=== PATIENT | female | born 1940 | race Caucasian/White ===

== ENCOUNTER 2020-12-01 09:30 | Outpatient (RCR) | payer MEDICARE, SELFPAY ==
[2020-08-04 08:54] VITALS: BP 122/74; PULSE 69; RESP 16; TEMP 36.4; O2SAT 96
--- NOTE | 2020-08-15 09:51 | PCCPR ---
Absent today, not feeling well.
== END 2020-12-01 23:59 | disposition home or self-care (01) ==
LOC: ANHCPREHAB 09:30
PROVIDERS: PCP Internal Medicine
DX: J44.9 Chronic obstructive pulmonary disease, unspecified (principal)
CPT/HCPCS: 97150; G0424

== ENCOUNTER 2020-12-05 09:46 | Outpatient (RCR) | payer MEDICARE, SELFPAY ==
[2020-12-03 00:04] VITALS: BP 122/74; PULSE 69; RESP 16; TEMP 36.4; O2SAT 96
== END 2020-12-05 16:30 | disposition home or self-care (01) ==
LOC: ANHCPREHAB 09:46
PROVIDERS: PCP Internal Medicine
DX: J44.9 Chronic obstructive pulmonary disease, unspecified (principal)
CPT/HCPCS: 97150; G0424

== ENCOUNTER 2020-12-18 08:22 | Outpatient (CLI) | payer MEDICARE, SELFPAY ==
--- NOTE | 2020-12-18 15:11 | WPDSIXMINUTE ---
Six Minute Walk Procedure Procedure Performed Pulmonary Stress Test (6 min walk) Six Minute Walk This is a 6 minute walk test. The test was performed and interpreted in accordance with the 2014 ERS/ATS task force guidelines. Findings: The patient's resting room air oxygen saturation measured by pulse oximetry was 94% and her heart rate was 56 bpm. Patient ambulated for 366 meters and oxygen saturation remained 90 to 94%. Heart rate at the end of the study was 75 bpm. The patient did not qualify for supplemental oxygen at rest or with ambulation. There are no prior studies for comparison.
== END 2020-12-18 08:23 | disposition home or self-care (01) ==
PROVIDERS: PCP Internal Medicine
DX: J44.9 Chronic obstructive pulmonary disease, unspecified (principal)
CPT/HCPCS: 94375; 94618; 94726; 94729

== ENCOUNTER → 2021-03-14 13:07 | Outpatient (CLI) | payer MEDICARE, SELFPAY ==
--- NOTE | ~2021-03-14 | DEXA_ITS ---
Bone Density Report Name: JOVON MENDOZA Age: 81 Sex: Female Ethnicity: White Date of : 1940 Indication: postmenopausal; screening for osteoporosis; prior fracture; Referring Provider: Nathanael, Nicolas Romero Study: Bone densitometry was performed. Exam Date: March 14, 2021 Accession number: [id number] Bone Density: Region BMD T-score Z-score Classification AP Spine (L1-L4) 1.043 0.0 2.6 Normal Femoral Neck (Left) 0.787 -0.6 1.7 Normal Total Hip (Left) 1.001 0.5 2.5 Normal Femoral Neck (Right) 0.817 -0.3 2.0 Normal Total Hip (Right) 1.013 0.6 2.6 Normal Total Hip Mean 1.007 0.6 2.6 Normal World Health Organization criteria for BMD impression classify patients as: Normal (T-score at or above -1.0), Osteopenia (T-score between -1.0 and -2.5), or Osteoporosis (T-score at or below -2.5). 10-year Fracture Risk: FRAX not reported because: All T-scores for Spine Total, Hip Total, Femoral Neck at or above -1.0 Previous Exams: Region Exam Age BMD T-score BMD Change BMD Change Date g/cm2 vs Baseline vs Previous AP Spine(L1-L4) 03/14/2021 81 1.043 0.0 0.086 0.086 01/25/2004 63 0.957 -0.8 Total Hip(Left) 03/14/2021 81 1.001 0.5 -0.005 -0.005 01/25/2004 63 1.005 0.5 Total Hip(Right) 03/14/2021 81 1.013 0.6 -0.006 -0.006 01/25/2004 63 1.019 0.6 *Denotes significance at 95% confidence level, LSC for AP Spine = 0.022 g/cm2, LSC for Total Hip = 0.027 g/cm2 Clinical Information Provided by Patient: Has had a low trauma fracture Patient maximum height was 65.5 Menopause Age: 54 No regular weight bearing exercise Does not regularly consume dairy products Drinks caffeinated beverages Onset of menses at age 11 Number of children 0 Impression: The patient has normal bone mass. The patient has risk factors, including: previous fracture. No significant bone loss was observed. Discussion: BONE DENSITY IS ABOVE THE MINIMUM DESIRABLE LEVEL AT ALL SKELETAL SITES TESTED. This patient?s bone mineral density is above the minimum desirable level (T-score -1.0 or better) at all sites measured. The patient should follow a healthful lifestyle (good nutrition with adequate calcium and vitamin D, and appropriate weight-bearing exercise). Follow-Up: Consider repeating this study in 5 years or sooner if there is some new clinical indication. Reported by: GEOFFREY on 03/14/2021 1:26:0
== END ==
PROVIDERS: PCP Internal Medicine; Visit Provider Internal Medicine
DX: Z78.0 Asymptomatic menopausal state (principal)
CPT/HCPCS: 77080

== ENCOUNTER 2021-09-11 11:20 | Outpatient (CLI) | payer MEDICARE, SELFPAY ==
--- NOTE | ~2021-09-11 | US_ITS ---
EXAMINATION: US venous doppler LE RT DATE: 09/11/2021 12:09 INDICATION: Right lower limb pain. TECHNIQUE: Grayscale ultrasound images without and with compression and Doppler ultrasound images of the right lower extremity veins were obtained. COMPARISON: None. FINDINGS: The visualized portions of right common femoral vein, profunda (deep) femoral vein, femoral vein, pop liteal vein, peroneal veins, posterior tibial veins, and greater saphenous vein outflow are patent. T here is a 2.5 x 0.5 x 1.2 cm fluid collection lateral to the knee. IMPRESSION: 1. No deep venous thrombosis. 2. Small fluid collection lateral to the knee that may be bursitis. Reviewed, dictated and finalized at location A.
== END 2021-09-11 11:21 | disposition home or self-care (01) ==
PROVIDERS: PCP Internal Medicine; Visit Provider Nurse Practitioner
DX: M79.89 Other specified soft tissue disorders (principal); M25.561 Pain in right knee
CPT/HCPCS: 93971

== ENCOUNTER 2024-05-12 21:21 | Emergency (ER) | payer MEDICARE, SELFPAY ==
[2024-05-12 21:22] VITALS: BP 192/86; PULSE 85; RESP 20; TEMP 36.4; O2SAT 96
[2024-05-12 21:29] VITALS: BP 192/86; PULSE 84; RESP 19; TEMP 36.4; O2SAT 95
--- NOTE | 2024-05-12 21:29 | ECG_ITS ---
Test Date: 2024-05-12 21:32:36 Measurements Intervals Holman Rate: 97 P: -87 IA: 179 QRS: -39 QRSD: 86 T: 130 QT: 298 QTc: 380 Interpretive Statements ECTOPIC ATRIAL RHYTHM WITH FREQUENT VENTRICULAR PREMATURE COMPLEXES WITH OCCASIONAL SUPRAVENTRICULAR PREMATURE COMPLEXES MARKED LEFT AXIS DEVIATION [QRS AXIS < -30] LEFT VENTRICULAR HYPERTROPHY AND ST-T CHANGE [VOLTAGE CRITERIA PLUS ST/T ABNORMALITY] No previous ECG available for comparison Electronically Signed On 05-13-2024 14:05:10 CDT by Malachi Griffiths M.D.
--- OUTSIDE RECORDS SUMMARY | 2024-05-12 22:34 | XMS_ITS | CONTINUITY OF CARE DOCUMENT ---
Author Name nina, nina Address Unknown Organization [facility] Address [address] [place] [address] Phone [phone] Care Team Providers Care Glass Finisher Name Role Phone Wil Wilson MD Unavailable [phone] LAKESHIA HOGAN MD Unavailable PROBLEMS Condition Status Date Provider Notes Abnormal electrocardiogram active Ashia maravilla Paroxysmal atrial fibrillation active Idania Rios MD HTN active Farhana Rios MD back pain active Farhana Rios MD Carotid bruit active Farhana Rios MD ENCOUNTERS Date Type Provider Location Encounter Diag nosis - In-person encounter Office Visit Farhana Rios MD [facility] Paroxysmal atrial fibrillationHTNback painCarotid bruit VITAL SIGNS Date Observation Value Provider blood pressure, diastolic 79 mm[Hg] Me meg Kwong blood pressure, systolic 201 mm[Hg] Nohemi Kwong pulse rate 62 /min Janessa Kwong oxygen saturation, oximetry 98 % Janessa Kwong respiratory rate E&M 16 /min Janessa Kwong Body Mass Index (Ratio) 35.36 kg/m2 Nina Kwong weight E&M 206 [lb_av] Janessa Varghese height E&M 64 [in_i] Janessa Varghese ALLERGIES No Known Drug Allergies HISTORY OF MEDICATION USE Medication Status Instructions Dates Provider Indications Com ments ALEVE 220 MG ORAL TABLET active as directed as needed Janessa Kwong PROAIR HFA 108 (90 Base) MCG/ACT INHALATION AEROSOL SOLUTION active 2 puffs every 4-6 hours Janessa Kwong ASPIRIN 325 MG ORAL TABLET active ONE TAB. DAILY Janessa Kwong QUINAPRIL HCL 40 MG ORAL TABLET active twice daily Janessa Kwong METOPROLOL TARTRATE 50 MG ORAL TABLET active one tab. twice daily Janessa Kwong CARTIA XT 120 MG ORAL CAPSULE EXTENDED RELEASE 24 HOUR active once daily Janessa Kwong SOCIAL HISTORY Date Observation Value Provider smoking status Former smoker Farhana rai MD social history E&M S moking History: Vanda arnett is a former smoker. Farhana Rios MD social history reviewed E&M revi ewed - no changes required Farhana Rios MD smoking, year quit 2011 Janessa Levy cCann FAMILY HISTORY Family Member Condition Mother Negative FH of Coron jaswinder Artery Disease INSURANCE PROVIDERS Payer name Policy type / Coverage type [place] red libertarian ID [employer] MEDICARE ADVANTAGE [facility] ([facility]) Medicare [id number] TREATMENT PLAN Date Name Performer Cardiology:She is awaiting a car otid doppler. Farhana Rios MD Cardiology:Following surgery. Rene Rios MD Cardiology:Her BP to day was elevated, she is on mutliple medications for BP control, and her BP will be monitored and doses will be adjusted. Farhana Rios MD Cardiology:No recurr ence of symptoms or of palpitations and remains in sinus rhythm. She is on metoprolol 50 mg twice daily and cartia xl 120 mg once daily. She is not on anticoagulation. She continues on aspirin once daily. Her CHADS score is 2. If there is recurrence she will be on chcf anticoagulation. She is planned to have surgery and her recent stress test shows normal perfusion. She can undergo surgery at an acceptable risk. Farhana Rios MD HISTORY OF PROCEDURES Procedure Date Procedure Name Provider Procedure Notes S tatus EKG Farhana Rios MD complet ed SNOMED-CT: [id number] Current Medications Documented Farhana Rios MD completed Stress EKG Farhana Rios MD complet ed Regadenoson, 4 units Farhana Rios MD completed Cardiolite, 2 units Farhana Rios MD completed SPECT Images Farhana Rios MD compl eted Event Monitor Farhana Rios MD comp leted
[2024-05-12 22:36] LABS: Basophils Absolute Auto 0.1 K/mm3 (0.0-0.1); Basophils Percent Auto 0.6 % (0.2-1.2); Eosinophils Absolute Auto 0.2 K/mm3 (0-0.3); Eosinophils Percent Auto 1.6 % (0-4.4); Hematocrit 40.9 % (37.0-47.0); Hemoglobin 13.5 g/dL (12.0-15.0); Immature Granulocyte Absolute 0.06 K/mm3 (0.00-0.031); Immature Granulocyte Percent A 0.5 % (0-0.5); Lymphocytes Percent Auto 14.9 % (18.3-44.2); Mean Corpuscular Hemoglobin 29.6 pg (26-34); Mean Corpuscular Volume 89.7 fl (80-100); Mean Platelet Volume 9.4 fl (7.4-10.4); Monocytes Percent Auto 7.8 % (2.6-8.5); Neutrophils Absolute Auto 9.5 K/mm3 (1.3-6.7); Neutrophils Percent Auto 74.6 % (45.5-73.1); Platelet Count Result 306 k/mm3 (150-375); Red Blood Count 4.56 M/mm3 (4.2-5.4); Red Cell Distribution Width 13.6 % (11.5-14.5); White Blood Count 12.7 K/mm3 (4.5-10.0)
[2024-05-12 22:48] LABS: Alanine Aminotransferase 18 U/L (6-35); Alkaline Phosphatase 173 U/L (38-126); Anion Gap 11 mmol/L (4-12); Aspartate Amino Transferase 27 U/L (14-36); Bilirubin,Total 0.3 mg/dL (0.2-1.3); Blood Urea Nitrogen 25 mg/dL (7-17); Calcium 9.1 mg/dL (8.4-10.2); Carbon Dioxide 27 mmol/L (22-30); Chloride 98 mmol/L (98-107); Estimated CRCL calculation 39 ml/min; Estimated Glomerular Filt Rate 51; Glucose 118 mg/dL (65-110); Magnesium 1.6 mg/dL (1.6-2.3); Potassium 3.8 mmol/L (3.4-5.0); Sodium 136 mmol/L (137-145)
[2024-05-12] MEDS: MECLIZINE HCL 25 MG TABLET PO (23:18)
[2024-05-12] MEDS: ONDANSETRON INJ 4 MG/2 ML VIAL IV PUSH (23:18)
[2024-05-12 23:22] VITALS: BP 184/67; PULSE 104; RESP 20; O2SAT 95
--- NOTE | 2024-05-12 23:55 | ED_ITS ---
HPI - Dizziness General Chief Complaint: Dizziness Stated Complaint: DIZZINESS, WORSE WITH MOVEMENT Time Seen by Provider: 05/12/24 21:58 History of Present Illness HPI Narrative: Patient is an 84-year-old female who presents the emergency department this evening complaining of dizziness which is worse with movement. Patient states that if she does not move she does not have any dizziness but the moment she gets up, started walking or moving her head she feels the dizziness. Denies any history of vertigo as far as she is aware. Is currently denying any lightheadedness, near syncopal episodes, chest pain, shortness of breath, nausea vomiting or abdominal pain. No additional symptoms or concerns at this time. Related Data Home Medications ?Medication ?Instructions ?Recorded ?Confirmed ?Last Taken ?Type aspirin 325 mg tablet 325 mg PO DAILY 12/14/19 11/20/21 08/04/20 History 325 chlorthalidone 25 mg tablet 25 mg PO DAILY 12/14/19 11/20/21 08/04/20 History 25 diltiazem HCl 120 mg 120 mg PO DAILY 12/14/19 11/20/21 08/04/20 History capsule,extended release 24 hr 120 (Cartia XT) hydralazine 50 mg tablet 50 mg PO BID 12/14/19 11/20/21 08/04/20 History lisinopril 40 mg tablet 40 mg PO DAILY 12/14/19 11/20/21 08/04/20 History 40 metoprolol tartrate 100 mg tablet 100 mg PO Q12H 12/14/19 11/20/21 08/04/20 History 100 acetaminophen 500 mg tablet 500 mg PO Q6H PRN 10/10/21 11/20/21 Unknown History (Tylenol Extra Strength) calcium carbonate (Calcium 600) 600 mg PO DAILY 11/20/21 11/20/21 Unknown History diphenhydramine 25 1 tablet PO QHS PRN 11/20/21 11/20/21 Unknown History mg-acetaminophen 500 mg tablet (Tylenol PM Extra Strength) Allergies Allergy/AdvReac Type Severity Reaction Status Date / Time oxycodone Allergy Mild condusion, Verified 11/20/21 09:31 difficulty concentrating amoxicillin AdvReac Intermediate Diarrhea Verified 11/20/21 09:31 prednisone AdvReac Mild Confusion Verified 11/20/21 09:31 Review of Systems 2 Review of Systems: All systems are reviewed and are negative unless stated otherwise in the HPI. [facility] Past Medical History Medical History Afib IBS (irritable bowel syndrome) Hypertension COPD (chronic obstructive pulmonary disease) Family History Family History Father Stomach cancer Mother Osteoporosis Social History Social History Smoking packs per day: 0.5 Smoking cigarettes per day: 10.0 Smoking status: Former smoker Tobacco type: cigarettes Smoking end date: 03/03/11 Alcohol intake: never Substance use: never Living arrangements: alone Exam 2 Narrative: General: Alert, awake, afebrile, in no acute distress. HEENT: PERRL, no rhinorrhea, no post nasal drip, oropharynx clear, no nystagmus. Neck: Trachea midline, no JVD, no lymphadenopathy. Cardiovascular: Regular rate and rhythm, no murmurs, rubs or gallops, no peripheral edema. Respiratory: Clear to auscultation bilaterally, no tachypnea, no wheezing, no rhonchi, no rubs, no respiratory distress. Abdomen: Soft, nontender, nondistended, no rebound, no guarding, no peritoneal signs. Musculoskeletal: No joint swelling or deformity, normal muscle tone. Skin: No rashes or petechia, no signs of infection. Psychiatric: Alert and oriented, normal behavior and judgment for situation. Neurological: Alert and oriented to person, place, and time. Follows all commands. No focal deficits, speech is clear and fluent. Course Vital Signs Vital signs: Vital Signs Temperature 97.6 F 05/12/24 21:22 Pulse Rate 85 05/12/24 21:22 Respiratory Rate 20 05/12/24 21:22 Blood Pressure 192/86 H 05/12/24 21:22 Pulse Oximetry 96 05/12/24 21:22 Oxygen Delivery Room Air 05/12/24 21:22 Temperature 97.6 F 05/12/24 21:29 Pulse Rate 104 H 05/12/24 23:22 Respiratory Rate 20 05/12/24 23:22 Blood Pressure 184/67 H 05/12/24 23:22 Pulse Oximetry 95 05/12/24 23:22 Oxygen Delivery Room Air 05/12/24 21:22 MDM - Dizziness MDM Narrative Medical decision making narrative: The patient was evaluated by myself in the emergency department. History is obtained from patient who is an independent historian and physical exam was performed. External medical records were reviewed at this time. IV was established and pertinent tests were ordered. Patient was administered 4 mg IV Zofran for nausea and 25 mg of oral meclizine for vertigo. EKG was obtained which revealed ectopic atrial rhythm rate of 97 beats per minute, no evidence of acute ischemia. EKG was independently interpreted by me and is currently pending official cardiology read. Laboratory results obtained revealing no acute process. Differential diagnosis considerations include benign positional vertigo, posterior stroke, dehydration, orthostatic hypotension. Comorbidities impacting this visit include none. I have evaluated and discussed social determinants of health with the patient that could potentially impact subsequent diagnosis and treatment plans. On repeat assessment of the patient, reevaluation revealed that the patient is doing well and is in no acute distress. Patient symptoms have improved since she arrived to our emergency department. Repeat vital signs were all reviewed and noted to be stable. Differential diagnosis and treatment plan were discussed with the patient at bedside. Patient agrees with discussion and after shared medical decision making agrees with discharge. All questions were answered to the patient's satisfaction. Patient will follow up with her PCP in 3-5 days. Script for meclizine was sent to patient's pharmacy to use as needed for vertigo, script for Zofran was also sent to patient's pharmacy to use as needed for nausea. Patient was provided with an ENT physician to follow up with if her symptoms return. Patient was provided with strict return precautions and instructed to return to the emergency department if any new or worsening symptoms develop. The patient was discharged in stable condition. Lab Data 05/12/24 22:24 05/12/24 22:24 Labs: Lab Results 05/12/24 Range/Units 22:24 WBC 12.7 H (4.5-10.0) K/mm3 RBC 4.56 (4.2-5.4) M/mm3 Hgb 13.5 (12.0-15.0) g/dL Hct 40.9 (37.0-47.0) % MCV 89.7 (80-100) fl MCH 29.6 (26-34) pg MCHC 33.0 (32-36) g/dl RDW 13.6 (11.5-14.5) % Plt Count 306 (150-375) k/mm3 MPV 9.4 (7.4-10.4) fl Immature Gran % (Auto) 0.5 (0-0.5) % Neut % (Auto) 74.6 H (45.5-73.1) % Lymph % (Auto) 14.9 L (18.3-44.2) % Mckenzie % (Auto) 7.8 (2.6-8.5) % Eos % (Auto) 1.6 (0-4.4) % Baso % (Auto) 0.6 (0.2-1.2) % Lymph # (Auto) 1.90 (0.9-3.2) K/mm3 Mckenzie # (Auto) 1.0 H (0.1-0.6) K/mm3 Eos # (Auto) 0.2 (0-0.3) K/mm3 Baso # (Auto) 0.1 (0.0-0.1) K/mm3 Abs Immat Gran (auto) 0.06 H (0.00-0.031) K/mm3 Absolute Neuts (auto) 9.5 H (1.3-6.7) K/mm3 Absolute Nucleated RBC 0.000 (0.0-0.012) K/mm3 Nucleated RBC % 0.0 (0.0-0.2) % Sodium 136 L (137-145) mmol/L Potassium 3.8 (3.4-5.0) mmol/L Chloride 98 (98-107) mmol/L Carbon Dioxide 27 (22-30) mmol/L Anion Gap 11 (4-12) mmol/L BUN 25 H (7-17) mg/dL Creatinine 1.04 H (0.7-1.0) mg/dL Estim Creat Clear Calc 39 ml/min Estimated GFR 51 L (59 - ) Glucose 118 H (65-110) mg/dL Calcium 9.1 (8.4-10.2) mg/dL Magnesium 1.6 (1.6-2.3) mg/dL Total Bilirubin 0.3 (0.2-1.3) mg/dL AST 27 (14-36) U/L ALT 18 (6-35) U/L Alkaline Phosphatase 173 H (38-126) U/L Total Protein 7.0 (6.3-8.2) g/dL Albumin 4.0 (3.5-5.1) g/dL Discharge Plan Discharge Clinical Impression: Benign paroxysmal positional vertigo Patient Disposition: Home, Self-Care Condition: Improved Instructions: Antibiotic Form, Benign Paroxysmal Positional Vertigo (ED) Additional Instructions: Please follow-up with your family doctor within the next 3-5 days. Return to the emergency department if any new or worsening symptoms develop. Use the meclizine that was prescribed to you today as needed for vertigo. You also provided with an ENT physician and instructed to this set up a follow-up appointment if your symptoms returned. Patient Language: Uzbek Prescriptions: New meclizine 25 mg tablet 25 mg PO BID PRN (Reason: dizziness) Qty: 14 0RF ondansetron 4 mg tablet,disintegrating 4 mg PO Q8H PRN (Reason: nausea and vomiting) Qty: 10 0RF No Action acetaminophen [Tylenol Extra Strength] 500 mg tablet 500 mg PO Q6H PRN calcium carbonate [Calcium 600] 600 mg calcium (1,500 mg) tablet 600 mg PO DAILY diphenhydramine-acetaminophen [Tylenol PM Extra Strength] 25-500 mg tablet 1 tablet PO QHS PRN hydralazine 50 mg tablet 50 mg PO BID metoprolol tartrate 100 mg tablet 100 mg PO Q12H lisinopril 40 mg tablet 40 mg PO DAILY diltiazem HCl [Cartia XT] 120 mg capsule,extended release 24hr 120 mg PO DAILY chlorthalidone 25 mg tablet 25 mg PO DAILY aspirin 325 mg tablet 325 mg PO DAILY Follow-up/Referrals: Santhosh Linton MD [Physician] - 3 Days Nathanael,Nicolas Romero MD [Primary Care Provider] - 3 Days Time of Disposition: 00:36
== END 2024-05-13 01:15 | disposition home or self-care (01) ==
PROVIDERS: Emergency Provider Emergency Medicine; PCP Internal Medicine
DX: H81.10 Benign paroxysmal vertigo, unspecified ear (principal); I48.91 Unspecified atrial fibrillation; I10 Essential (primary) hypertension; J44.9 Chronic obstructive pulmonary disease, unspecified; K58.9 Irritable bowel syndrome, unspecified; Z87.891 Personal history of nicotine dependence; Z79.82 Long term (current) use of aspirin; Z79.899 Other long term (current) drug therapy; I49.3 Ventricular premature depolarization; I49.1 Atrial premature depolarization; I51.7 Cardiomegaly
CPT/HCPCS: 36415; 80053; 83735; 85025; 93005; 96374; 99284; A9270; J2405

== ENCOUNTER 2024-06-09 09:48 | Emergency (ER) | payer MEDICARE, SELFPAY ==
[2024-06-09] VITALS (7 sets, daily range): BP systolic 139–190; BP diastolic 62–93; PULSE 72–100; RESP 17–21; TEMP 36.4; O2SAT 96–99
--- NOTE | ~2024-06-09 | CT_ITS ---
CLINICAL INDICATION: Shortness of breath with abdominal tenderness COMPARISON: None. TECHNIQUE: An enhanced CT of the chest, abdomen and pelvis was performed utilizing multislice spiral technique reconstructed at 5 mm slice thickness. Coronal and sagittal reconstructions were performed . This CT examination was performed utilizing dose reduction techniques. DLP: 1457 mGy-cm FINDINGS/OBSERVATIONS: Lung: The lungs are clear. The heart is enlarged, without pericardial effusion. Mediastinum: Scattered nonpathologically enlarged or morphologically suspicious lymph nodes are identified within the mediastinum. Lymph nodes of indeterminate morphology (although not pathologically enlarged) are detected within th e left axilla, a nonspecific finding. Soft tissues of the chest: Unremarkable. Bones of the chest: No acute fracture. No lytic or blastic lesions are identified. Liver: The liver enhances homogeneously and is not enlarged. Gallbladder and biliary system: The gallbladder is distended, but otherwise unremarkable. Pancreas: The pancreas enhances homogeneously, without ductal dilatation. Spleen: The spleen enhances homogeneously and is not enlarged. Kidneys: Multiple rounded foci of fluid attenuation are identified within the bilateral kidneys, righ t greater than left. These likely represent cysts for which ultrasound may be performed for confirmation. Prominence of the right renal collecting system without hydroureter, likely secondary to chronic UPJ obstruction. The remainder of the bilateral kidneys otherwise enhance symmetrically without dana hydronephrosis o r renal calculi. Adrenal glands: Unremarkable. Gastrointestinal tract: Small hiatal hernia is present. Colonic diverticulosis without surrounding inflammatory change. Appendix: The air-filled appendix is of normal caliber (axial series, images 167 through 189). Vasculature: Densely calcified atherosclerotic disease is present. No significant aneurysmal dilatation. Lymph nodes: Scattered nonpathologically enlarged lymph nodes within the root of the mesentery and deep in the pel vis. Within the retroperitoneum, medial to the right common iliac artery bifurcation is a well-circumscrib ed focus of fluid attenuation measuring 25 x 23 x 31 mm. This possibly represents a mesenteric cyst v ersus a high right ovary, not likely to be clinically significant. Pelvic structures: The bladder is distended and otherwise unremarkable. The uterus is anteverted and anteflexed. Bulky calcifications are present suggesting prior fibroid disease. Body wall and musculoskeletal: Small fat-containing umbilical hernia. Age-appropriate degenerative disease within the lumbar spine. IMPRESSION: Gallbladder distention. The lungs are clear. Findings suggesting chronic right UPJ obstruction. Diverticulosis without surrounding inflammatory change. Reviewed, dictated and finalized at location A.
--- NOTE | ~2024-06-09 | XR_ITS ---
CHEST RADIOGRAPH, PA AND LATERAL CLINICAL HISTORY: shortness of breath . COMPARISON: None available TECHNIQUE: PA and lateral views of the chest. FINDINGS The left mid lung is partially obscured due to pacemaker generator. Wires project over the right atrium and right ventricle. The remainder of the cardiomediastinal silhouette is otherwise unremarkable. The lungs are otherwise clear. IMPRESSION: No focal infiltrate or effusion. Reviewed, dictated and finalized at location A.
--- NOTE | 2024-06-09 10:10 | ECG_ITS ---
Test Date: 2024-06-09 11:03:16 Measurements Intervals Superior Rate: 81 P: 0 IL: 0 QRS: -35 QRSD: 98 T: 152 QT: 362 QTc: 422 Interpretive Statements ELECTRONIC VENTRICULAR PACEMAKER WITH INHIBITION UNDERLYING ATRIAL FIBRILLATION LEFT AXIS DEVIATION LEFT VENTRICULAR HYPERTROPHY WITH ST-T CHANGE ST-T WAVE ABNORMALITY IN ANTEROLATERAL LEADS- CONSIDER ISCHEMIA BASELINE ARTIFACT- I, II, III, AVR, AVL, AVF, V1-V3 ABNORMAL ECG Compared to ECG 05/12/2024 21:32:36 ST-T WAVE ABNORMALITY NOW PRESENT POSSIBLE ISCHEMIA NOW PRESENT Electronically Signed On 06-09-2024 11:12:50 CDT by Osmar Yost D.O.
--- NOTE | 2024-06-09 10:12 | ED_ITS ---
HPI - SOB/Dyspnea General Chief Complaint: Shortness of Breath/Dyspnea Stated Complaint: sent from [facility] - SOB/UTI Time Seen by Provider: 06/09/24 10:00 History of Present Illness HPI Narrative: Patient is an 84-year-old female who presents to the ER with complaints of shortness of breath for the past week and half. She reports that she had vertigo approximately a month ago but her symptoms resolved. Patient also endorses exhaustion for the past week and a half. She endorses a history of AFib, hypertension, COPD, arthritis, pacemaker. Patient denies any CVA tenderness, recent fevers, chest pain, headache. Related Data Home Medications ?Medication ?Instructions ?Recorded ?Confirmed ?Last Taken ?Type aspirin 325 mg tablet 325 mg PO DAILY 12/14/19 11/20/21 08/04/20 History 325 chlorthalidone 25 mg tablet 25 mg PO DAILY 12/14/19 11/20/21 08/04/20 History 25 diltiazem HCl 120 mg 120 mg PO DAILY 12/14/19 11/20/21 08/04/20 History capsule,extended release 24 hr 120 (Cartia XT) hydralazine 50 mg tablet 50 mg PO BID 12/14/19 11/20/21 08/04/20 History lisinopril 40 mg tablet 40 mg PO DAILY 12/14/19 11/20/21 08/04/20 History 40 metoprolol tartrate 100 mg tablet 100 mg PO Q12H 12/14/19 11/20/21 08/04/20 History 100 acetaminophen 500 mg tablet 500 mg PO Q6H PRN 10/10/21 11/20/21 Unknown History (Tylenol Extra Strength) calcium carbonate (Calcium 600) 600 mg PO DAILY 11/20/21 11/20/21 Unknown History diphenhydramine 25 1 tablet PO QHS PRN 11/20/21 11/20/21 Unknown History mg-acetaminophen 500 mg tablet (Tylenol PM Extra Strength) Allergies Allergy/AdvReac Type Severity Reaction Status Date / Time oxycodone Allergy Mild condusion, Verified 11/20/21 09:31 difficulty concentrating amoxicillin AdvReac Intermediate Diarrhea Verified 11/20/21 09:31 prednisone AdvReac Mild Confusion Verified 11/20/21 09:31 2 Chest X-Ray 06/09/24 Review of Systems 2 Review of Systems: All systems reviewed & are unremarkable except as noted in HPI and below PMFSH Past Medical History Medical History Afib IBS (irritable bowel syndrome) Hypertension COPD (chronic obstructive pulmonary disease) Family History Family History Father Stomach cancer Mother Osteoporosis Social History Social History Smoking packs per day: 0.5 Smoking cigarettes per day: 10.0 Smoking status: Former smoker Tobacco type: cigarettes Smoking end date: 03/03/11 Alcohol intake: never Substance use: never Living arrangements: alone Exam 2 Narrative: GENERAL: Well appearing, well-nourished, non-toxic, in no acute distress. HEAD: Normocephalic, atraumatic. NECK: Supple. No adenopathy, no masses. RESPIRATORY: Airway patent, respirations nonlabored. Clear to auscultation bilaterally, no rales, rhonchi, wheezing. CARDIOVASCULAR: Regular rate and rhythm without murmurs, rubs, or gallops. Peripheral pulses 2+ and equal bilaterally.Mild bilateral edema. ABDOMINAL: Soft, RUQ tender with palpation, nondistended, no hepatosplenomegaly. Normoactive BS. MUSCULOSKELETAL: Moves all extremities. Strength/ROM intact without gross deformities. SKIN: Warm, dry, normal color. No rashes. NEURO: A&O X3. Speech clear. Cranial nerves II-XII intact. No ataxic movements. PSYCHIATRIC: Appropriate mood and affect. Normal interaction. Course Vital Signs Vital signs: Vital Signs Temperature 36.4 C 06/09/24 09:58 Pulse Rate 100 06/09/24 09:58 Respiratory Rate 18 06/09/24 09:58 Blood Pressure 171/89 H 06/09/24 09:58 Pulse Oximetry 98 06/09/24 09:58 Oxygen Delivery Room Air 06/09/24 09:58 Temperature 36.4 C 06/09/24 09:58 Pulse Rate 100 06/09/24 09:58 Respiratory Rate 18 06/09/24 09:58 Blood Pressure 171/89 H 06/09/24 09:58 Pulse Oximetry 99 06/09/24 09:58 Oxygen Delivery Room Air 06/09/24 09:58 MDM - SOB/Dyspnea MDM Narrative Medical decision making narrative: Patient is an 84-year-old female who presents to the ER with complaints of shortness of breath for the past week and half. She reports that she had vertigo approximately a month ago but her symptoms resolved. Patient also endorses exhaustion for the past week and a half. She endorses a history of AFib, hypertension, COPD, arthritis, pacemaker. Patient denies any CVA tenderness, recent fevers, chest pain, headache. Labs Ordered: CBC, CMP, proBNP, UA, INR, PTT, D-dimer, troponin Imaging Ordered: CT chest abdomen pelvis Medications Ordered: Bactrim p.o., Lasix 40 mg IV Results: Patient's CT scan indicates Gallbladder distention. The lungs are clear. Findings suggesting chronic right UPJ obstruction. Diverticulosis without surrounding inflammatory change. Diagnosis: Congestive heart failure exacerbation, urinary tract infection Patient Education/Shared MDM: Results of CT scan and lab work shared with patient. She endorses improvement following Lasix administration. Patient strongly advised to contact her PCP as soon as possible to see if he would like to make any medication changes. She will be discharged home with no new prescriptions, as her PCP already called in a prescription for Bactrim. Strict return precautions provided. Patient verbalized understanding is in agreement with plan. Vital signs stable at time of discharge. All questions answered. Differential Diagnosis Differential diagnosis: Likely acute exacerbation of chronic obstructive airways disease, congestive heart failure and community acquired pneumonia Lab Data Attestation: I reviewed the patient's lab results. 06/09/24 11:00 06/09/24 11:36 Labs: Lab Results 06/09/24 06/09/24 06/09/24 Range/Units 11:00 11:36 12:25 WBC 12.2 H (4.5-10.0) K/mm3 RBC 4.99 (4.2-5.4) M/mm3 Hgb 14.6 (12.0-15.0) g/dL Hct 44.1 (37.0-47.0) % MCV 88.4 (80-100) fl MCH 29.3 (26-34) pg MCHC 33.1 (32-36) g/dl RDW 13.6 (11.5-14.5) % Plt Count 367 (150-375) k/mm3 MPV 9.7 (7.4-10.4) fl Immature Gran % (Auto) 0.5 (0-0.5) % Neut % (Auto) 70.5 (45.5-73.1) % Lymph % (Auto) 18.6 (18.3-44.2) % [place] % (Auto) 8.2 (2.6-8.5) % Eos % (Auto) 1.5 (0-4.4) % Baso % (Auto) 0.7 (0.2-1.2) % Lymph # (Auto) 2.26 (0.9-3.2) K/mm3 [place] # (Auto) 1.0 H (0.1-0.6) K/mm3 Eos # (Auto) 0.2 (0-0.3) K/mm3 Baso # (Auto) 0.1 (0.0-0.1) K/mm3 Abs Immat Gran (auto) 0.06 H (0.00-0.031) K/mm3 Absolute Neuts (auto) 8.6 H (1.3-6.7) K/mm3 Absolute Nucleated RBC 0.000 (0.0-0.012) K/mm3 Nucleated RBC % 0.0 (0.0-0.2) % PT 18.5 H (11.1-14.7) Seconds INR 1.5 APTT 37.6 H (22.3-36.8) Seconds D-Dimer 0.41 (<0.48) ug/mL Sodium 139 (137-145) mmol/L Potassium 3.7 (3.4-5.0) mmol/L Chloride 100 (98-107) mmol/L Carbon Dioxide 28 (22-30) mmol/L Anion Gap 11 (4-12) mmol/L BUN 30 H (7-17) mg/dL Creatinine 1.05 H (0.7-1.0) mg/dL Estim Creat Clear Calc 40 ml/min Estimated GFR 50 L (59 - ) Glucose 113 H (65-110) mg/dL Calcium 9.9 (8.4-10.2) mg/dL Total Bilirubin 0.7 (0.2-1.3) mg/dL AST 34 (14-36) U/L ALT 20 (6-35) U/L Alkaline Phosphatase 124 (38-126) U/L NT-Pro-B Natriuret Pep 2000 H (19.9-100) pg/mL Total Protein 8.0 (6.3-8.2) g/dL Albumin 4.2 (3.5-5.1) g/dL Urine Color Yellow (Yellow) Urine Appearance Cloudy H (Clear) Urine pH 7.0 (5.0-9.0) Ur Specific [place] 1.011 (1.001-1.035) Urine Protein 1+ H (Negative) mg/dL Urine Glucose (UA) Negative (Negative) mg/dL Urine Ketones Negative (Negative) mg/dL Ur Blood (Man) Negative (Negative) Urine Nitrate Positive H (Negative) Urine Bilirubin Negative (Negative) Urine Urobilinogen 0.2 (<2.0) mg/dL Leukocyte Esterase Rfl Negative (Negative) ELEN/UL Urine RBC 3-5 H (0-2) /hpf Urine WBC 0-5 (0-3) /hpf Ur Squamous Epith Cells None seen (Few) /hpf Urine Bacteria 4+ /hpf Urine Casts 0-2 Imaging Data Attestation: I personally reviewed and interpreted this imaging study as follows: Radiologist's impression: Impressions Chest X-Ray 06/09/24 11:25 IMPRESSION: No focal infiltrate or effusion. Chest/Abdomen/Pelvis CT 06/09/24 12:58 IMPRESSION: Gallbladder distention. The lungs are clear. Findings suggesting chronic right UPJ obstruction. Diverticulosis without surrounding inflammatory change. Discharge Plan Discharge Clinical Impression: Urinary tract infection, Acute exacerbation of CHF (congestive heart failure), Congestive heart failure Patient Disposition: Home Condition: Stable Instructions: Antibiotic Form, Heart Failure (ED) Additional Instructions: Please return to the ER with any worsening symptoms. Follow-up with primary care provider as soon as possible regarding medication adjustments. Take all medications as prescribed, including regularly scheduled medications. Patient Language: Andorran Prescriptions: No Action acetaminophen [Tylenol Extra Strength] 500 mg tablet 500 mg PO Q6H PRN calcium carbonate [Calcium 600] 600 mg calcium (1,500 mg) tablet 600 mg PO DAILY diphenhydramine-acetaminophen [Tylenol PM Extra Strength] 25-500 mg tablet 1 tablet PO QHS PRN hydralazine 50 mg tablet 50 mg PO BID metoprolol tartrate 100 mg tablet 100 mg PO Q12H lisinopril 40 mg tablet 40 mg PO DAILY diltiazem HCl [Cartia XT] 120 mg capsule,extended release 24hr 120 mg PO DAILY chlorthalidone 25 mg tablet 25 mg PO DAILY aspirin 325 mg tablet 325 mg PO DAILY meclizine 25 mg tablet 25 mg PO BID PRN (Reason: dizziness) Qty: 14 0RF ondansetron 4 mg tablet,disintegrating 4 mg PO Q8H PRN (Reason: nausea and vomiting) Qty: 10 0RF Follow-up/Referrals: Nathanael,Nicolas Romero MD [Primary Care Provider] - Time of Disposition: 14:47
--- OUTSIDE RECORDS SUMMARY | 2024-06-09 10:58 | XMS_ITS | Clinical Summary ---
Author Organization [facility] Address [address] [place] [address] Care Team Providers Care Fill Technician Name Role Phone Nicolas Huffman MD Primary Care Provider [phone] Allergies Active Allergy Reactions Criticality Noted Date Comments Amoxicillin Diarrhea Low 06/14/2022 Oxycodone Mental status changes,Hallucinations High 11/25/2019 Prednisone Mental status changes,Hallucinations High 11/25/2019 Medications aspirin 325 mgIndications:Myoc ardial Reinfarction Prevention,prevent ion of thrombosis Take 1 tablet (325 mg total) by mouth production aide before breakfast qd Active albuterol HFA (PROVENTIL HFA,VENTOLIN HFA,PROAIR HFA) 90 mcg/actuation inhaler Inhale 1 puff every 4 (four) hours as needed for wheezing or shortness of breath Active psyllium, aspartame, SF (METAMUCIL SF) 3.4 gram packet Take 1 packet by mouth as needed Active acetaminophen (TYLENOL) 325 mg tabletIndications: Pain Take 2 tablets (650 mg total) by mouth every 4 (four) hours as needed for pain 06/13/19 24 Active Additional Information Patient not taking.Reported on 06/09/2024 hydrALAZINE (APRESOLINE) 50 mg tablet TAKE 1 TABLET BY MOUTH THREE TIMES DAILY 270 tablet 2 06/29/19 24 Active metoprolol (LOPRESSOR) 100 mg tablet TAKE 1 TABLET BY MOUTH TWICE DAILY 180 tablet 3 08/18/19 24 Active apixaban (Eliquis) 5 mg tablet TAKE 1 TABLET(5 MG) BY MOUTH TWICE DAILY 180 tablet 2 08/24/19 24 Active Tiadylt ER 180 mg 24 hr capsule Take 1 capsule (180 mg total) by mouth daily 90 capsule 3 01/15/20 24 Active potassium chloride ER 10 mEq CR capsule Take by mouth daily 02/18/20 24 Active furosemide (LASIX) 20 mg tablet Take 1 tablet (20 mg total) by mouth daily 02/18/20 24 Active ALPRAZolam (XANAX) 0.25 mg tablet TAKE 1 TABLET(0.25 MG) BY MOUTH THREE TIMES DAILY NEEDED FOR ANXIETY 30 tablet 1 03/24/19 25 Active chlorthalidone (HYGROTON) 25 mg tablet TAKE 1 TABLET(25 MG) BY MOUTH DAILY 90 tablet 2 04/21/19 25 Active diltiaZEM (CARDIZEM) 120 mg tablet Take 1 tablet (120 mg total) by mouth 4 (four) times a day Active sulfamethoxazole-t rimethoprim (BACTRIM DS) 800-160 mg per tablet Take 1 tablet by mouth 2 (two) times a day for 7 days 14 tablet 06/10/19 25 025 Active ondansetron ODT (ZOFRAN-ODT) 4 mg disintegrating tablet Take 1 tablet (4 mg total) by mouth every 8 (eight) hours as needed 05/14/19 25 025 Discontin ued(Thera py completed ) meclizine (ANTIVERT) 25 mg tablet Take 1 tablet (25 mg total) by mouth 2 (two) times a day 05/14/19 25 025 Discontin ued(Thera py completed ) Active Problems Problem Noted Date Diagnosed Date Chronic right shoulder pain 05/21/2024 Assessment & Plan (05/21/2024 11:08 AM CDT): Check x-ray. Non-ST elevation (NSTEMI) myocardial infarction 01/14/2024 Assessment & Plan (01/14/2024 11:58 AM CUTTER ALUMINUM SHEET): Long discussion today lasting more than 30 minutes concerning this. Will look for the present we will leave medication alone at this time. Will refer to cardiology here at [facility]. Will try to obtain her pacer data from Dr. Mcgee. I feel this may very well have been a type 2 myocardial infarction based on pneumonia which was diagnosed in the emergency room Cervicalgia 01/14/2024 Assessment & Plan (01/14/2024 11:57 AM CUTTER ALUMINUM SHEET): Check C-spine x-rays. A-fib 06/12/2023 Assessment & Plan (01/14/2024 11:58 AM CUTTER ALUMINUM SHEET): Per Dr. Mcgee Assessment & Plan (06/12/2023 3:24 PM CDT): Hx afib with RVR. Eliquis on hold since 06/08 for procedure. Monitors demonstrated burden of atrial arrhythmias recently. Heart rate range on last monitor 32 to 148, average of 81. 17% bradycardia. Resumed metoprolol per EP Eliquis on hold, plan to resume 72 hours post procedure per note (06/14 PM) Sinus pause 06/04/2023 S/P placement of cardiac pacemaker 06/04/2023 Assessment & Plan (06/13/2023 1:58 PM CDT): Pacemaker placement yesterday. Hx syncope, sinus arrest. Monitored overnight in 3500 OBS. CXR with no ptx, proper lead placement. Interrogation reviewed by EP. No apixaban for 72 hours. Discussed with pt. Verbalized understanding. Also discussed activity restrictions, monitoring, and reasons to call MD Follow up EP Pre-syncope 12/08/2022 Palpitations 12/08/2022 Near syncope 12/06/2022 Sinus bradycardia 12/06/2022 Near syncope 12/06/2022 Longstanding persistent atrial fibrillation 06/01 Assessment & Plan (05/21/2024 11:08 AM CDT): Followed by cardiology. Remains on atrial fibrillation. Assessment & Plan (06/10/2022 12:11 PM CDT): EKG demonstrated Afib today CHADS 2-VASC score 4, will initiate Eliquis 5mg BID (use, s/e, safety reviewed) ECHO 48 hour holter Cardiology referral Continue metoprolol Hypertensive urgency 03/09/2020 Assessment & Plan (05/21/2024 11:08 AM CDT): BP at target today. Assessment & Plan (06/13/2023 1:53 PM CDT): Blood pressure elevated to 220/86 post procedure. Missed AM meds today for procedure --Resume home hydralazine 50 TID, lisinopril 40, metoprolol 100 BID. Now BP improved Dyspnea on exertion Assessment & Plan (02/20/2024 9:35 AM CUTTER ALUMINUM SHEET): I feel this is most likely secondary to COPD. Possibly mild right heart strain. Will give furosemide and check BMP in 2 weeks. Most recent echo showed normal LV function. Moderate COPD (chronic obstr uctive pulmonary disease) ([facility]) Assessment & Plan (05/21/2024 11:08 AM CDT): Stable. Assessment & Plan (01/14/2024 11:57 AM CUTTER ALUMINUM SHEET): Stable at this time Resolved Problems Problem Noted Date Diagnosed Date Resolved Date History of surgical procedure 11/18/2016 06/10/2022 Left shoulder pain 12/04/2015 3 Encounters Date Type Department Care Team Description 06/09/2024 9:00 AM CDT Office Visit [facility] at [address] [address] Kaylen Mendoza PA Shortness of breath (Primary Dx) 06/09/2024 Orders Only [facility] [address] [place] [address] [address] [place] [address] Nicolas Huffman MD 05/25/2024 Results Follow-Up [facility] [address] [facility] [place] [address] Nicolas Huffman MD Osteoarthritis of right shoulder, unspecified osteoarthritis type (Primary Dx) 05/21/2024 11:19 AM CDT - 05/21/2024 11:59 PM CDT Hospital Encounter [facility] [address] [place] [address] Nicolas Huffman MD Chronic right shoulder pain Discharge Disposition: Discharge to home or self care 05/21/2024 10:15 AM CDT Office Visit [facility] [address] [facility] [address] [place] [address] Nicolas Huffman MD Longstanding persistent atrial fibrillation (HCC) (Primary Dx); Hypertensive urgency; Moderate COPD (chronic obstructive pulmonary disease) (CMS/HCC) (HCC); Chronic right shoulder pain 04/19/2024 Orders Only [facility] [address] [place] [address] Medical Office [address] [place] [address] Fabby Mcgee MD from Last 3 Months Immunizations Immunization Administration Dates Next Due Influenza, Quad, Adjuvantated, Intramuscular 08/2021,12/27/2020 Influenza, Quadrivalent, Hig h Dose, Preservative Free, Intrr 12/10/2022 Influenza, Trivalent, High D ose, Split, Preservative Free, Intramuscular 12/02/2023 Influenza, Unspecified 11/02/2023,12/10/2022 Moderna SARS-CoV-2 Monovalent Vaccination (12+ Y RS) 05/09/2020,04/11/2020 Pneumococcal Conjugate Pcv20 10/10/2022 RSV, Bivalent, Protein Subun it Rsvpref, Diluent (Abrysvo) 01/06/2023 ZOSTER Recombinant 12/02/2023,10/10/2022 Surgical History Surgery Date Site/Laterality Comments COLONOSCOPY 10/07/2012 TOTAL SHOULDER REPLACEMENT 11/02/2015 - 12/01/2015 DENTAL SURGERY OTHER SURGICAL HISTORY 12/01/2022 - 12/31/2022 IMPLANTABLE CARDIAC EVENT MONITOR Medical History Medical History Date Comments High blood pressure Anxiety Coronary artery disease Family History Medical History Relation Name Comments Stomach cancer Father Osteoporosis Mother Anesthesia problems Neg Hx Relation Name Status Comments Father Mother Social History Tobacco Use Types Packs/Day Years Used Date Smoking Tobacco: Former Cigarettes Q uit: 2010 Smokeless Tobacco: Never Tobacco Cessation:Counseling Given: Not Answered Alcohol Use Standard Drinks/Week Comments Not Currently 0 (1 standard drink = 0.6 oz pur e alcohol) AUDIT-C Answer Date Recorded Q1: How often do you have a drink containing alcohol? Never 06/12/2023 Q2: How many drinks containi ng alcohol do you have on a typical day when you are drinking? Patient does not drink Q3: How often do you have si x or more drinks on one occasion? Never 06/12/2023 Personal Safety Answer Date Recorded Have you ever been in or are you currently in a harmful physical or emotional relationship or is someone making you feel afraid or unsafe? Denies 06/12/2023 Comments No Sex and Gender Information Value Date Recorded Sex Assigned at Not on file Legal Sex Female 11:21 AM CUTTER ALUMINUM SHEET Gender Identity Female 11/24/2020 8:03 AM CDT Sexual Orientation Straight 11/24/2020 8: 03 AM CDT Obstetrics History Last Filed Vital Signs Vital Sign Reading Time Taken Comments Blood Pressure 122/60 06/09/2024 8:47 AM CDT Pulse 79 06/09/2024 8:47 AM CDT Temperature 36.1 C (96.9 F) 06/09/2024 8:47 AM CDT Respiratory Rate 24 06/09/2024 8:47 AM CDT Oxygen Saturation 97% 06/09/2024 8:47 AM CDT Inhaled Oxygen Concentration - - Weight 89.6 kg (197 lb 8 oz) 06/09/2024 8:47 AM CDT Height 162.6 cm (5' 4 ) 05/21/2024 10:25 AM CDT Body Mass Index 33.9 05/21/2024 10:25 AM CDT Plan of Treatment Health Maintenance Due Date Last Done Comments Depression Screening 1942 DTaP/Tdap/Td Vaccine (1 - Tdap) 1953 Hepatitis B Screening 02/05/1960 Well Visit 65+ 2007 Osteoporosis Screening-Bone Density Scan 03/15/2023 Covid-19 Vaccine (2023-2 5 season) 2024 12/02/2023, 12/10/2022, 12/06/2021, Additional history exists Fall Risk Assessment 06/12/2024 06/13/2023 Pneumococcal vaccine 65+ Completed 10/10/2022 Influenza Vaccine Completed 12/02/2023, , 12/10/2022, Additional history exists Zoster Vaccine Completed 12/02/2023, 10/10/2022 Medical Devices Implanted Type Area Telemarketer Supervisor Device Identifier Shelf Expiration Date Model / Serial / Lot [employer] Suzi Monitor Cardiac Insertable Leadless Lux Dx 4.0x7.2x44.8m m M301 - [id number] - [id number] Implanted:Qty : 1 on 12/12/2022 by Fabby Mcgee MD at [facility] Implantable Loop Recorder [employer] Suzi 10/01/2023 M301 / [id number] / [id number] [employer] Suzi Active Fixation Steroid Eluting Is 1 Connector Latex Free Sterile Right Atrial Right Atrial Ingevity Plus 59cm 7842 - [id number] - [id number] Implanted:Qty : 1 on 06/12/2023 by Fabby Mcgee MD at [facility] Lead Right: Ventricle [employer] Suzi 06/29/2024 7842 / [id number] / [employer] Su[employer] Fineline Ii Sterox Ez 1.7mm 52cm Bipolar Active Fixation Screw 4470 - [id number] - [id number] Implanted:Qty : 1 on 06/12/2023 by Fabby Mcgee MD at [facility] Lead Right: Atria [employer] Suzi 12/02/2024 4470 / [id number] / [employer] C.[employer].M. Accolade Latitude Nxt Pacesafe Easyview 4.45x5.02cm 2 Chamber Is1 L311 - [id number] - [id number] Implanted:Qty : 1 on 06/12/2023 by Fabby Mcgee MD at [facility] Pacemaker Left: Chest Wall [employer] C.R.M. 04/24/2025 L311 / [id number] / Procedures Procedure Name Priority Date/Time Associated Diagnosis Comments XR SHOULDER RIGHT 2 OR MORE VIEWS Schedule Routine, Read Routine (OP Routine) 05/21/2024 11:41 AM CDT Chronic right shoulder pain SCAN - LABS 05/13/2024 8:48 AM CDT DEVICE CHECK - REMOTE Routine 04/19/2024 3:35 AM CUTTER ALUMINUM SHEET from Last 3 Months Results * XR Shoulder Right 2 or More Views (05/21/2024 11:41 AM CDT) Anatomical Region Laterality Modality Upper Extremities, Shoulder Right Comp uted Radiography 05/21/2024 1:18 PM CDT Impressions 05/21/2024 1:18 PM CDT 1. Severe right glenohumeral osteoarthritis with vqao-tm-ueze contact and intra-articular loose bodies. 2. Moderate right acromioclavicular joint osteoarthritis. Electronically signed by: Curtis Abarca M.D. Narrative 05/21/2024 1:18 PM CDT EXAMINATION: XR SHOULDER RIGHT 2 OR MORE VIEWS HISTORY: pain, no injury, decreased ROM FINDINGS: 3 view examination of the right shoulder is read without comparison. There is severe right glenohumeral osteoarthritis with slbv-[id number] contact. There is a 1 cm ossific loose body in the axillary pouch. There is moderate acromial clavicular joint osteoarthritis. No fracture or dislocation. Alignment is normal. Partially imaged cardiac pacemaker. Procedure Note Curtis Cabral MD - 05/21/2024 EXAMINATION: XR SHOULDER RIGHT 2 OR MORE VIEWS HISTORY: pain, no injury, decreased ROM FINDINGS: 3 view examination of the right shoulder is read without comparison. There is severe right glenohumeral osteoarthritis with drkg-gl-uubk contact. There is a 1 cm ossific loose body in the axillary pouch. There is moderate acromial clavicular joint osteoarthritis. No fracture or dislocation. Alignment is normal. Partially imaged cardiac pacemaker. IMPRESSION: 1. Severe right glenohumeral osteoarthritis with cuck-ld-gpne contact and intra-articular loose bodies. 2. Moderate right acromioclavicular joint osteoarthritis. Electronically signed by: Curtis Abarca M.D. Nicolas Huffman MD IMG XR PROCEDURES Final Resul t * SCAN - LABS (05/13/2024 8:48 AM CDT) Nicolas Huffman MD Final Result * DEVICE CHECK - REMOTE (04/19/2024 3:35 AM CUTTER ALUMINUM SHEET) Anatomical Region Laterality Modality Other 04/19/2024 3:35 AM CUTTER ALUMINUM SHEET Narrative 04/22/2024 11:46 AM CUTTER ALUMINUM SHEET Interpretation Summary: Battery and Leads (BL) Normal parameters noted on battery and lead(s) --- 6 years remaining (this is an estimate based on prior usage) Presenting Rhythm (NM) Atrial Fibrillation or Flutter Ventricular Pacing (MANAGER PHOTO) --- rate 70's Arrhythmic events (AE) Paroxysmal atrial fibrillation and/or flutter Atrial fibrillation and/or flutter with controlled ventricular rate Anticoagulation (AC) Patient on anticoagulant therapy Patient prescribed Apixaban (Eliquis) Transmission Information (TI) Device Summary Report Procedure Note Fabby Mcgee MD - 04/22/2024 Interpretation Summary: Battery and Leads (BL) Normal parameters noted on battery and lead(s) --- 6 years remaining(this is an estimate based on prior usage) Presenting Rhythm (NM) Atrial Fibrillation or Flutter Ventricular Pacing (MANAGER PHOTO) --- rate 70's Arrhythmic events (AE) Paroxysmal atrial fibrillation and/or flutter Atrial fibrillation and/or flutter with controlled ventricular rate Anticoagulation (AC) Patient on anticoagulant therapy Patient prescribed Apixaban (Eliquis) Transmission Information (TI) Device Summary Report Fabby Mcgee MD [facility] PROCEDURES Final Result from Last 3 Months Insurance [facility] MEDICARE ADVANTAGE [place] [id number] [facility] [address] MEDICARE ADVANTAGE [facility] [address] MEDICARE ADVANTAGE Advance Directives For more information, please contact: [phone] Documents on File Type Date Recorded Patient Freight Conductor Expl anation Power of Application Systems Administrator 06/12/2023 5:53 AM ADVANCE DIRECTIVE 12/17/2022 2:43 AM PARVIN R OF ANALYSIS ENGINEER-MEDICAL Power of Application Systems Administrator 12/12/2022 10:10 AM * Full Code (Latest Code Status on File) Date Activated Date Inactivated Comments 06/12/2023 10:30 AM 06/13/2023 3:29 PM * Full Code Date Activated Date Inactivated Comments 12/12/2022 1:31 PM 12/12/2022 7:26 PM Care Teams Fill Technician Relationship Specialty Start Date End Date Nicolas Huffman MD [address] [address] PCP - General 05/22/16
--- OUTSIDE RECORDS SUMMARY | 2024-06-09 10:58 | XMS_ITS | Encounter Summary ---
Author Organization [facility] Healthcare Address [address] [place] [address] Care Team Providers Care Optical Mechanic Name Role Phone Nicolas Huffman MD Primary Care Provider [phone] Reason for Visit * Reason Comments Shortness of Breath SOB and fatigue 1-2 weeks. 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 JOINER Gender Identity Female 11/24/2020 8:03 AM CDT Sexual Orientation Straight 11/24/2020 8: 03 AM CDT documented as of this encounter Last Filed Vital Signs Vital Sign Reading Time Taken Comments Blood Pressure 122/60 06/09/2024 8:47 AM CDT Pulse 79 06/09/2024 8:47 AM CDT Temperature 36.1 C (96.9 F) 06/09/2024 8:47 AM CDT Respiratory Rate 24 06/09/2024 8:47 AM CDT Oxygen Saturation 97% 06/09/2024 8:47 AM CDT Inhaled Oxygen Concentration - - Weight 89.6 kg (197 lb 8 oz) 06/09/2024 8:47 AM CDT Height - - Body Mass Index 33.9 05/21/2024 10:25 AM CDT documented in this encounter Progress Notes * Kaylen Mendoza PA - 06/09/2024 9:00 AM CDT Images from the original note were not included. re Subjective/Objective Patient ID: Stephanie Brewer is a 84 y.o. female. Chief Complaint Shortness of Breath (SOB and fatigue 1-2 weeks. Reports she has on and off congestion and cough ) Pt presents w/ TARANGO x 1 week. States she is having difficulty walking short distances as it makes her out of breath. Reports fatigue, nasal congestion, ear fullness, cough, wheezing x 1.5 weeks. No fever. No chest pain. No orthopnea. Admits to chronic LE edema, no changes recently. Admits to urinary symptoms x 1 week. Urine is discolored, urgency. Took azo cranberry w/ short term relief. Messaged pcp last night who sent out Bactrim this morning, has not started it. Hx of copd but not on any medications for it. Review of Systems All systems reviewed and are negative or non contributory for this patient's presentation today other than as stated in the HPI . Physical Exam Constitutional: General: She is not in acute distress. Appearance: She is not ill-appearing or toxic-appearing. HENT: Head: Normocephalic and atraumatic. Right Ear: External ear normal. Left Ear: External ear normal. Nose: Nose normal. Mouth/Throat: Mouth: Mucous membranes are moist. Pharynx: Oropharynx is clear. Eyes: Conjunctiva/sclera: Conjunctivae normal. Pupils: Pupils are equal, round, and reactive to light. Cardiovascular: Rate and Rhythm: Normal rate. Rhythm irregular. Heart sounds: Normal heart sounds. Pulmonary: Effort: Pulmonary effort is normal. No respiratory distress. Breath sounds: Normal breath sounds. No wheezing or rhonchi. Musculoskeletal: General: Normal range of motion. Cervical back: Normal range of motion. Skin: General: Skin is warm and dry. Neurological: General: No focal deficit present. Mental Status: She is alert and oriented to person, place, and time. Psychiatric: Mood and Affect: Mood normal. Behavior: Behavior normal. Vitals: 06/09/24 0847 BP: 122/60 Pulse: 79 Resp: 24 Temp: 36.1 ??C (96.9 ??F) SpO2: 97% Weight: 89.6 kg (197 lb 8 oz) Assessment/Plan -84 yo w/ hx of pacemaker, afib, NSTEMI, COPD presents w/ worsening TARANGO x 1 week -admits to very minimal URI symptoms, no fever, no wheezing on exam, lungs cta oxygen 97% on RA, NARD, pt well appearing, non toxic, low suspicion for PNA or COPD exacerbation at this time -pt w/ hx of paroxysmal afib, admits to intermittent palpitations but this is baseline, heart irregular on auscultation today, on eliquis, diltiazem, and metoprolol, rate controlled today at 79 -discussed treatment options including capability of CC, ultimately patient and myself decided ER would be more appropriate for a more in depth workup of what we can offer here, especially given her age and cardiac risk factors so that they can rule out cardiac etiology. Pt clinically stable at this time, will transport herself to [facility] ED via private vehicle. Diagnoses and all orders for this visit: Shortness of breath (Primary) No results found for this or any previous visit (from the past 4 hours). Disposition ER - [facility] Cordero 06/09/24 9:26 AM Cosigned by Will Murrieta MD at 06/09/2024 9:40 AM CDT documented in this encounter Plan of Treatment Not on file documented as of this encounter Visit Diagnoses Diagnosis Shortness of breath- Primary documented in this encounter Care Teams Optical Mechanic Relationship Specialty Start Date End Date Nicolas Huffman MD [address] [place] [address] PCP - General 05/22/16 documented as of this encounter
--- OUTSIDE RECORDS SUMMARY | 2024-06-09 10:58 | XMS_ITS | Referral Summary ---
Author Organization [facility] Address [address] [place] [address] Care Team Providers Care Magistrate Judge Name Role Phone Nicolas Huffman MD Primary Care Provider [phone] Encounters Date Type Department Care Team Description 06/09/2024 Orders Only [facility] [address] [place] [address] [place] [address] Nicolas Huffman MD 06/09/2024 9:00 AM CDT Office Visit [facility] Care at [address] [address] Kaylen Mendoza PA Shortness of breath (Primary Dx) 05/25/2024 Results Follow-Up [facility] [address] [place] [phone] Nicolas Huffman MD Osteoarthritis of right shoulder, unspecified osteoarthritis type (Primary Dx) 05/21/2024 11:19 AM CDT - 05/21/2024 11:59 PM CDT Hospital Encounter [facility] [address] [place] [address] Nicolas Huffman MD Chronic right shoulder pain Discharge Disposition: Discharge to home or self care 05/21/2024 10:15 AM CDT Office Visit [facility] [address] [place], [place] [address] [address] Nicolas Huffman MD Longstanding persistent atrial fibrillation (HCC) (Primary Dx); Hypertensive urgency; Moderate COPD (chronic obstructive pulmonary disease) (CMS/HCC) (HCC); Chronic right shoulder pain 04/19/2024 Orders Only [facility] [address] [facility] [address] [place] [address] Fabby Mcgee MD from Last 3 Months Allergies Active Allergy Reactions Criticality Noted Date Comments Amoxicillin Diarrhea Low 06/14/2022 Oxycodone Mental status changes,Hallucinations High 11/25/2019 Prednisone Mental status changes,Hallucinations High 11/25/2019 Medications aspirin 325 mgIndications:Myoc ardial Reinfarction Prevention,prevent ion of thrombosis Take 1 tablet (325 mg total) by mouth gas worker before breakfast qd Active albuterol HFA (PROVENTIL [...] (four) hours as needed for pain 06/13/19 Active Additional Information Patient not taking.Reported on [...] 01/14/2024 Assessment & Plan (01/14/2024 11:58 AM RADIATION ONCOLOGIST): Long discussion today lasting more than 30 minutes concerning this. Will look for the present we will leave medication alone at this time. Will refer to cardiology here at [place]. Will try to obtain her pacer data from Dr. Mcgee. I feel this may very well have been a type 2 myocardial infarction based on pneumonia which was diagnosed in the emergency room Cervicalgia 01/14/2024 Assessment & Plan (01/14/2024 11:57 AM RADIATION ONCOLOGIST): Check C-spine x-rays. A-fib 06/12/2023 Assessment & Plan (01/14/2024 11:58 AM RADIATION ONCOLOGIST): Per Dr. Mcgee Assessment & Plan (06/12/2023 [...] exertion Assessment & Plan (02/20/2024 9:35 AM RADIATION ONCOLOGIST): I feel this is most likely secondary to COPD. Possibly mild right heart strain. Will give furosemide and check BMP in 2 weeks. Most recent echo showed normal LV function. Moderate COPD (chronic obstr uctive pulmonary disease) (CMS/HCC) Assessment & Plan (05/21/2024 11:08 AM CDT): Stable. Assessment & Plan (01/14/2024 11:57 AM RADIATION ONCOLOGIST): Stable at this time Resolved Problems Problem Noted Date Diagnosed Date Resolved Date History of surgical procedure 11/18/2016 06/10/2022 Left shoulder pain 12/04/2015 3 Immunizations Immunization Administration Dates Next Due Influenza, Quad, Adjuvantated, Intramuscular 08/2021,12/27/2020 Influenza, Quadrivalent, Hig h Dose, Preservative Free, Intrr 12/10/2022 Influenza, Trivalent, High D ose, Split, Preservative Free, Intramuscular 12/02/2023 Influenza, Unspecified 11/02/2023,12/10/2022 Moderna SARS-CoV-2 Monovalent Vaccination (12+ Y RS) 05/09/2020,04/11/2020 Pneumococcal Conjugate Pcv20 10/10/2022 RSV, Bivalent, Protein Subun it Rsvpref, Diluent (Abrysvo) 01/06/2023 ZOSTER Recombinant 12/02/2023,10/10/2022 Social History Tobacco Use Types Packs/Day Years [...] on file Legal Sex Female 11:21 AM RADIATION ONCOLOGIST Gender Identity Female 11/24/2020 8:03 AM CDT Sexual Orientation Straight 11/24/2020 8: 03 AM CDT Last Filed Vital Signs Vital Sign Reading [...] 05/21/2024 10:25 AM CDT Plan of Treatment Not on file Medical Devices Implanted Type Area Plug Overwrap Machine Tender Device Identifier Shelf Expiration Date Model / Serial / Lot [employer] Suzi Monitor Cardiac Insertable Leadless Lux Dx 4.0x7.2x44.8m m M301 - [id number] - [id number] Implanted:Qty : 1 on 12/12/2022 by Fabby Mcgee MD at [facility] Implantable Loop Recorder [employer] Suzi 10/01/2023 M301 / [id number] / [id number] [employer] Suzi Active Fixation Steroid Eluting Is 1 Connector Latex Free Sterile Right Atrial Right Atrial Ingevity Plus 59cm 7842 - [id number] - [id number] Implanted:Qty : 1 on 06/12/2023 by Fabby Mcgee MD at [facility] Lead Right: Ventricle [employer] Suzi 06/29/2024 [id number] / [id number] / [employer] Suzi Fineline Ii Sterox Ez 1.7mm 52cm Bipolar Active Fixation Screw 6831 - [id number] - [id number] Implanted:Qty : 1 on 06/12/2023 by Fabby Mcgee MD at [facility] Lead Right: Atria [employer] Suzi 12/02/2024 [id number] / [id number] / [employer]. Accolade Latitude Nxt Pacesafe Easyview 4.45x5.02cm 2 Chamber Is1 L311 - [id number] - [id number] Implanted:Qty : 1 on 06/12/2023 by Fabby Mcgee MD at [facility] Pacemaker Left: Chest Wall [employer] C.R.M. 04/24/2025 [id number] / [id number] / Procedures Procedure Name Priority Date/Time Associated Diagnosis Comments XR SHOULDER RIGHT 2 OR MORE VIEWS Schedule Routine, Read Routine (OP Routine) 05/21/2024 11:41 AM CDT Chronic right shoulder pain SCAN - LABS 05/13/2024 8:48 AM CDT DEVICE CHECK - REMOTE Routine 04/19/2024 3:35 AM RADIATION ONCOLOGIST from Last 3 Months Results * XR Shoulder Right 2 or More Views (05/21/2024 11:41 AM CDT) Anatomical Region Laterality Modality Upper Extremities, Shoulder Right Comp uted Radiography 05/21/2024 1:18 PM CDT Impressions 05/21/2024 1:18 PM CDT 1. Severe right glenohumeral osteoarthritis with bujt-ct-ucae contact and intra-articular loose bodies. 2. Moderate right acromioclavicular joint osteoarthritis. Electronically signed by: Curtis Abarca M.D. Narrative 05/21/2024 1:18 PM CDT EXAMINATION: XR SHOULDER RIGHT 2 OR MORE VIEWS HISTORY: pain, no injury, decreased ROM FINDINGS: 3 view examination of the right shoulder is read without comparison. There is severe right glenohumeral osteoarthritis with hmol-bm-qtdl contact. There is a 1 cm ossific [...] There is severe right glenohumeral osteoarthritis with scxy-bz-omxc contact. There is a 1 cm ossific loose body in the axillary pouch. There is moderate acromial clavicular joint osteoarthritis. No fracture or dislocation. Alignment is normal. Partially imaged cardiac pacemaker. IMPRESSION: 1. Severe right glenohumeral osteoarthritis with dgte-av-yxqm contact and intra-articular loose bodies. 2. Moderate right acromioclavicular joint osteoarthritis. Electronically signed by: Curtis Abarca M.D. us Nicolas Huffman MD IMG XR PROCEDURES Final Resul t * SCAN - LABS (05/13/2024 8:48 AM CDT) us Nicolas Huffman MD Final Result * DEVICE CHECK - REMOTE (04/19/2024 3:35 AM RADIATION ONCOLOGIST) Anatomical Region Laterality Modality Other 04/19/2024 3:35 AM RADIATION ONCOLOGIST Narrative 04/22/2024 11:46 AM RADIATION ONCOLOGIST Interpretation Summary: Battery and Leads (BL) Normal parameters noted on battery and lead(s) --- 6 years remaining (this is an estimate based on prior usage) Presenting Rhythm (ID) Atrial Fibrillation or Flutter Ventricular Pacing (CIRCULATING NURSE) --- rate 70's Arrhythmic events (AE) Paroxysmal [...] estimate based on prior usage) Presenting Rhythm (ID) Atrial Fibrillation or Flutter Ventricular Pacing (CIRCULATING NURSE) --- rate 70's Arrhythmic events (AE) Paroxysmal atrial fibrillation and/or flutter Atrial fibrillation and/or flutter with controlled ventricular rate Anticoagulation (AC) Patient on anticoagulant therapy Patient prescribed Apixaban (Eliquis) Transmission Information (TI) Device Summary Report Fabby Mcgee MD [facility] PROCEDURES Final Result from Last 3 Months Insurance UHC MEDICARE ADVANTAGE [facility] MEDICARE Address: [place] [id number] UHC MEDICARE ADVANTAGE [facility] MEDICARE Address: [facility] [address] [place] [address] [facility] MEDICARE Address: [address] [place] [phone] [address] [facility] MEDICARE Address: [place] [id number] [place] [address] Advance Directives For more information, please contact: [phone] Documents on File Type Date Recorded Patient Marketing Operations Analyst Expl anation Power of Sonography Technician 06/12/2023 5:53 AM ADVANCE DIRECTIVE 12/17/2022 2:43 AM PARVIN R OF DECK BUILDER-MEDICAL Power of Sonography Technician 12/12/2022 10:10 AM * Full Code (Latest Code Status on File) Date Activated Date Inactivated Comments 06/12/2023 10:30 AM 06/13/2023 3:29 PM * Full Code Date Activated Date Inactivated Comments 12/12/2022 1:31 PM 12/12/2022 7:26 PM Care Teams Magistrate Judge Relationship Specialty Start Date End Date Nicolas Huffman MD [address] [address] PCP - General 05/22/16
--- OUTSIDE RECORDS SUMMARY | 2024-06-09 10:58 | XMS_ITS | Encounter Summary ---
Author Organization [facility] Address [address] [place] [address] Care Team Providers Care Produce Manager Name Role Phone Nicolas Huffman MD Primary Care Provider Encounter Details Date Type Department Care Team (Late st Contact Info) Description 06/09/2024 [facility] [address] 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 Gender Identity Female 11/24/2020 8:03 AM CDT Sexual Orientation Straight 11/24/2020 8: 03 AM CDT documented as of this encounter Ordered Prescriptions Prescription Sig Dispense Quantity Refills Last Filled Start Date End Date sulfamethoxazole-t rimethoprim (BACTRIM DS) 800-160 mg per tablet Take 1 tablet by mouth 2 (two) times a day for 7 days 14 tablet 06/09/2024 06/16/2024 documented in this encounter Plan of Treatment Not on file documented as of this encounter Visit Diagnoses Not on filedocumented in this encounter Care Teams Produce Manager Relationship Specialty Start Date End Date Nicolas Huffman MD [address] [address] PCP - General 05/22/16 documented as of this encounter
--- OUTSIDE RECORDS SUMMARY | 2024-06-09 10:58 | XMS_ITS | CONTINUITY OF CARE DOCUMENT ---
Author Name nina, nina Address Unknown Organization [facility] Address [address] [place] [address] Phone [phone] Care Team Providers Care Spring Inspector Name Role Phone Wil Wilson MD Unavailable [phone] LAKESHIA HOGAN MD Unavailable PROBLEMS Condition Status Date Provider Notes Abnormal electrocardiogram active Ashia maravilla Paroxysmal atrial fibrillation active Idania Rios MD HTN active Farhana Rios MD back pain active Farhana Rios MD Carotid bruit active Farhana Rios MD ENCOUNTERS Date Type Provider Location Encounter Diag nosis - In-person encounter Office Visit Farhana Rios MD [place] [facility] Paroxysmal atrial fibrillationHTNback painCarotid bruit VITAL [...] Payer name Policy type / Coverage type [place] red democr[employer] ID AARP MEDICARE ADVANTAGE [facility] (PPO) Medicare [id number] TREATMENT PLAN Date Name Performer Cardiology:She is [...] there is recurrence she will be on vermin exterminator anticoagulation. She is planned to have surgery and her recent stress test shows normal perfusion. She can undergo surgery at an acceptable risk. Farhana Rios MD HISTORY OF PROCEDURES Procedure Date Procedure Name Provider Procedure Notes S tatus EKG Farhana Rios MD complet ed SNOMED-CT: [id number] Current Medications Documented Farhana Rios MD completed Stress EKG Farhana Rios MD complet ed Regadenoson, 4 units Farhana Rios MD completed Cardiolite, 2 units Farhana Rios MD completed SPECT Images Farhana Rios MD compl eted Event Monitor Farhana Rios MD comp leted
--- OUTSIDE RECORDS SUMMARY | 2024-06-09 10:58 | XMS_ITS | Encounter Summary ---
Author Organization [facility] Healthcare Address [address] [place] [address] Care Team Providers Care Digital Communications Manager Name Role Phone Nicolas Huffman MD Primary Care Provider [phone] Reason for Referral * (Routine) - Closed Specialty Diagnoses / Procedures Referred By Contac t Referred To Contact Diagnoses Dyspnea Procedures Pulmonary Function Test -[facility] Adult PFT Lab- [facility]-8D; Standard; Spirometry, Spirometry w/bronchodilator, DLCO and Lung Volumes Nicolas Huffman MD [address] [address] Phone: tel: fax: Referral ID Status Reason Start Date Expiration Date Visits Re quested Visits Authorized [id number] Closed 09/01/2019 03/12/2021 1 1 Encounter Details Date Type Department Care Team (Late st Contact Info) Description 09/01/2019 Orders Only Internal Medicine Nicolas Huffman MD [address] [address] Dyspnea (Primary Dx) Social History Tobacco Use Types Packs/Day Years Used Date Smoking Tobacco: Former Smokeless Tobacco: Never Alcohol Use Standard Drinks/Week Comments Not Currently 0 (1 standard drink = 0.6 oz pur e alcohol) AUDIT-C Answer Date Recorded Frequency of Alcohol Consumption Never 08/06/2018 Average Number of Drinks Not on file 019 Frequency of Binge Drinking Not on file 08/2018 Comments Unknown Sex and Gender Information Value Date Recorded Sex Assigned at Not on file Legal Sex Female 11:21 AM RIG MANAGER Gender Identity Female 11/24/2020 8:03 AM CDT Sexual Orientation Straight 11/24/2020 8: 03 AM CDT documented as of this encounter Progress Notes * Janessa Elliott - 09/01/2019 11:30 AM CDT pulmonar documented in this encounter Plan of Treatment Not on file documented as of this encounter Results * Pulmonary Function Test - (09/09/2019 10:28 AM CDT) FVC PRED 2.68 0.05 - 9.99 Liters [facility] FVC PRE 1.73 0 - 12 Liters [facility] FVC %PRE PRED 64 0 - 300 % [facility] FEV1 PRED 2.05 0.05 - 9.99 Liters [facility] FEV1 PRE 1.17 0 - 12 Liters [facility] FEV1 %PRE PRED 57 0 - 300 % [facility] FEV1/FVC PRED 77 1 - 99 % [facility] FEV1/FVC PRE 68 0 - 12 % [facility] DSP41-74% PRED 1.66 0 - 12 L/sec [facility] XGN76-82% PRE 0.54 0 - 12 L/sec [facility] SJE93-27% %PRE PRED 33 0 - 300 % [facility] FEF75% PRED 0.38 0 - 300 L/sec [facility] FEF75% PRE 0.15 0 - 12 L/sec [facility] FEF75% %PRE PRED 39 % [facility] PEF PRED 5.36 0 - 18 L/sec [facility] PEF PRE 4.17 0 - 18 L/sec [facility] PEF %PRE PRED 78 0 - 300 % [facility] PIF PRE 1.78 0 - 18 L/sec [facility] FEV6 PRE 1.66 0 - 12 Liters [facility] FEV1/FEV6 PRE 70 0 - 12 % [facility] VC PRED 2.79 0.05 - 9.99 Liters [facility] VC PRE 1.95 0.05 - 9.99 Liters [facility] VC %PRE PRED 70 0 - 300 % [facility] TLC PRED 5.14 0.05 - 11.99 Liters [facility] TLC PRE 4.63 0.05 - 11.99 Liters [facility] TLC %PRE PRED 90 0 - 300 % [facility] RV PRED 2.36 0.05 - 9.99 Liters [facility] RV PRE 2.68 0.05 - 9.99 Liters [facility] RV %PRE PRED 114 0 - 300 % [facility] RV/TLC PRED 46 0 - 300 % [facility] RV/TLC PRE 58 0 - 300 % [facility] FRC N2 PRED 2.52 0.05 - 9.99 [address] [facility] PL PRED 2.96 0.05 - 9.99 [address] [facility] PL PRE 2.78 0.05 - 9.99 Liters [facility] PL %PRE PRED 94 0 - 300 % [facility] ERV PRED 0.92 0.05 - 9.99 Liters [facility] ERV PRE 0.20 0.05 - 9.99 Liters [facility] ERV %PRE PRED 22 0 - 300 % [facility] IC PRE 1.85 0.05 - 9.99 Liters [facility] DLCO PRED 22.5 0.05 - 99.99 mL/mmHg/min [facility] DLCO PRE 12.5 mL/mmHg/min [facility] DLCO %PRE PRED 55 0 - 300 % [facility] DL ADJ PRED 22.5 1 - 2 mL/mmHg/min [facility] DL ADJ PRE 12.5 1 - 2 mL/mmHg/min [facility] DL ADJ %PRE PRED 55 0 - 300 % [facility] DLCO/VA PRED 4.66 mL/mHg/min/ L [facility] DLCO/VA PRE 3.97 mL/mHg/min/ L [facility] DLCO/VA %PRE PRED 85 % [facility] DL/VA ADJ PRED 3.49 mL/mHg/min/ L [facility] DL/VA ADJ %PRE PRED 114 % [facility] VA PRE 3.15 Liters [facility] RAW PRED 1.28 cmH2O/L/sec [facility] RAW PRE 4.65 cmH2O/L/sec [facility] RAW %PRE PRED 363 % [facility] GAW PRED 0.711 L/sec/cmH2O [facility] GAW PRE 0.215 L/sec/cmH2O [facility] GAW %PRE PRED 30 % [facility] SRAW PRED 3.80 cmH2O/L/s/L [facility] SRAW PRE 15.24 cmH2O/L/s/L [facility] SRAW %PRE PRED 401 % [facility] SGAW PRED 0.257 L/s/cmH2O/L [facility] SGAW PRE 0.066 L/s/cmH2O/L [facility] SGAW %PRE PRED 26 % [facility] Anatomical Region Laterality Modality PFT 09/09/2019 10:0 1 AM CDT Narrative 09/14/2019 7:59 AM CDT SEE PDF Nicolas Huffman MD PFT ORDERABLES Final Result documented in this encounter Visit Diagnoses Diagnosis Dyspnea- Primary Other dyspnea and respiratory abnormality Dyspnea Other dyspnea and respiratory abnormality documented in this encounter Additional Health Concerns Infection Onset Date Last Indicated Resolved Time COVID: Suspected 01/21/2020 01/21/2020 01/21/2020 6:51 PM RIG MANAGER Respiratory Infection (NOEL), contact + droplet Comment:Automatically added due to negative COVID-19 result. 01/21/2020 01/21/2020 2020 3:0 7 AM RIG MANAGER COVID: Suspected 03/06/2022 03/06/2022 03/06/2022 9:09 PM RIG MANAGER documented as of this encounter Care Teams Digital Communications Manager Relationship Specialty Start Date End Date Nicolas Huffman MD [address] [address] PCP - General 05/22/16 documented as of this encounter
[2024-06-09 11:09] LABS: Basophils Absolute Auto 0.1 K/mm3 (0.0-0.1); Basophils Percent Auto 0.7 % (0.2-1.2); Eosinophils Absolute Auto 0.2 K/mm3 (0-0.3); Eosinophils Percent Auto 1.5 % (0-4.4); Hematocrit 44.1 % (37.0-47.0); Hemoglobin 14.6 g/dL (12.0-15.0); Immature Granulocyte Absolute 0.06 K/mm3 (0.00-0.031); Immature Granulocyte Percent A 0.5 % (0-0.5); Lymphocytes Absolute Auto 2.26 K/mm3 (0.9-3.2); Lymphocytes Percent Auto 18.6 % (18.3-44.2); Mean Corpuscular HGB Conc 33.1 g/dl (32-36); Mean Corpuscular Hemoglobin 29.3 pg (26-34); Mean Corpuscular Volume 88.4 fl (80-100); Mean Platelet Volume 9.7 fl (7.4-10.4); Monocytes Percent Auto 8.2 % (2.6-8.5); Neutrophils Absolute Auto 8.6 K/mm3 (1.3-6.7); Neutrophils Percent Auto 70.5 % (45.5-73.1); Platelet Count Result 367 k/mm3 (150-375); Red Blood Count 4.99 M/mm3 (4.2-5.4); Red Cell Distribution Width 13.6 % (11.5-14.5); White Blood Count 12.2 K/mm3 (4.5-10.0)
[2024-06-09 11:32] LABS: INR 1.5; Prothrombin Time 18.5 Seconds (11.1-14.7)
[2024-06-09 11:33] LABS: Partial Thromboplastin Time 37.6 Seconds (22.3-36.8)
[2024-06-09 11:51] LABS: D Dimer 0.41 ug/mL (<0.48)
--- OUTSIDE RECORDS SUMMARY | 2024-06-09 11:57 | XMS_ITS | Encounter Summary ---
Author Organization [facility] Address [address] [place] [address] Care Team Providers Care Accounting Officer Name Role Phone Nicolas Huffman MD Primary Care Provider [phone] Encounter Details Date Type Department Care Team (Late st Contact Info) Description 06/09/2024 [facility] [address] [facility] [address] [place] [facility] [place] [address] Nicolas Huffman MD [address] [facility] [address] [place] [address] Social History Tobacco Use Types [...] on file Legal Sex Female 11:21 AM 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 COUNSELOR Gender Identity Female 11/24/2020 8:03 AM CDT [...] on file documented as of this encounter Procedures Procedure Name Priority Date/Time Associated Diagnosis Comments SCAN - RADIOLOGY/IMAGING 06/09/2024 11:39 AM CDT documented in this encounter Results * SCAN - RADIOLOGY/IMAGING (06/09/2024 11:39 AM CDT) Anatomical Region Laterality Modality Other Nicolas Huffman MD Final Result documented in this encounter Visit Diagnoses Not on filedocumented in this encounter Care Teams Accounting Officer Relationship Specialty Start Date End Date Nicolas Huffman MD [address] [facility] [address] [place] [address] PCP - General 05/22/16 documented as of this encounter
--- OUTSIDE RECORDS SUMMARY | 2024-06-09 11:57 | XMS_ITS | Encounter Summary ---
Author Organization [facility] Healthcare Address [address] [place] [address] Care Team Providers Care Home Health Specialist Name Role Phone Nicolas Huffman MD Primary Care Provider [phone] Reason for Referral * (Routine) - Closed Specialty Diagnoses / Procedures Referred By Contac t Referred To Contact Diagnoses Dyspnea Procedures Pulmonary Function Test -[facility] Adult PFT Lab- CAM-8D; Standard; Spirometry, Spirometry w/bronchodilator, DLCO and Lung Volumes Nicolas Huffman MD [address] [address] Phone: tel: fax: Referral ID Status Reason Start Date Expiration Date Visits Re quested Visits Authorized [id number] Closed 09/01/2019 03/12/2021 1 1 Encounter Details Date Type Department Care Team (Late st Contact Info) Description 09/01/2019 Orders Only Internal Medicine Nicolas Huffman MD [address] [address] Dyspnea (Primary Dx) Social History [...] on file Legal Sex Female 11:21 AM 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 Gender Identity Female 11/24/2020 8:03 AM CDT Sexual Orientation Straight 11/24/2020 8: 03 AM CDT documented as of this encounter Progress Notes * Janessa Elliott - 09/01/2019 11:30 AM CDT pulmonar documented in this encounter Plan of Treatment Not on file documented as of this encounter Results * Pulmonary Function Test - (09/09/2019 10:28 AM CDT) FVC PRED 2.68 0.05 - 9.99 Liters [facility] FVC PRE 1.73 0 - 12 Liters [facility] FVC %PRE PRED 64 0 - 300 % [facility] FEV1 PRED 2.05 0.05 - 9.99 Liters [facility] FEV1 PRE 1.17 0 - 12 Liters [facility] FEV1 %PRE PRED 57 0 - 300 % [facility] FEV1/FVC PRED 77 1 - 99 % [facility] FEV1/FVC PRE 68 0 - 12 % [facility] RLP65-31% PRED 1.66 0 - 12 L/sec [facility] VOT97-77% PRE 0.54 0 - 12 L/sec [facility] XWJ28-50% %PRE PRED 33 0 - 300 % [facility] FEF75% PRED 0.38 0 - 300 L/sec [facility] FEF75% PRE 0.15 0 - 12 L/sec [facility] FEF75% %PRE PRED 39 % [facility] PEF PRED 5.36 0 - 18 L/sec [facility] PEF PRE 4.17 0 - 18 L/sec [facility] PEF %PRE PRED 78 0 - 300 % [facility] PIF PRE 1.78 0 - 18 L/sec [facility] FEV6 PRE 1.66 0 - 12 Liters [facility] FEV1/FEV6 PRE 70 0 - 12 % [facility] VC PRED 2.79 0.05 - 9.99 Liters [facility] VC PRE 1.95 0.05 - 9.99 Liters [facility] VC %PRE PRED 70 0 - 300 % [facility] TLC PRED 5.14 0.05 - 11.99 Liters [facility] TLC PRE 4.63 0.05 - 11.99 Liters [facility] TLC %PRE PRED 90 0 - 300 % [facility] RV PRED 2.36 0.05 - 9.99 Liters [facility] RV PRE 2.68 0.05 - 9.99 Liters [facility] RV %PRE PRED 114 0 - 300 % [facility] RV/TLC PRED 46 0 - 300 % [facility] RV/TLC PRE 58 0 - 300 % [facility] FRC N2 PRED 2.52 0.05 - 9.99 Liters [facility] FRC PL PRED 2.96 0.05 - 9.99 Liters [facility] FRC PL PRE 2.78 0.05 - 9.99 Liters [facility] FRC PL %PRE PRED 94 0 - 300 % [facility] ERV PRED 0.92 0.05 - 9.99 Liters [facility] ERV PRE 0.20 0.05 - 9.99 Liters [facility] ERV %PRE PRED 22 0 - 300 % [facility] IC PRE 1.85 0.05 - 9.99 Liters [facility] DLCO PRED 22.5 0.05 - 99.99 mL/mmHg/min [facility] DLCO PRE 12.5 mL/mmHg/min [facility] DLCO %PRE PRED 55 0 - 300 % [facility] DL ADJ PRED 22.5 1 - 2 mL/mmHg/min [facility] DL ADJ PRE 12.5 1 - 2 mL/mmHg/min [facility] DL ADJ %PRE PRED 55 0 - 300 % [facility] DLCO/VA PRED 4.66 mL/mHg/min/ L [facility] DLCO/VA PRE 3.97 mL/mHg/min/ L [facility] DLCO/VA %PRE PRED 85 % [facility] DL/VA ADJ PRED 3.49 mL/mHg/min/ L [facility] DL/VA ADJ %PRE PRED 114 % [facility] VA PRE 3.15 Liters [facility] RAW PRED 1.28 cmH2O/L/sec [facility] RAW PRE 4.65 cmH2O/L/sec [facility] RAW %PRE PRED 363 % [facility] GAW PRED 0.711 L/sec/cmH2O [facility] GAW PRE 0.215 L/sec/cmH2O [facility] GAW %PRE PRED 30 % [facility] SRAW PRED 3.80 cmH2O/L/s/L [facility] SRAW PRE 15.24 cmH2O/L/s/L [facility] SRAW %PRE PRED 401 % [facility] SGAW PRED 0.257 L/s/cmH2O/L [facility] SGAW PRE 0.066 L/s/cmH2O/L [facility] SGAW %PRE PRED 26 % [facility] Anatomical Region Laterality Modality PFT 09/09/2019 10:0 [...] COVID: Suspected 01/21/2020 01/21/2020 01/21/2020 6:51 PM 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 Respiratory Infection (NOEL), contact + droplet Comment:Automatically added due to negative COVID-19 result. 01/21/2020 01/21/2020 2020 3:0 7 AM 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 COVID: Suspected 03/06/2022 03/06/2022 03/06/2022 9:09 PM 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 documented as of this encounter Care Teams Home Health Specialist Relationship Specialty Start Date End Date Nicolas Huffman MD [address] [address] PCP - General 05/22/16 documented as of this encounter
--- OUTSIDE RECORDS SUMMARY | 2024-06-09 11:57 | XMS_ITS | Encounter Summary ---
Author Organization [facility] Healthcare Address [address] [place] [address] Care Team Providers Care Project Management Consultant Name Role Phone Nicolas Huffman MD Primary Care Provider [phone] Reason for Visit * Reason Comments Shortness of Breath SOB and fatigue 1-2 weeks. 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 Diagnoses and all [...] Primary documented in this encounter Care Teams Project Management Consultant Relationship Specialty Start Date End Date Nicolas Huffman MD [address] [place] [address] PCP - General 05/22/16 documented as of this encounter
--- OUTSIDE RECORDS SUMMARY | 2024-06-09 11:57 | XMS_ITS | CONTINUITY OF CARE DOCUMENT ---
Author Name nina, nina Address Unknown Organization [facility] Address [address] [facility] [address] [place] [address] Phone [phone] Care Team Providers Care Chimney Builder Helper Name Role Phone Wil Wilson MD Unavailable [phone] LAKESHIA HOGAN MD Unavailable [phone] PROBLEMS Condition Status Date Provider Notes Abnormal electrocardiogram active Ashia maravilla Paroxysmal atrial fibrillation active Idania Rios MD Carotid bruit active Farhana Rios MD back pain active Farhana Rios MD HTN active Farhana Rios MD ENCOUNTERS Date Type Provider Location Encounter Diag nosis - In-person encounter Office Visit Farhana Rios MD [place] [facility] Paroxysmal atrial fibrillationHTNback painCarotid bruit VITAL SIGNS Date Observation Value Provider blood pressure, diastolic 79 mm[Hg] Az meg Kwong blood pressure, systolic 201 mm[Hg] Nohemi Kwong pulse rate 62 /min Janessa Kwong oxygen saturation, oximetry 98 % Janessaprasanth Kwong respiratory rate E&M 16 /min Janessa Varghese Body Mass Index (Ratio) 35.36 kg/m2 Nina [...] Payer name Policy type / Coverage type [employer] party ID AARP MEDICARE ADVANTAGE [facility] (PPO) Medicare [id number] TREATMENT PLAN Date Name Performer Cardiology:She is [...] there is recurrence she will be on termite inspector anticoagulation. She is planned to have surgery and her recent stress test shows normal perfusion. She can undergo surgery at an acceptable risk. Farhana Rios MD HISTORY OF PROCEDURES Procedure Date Procedure Name Provider Procedure Notes S tatus EKG Farhana Rios MD complet ed SNOMED-CT: [id number] Current Medications Documented Farhana Rios MD completed Stress EKG Farhana Rios MD complet ed Regadenoson, 4 units Farhana Rios MD completed Cardiolite, 2 units Farhana Rios MD completed SPECT Images Farhana Rios MD compl eted Event Monitor Farhana Rios MD comp leted
--- OUTSIDE RECORDS SUMMARY | 2024-06-09 11:57 | XMS_ITS | Clinical Summary ---
Author Organization [facility] Address [address] [place] [address] Care Team Providers Care Precision Instrument Maker And Repairer Name Role Phone Nicolas Huffman MD Primary Care Provider [phone] Allergies Active Allergy Reactions Criticality Noted Date Comments Amoxicillin Diarrhea Low 06/14/2022 Oxycodone Mental status changes,Hallucinations High 11/25/2019 Prednisone Mental status changes,Hallucinations High 11/25/2019 Medications aspirin 325 mgIndications:Myoc ardial Reinfarction Prevention,prevent ion of thrombosis Take 1 tablet (325 mg total) by mouth human resources professional before breakfast qd Active albuterol HFA (PROVENTIL [...] 01/14/2024 Assessment & Plan (01/14/2024 11:58 AM GULLET SLITTER): Long discussion today lasting more than 30 minutes concerning this. Will look for the present we will leave medication alone at this time. Will refer to cardiology here at [place]. Will try to obtain her pacer data from Dr. Mcgee. I feel this may very well have been a type 2 myocardial infarction based on pneumonia which was diagnosed in the emergency room Cervicalgia 01/14/2024 Assessment & Plan (01/14/2024 11:57 AM GULLET SLITTER): Check C-spine x-rays. A-fib 06/12/2023 Assessment & Plan (01/14/2024 11:58 AM GULLET SLITTER): Per Dr. Mcgee Assessment & Plan (06/12/2023 [...] exertion Assessment & Plan (02/20/2024 9:35 AM GULLET SLITTER): I feel this is most likely secondary to COPD. Possibly mild right heart strain. Will give furosemide and check BMP in 2 weeks. Most recent echo showed normal LV function. Moderate COPD (chronic obstr uctive pulmonary disease) ([facility] Assessment & Plan (05/21/2024 11:08 AM CDT): Stable. Assessment & Plan (01/14/2024 11:57 AM GULLET SLITTER): Stable at this time Resolved Problems Problem Noted Date Diagnosed Date Resolved Date History of surgical procedure 11/18/2016 06/10/2022 Left shoulder pain 12/04/2015 3 Encounters Date Type Department Care Team Description 06/09/2024 9:00 AM CDT Office Visit [facility] Convenient Care at [address] [address] Kaylen Mendoza PA Shortness of breath (Primary Dx) 06/09/2024 Orders Only [facility] [address] [place] [address] [address] [place] [address] Nicolas Huffman MD 05/25/2024 Results Follow-Up [facility] [address] [facility] [place] [address] Nicolas Huffman MD Osteoarthritis of right shoulder, unspecified osteoarthritis type (Primary Dx) 05/21/2024 11:19 AM CDT - 05/21/2024 11:59 PM CDT Hospital Encounter [facility] [address] [place] [address] Nicolas Huffman MD Chronic right shoulder pain Discharge Disposition: Discharge to home or self care 05/21/2024 10:15 AM CDT Office Visit [facility] [address] [facility] [address] [facility] [place] [address] Nicolas Huffman MD Longstanding persistent atrial fibrillation (HCC) (Primary Dx); Hypertensive urgency; Moderate COPD (chronic obstructive pulmonary disease) (CMS/HCC) (HCC); Chronic right shoulder pain 04/19/2024 Orders Only [facility] Cardiology [address] [place] [address] Medical Office Building [address] [place] [address] Fabby Mcgee MD from Last 3 Months [...] on file Legal Sex Female 11:21 AM GULLET SLITTER Gender Identity Female 11/24/2020 8:03 AM CDT [...] 12/02/2023, 10/10/2022 Medical Devices Implanted Type Area Planting Machine Crewman Device Identifier Shelf Expiration Date Model / Serial / Lot [employer] Suzi Monitor Cardiac Insertable Leadless Lux Dx 4.0x7.2x44.8m m M301 - [id number] - [id number] Implanted:Qty : 1 on 12/12/2022 by Fabby Mcgee MD at [facility] Implantable Loop Recorder [employer] Suzi 10/01/2023 M301 / [id number] / [id number] [employer] Suzi Active Fixation Steroid Eluting Is 1 Connector Latex Free Sterile Right Atrial Right Atrial Ingevity Plus 59cm 7842 - [id number] - [id number] Implanted:Qty : 1 on 06/12/2023 by Fabby Mcgee MD at [facility] Lead Right: Ventricle [employer] Suzi 06/29/2024 7842 / [id number] / [employer] Su[employer] Fineline Ii Sterox Ez 1.7mm 52cm Bipolar Active Fixation Screw 4470 - [id number] - [id number] Implanted:Qty : 1 on 06/12/2023 by Fabby Mcgee MD at [facility] Lead Right: Atria [employer] Suzi 12/02/2024 4470 / [id number] / [employer]M. Accolade Latitude Nxt Pacesafe Easyview 4.45x5.02cm 2 Chamber Is1 L311 - [id number] - [id number] Implanted:Qty : 1 on 06/12/2023 by Fabby Mcgee MD at [facility] Pacemaker Left: Chest Wall [employer] C.[employer].M. 04/24/2025 L311 / [id number] / Procedures Procedure Name Priority Date/Time Associated Diagnosis Comments SCAN - RADIOLOGY/IMAGING 06/09/2024 11:39 AM CDT XR SHOULDER RIGHT 2 OR MORE VIEWS Schedule Routine, Read Routine (OP Routine) 05/21/2024 11:41 AM CDT Chronic right shoulder pain SCAN - LABS 05/13/2024 8:48 AM CDT DEVICE CHECK - REMOTE Routine 04/19/2024 3:35 AM GULLET SLITTER from Last 3 Months Results * SCAN - RADIOLOGY/IMAGING (06/09/2024 11:39 AM CDT) Anatomical Region Laterality Modality Other us Nicolas Huffman MD Final Result * XR Shoulder Right 2 or More Views (05/21/2024 11:41 AM CDT) Anatomical Region Laterality Modality Upper Extremities, Shoulder Right Comp uted Radiography 05/21/2024 1:18 PM CDT Impressions 05/21/2024 1:18 PM CDT 1. Severe right glenohumeral osteoarthritis with dhxa-vd-vppt contact and intra-articular loose bodies. 2. Moderate right acromioclavicular joint osteoarthritis. Electronically signed by: Curtis Abarca M.D. Narrative 05/21/2024 1:18 PM CDT EXAMINATION: XR SHOULDER RIGHT 2 OR MORE VIEWS HISTORY: pain, no injury, decreased ROM FINDINGS: 3 view examination of the right shoulder is read without comparison. There is severe right glenohumeral osteoarthritis with nsso-bi-mcdj contact. There is a 1 cm ossific loose body in the axillary pouch. There is moderate acromial clavicular joint osteoarthritis. No fracture or dislocation. Alignment is normal. Partially imaged cardiac pacemaker. Procedure Note Tony Abarca, Curtis Xiao MD - 05/21/2024 EXAMINATION: XR SHOULDER RIGHT 2 OR MORE VIEWS HISTORY: pain, no injury, decreased ROM FINDINGS: 3 view examination of the right shoulder is read without comparison. There is severe right glenohumeral osteoarthritis with xpls-lj-sjrx contact. There is a 1 cm ossific loose body in the axillary pouch. There is moderate acromial clavicular joint osteoarthritis. No fracture or dislocation. Alignment is normal. Partially imaged cardiac pacemaker. IMPRESSION: 1. Severe right glenohumeral osteoarthritis with zvbk-ns-xocw contact and intra-articular loose bodies. 2. Moderate right acromioclavicular joint osteoarthritis. Electronically signed by: Curtis Abarca M.D. Result [facility] Nicolas Huffman MD IMG XR PROCEDURES Final Resul t * SCAN - LABS (05/13/2024 8:48 AM CDT) Result [facility] Nicolas Huffman MD Final Result * DEVICE CHECK - REMOTE (04/19/2024 3:35 AM GULLET SLITTER) Anatomical Region Laterality Modality Other 04/19/2024 3:35 AM GULLET SLITTER Narrative 04/22/2024 11:46 AM GULLET SLITTER Interpretation Summary: Battery and Leads (BL) Normal parameters noted on battery and lead(s) --- 6 years remaining (this is an estimate based on prior usage) Presenting Rhythm (TX) Atrial Fibrillation or Flutter Ventricular Pacing (QUAIL FARMER) --- rate 70's Arrhythmic events (AE) Paroxysmal [...] estimate based on prior usage) Presenting Rhythm (TX) Atrial Fibrillation or Flutter Ventricular Pacing (QUAIL FARMER) --- rate 70's Arrhythmic events (AE) Paroxysmal atrial fibrillation and/or flutter Atrial fibrillation and/or flutter with controlled ventricular rate Anticoagulation (AC) Patient on anticoagulant therapy Patient prescribed Apixaban (Eliquis) Transmission Information (TI) Device Summary Report Result [facility] Fabby Mcgee MD CV CARDIAC SERVICES PROCEDURES Final Result from Last 3 Months Insurance [facility] Address: [address] [place], [place] [id number] MEDICARE ADVANTAGE [facility] Address: [address] [place] [address] MEDICARE ADVANTAGE [facility] Address: [address] [place], [place] [id number] [facility] ADVANTAGE [facility] Address: [facility] [address] [place] [address] Advance Directives For more information, please contact: [phone] Documents on File Type Date Recorded Patient Per Assessment Nurse Expl anation Power of Air Compressor Operator 06/12/2023 5:53 AM ADVANCE DIRECTIVE 12/17/2022 2:43 AM PARVIN R OF INVENTORY TECHNICIAN-MEDICAL Power of Air Compressor Operator 12/12/2022 10:10 AM * Full Code (Latest Code Status on File) Date Activated Date Inactivated Comments 06/12/2023 10:30 AM 06/13/2023 3:29 PM * Full Code Date Activated Date Inactivated Comments 12/12/2022 1:31 PM 12/12/2022 7:26 PM Care Teams Precision Instrument Maker And Repairer Relationship Specialty Start Date End Date Nicolas Huffman MD [address] [facility] [address] [place] [address] PCP - General 05/22/16
--- OUTSIDE RECORDS SUMMARY | 2024-06-09 11:57 | XMS_ITS | Referral Summary ---
Author Organization [facility] Address [address] [place] [address] Care Team Providers Care Special Education Para Professional Name Role Phone Nicolas Huffman MD Primary Care Provider [phone] Encounters Date Type Department Care Team Description 06/09/2024 Orders Only [facility] [address] [place] [address] [place] [address] Nicolas Huffman MD 06/09/2024 9:00 AM CDT Office Visit [facility] Care at [address] [address] Kaylen Mendoza PA Shortness of breath (Primary Dx) 05/25/2024 Results Follow-Up [facility] [address] [place] [id number] Nicolas Huffman MD Osteoarthritis of right shoulder, unspecified osteoarthritis type (Primary Dx) 05/21/2024 11:19 AM CDT - 05/21/2024 11:59 PM CDT Hospital Encounter [facility] [address] [place] [id number] Nicolas Huffman MD Chronic right shoulder pain Discharge Disposition: Discharge to home or self care 05/21/2024 10:15 AM CDT Office Visit [facility] [address] [place], [place] [address] [address] Nicolas Huffman MD Longstanding persistent atrial fibrillation (HCC) (Primary Dx); Hypertensive urgency; Moderate COPD (chronic obstructive pulmonary disease) (CMS/HCC) (HCC); Chronic right shoulder pain 04/19/2024 Orders Only [facility] [address] [facility] [address] [place] [address] Fabby Mcgee MD from Last 3 Months Allergies Active Allergy Reactions Criticality Noted Date Comments Amoxicillin Diarrhea Low 06/14/2022 Oxycodone Mental status changes,Hallucinations High 11/25/2019 Prednisone Mental status changes,Hallucinations High 11/25/2019 Medications aspirin 325 mgIndications:Myoc ardial Reinfarction Prevention,prevent ion of thrombosis Take 1 tablet (325 mg total) by mouth hadoop admin before breakfast qd Active albuterol HFA (PROVENTIL [...] 01/14/2024 Assessment & Plan (01/14/2024 11:58 AM INJECTION MOLD TECHNICIAN): Long discussion today lasting more than 30 minutes concerning this. Will look for the present we will leave medication alone at this time. Will refer to cardiology here at [facility]. Will try to obtain her pacer data from Dr. Mcgee. I feel this may very well have been a type 2 myocardial infarction based on pneumonia which was diagnosed in the emergency room Cervicalgia 01/14/2024 Assessment & Plan (01/14/2024 11:57 AM INJECTION MOLD TECHNICIAN): Check C-spine x-rays. A-fib 06/12/2023 Assessment & Plan (01/14/2024 11:58 AM INJECTION MOLD TECHNICIAN): Per Dr. Mcgee Assessment & Plan (06/12/2023 [...] exertion Assessment & Plan (02/20/2024 9:35 AM INJECTION MOLD TECHNICIAN): I feel this is most likely secondary to COPD. Possibly mild right heart strain. Will give furosemide and check BMP in 2 weeks. Most recent echo showed normal LV function. Moderate COPD (chronic obstr uctive pulmonary disease) (CMS/HCC) Assessment & Plan (05/21/2024 11:08 AM CDT): Stable. Assessment & Plan (01/14/2024 11:57 AM INJECTION MOLD TECHNICIAN): Stable at this time Resolved Problems Problem [...] on file Legal Sex Female 11:21 AM INJECTION MOLD TECHNICIAN Gender Identity Female 11/24/2020 8:03 AM [...] on file Medical Devices Implanted Type Area Final Inspector Motorcyles Device Identifier Shelf Expiration Date Model / Serial / Lot [employer] Suzi Monitor Cardiac Insertable Leadless Lux Dx 4.0x7.2x44.8m m M301 - [id number] - [id number] Implanted:Qty : 1 on 12/12/2022 by Fabby Mcgee MD at [facility] Implantable Loop Recorder [employer] Suzi 10/01/2023 M301 / [id number] / [id number] [employer] Suzi Active Fixation Steroid Eluting Is 1 Connector Latex Free Sterile Right Atrial Right Atrial Ingevity Plus 59cm 7842 - [id number] - [id number] Implanted:Qty : 1 on 06/12/2023 by Fabby Mcgee MD at [facility] Lead Right: Ventricle [employer] Suzi 06/29/2024 7842 / [id number] / [employer] Suzi Fineline Ii Sterox Ez 1.7mm 52cm Bipolar Active Fixation Screw 4508 - [id number] - [id number] Implanted:Qty : 1 on 06/12/2023 by Fabby Mcgee MD at [facility] Lead Right: Atria [employer] Suzi 12/02/2024 4470 / [id number] / [employer]M. Accolade Latitude Nxt Pacesafe Easyview 4.45x5.02cm 2 Chamber Is1 L311 - [id number] - [id number] Implanted:Qty : 1 on 06/12/2023 by Fabby Mcgee MD at [facility] Pacemaker Left: Chest Wall [employer] C.R.M. 04/24/2025 L311 / [id number] / Procedures Procedure Name Priority Date/Time Associated Diagnosis Comments SCAN - RADIOLOGY/IMAGING 06/09/2024 11:39 AM CDT XR SHOULDER RIGHT 2 OR MORE VIEWS Schedule Routine, Read Routine (OP Routine) 05/21/2024 11:41 AM CDT Chronic right shoulder pain SCAN - LABS 05/13/2024 8:48 AM CDT DEVICE CHECK - REMOTE Routine 04/19/2024 3:35 AM INJECTION MOLD TECHNICIAN from Last 3 Months Results * SCAN - RADIOLOGY/IMAGING (06/09/2024 11:39 AM CDT) Anatomical Region Laterality Modality Other us Nicolas Huffman MD Final Result * XR Shoulder Right 2 or More Views (05/21/2024 11:41 AM CDT) Anatomical Region Laterality Modality Upper Extremities, Shoulder Right Comp uted Radiography 05/21/2024 1:18 PM CDT Impressions 05/21/2024 1:18 PM CDT 1. Severe right glenohumeral osteoarthritis with dphu-cg-cogx contact and intra-articular loose bodies. 2. Moderate right acromioclavicular joint osteoarthritis. Electronically signed by: Curtis Abarca M.D. Narrative 05/21/2024 1:18 PM CDT EXAMINATION: XR SHOULDER RIGHT 2 OR MORE VIEWS HISTORY: pain, no injury, decreased ROM FINDINGS: 3 view examination of the right shoulder is read without comparison. There is severe right glenohumeral osteoarthritis with dxna-fw-mhou contact. There is a 1 cm ossific [...] There is severe right glenohumeral osteoarthritis with ruys-ev-bdwd contact. There is a 1 cm ossific loose body in the axillary pouch. There is moderate acromial clavicular joint osteoarthritis. No fracture or dislocation. Alignment is normal. Partially imaged cardiac pacemaker. IMPRESSION: 1. Severe right glenohumeral osteoarthritis with ywpb-tu-quza contact and intra-articular loose bodies. 2. Moderate right acromioclavicular joint osteoarthritis. Electronically signed by: Curtis Abarca M.D. Nicolas Huffman MD IMG XR PROCEDURES Final Resul t * SCAN - LABS (05/13/2024 8:48 AM CDT) us Nicolas Huffman MD Final Result * DEVICE CHECK - REMOTE (04/19/2024 3:35 AM INJECTION MOLD TECHNICIAN) Anatomical Region Laterality Modality Other 04/19/2024 3:35 AM INJECTION MOLD TECHNICIAN Narrative 04/22/2024 11:46 AM INJECTION MOLD TECHNICIAN Interpretation Summary: Battery and Leads (BL) Normal parameters noted on battery and lead(s) --- 6 years remaining (this is an estimate based on prior usage) Presenting Rhythm (IN) Atrial Fibrillation or Flutter Ventricular Pacing (MAILHOUSE OPERATOR) --- rate 70's Arrhythmic events (AE) Paroxysmal [...] estimate based on prior usage) Presenting Rhythm (IN) Atrial Fibrillation or Flutter Ventricular Pacing (MAILHOUSE OPERATOR) --- rate 70's Arrhythmic events (AE) Paroxysmal atrial fibrillation and/or flutter Atrial fibrillation and/or flutter with controlled ventricular rate Anticoagulation (AC) Patient on anticoagulant therapy Patient prescribed Apixaban (Eliquis) Transmission Information (TI) Device Summary Report us Fabby Mcgee MD [facility] PROCEDURES Final Result from Last 3 Months Insurance UHC MEDICARE ADVANTAGE MEDICARE ADVANTAGE MEDICARE ADVANTAGE MEDICARE ADVANTAGE Advance Directives For more information, please contact: [phone] Documents on File Type Date Recorded Patient Expanded Duty Dental Assistant Expl anation Power of Video Production Intern 06/12/2023 5:53 AM ADVANCE DIRECTIVE 12/17/2022 2:43 AM PARVIN R OF REPRODUCTION SPECIALIST-MEDICAL Power of Video Production Intern 12/12/2022 10:10 AM * Full Code (Latest Code Status on File) Date Activated Date Inactivated Comments 06/12/2023 10:30 AM 06/13/2023 3:29 PM * Full Code Date Activated Date Inactivated Comments 12/12/2022 1:31 PM 12/12/2022 7:26 PM Care Teams Special Education Para Professional Relationship Specialty Start Date End Date Nicolas Huffman MD [address] [address] PCP - General 05/22/16
[2024-06-09 12:07] LABS: Alanine Aminotransferase 20 U/L (6-35); Albumin Level 4.2 g/dL (3.5-5.1); Alkaline Phosphatase 124 U/L (38-126); Anion Gap 11 mmol/L (4-12); Aspartate Amino Transferase 34 U/L (14-36); Bilirubin,Total 0.7 mg/dL (0.2-1.3); Blood Urea Nitrogen 30 mg/dL (7-17); Calcium 9.9 mg/dL (8.4-10.2); Carbon Dioxide 28 mmol/L (22-30); Chloride 100 mmol/L (98-107); Estimated CRCL calculation 40 ml/min; Estimated Glomerular Filt Rate 50; Glucose 113 mg/dL (65-110); Potassium 3.7 mmol/L (3.4-5.0); Sodium 139 mmol/L (137-145)
[2024-06-09 12:19] LABS: NT Pro B Type Natriuretic Pept 2000 pg/mL (19.9-100)
[2024-06-09 12:45] LABS: Add Urine Microscopic? YES; Appearance Urine Cloudy (Clear); Bacteria Urine 4+ /hpf; Bilirubin Urine Negative (Negative); Blood Urine Negative (Negative); Color Urine Yellow (Yellow); Glucose Urine UA Negative (Negative); Ketones Urine Negative (Negative); Leukocyte Esterase Ur Negative LEU/UL (Negative); Nitrate Urine Positive (Negative); Non Pathogenic Casts 0-2; Protein Urine 1+ mg/dL (Negative); Specific Grav Ur 1.011 (1.001-1.035); Squamous Epithelial Cell Urine None Seen /hpf (Few); Urobilinogen Urine 0.2 mg/dL (<2.0); WBC Urine 0-5 /hpf (0-3)
[2024-06-09] MEDS: SULFAMETHOXAZOLE/TRIMETHOPRIM 800/160 MG DS TABLET 1 TAB PO (14:20)
[2024-06-09] MEDS: FUROSEMIDE INJ 40 MG/4 ML VIAL IV PUSH (14:20)
[2024-06-09 15:32] LABS: Troponin I < 0.012 ng/mL (0.000-0.034)
== END 2024-06-09 15:21 | disposition home or self-care (01) ==
PROVIDERS: Emergency Provider Registered Nurse; PCP Internal Medicine
DX: I50.9 Heart failure, unspecified (principal); N39.0 Urinary tract infection, site not specified; I11.0 Hypertensive heart disease with heart failure; I48.91 Unspecified atrial fibrillation; J44.9 Chronic obstructive pulmonary disease, unspecified; M19.90 Unspecified osteoarthritis, unspecified site; K58.9 Irritable bowel syndrome, unspecified; Z95.0 Presence of cardiac pacemaker; Z87.891 Personal history of nicotine dependence; Z79.82 Long term (current) use of aspirin; Z79.899 Other long term (current) drug therapy; K57.90 Diverticulosis of intestine, part unspecified, without perforation or abscess without bleeding
CPT/HCPCS: 36415; 71046; 71260; 74177; 80053; 81001; 83880; 84484; 85025; 85380; 85610; 85730; 87077; 87086; 87186; 93005; 96374; 99284; A9270; J1938; Q9967

== ENCOUNTER 2024-06-29 14:35 | Outpatient (CLI) | payer MEDICARE, SELFPAY ==
--- NOTE | ~2024-06-29 | US_ITS ---
EXAMINATION: US renal BI DATE: 06/29/2024 15:21 INDICATION: Bilateral renal cysts TECHNIQUE: Multiple ultrasound grayscale images of the kidneys were obtained. COMPARISON: CT dated 06/19/2024 FINDINGS: The right kidney measures 11.8 x 4.0 x 6.1 cm. The left kidney measures 11.4 x 4.7 x 5.2 cm. The kidn eys demonstrate normal echogenicity. There are couple anechoic cysts in the right kidney measuring 5. 1 cm at the interpolar region and 2.8 cm at the lower pole. A couple smaller right renal cysts and a couple tiny cysts at the left kidney seen on prior CT are not visualized on the provided imaging like ly due to their small size. There is no hydronephrosis in either kidney. No stones identified. The b ladder is normal with bilateral ureteral jets visualized on color Doppler. IMPRESSION: 1. Right renal cysts measuring up to 5.1 cm. Otherwise normal kidneys without hydronephrosis Reviewed, dictated and finalized at location B.
--- OUTSIDE RECORDS SUMMARY | 2024-06-29 16:36 | XMS_ITS | CONTINUITY OF CARE DOCUMENT ---
Author Name nina, bhavaniser Address Unknown Organization [facility] Address [address] [facility] [address] [place] [address] Phone [phone] Care Team Providers Care Geothermal Installer Name Role Phone Wil Wilson MD Unavailable [phone] LAKESHIA HOGAN MD Unavailable PROBLEMS Condition Status Date Provider Notes Abnormal electrocardiogram active Ashia maravilla Carotid bruit active Farhana Rios MD back pain active Farhana Rios MD HTN active Farhana Rios MD Paroxysmal atrial fibrillation active Idania Rios MD ENCOUNTERS Date Type Provider Location Encounter Diag nosis - In-person encounter Office Visit Farhana Rios MD [facility] Paroxysmal atrial fibrillationHTNback painCarotid bruit VITAL [...] Payer name Policy type / Coverage type [place] red green party ID AARP MEDICARE ADVANTAGE [facility] ([facility]) Medicare [id number] TREATMENT PLAN Date Name Performer Cardiology:She is [...] there is recurrence she will be on jail anticoagulation. She is planned to have surgery and her recent stress test shows normal perfusion. She can undergo surgery at an acceptable risk. Farhana Rios MD HISTORY OF PROCEDURES Procedure Date Procedure Name Provider Procedure Notes S tatus EKG Farhana Rios MD complet ed SNOMED-CT: [id number] Current Medications Documented Farhana Rios MD completed Stress EKG Farhana Rios MD complet ed Regadenoson, 4 units Farhana Rios MD completed Cardiolite, 2 units Farhana Rios MD completed SPECT Images Farhana Rios MD compl eted Event Monitor Farhana Rios MD comp leted
--- OUTSIDE RECORDS SUMMARY | 2024-06-29 16:36 | XMS_ITS | Encounter Summary ---
Author Organization [facility] Address [address] [place] [address] Care Team Providers Care Director Of Hemophilia Name Role Phone Nicolas Huffman MD Primary Care Provider [phone] Reason for Referral * (Routine) - Closed Specialty Diagnoses / Procedures Referred By Contac t Referred To Contact Diagnoses Dyspnea Procedures Pulmonary Function Test -[facility] PFT Lab- [facility]-8D; Standard; Spirometry, Spirometry w/bronchodilator, DLCO and Lung Volumes Nicolas Huffman MD [address] [address] Phone: tel: fax: Referral ID Status Reason Start Date Expiration Date Visits Re quested Visits Authorized [id number] Closed 09/01/2019 03/12/2021 1 1 Encounter Details Date Type Department Care Team (Late st Contact Info) Description 09/01/2019 Orders Only Internal Medicine Nicolas Huffman MD [address] [address] Dyspnea (Primary Dx) Social History [...] on file Legal Sex Female 11:21 AM DUST CONTROL ENGINEER Gender Identity Female 11/24/2020 8:03 AM CDT Sexual Orientation Straight 11/24/2020 8: 03 AM CDT documented as of this encounter Progress Notes * Janessa Elliott - 09/01/2019 11:30 AM CDT pulmonar documented in this encounter Plan of Treatment Not on file documented as of this encounter Results * Pulmonary Function Test - (09/09/2019 10:28 AM CDT) FVC PRED 2.68 0.05 - 9.99 Liters [facility] FVC PRE 1.73 0 - 12 Liters [facility] FVC %PRE PRED 64 0 - 300 % [facility] FEV1 PRED 2.05 0.05 - 9.99 Liters [facility] FEV1 PRE 1.17 0 - 12 Liters [facility] FEV1 %PRE PRED 57 0 - 300 % [facility] FEV1/FVC PRED 77 1 - 99 % [facility] FEV1/FVC PRE 68 0 - 12 % [facility] AGS28-28% PRED 1.66 0 - 12 L/sec [facility] NVP37-18% PRE 0.54 0 - 12 L/sec [facility] YLI11-58% %PRE PRED 33 0 - 300 % [facility] FEF75% PRED 0.38 0 - 300 L/sec [facility] FEF75% PRE 0.15 0 - 12 L/sec [facility] FEF75% %PRE PRED 39 % [facility] PEF PRED 5.36 0 - 18 L/sec [facility] PEF PRE 4.17 0 - 18 L/sec [facility] PEF %PRE PRED 78 0 - 300 % [facility] PIF PRE 1.78 0 - 18 L/sec [facility] FEV6 PRE 1.66 0 - 12 Liters [facility] FEV1/FEV6 PRE 70 0 - 12 % [facility] VC PRED 2.79 0.05 - 9.99 Liters [facility] VC PRE 1.95 0.05 - 9.99 Liters [facility] VC %PRE PRED 70 0 - 300 % [facility] TLC PRED 5.14 0.05 - 11.99 Liters [facility] TLC PRE 4.63 0.05 - 11.99 Liters [facility] TLC %PRE PRED 90 0 - 300 % [facility] RV PRED 2.36 0.05 - 9.99 Liters [facility] RV PRE 2.68 0.05 - 9.99 Liters [facility] RV %PRE PRED 114 0 - 300 % [facility] RV/TLC PRED 46 0 - 300 % [facility] RV/TLC PRE 58 0 - 300 % [facility] FRC N2 PRED 2.52 0.05 - 9.99 Liters [facility] FRC PL PRED 2.96 0.05 - 9.99 Liters [facility] FRC PL PRE 2.78 0.05 - 9.99 Liters [facility] FRC PL %PRE PRED 94 0 - 300 % [facility] ERV PRED 0.92 0.05 - 9.99 Liters [facility] ERV PRE 0.20 0.05 - 9.99 Liters [facility] ERV %PRE PRED 22 0 - 300 % [facility] IC PRE 1.85 0.05 - 9.99 Liters [facility] DLCO PRED 22.5 0.05 - 99.99 mL/mmHg/min [facility] DLCO PRE 12.5 mL/mmHg/min [facility] DLCO %PRE PRED 55 0 - 300 % [facility] DL ADJ PRED 22.5 1 - 2 mL/mmHg/min [facility] DL ADJ PRE 12.5 1 - 2 mL/mmHg/min [facility] DL ADJ %PRE PRED 55 0 - 300 % [facility] DLCO/VA PRED 4.66 mL/mHg/min/ L [facility] DLCO/VA PRE 3.97 mL/mHg/min/ L [facility] DLCO/VA %PRE PRED 85 % [facility] DL/VA ADJ PRED 3.49 mL/mHg/min/ L [facility] DL/VA ADJ %PRE PRED 114 % [facility] VA PRE 3.15 Liters [facility] RAW PRED 1.28 cmH2O/L/sec [facility] RAW PRE 4.65 cmH2O/L/sec [facility] RAW %PRE PRED 363 % [facility] GAW PRED 0.711 L/sec/cmH2O [facility] GAW PRE 0.215 L/sec/cmH2O [facility] GAW %PRE PRED 30 % [facility] SRAW PRED 3.80 cmH2O/L/s/L [facility] SRAW PRE 15.24 cmH2O/L/s/L [facility] SRAW %PRE PRED 401 % [facility] SGAW PRED 0.257 L/s/cmH2O/L [facility] SGAW PRE 0.066 L/s/cmH2O/L [facility] SGAW %PRE PRED 26 % [facility] Anatomical Region Laterality Modality PFT 09/09/2019 [...] COVID: Suspected 01/21/2020 01/21/2020 01/21/2020 6:51 PM DUST CONTROL ENGINEER Respiratory Infection (NOEL), contact + droplet Comment:Automatically added due to negative COVID-19 result. 01/21/2020 01/21/2020 2020 3:0 7 AM DUST CONTROL ENGINEER COVID: Suspected 03/06/2022 03/06/2022 03/06/2022 9:09 PM DUST CONTROL ENGINEER documented as of this encounter Care Teams Director Of Hemophilia Relationship Specialty Start Date End Date Nicolas Huffman MD [address] [address] PCP - General 05/22/16 documented as of this encounter
--- OUTSIDE RECORDS SUMMARY | 2024-06-29 16:37 | XMS_ITS | Referral Summary ---
Author Organization [facility] Address [address] [place] [address] Care Team Providers Care Manufacturing Maintenance Technician Name Role Phone Nicolas Huffman MD Primary Care Provider [phone] Encounters Date Type Department Care Team Description 06/15/2024 Telephone [facility] [address] [place] [phone] Ramonita Burgos NP US Kidney COMPLETE 06/15/2024 Orders Only [facility] [address] [phone] Ramonita Burgos NP Bilateral renal cysts (Primary Dx) 06/15/2024 10:00 AM CDT Office Visit [facility] [address] [phone] Ramonita Burgos NP Bilateral renal cysts (Primary Dx); Chronic congestive heart failure, unspecified heart failure type (HCC); Dyspnea on exertion; Paroxysmal atrial fibrillation (HCC); Hypertension, essential; Osteoarthritis of right shoulder, unspecified osteoarthritis type 06/11/2024 Orders Only [facility] [address] [place] [phone] Nicolas Huffman MD 06/10/2024 Orders Only [facility] [address] [phone] Nicolas Huffman MD 06/09/2024 Orders Only [facility] [address] [place] [phone] Nicolas Huffman MD 06/09/2024 9:00 AM CDT Office Visit [facility] Counts Include 234 Beds At [facility] Care at [address] [phone] Kaylen Mendoza PA Shortness of breath (Primary Dx) 05/25/2024 Results Follow-Up [facility] [address] [place] [phone] Nicolas Huffman MD Osteoarthritis of right shoulder, unspecified osteoarthritis type (Primary Dx) 05/21/2024 11:19 AM CDT - 05/21/2024 11:59 PM CDT Hospital Encounter [facility] [address] [place] [phone] Nicolas Huffman MD Chronic right shoulder pain Discharge Disposition: Discharge to home or self care 05/21/2024 10:15 AM CDT Office Visit [facility] [address] [place] [phone] Nicolas Huffman MD Longstanding persistent atrial fibrillation (HCC) (Primary Dx); Hypertensive urgency; Moderate COPD (chronic obstructive pulmonary disease) (CMS/HCC) (HCC); Chronic right shoulder pain 04/19/2024 Orders Only [facility] [address] [facility] Office Building [address] [place] [address] Fabby Mcgee MD from Last 3 Months Allergies Active Allergy Reactions Criticality Noted Date Comments Amoxicillin Diarrhea Low 06/14/2022 Oxycodone Mental status changes,Hallucinations High 11/25/2019 Prednisone Mental status changes,Hallucinations High 11/25/2019 Medications aspirin 325 mgIndications:M yocardial Reinfarction Prevention,prev ention of thrombosis Take 1 tablet (325 mg total) by mouth riverboat master before breakfast qd Active albuterol HFA (PROVENTIL HFA,VENTOLIN HFA,PROAIR HFA) 90 mcg/actuation inhaler Inhale 1 puff every 4 (four) hours as needed for wheezing or shortness of breath Active psyllium, aspartame, SF (METAMUCIL SF) 3.4 gram packet Take 1 packet by mouth as needed Active acetaminophen (TYLENOL) 325 mg tabletIndicatio ns:Pain Take 2 tablets (650 mg total) by mouth every 4 (four) hours as needed for pain 06/13/19 24 Active Additional Information Patient not taking.Reported on 06/15/2024 hydrALAZINE (APRESOLINE) 50 mg tablet TAKE 1 TABLET BY MOUTH THREE TIMES DAILY 270 tablet 2 06/29/19 24 Active metoprolol (LOPRESSOR) 100 mg tablet TAKE 1 TABLET BY MOUTH TWICE DAILY 180 tablet 3 08/18/19 24 Active Tiadylt ER 180 mg 24 [...] mouth 4 (four) times a day Active Eliquis 5 mg tablet TAKE 1 TABLET(5 MG) BY MOUTH TWICE DAILY 180 tablet 2 06/19/19 25 Active apixaban (Eliquis) 5 mg tablet TAKE 1 TABLET(5 MG) BY MOUTH TWICE DAILY 180 tablet 2 08/24/19 24 025 Discontinued sulfamethoxazol e-trimethoprim (BACTRIM DS) 800-160 mg per tablet Take 1 tablet by mouth 2 (two) times a day for 7 days 14 tablet 06/10/19 25 025 Active Problems Problem Noted Date Diagnosed Date Chronic right shoulder pain 05/21/2024 Assessment & Plan (05/21/2024 11:08 AM CDT): Check x-ray. Non-ST elevation (NSTEMI) myocardial infarction 01/14/2024 Assessment & Plan (01/14/2024 11:58 AM ENGINEERING SECRETARY): Long discussion today lasting more than 30 minutes concerning this. Will look for the present we will leave medication alone at this time. Will refer to cardiology here at [place]. Will try to obtain her pacer data from Dr. Mcgee. I feel this may very well have been a type 2 myocardial infarction based on pneumonia which was diagnosed in the emergency room Cervicalgia 01/14/2024 Assessment & Plan (01/14/2024 11:57 AM ENGINEERING SECRETARY): Check C-spine x-rays. A-fib 06/12/2023 Assessment & Plan (01/14/2024 11:58 AM ENGINEERING SECRETARY): Per Dr. Mcgee Assessment & Plan (06/12/2023 [...] exertion Assessment & Plan (02/20/2024 9:35 AM ENGINEERING SECRETARY): I feel this is most likely secondary to COPD. Possibly mild right heart strain. Will give furosemide and check BMP in 2 weeks. Most recent echo showed normal LV function. Moderate COPD (chronic obstr uctive pulmonary disease) ([facility]) Assessment & Plan (05/21/2024 11:08 AM CDT): Stable. Assessment & Plan (01/14/2024 11:57 AM ENGINEERING SECRETARY): Stable at this time Resolved Problems Problem [...] Date Smoking Tobacco: Former Cigarettes Q uit: 2009 Smokeless Tobacco: Never Tobacco Cessation:Counseling Given: Not [...] on file Legal Sex Female 11:21 AM ENGINEERING SECRETARY Gender Identity Female 11/24/2020 8:03 AM CDT Sexual Orientation Straight 11/24/2020 8: 03 AM CDT Last Filed Vital Signs Vital Sign Reading Time Taken Comments Blood Pressure 129/80 06/15/2024 9:44 AM CDT Pulse 76 06/15/2024 9:44 AM CDT Temperature 36.1 C (96.9 F) 06/09/2024 8:47 AM CDT Respiratory Rate 24 06/09/2024 8:47 AM CDT Oxygen Saturation 96% 06/15/2024 9:44 AM CDT Inhaled Oxygen Concentration - - Weight 88.5 kg (195 lb) 06/15/2024 9:44 AM CDT Height 162.6 cm (5' 4 ) 06/15/2024 9:44 AM CDT Body Mass Index 33.47 06/15/2024 9:44 AM CDT Plan of Treatment Not on file Medical Devices Implanted Type Area Medical Education Coordinator Device Identifier Shelf Expiration Date Model / Serial / Lot [employer] Suzi Monitor Cardiac Insertable Leadless Lux Dx 4.0x7.2x44.8m m M301 - [id number] - [id number] Implanted:Qty : 1 on 12/12/2022 by Fabby Mcgee MD at [facility] Implantable Loop Recorder [employer] Suzi 10/01/2023 M301 / [id number] / [id number] [employer] Suzi Active Fixation Steroid Eluting Is 1 Connector Latex Free Sterile Right Atrial Right Atrial Ingevity Plus 59cm 7842 - [id number] - [id number] Implanted:Qty : 1 on 06/12/2023 by Fabby Mcgee MD at [facility] Lead Right: Ventricle [employer] Suzi 06/29/2024 7842 / [id number] / [employer] Su[employer] Fineline Ii Sterox Ez 1.7mm 52cm Bipolar Active Fixation Screw 4470 - [id number] - [id number] Implanted:Qty : 1 on 06/12/2023 by Fabby Mcgee MD at [facility] Lead Right: Atria [employer] Suzi 12/02/2024 4470 / [id number] / [employer]. Accolade Latitude Nxt Pacesafe Easyview 4.45x5.02cm 2 Chamber Is1 L311 - [id number] - [id number] Implanted:Qty : 1 on 06/12/2023 by Fabby Mcgee MD at [facility] Pacemaker Left: Chest Wall [employer] C.[employer]M. 04/24/2025 L311 / [id number] / Procedures Procedure Name Priority Date/Time Associated Diagnosis Comments SCAN - LABS 06/11/2024 11:12 AM CDT SCAN - LABS 06/10/2024 6:01 PM CDT SCAN - LABS 06/09/2024 4:54 PM CDT SCAN - LABS 06/09/2024 2:48 PM CDT SCAN - RADIOLOGY/IMAGING 06/09/2024 1:25 PM CDT SCAN - RADIOLOGY/IMAGING 06/09/2024 11:39 AM CDT XR SHOULDER RIGHT 2 OR MORE VIEWS Schedule Routine, Read Routine (OP Routine) 05/21/2024 11:41 AM CDT Chronic right shoulder pain SCAN - LABS 05/13/2024 8:48 AM CDT DEVICE CHECK - REMOTE Routine 04/19/2024 3:35 AM ENGINEERING SECRETARY from Last 3 Months Results * SCAN - LABS (06/11/2024 11:12 AM CDT) us Nicolas Huffman MD Final Result * SCAN - LABS (06/10/2024 6:01 PM CDT) us Nicolas Huffman MD Final Result * SCAN - LABS (06/09/2024 4:54 PM CDT) us Nicolas Huffman MD Final Result * SCAN - LABS (06/09/2024 2:48 PM CDT) us Nicolas Huffman MD Final Result * SCAN - RADIOLOGY/IMAGING (06/09/2024 1:25 PM CDT) Anatomical Region Laterality Modality Other us Nicolas Huffman MD Final Result * SCAN - RADIOLOGY/IMAGING (06/09/2024 11:39 AM CDT) Anatomical Region Laterality Modality Other us Nicolas Huffman MD Final Result * XR Shoulder Right 2 or More Views (05/21/2024 11:41 AM CDT) Anatomical Region Laterality Modality Upper Extremities, Shoulder Right Comp uted Radiography 05/21/2024 1:18 PM CDT Impressions 05/21/2024 1:18 PM CDT 1. Severe right glenohumeral osteoarthritis with ucvl-zm-idic contact and intra-articular loose bodies. 2. Moderate right acromioclavicular joint osteoarthritis. Electronically signed by: Curtis Abarca M.D. Narrative 05/21/2024 1:18 PM CDT EXAMINATION: XR SHOULDER RIGHT 2 OR MORE VIEWS HISTORY: pain, no injury, decreased ROM FINDINGS: 3 view examination of the right shoulder is read without comparison. There is severe right glenohumeral osteoarthritis with sxsw-iz-oxsd contact. There is a 1 cm ossific [...] There is severe right glenohumeral osteoarthritis with toan-my-jbsy contact. There is a 1 cm ossific loose body in the axillary pouch. There is moderate acromial clavicular joint osteoarthritis. No fracture or dislocation. Alignment is normal. Partially imaged cardiac pacemaker. IMPRESSION: 1. Severe right glenohumeral osteoarthritis with iuwm-ea-luee contact and intra-articular loose bodies. 2. Moderate right acromioclavicular joint osteoarthritis. Electronically signed by: Curtis Abarca M.D. us Nicolas Huffman MD IMG XR PROCEDURES Final Resul t * SCAN - LABS (05/13/2024 8:48 AM CDT) us Nicolas Huffman MD Final Result * DEVICE CHECK - REMOTE (04/19/2024 3:35 AM ENGINEERING SECRETARY) Anatomical Region Laterality Modality Other 04/19/2024 3:35 AM ENGINEERING SECRETARY Narrative 04/22/2024 11:46 AM ENGINEERING SECRETARY Interpretation Summary: Battery and Leads (BL) Normal parameters noted on battery and lead(s) --- 6 years remaining (this is an estimate based on prior usage) Presenting Rhythm (CT) Atrial Fibrillation or Flutter Ventricular Pacing (CLASSIFICATION INSPECTOR) --- rate 70's Arrhythmic events (AE) Paroxysmal [...] estimate based on prior usage) Presenting Rhythm (CT) Atrial Fibrillation or Flutter Ventricular Pacing (CLASSIFICATION INSPECTOR) --- rate 70's Arrhythmic events (AE) Paroxysmal atrial fibrillation and/or flutter Atrial fibrillation and/or flutter with controlled ventricular rate Anticoagulation (AC) Patient on anticoagulant therapy Patient prescribed Apixaban (Eliquis) Transmission Information (TI) Device Summary Report Fabby Mcgee MD [facility] CARDIAC SERVICES PROCEDURES Final Result from Last 3 Months Insurance [employer]HC [facility]IC[facility] Address: [facility] [address] [place] [address] [employer] [facility] Address: [address] [address] [place] [id number] [facility] Address: [address] [place], [place] [id number] [facility] Address: [address] [place], [place] [id number] Advance Directives For more information, please contact: [phone] Documents on File Type Date Recorded Patient Heat Set Operator Expl anation Power of Back Tender 06/12/2023 5:53 AM ADVANCE DIRECTIVE 12/17/2022 2:43 AM PARVIN R OF MATERIALS INTERN-MEDICAL Power of Back Tender 12/12/2022 10:10 AM * Full Code (Latest Code Status on File) Date Activated Date Inactivated Comments 06/12/2023 10:30 AM 06/13/2023 3:29 PM * Full Code Date Activated Date Inactivated Comments 12/12/2022 1:31 PM 12/12/2022 7:26 PM Care Teams Manufacturing Maintenance Technician Relationship Specialty Start Date End Date Nicolas Huffman MD [address] [address] PCP - General 05/22/16
== END 2024-06-29 14:36 | disposition home or self-care (01) ==
PROVIDERS: PCP Internal Medicine; Visit Provider Nurse Practitioner Primary Care
DX: N28.1 Cyst of kidney, acquired (principal)
CPT/HCPCS: 76775

== ENCOUNTER 2024-07-28 09:18 | Emergency (ER) | payer MEDICARE, SELFPAY ==
--- NOTE | ~2024-07-28 | CT_ITS ---
EXAMINATION: CT abdomen pelvis w con DATE: 07/28/2024 14:29 INDICATION: Leukocytosis. Urinary tract infection. TECHNIQUE: Computed tomography (CT) of the abdomen and pelvis was performed with 100 mL Omnipaque-350 intravenous contrast. Automated exposure control and iterative reconstruction technique were employe d. The dose-length product was 497.38 mGy-cm. COMPARISON: None FINDINGS: Mild discoid atelectasis in the left lower lobe and lingula. Heart size is normal. Atherosclerotic co ronary artery calcific lesion. Cardiac pacemaker leads terminating at the right atrium and near the a pex of the right ventricle. No pericardial or pleural effusion. Liver, gallbladder and spleen, pancre as and bilateral adrenal glands are normal. There is scattered cortical scarring at the left kidney l ikely sequela prior infection or infarction. There are bilateral renal cysts the largest on the right measuring 3.9 cm. Prominent diverticulosis along the descending and sigmoid colon without adjacent f rom trace stranding to suggest diverticulitis. Small bowel and appendix are normal. Tiny fat-containi ng umbilical hernia. Bladder, uterus and left adnexa are unremarkable. 3 cm right adnexal cysts. No f ree intraperitoneal gas or fluid. No pathologically enlarged abdominal or pelvic lymphadenopathy. Mil d thoracic and lumbar spondylosis. IMPRESSION: 1. No acute intra-abdominal/pelvic process. 2. Diverticulosis. Reviewed, dictated and finalized at location A.
--- NOTE | ~2024-07-28 | XR_ITS ---
CHEST RADIOGRAPH, PA AND LATERAL CLINICAL HISTORY: SOB, AFIB . COMPARISON: 06/09/2024 TECHNIQUE: PA and lateral views of the chest. FINDINGS The left mid lung is partially obscured due to pacemaker generator. Wires project over the right atrium and right ventricle. Calcification of the mitral annulus, more prominent on today's study. The remainder of the cardiomediastinal silhouette is enlarged, an interval change likely related to p ositioning. Increased interstitial markings are identified bilaterally, findings suggesting mild pulmonary vascul ar congestion. The remainder of the lungs are otherwise clear. IMPRESSION: Mild pulmonary vascular congestion, without focal infiltrate or effusion. Reviewed, dictated and finalized at location A.
[2024-07-28 09:16] VITALS: BP 148/74; PULSE 84; RESP 19; TEMP 36.4; O2SAT 100
--- NOTE | 2024-07-28 09:24 | ECG_ITS ---
Test Date: 2024-07-28 09:27:28 Measurements Intervals [place] Rate: 92 P: 0 MI: 0 QRS: -36 QRSD: 87 T: 140 QT: 320 QTc: 396 Interpretive Statements ATRIAL FIBRILLATION ELECTRONIC VENTRICULAR PACEMAKER -- CONTOUR ANALYSIS BASED ON INTRINSIC RHYTHM LEFT AXIS DEVIATION [QRS AXIS < -30] PATTERN CONSISTENT WITH PULMONARY DISEASE LEFT VENTRICULAR HYPERTROPHY AND ST-T CHANGE [VOLTAGE CRITERIA PLUS ST/T ABNORMALITY] Compared to ECG 06/09/2024 11:03:16 NO SIGNIFICANT CHANGES Electronically Signed On 07-29-2024 14:59:27 CDT by Malachi Griffiths M.D.
[2024-07-28 09:25] VITALS: O2SAT 100
[2024-07-28 09:27] VITALS: O2SAT 100
--- NOTE | 2024-07-28 10:33 | ED_ITS ---
HPI - SOB/Dyspnea General Chief Complaint: Shortness of Breath/Dyspnea Stated Complaint: SOB Time Seen by Provider: 07/28/24 10:01 Source: patient Mode of arrival: EMS Limitations: no limitations History of Present Illness HPI Narrative: This is an 84-year-old female that presents to the emergency department for shortness of breath, generalized weakness. Worsening over the last couple of days. Reports exertional dyspnea. 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 Denies chest pain, lower extremity edema. Related Data Home Medications ?Medication ?Instructions ?Recorded ?Confirmed ?Last Taken ?Type aspirin 325 mg tablet 325 mg PO DAILY 12/14/19 11/20/21 08/04/20 History 325 chlorthalidone 25 mg tablet 25 mg PO DAILY 12/14/19 11/20/21 08/04/20 History 25 diltiazem HCl 120 mg 120 mg PO DAILY 12/14/19 11/20/21 08/04/20 History capsule,extended release 24 hr 120 (Cartia XT) hydralazine 50 mg tablet 50 mg PO BID 12/14/19 11/20/21 08/04/20 History lisinopril 40 mg tablet 40 mg PO DAILY 12/14/19 11/20/21 08/04/20 History 40 metoprolol tartrate 100 mg tablet 100 mg PO Q12H 12/14/19 11/20/21 08/04/20 History 100 acetaminophen 500 mg tablet 500 mg PO Q6H PRN 10/10/21 11/20/21 Unknown History (Tylenol Extra Strength) calcium carbonate (Calcium 600) 600 mg PO DAILY 11/20/21 11/20/21 Unknown History diphenhydramine 25 1 tablet PO QHS PRN 11/20/21 11/20/21 Unknown History mg-acetaminophen 500 mg tablet (Tylenol PM Extra Strength) Allergies Allergy/AdvReac Type Severity Reaction Status Date / Time oxycodone Allergy Mild condusion, Verified 07/28/24 09:27 difficulty concentrating amoxicillin AdvReac Intermediate Diarrhea Verified 07/28/24 09:27 prednisone AdvReac Mild Confusion Verified 07/28/24 09:27 Review of Systems 2 Review of Systems: CONSTITUTIONAL: Denies fever CARDIOVASCULAR: Denies chest pain, or edema. RESPIRATORY: Reports dyspnea. All systems reviewed & are unremarkable except as noted in HPI and below PMFSH Past Medical History Medical History Afib IBS (irritable bowel syndrome) Hypertension COPD (chronic obstructive pulmonary disease) Family History Family History Father Stomach cancer Mother Osteoporosis Social History Social History Smoking packs per day: 0.5 Smoking cigarettes per day: 10.0 Smoking status: Former smoker Tobacco type: cigarettes Smoking end date: 03/03/11 Alcohol intake: never Substance use: never Living arrangements: alone Exam 2 Narrative: GENERAL: Well-appearing, well-nourished, and in no acute distress. HEAD: Normocephalic, atraumatic. EYES: EOMI. ENT: Nares clear, no rhinorrhea or epistaxis. Mucous membranes moist. Oropharynx without tonsillar hypertrophy exudate or other lesions. NECK: Supple. No adenopathy or masses. CHEST: Clear to auscultation. No respiratory distress. No wheezes rales or rhonchi HEART: Regular rate and rhythm. No murmur heard. Normal peripheral pulses. ABDOMEN: Soft, nontender, nondistended, normal active bowel sounds. EXTREMITIES: Normal range of motion. No edema. SKIN: Warm, dry, no rash. NEURO: No focal deficits. Alert and oriented x3. PSYCH: Normal mood and affect Course Course Emergency Course: Patient updated on her workup and agrees with plan of care Vital Signs Vital signs: Vital Signs Temperature 97.6 F 07/28/24 09:16 Pulse Rate 84 07/28/24 09:16 Respiratory Rate 19 07/28/24 09:16 Blood Pressure 148/74 H 07/28/24 09:16 Pulse Oximetry 100 07/28/24 09:16 Oxygen Delivery Room Air 07/28/24 09:16 Temperature 97.6 F 07/28/24 09:16 Pulse Rate 73 07/28/24 13:09 Respiratory Rate 16 07/28/24 13:08 Blood Pressure 158/65 H 07/28/24 13:08 Pulse Oximetry 99 07/28/24 13:08 Oxygen Delivery Room Air 07/28/24 09:27 MDM - SOB/Dyspnea MDM Narrative Medical decision making narrative: Patient presents to the emergency department for shortness of breath ongoing over the last couple of days. She is afebrile and nontoxic appearing. Oxygen saturations 100% on room air. Lungs are clear on exam. Patient noted to be in atrial fibrillation, which is chronic for her. Rate has been controlled throughout her stay in the ER. CBC shows leukocytosis to 19.5. Also mild hemoconcentration. Metabolic panel with kidney function that is around her baseline. Urine with possible evidence of infection. This was sent for culture. COVID, influenza and RSV screens are negative. Chest x-ray shows mild vascular congestion, no focal infiltrate or effusion. CT abdomen pelvis without acute findings. Patient will be started on antibiotics for UTI, given 1st dose IV in the ER. She is to follow up with her primary provider. She was given warnings to return to the ER Differential Diagnosis Differential diagnosis: Likely congestive heart failure, community acquired pneumonia, pulmonary embolism and other (UTI) Lab Data Attestation: I reviewed the patient's lab results. 07/28/24 11:31 07/28/24 11:31 Labs: Lab Results 07/28/24 07/28/24 07/28/24 Range/Units 11:29 11:31 13:02 WBC 19.5 H (4.5-10.0) K/mm3 RBC 5.51 H (4.2-5.4) M/mm3 Hgb 16.6 H (12.0-15.0) g/dL Hct 48.8 H (37.0-47.0) % MCV 88.6 (80-100) fl MCH 30.1 (26-34) pg MCHC 34.0 (32-36) g/dl RDW 13.6 (11.5-14.5) % Plt Count 396 H (150-375) k/mm3 MPV 9.5 (7.4-10.4) fl Immature Gran % (Auto) 0.8 H (0-0.5) % Neut % (Auto) 74.9 H (45.5-73.1) % Lymph % (Auto) 16.0 L (18.3-44.2) % [place] % (Auto) 7.4 (2.6-8.5) % Eos % (Auto) 0.6 (0-4.4) % Baso % (Auto) 0.3 (0.2-1.2) % Lymph # (Auto) 3.12 (0.9-3.2) K/mm3 [place] # (Auto) 1.5 H (0.1-0.6) K/mm3 Eos # (Auto) 0.1 (0-0.3) K/mm3 Baso # (Auto) 0.1 (0.0-0.1) K/mm3 Abs Immat Gran (auto) 0.16 H (0.00-0.031) K/mm3 Absolute Neuts (auto) 14.6 H (1.3-6.7) K/mm3 Absolute Nucleated RBC 0.000 (0.0-0.012) K/mm3 Nucleated RBC % 0.0 (0.0-0.2) % PT 18.0 H (11.1-14.7) Seconds INR 1.5 APTT 31.0 (22.3-36.8) Seconds D-Dimer 0.31 (<0.48) ug/mL Sodium 136 L (137-145) mmol/L Potassium 3.5 (3.4-5.0) mmol/L Chloride 99 (98-107) mmol/L Carbon Dioxide 26 (22-30) mmol/L Anion Gap 11 (4-12) mmol/L BUN 40 H D (7-17) mg/dL Creatinine 1.23 H (0.7-1.0) mg/dL Estim Creat Clear Calc 35 ml/min Estimated GFR 42 L (59 - ) Glucose 109 (65-110) mg/dL Calcium 9.5 (8.4-10.2) mg/dL Total Bilirubin 1.0 (0.2-1.3) mg/dL AST 31 (14-36) U/L ALT 28 (6-35) U/L Alkaline Phosphatase 115 (38-126) U/L Troponin I < 0.012 (0.000-0.034) ng/mL NT-Pro-B Natriuret Pep 1210 H (19.9-100) pg/mL Total Protein 8.0 (6.3-8.2) g/dL Albumin 4.0 (3.5-5.1) g/dL Lipase 142 (23-300) U/L Urine Color Yellow (Yellow) Urine Appearance Cloudy H (Clear) Urine pH 6.0 (5.0-9.0) Ur Specific [place] 1.022 (1.001-1.035) Urine Protein 2+ H (Negative) mg/dL Urine Glucose (UA) 2+ H (Negative) mg/dL Urine Ketones Trace H (Negative) mg/dL Ur Blood (Man) Negative (Negative) Urine Nitrate Negative (Negative) Urine Bilirubin Negative (Negative) Urine Urobilinogen 1.0 (<2.0) mg/dL Add Ur Microanalysis Reviewed Leukocyte Esterase Rfl Trace H (Negative) ELNE/UL Urine RBC 0-2 (0-2) /hpf Urine WBC 6-10 H (0-3) /hpf Ur Squamous Epith Cells Moderate (Few) /hpf Urine Bacteria 4+ H /hpf Urine Casts 6-10 Influenza A (RT-PCR) Negative (Negative) Influenza B (RT-PCR) Negative (Negative) RSV (RT-PCR) Negative (Negative) SARS-CoV-2 RNA (RT-PCR) Negative (Negative) Imaging Data Radiologist's impression: ITS Impressions Chest X-Ray 07/28/24 10:14 IMPRESSION: Mild pulmonary vascular congestion, without focal infiltrate or effusion. Abdomen/Pelvis CT 07/28/24 14:53 IMPRESSION: 1. No acute intra-abdominal/pelvic process. 2. Diverticulosis. ECG Data EKG #1: ECG completion date: 07/28/24 EKG Interpretation: normal rate, atrial flutter and normal QT Critical Care Time Critical Care Time Critical Care Time: No Discharge Plan Discharge Clinical Impression: Acute UTI, Shortness of breath Atrial fibrillation Qualifiers: Atrial fibrillation type: unspecified Qualified Code(s): I48.91 - Unspecified atrial fibrillation Patient Disposition: Home Condition: Stable Instructions: Antibiotic Form, Urinary Tract Infection in Older Adults (ED) Additional Instructions: Return to the ER if you experience fever, chest pain, worsening shortness of breath, abdominal pain with nausea and vomiting, you are unable to keep down liquids or solids, or any other symptoms that are concerning to you Your work-up today is re-assuring Take oral antibiotic as prescribed for UTI Follow up with your primary care doctor Patient Language: German Prescriptions: New cephalexin 500 mg capsule 500 mg PO Q12H 5 Days Qty: 10 0RF No Action acetaminophen [Tylenol Extra Strength] 500 mg tablet 500 mg PO Q6H PRN calcium carbonate [Calcium 600] 600 mg calcium (1,500 mg) tablet 600 mg PO DAILY diphenhydramine-acetaminophen [Tylenol PM Extra Strength] 25-500 mg tablet 1 tablet PO QHS PRN hydralazine 50 mg tablet 50 mg PO BID metoprolol tartrate 100 mg tablet 100 mg PO Q12H lisinopril 40 mg tablet 40 mg PO DAILY diltiazem HCl [Cartia XT] 120 mg capsule,extended release 24hr 120 mg PO DAILY chlorthalidone 25 mg tablet 25 mg PO DAILY aspirin 325 mg tablet 325 mg PO DAILY meclizine 25 mg tablet 25 mg PO BID PRN (Reason: dizziness) Qty: 14 0RF ondansetron 4 mg tablet,disintegrating 4 mg PO Q8H PRN (Reason: nausea and vomiting) Qty: 10 0RF Follow-up/Referrals: Nathanael,Nicolas Romero MD [Primary Care Provider] -
--- OUTSIDE RECORDS SUMMARY | 2024-07-28 10:42 | XMS_ITS | Encounter Summary ---
Author Organization [facility] Address [address] [place] [address] Phone Care Team Providers Care Blast Furnace Supervisor Name Role Phone Nicolas Huffman MD Primary Care Provider [phone] Encounter Details Date Type Department Care Team (Late st Contact Info) Description 07/01/2024 Results Follow-Up [facility] Cardiology [address] [facility] Advanced Medicine [address]th [place] [address] [place] [address] Donald Angelo MD [address] [facility] [address] [place], [place] [id number] ECG 12 lead Social History Tobacco Use Types Packs/Day Years [...] on file 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
--- OUTSIDE RECORDS SUMMARY | 2024-07-28 10:42 | XMS_ITS | Encounter Summary ---
Author Organization [facility] Address [address] [place] [address] Care Team Providers Care Casting Cleaner Name Role Phone Nicolas Huffman MD Primary Care Provider [phone] Reason for Visit * Reason Comments Shortness of Breath Started Friday with SOB. Concern for pneumonia. 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 Gender Identity Female 11/24/2020 8:03 AM CDT Sexual Orientation Straight 11/24/2020 8: 03 AM CDT documented as of this encounter Last Filed Vital Signs Vital Sign Reading Time Taken Comments Blood Pressure 122/60 07/28/2024 8:14 AM CDT Pulse 50 07/28/2024 8:14 AM CDT Temperature 36.5 C (97.7 F) 07/28/2024 8:14 AM CDT Respiratory Rate 24 07/28/2024 8:14 AM CDT Oxygen Saturation 98% 07/28/2024 8:14 AM CDT Inhaled Oxygen Concentration - - Weight 85.6 kg (188 lb 12.8 oz) 07/28/2024 8:14 AM CDT Height 162.6 cm (5' 4) 07/28/2024 8:14 AM CDT Body Mass Index 32.41 07/28/2024 8:14 AM CDT documented in this encounter Progress Notes * Kaylen Mendoza PA - 07/28/2024 8:45 AM CDT Images from the original note were not included. Subjective/Objective Patient ID: Stephanie Brewer is a 84 y.o. female. Chief Complaint Shortness of Breath (Started Friday with SOB. Concern for pneumonia. ) Pt presents w/ worsening sob x 3-4 days. Worse this morning. Reports chest tightness. Denies LE edema. Feels like she feels like she is going to pass out and needs oxygen. No URI symptoms. No fever. 84 yo w/ hx of pacemaker, afib, NSTEMI, COPD, and recent dx of CHF. Recently started lasix 20 mg daily. Review of Systems All systems reviewed and are negative or non contributory for this patient's presentation today other than as stated in the HPI . Physical Exam Constitutional: Appearance: She is not ill-appearing or toxic-appearing. HENT: Head: Normocephalic and atraumatic. Mouth/Throat: Pharynx: Oropharynx is clear. Eyes: Pupils: Pupils are equal, round, and reactive to light. Cardiovascular: Rate and Rhythm: Normal rate. Rhythm irregular. Pulmonary: Effort: Pulmonary effort is normal. No respiratory distress. Breath sounds: Normal breath sounds. No wheezing, rhonchi or rales. Musculoskeletal: General: Normal range of motion. Cervical back: Normal range of motion. Skin: General: Skin is warm and dry. Neurological: General: No focal deficit present. Mental Status: She is alert and oriented to person, place, and time. Psychiatric: Mood and Affect: Mood normal. Behavior: Behavior normal. Vitals: 07/28/24 0814 BP: 122/60 Pulse: 50 Resp: 24 Temp: 36.5 ??C (97.7 ??F) TempSrc: Oral SpO2: 98% Weight: 85.6 kg (188 lb 12.8 oz) Height: 162.6 cm (5' 4) Assessment/Plan -pt presents w/ progressively worsening sob x 4 days, worse this morning -pt presents stating she feels like she needs oxygen, feels like she is going to pass out, states she can't breathe and her chest feels tight -extensive cardiac history including pacemaker, afib, NSTEMI, COPD, CHF -denies URI symptoms -lungs cta -heart rhythm irregular but patient states she is always in a fib, on arrival rate is in the 50s but during the visit rate jumped up into the 80s -EMS called and patient transported to ED to r/o ACS vs CHF exacerbation vs other Diagnoses and all orders for this visit: Shortness of breath (Primary) No results found for this or any previous visit (from the past 4 hours). Disposition ER via EMS ALMA Ansari 07/28/24 8:59 AM Cosigned by Will Murrieta MD at 07/28/2024 9:10 AM CDT documented in this encounter Plan of Treatment Not on file documented as of this encounter Visit Diagnoses Diagnosis Shortness of breath- Primary documented in this encounter Care Teams Casting Cleaner Relationship Specialty Start Date End Date Nicolas Huffman MD PCP - General 05/22/16 documented as of this encounter
--- OUTSIDE RECORDS SUMMARY | 2024-07-28 10:42 | XMS_ITS | Encounter Summary ---
Author Organization [facility] Healthcare Address [address] [place] [address] Care Team Providers Care Cloth Cutter Name Role Phone Nicolas Huffman MD Primary Care Provider [phone] Reason for Referral * (Routine) - Closed Specialty Diagnoses / Procedures Referred By Contac t Referred To Contact Diagnoses Dyspnea Procedures Pulmonary Function Test -[facility] PFT [facility]- CAM-8D; Standard; Spirometry, Spirometry w/bronchodilator, DLCO and Lung Volumes Nicolas Huffman MD Phone: tel: fax: Referral ID Status Reason Start Date Expiration Date Visits Re quested Visits Authorized [id number] Closed 09/01/2019 03/12/2021 1 1 Encounter Details Date Type Department Care Team (Late st Contact Info) Description 09/01/2019 Orders Only Internal Medicine Nicolas Huffman MD [address] [facility] [address] [place] [phone] Dyspnea (Primary Dx) Social History Tobacco Use [...] on file 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 Gender Identity Female 11/24/2020 8:03 AM CDT Sexual Orientation Straight 11/24/2020 8: 03 AM CDT documented as of this encounter Progress Notes * Janessa Elliott - 09/01/2019 11:30 AM CDT pulmonar documented in this encounter Plan of Treatment Not on file documented as of this encounter Results * Pulmonary Function Test - (09/09/2019 10:28 AM CDT) FVC PRED 2.68 0.05 - 9.99 Liters [facility] FVC PRE 1.73 0 - 12 Liters [facility] FVC %PRE PRED 64 0 - 300 % [facility] FEV1 PRED 2.05 0.05 - 9.99 Liters [facility] FEV1 PRE 1.17 0 - 12 Liters [facility] FEV1 %PRE PRED 57 0 - 300 % [facility] FEV1/FVC PRED 77 1 - 99 % [facility] FEV1/FVC PRE 68 0 - 12 % [facility] [id number]% PRED 1.66 0 - 12 L/sec [facility] [id number]% PRE 0.54 0 - 12 L/sec [facility] [id number]% %PRE PRED 33 0 - 300 % [facility] FEF75% PRED 0.38 0 - 300 L/sec [facility] FEF75% PRE 0.15 0 - 12 L/sec [facility] FEF75% %PRE PRED 39 % [facility] PEF PRED 5.36 0 - 18 L/sec [facility] PEF PRE 4.17 0 - 18 L/sec [facility] PEF %PRE PRED 78 0 - 300 % [facility] PIF PRE 1.78 0 - 18 L/sec [facility] FEV6 PRE 1.66 0 - 12 Liters [facility] FEV1/FEV6 PRE 70 0 - 12 % [facility] VC PRED 2.79 0.05 - 9.99 Liters [facility] VC PRE 1.95 0.05 - 9.99 Liters [facility] VC %PRE PRED 70 0 - 300 % [facility] TLC PRED 5.14 0.05 - 11.99 Liters [facility] TLC PRE 4.63 0.05 - 11.99 Liters [facility] TLC %PRE PRED 90 0 - 300 % [facility] RV PRED 2.36 0.05 - 9.99 Liters [facility] RV PRE 2.68 0.05 - 9.99 Liters [facility] RV %PRE PRED 114 0 - 300 % [facility] RV/TLC PRED 46 0 - 300 % [facility] RV/TLC PRE 58 0 - 300 % [facility] FRC N2 PRED 2.52 0.05 - 9.99 Liters [facility] FRC PL PRED 2.96 0.05 - 9.99 Liters [facility] FRC PL PRE 2.78 0.05 - 9.99 Liters [facility] FRC PL %PRE PRED 94 0 - 300 % [facility] ERV PRED 0.92 0.05 - 9.99 Liters [facility] ERV PRE 0.20 0.05 - 9.99 Liters [facility] ERV %PRE PRED 22 0 - 300 % [facility] IC PRE 1.85 0.05 - 9.99 Liters [facility] DLCO PRED 22.5 0.05 - 99.99 mL/mmHg/min [facility] DLCO PRE 12.5 mL/mmHg/min [facility] DLCO %PRE PRED 55 0 - 300 % [facility] DL ADJ PRED 22.5 1 - 2 mL/mmHg/min [facility] DL ADJ PRE 12.5 1 - 2 mL/mmHg/min [facility] DL ADJ %PRE PRED 55 0 - 300 % [facility] DLCO/VA PRED 4.66 mL/mHg/min/ L [facility] DLCO/VA PRE 3.97 mL/mHg/min/ L [facility] DLCO/VA %PRE PRED 85 % [facility] DL/VA ADJ PRED 3.49 mL/mHg/min/ L [facility] DL/VA ADJ %PRE PRED 114 % [facility] VA PRE 3.15 Liters [facility] RAW PRED 1.28 cmH2O/L/sec [facility] RAW PRE 4.65 cmH2O/L/sec [facility] RAW %PRE PRED 363 % [facility] GAW PRED 0.711 L/sec/cmH2O [facility] GAW PRE 0.215 L/sec/cmH2O [facility] GAW %PRE PRED 30 % [facility] SRAW PRED 3.80 cmH2O/L/s/L [facility] SRAW PRE 15.24 cmH2O/L/s/L [facility] SRAW %PRE PRED 401 % [facility] SGAW PRED 0.257 L/s/cmH2O/L [facility] SGAW PRE 0.066 L/s/cmH2O/L [facility] SGAW %PRE PRED 26 % [facility] Anatomical Region Laterality Modality PFT 09/09/2019 10:0 1 AM CDT Narrative 09/14/2019 7:59 AM CDT SEE PDF us Nicolas Huffman MD PFT ORDERABLES Final Result documented in this encounter Visit Diagnoses Diagnosis Dyspnea- Primary Other dyspnea and respiratory abnormality Dyspnea Other dyspnea and respiratory abnormality documented in this encounter Additional Health Concerns Infection Onset Date Last Indicated Resolved Time COVID: Suspected 01/21/2020 01/21/2020 01/21/2020 6:51 PM ADMINISTRATOR Respiratory Infection (NOEL), contact + droplet Comment:Automatically added due to negative COVID-19 result. 01/21/2020 01/21/2020 2020 3:0 7 AM ADMINISTRATOR COVID: Suspected 03/06/2022 03/06/2022 03/06/2022 9:09 PM ADMINISTRATOR documented as of this encounter Care Teams Cloth Cutter Relationship Specialty Start Date End Date Nicolas Huffman MD PCP - General 05/22/16 documented as of this encounter
--- OUTSIDE RECORDS SUMMARY | 2024-07-28 10:42 | XMS_ITS | Referral Summary ---
Author Organization [facility] al Address [address] [place] [address] Care Team Providers Care Motorized Squad Commanding Officer Name Role Phone Nicolas Huffman MD Primary Care Provider [phone] Encounters Date Type Department Care Team Description 07/28/2024 8:45 AM CDT Office Visit [facility] Care at [address] [address] Kaylen Mendoza PA Shortness of breath (Primary Dx) 07/20/2024 1:04 PM CDT - 07/20/2024 11:59 PM CDT Hospital Encounter [facility] [address] [place] [phone] Zhang De Leon MD Primary osteoarthritis of right shoulder (Primary Dx); Osteoarthritis of right shoulder, unspecified osteoarthritis type Discharge Disposition: Discharge to home or self care 07/16/2024 Telephone [facility] Cardiology [address] [place] [address] Advanced Medicine 8th [place] [address] [place] [address] Arcelia Denise MD Test Results 07/13/2024 Results Follow-Up [facility] Cardiology [address] [place] [address] Advanced Medicine 8th [place] [address] [place] [phone] Arcelia Denise MD Basic metabolic panel, Pro B-type natriuretic peptide, eGFR 07/13/2024 11:30 AM CDT Lab [facility] [address] [place] [address] Shortness of breath; Paroxysmal atrial fibrillation (HCC) 07/13/2024 11:00 AM CDT Office Visit [facility] Orthopaedic Surgery [address] [facility] 1st Floor [address] [place] [address] Guido Robles MD Osteoarthritis of right shoulder, unspecified osteoarthritis type 07/07/2024 Results Follow-Up Cardiology Arcelia Denise MD Transthoracic Echo (TTE) Complete W Doppler/CF 07/06/2024 4:03 PM CDT - 07/06/2024 11:59 PM CDT Hospital Encounter [facility] Cardiac Diagnostic Lab [facility] 8th [place] [address] Longstanding persistent atrial fibrillation (HCC); Shortness of breath Discharge Disposition: Discharge to home or self care 07/01/2024 Results Follow-Up [facility] Cardiology [address] [place] [address] 8th [place] [address] [place] [address] Arcelia Denise MD ECG 12 lead 07/01/2024 2:30 PM CDT Office Visit [facility] Cardiology [address] [place] [address] 8th [place] [address] [place] [address] Arcelia Denise MD Longstanding persistent atrial fibrillation (HCC) (Primary Dx); Shortness of breath; Sleep apnea-like behavior 06/30/2024 Results Follow-Up [facility] [address] [facility] [address] [place] [address] Ramonita Burgos NP SCAN - RADIOLOGY/IMAGING 06/30/2024 Orders Only [facility] [address] [place] [address] [address] [place] [address] Ramonita Burgos NP 06/29/2024 Orders Only [facility] [address] [place] [address] [address] [place] [address] Ramonita Burgos NP 06/15/2024 Telephone [facility] [address] [place] [phone] Ramonita Burgos NP US Kidney COMPLETE 06/15/2024 Orders Only [facility] [address] [address] Ramonita Burgos NP Bilateral renal cysts (Primary Dx) 06/15/2024 10:00 AM CDT Office Visit [facility] [address] [address] Ramonita Burgos NP Bilateral renal cysts (Primary Dx); Chronic congestive heart failure, unspecified heart failure type (HCC); Dyspnea on exertion; Paroxysmal atrial fibrillation (HCC); Hypertension, essential; Osteoarthritis of right shoulder, unspecified osteoarthritis type 06/11/2024 Orders Only [facility] [address] [address] Nicolas Huffman MD 06/10/2024 Orders Only [facility] [address] [address] Nicolas Huffman MD 06/09/2024 Orders Only [facility] [address] [address] Nicolas Huffman MD 06/09/2024 9:00 AM CDT Office Visit [facility] Care at [address] [address] Kaylen Mendoza PA Shortness of breath (Primary Dx) 05/25/2024 Results Follow-Up [facility] [address] [place] [phone] Nicolas Huffman MD XR Shoulder Right 2 or More Views 05/21/2024 11:19 AM CDT - 05/21/2024 11:59 PM CDT Hospital Encounter [facility] [address] [place] [address] Nicolas Huffman MD Chronic right shoulder pain Discharge Disposition: Discharge to home or self care 05/21/2024 10:15 AM CDT Office Visit [facility] [address] [facility] [address] [place] [address] Nicolas Huffman MD Longstanding persistent atrial fibrillation (HCC) (Primary Dx); Hypertensive urgency; Moderate COPD (chronic obstructive pulmonary disease) (CMS/HCC) (HCC); Chronic right shoulder pain from Last 3 Months Allergies Active Allergy Reactions Criticality Noted Date Comments Amoxicillin Diarrhea Low 06/14/2022 Oxycodone Mental status changes,Hallucinations High 11/25/2019 Prednisone Mental status changes,Hallucinations High 11/25/2019 Medications aspirin 325 mgIndications:M yocardial Reinfarction Prevention,prev ention of thrombosis Take 1 tablet (325 mg total) by mouth 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 machine 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 before breakfast qd Active albuterol HFA (PROVENTIL [...] Active Additional Information Patient not taking.Reported on 07/01/2024 hydrALAZINE (APRESOLINE) 50 mg tablet TAKE 1 TABLET BY MOUTH THREE TIMES DAILY 270 tablet 2 06/29/19 24 Active Tiadylt ER 180 mg 24 hr capsule Take 1 capsule (180 mg total) by mouth daily 90 capsule 3 01/15/20 24 Active potassium chloride ER 10 mEq CR capsule Take by mouth daily 02/18/20 24 Active ALPRAZolam (XANAX) 0.25 mg tablet TAKE 1 TABLET(0.25 MG) BY MOUTH THREE TIMES DAILY NEEDED FOR ANXIETY 30 tablet 1 03/24/19 25 Active chlorthalidone (HYGROTON) 25 mg tablet TAKE 1 TABLET(25 MG) BY MOUTH DAILY 90 tablet 2 04/21/19 25 Active Eliquis 5 mg tablet TAKE 1 TABLET(5 MG) BY MOUTH TWICE DAILY 180 tablet 2 06/19/19 25 Active metoprolol (LOPRESSOR) 50 mg immediate release tablet Take 1 tablet (50 mg total) by mouth 2 (two) times a day 07/02/19 25 Active dapagliflozin propanediol (FARXIGA) 10 mg tablet Take 1 tablet (10 mg total) by mouth daily 30 tablet 11 07/17/19 25 Active furosemide (LASIX) 20 mg tablet Take 1 tablet (20 mg total) by mouth daily 30 tablet 11 07/17/19 25 Active metoprolol (LOPRESSOR) 100 mg tablet TAKE 1 TABLET BY MOUTH TWICE DAILY 180 tablet 3 08/18/19 24 2024 Discontinued(R eorder) furosemide (LASIX) 20 mg tablet Take 1 tablet (20 mg total) by mouth daily 02/18/20 24 2024 Discontinued(R eorder) diltiaZEM (CARDIZEM) 120 mg tablet Take 1 tablet (120 mg total) by mouth 4 (four) times a day 2024 Discontinued Active Problems Problem Noted Date Diagnosed Date Chronic right shoulder pain 05/21/2024 Assessment & Plan (05/21/2024 11:08 AM CDT): Check x-ray. Non-ST elevation (NSTEMI) myocardial infarction 01/14/2024 Assessment & Plan (01/14/2024 11:58 AM ELECTRONIC EQUIPMENT REPAIRMEN): Long discussion today lasting more than 30 minutes concerning this. Will look for the present we will leave medication alone at this time. Will refer to cardiology here at [place]. Will try to obtain her pacer data from Dr. Mcgee. I feel this may very well have been a type 2 myocardial infarction based on pneumonia which was diagnosed in the emergency room Cervicalgia 01/14/2024 Assessment & Plan (01/14/2024 11:57 AM ELECTRONIC EQUIPMENT REPAIRMEN): Check C-spine x-rays. A-fib 06/12/2023 Assessment & Plan (01/14/2024 11:58 AM ELECTRONIC EQUIPMENT REPAIRMEN): Per Dr. Mcgee Assessment & Plan (06/12/2023 [...] exertion Assessment & Plan (02/20/2024 9:35 AM ELECTRONIC EQUIPMENT REPAIRMEN): I feel this is most likely secondary to COPD. Possibly mild right heart strain. Will give furosemide and check BMP in 2 weeks. Most recent echo showed normal LV function. Moderate COPD (chronic obstr uctive pulmonary disease) (CMS/HCC) Assessment & Plan (05/21/2024 11:08 AM CDT): Stable. Assessment & Plan (01/14/2024 11:57 AM ELECTRONIC EQUIPMENT REPAIRMEN): Stable at this time Resolved Problems Problem [...] on file Legal Sex Female 11:21 AM ELECTRONIC EQUIPMENT REPAIRMEN Gender Identity Female 11/24/2020 8:03 AM CDT [...] Mass Index 32.41 07/28/2024 8:14 AM CDT Plan of Treatment Not on file Medical Devices Implanted Type Area Employee Relations Representative Device Identifier Shelf Expiration Date Model / Serial / Lot [employer] Suzi Monitor Cardiac Insertable Leadless Lux Dx 4.0x7.2x44.8m m M301 - [id number] - [id number] Implanted:Qty : 1 on 12/12/2022 by Fabby Mcgee MD at [facility] Implantable Loop Recorder [employer] Suzi 10/01/2023 M301 / [id number] / [id number] [employer] Suzi Active Fixation Steroid Eluting Is 1 Connector Latex Free Sterile Right Atrial Right Atrial Ingevity Plus 59cm 7842 - [id number] - [id number] Implanted:Qty : 1 on 06/12/2023 by Fabby Mcgee MD at [facility] Lead Right: Ventricle [employer] Suzi 06/29/2024 [id number] / [id number] / [employer] Suzi Fineline Ii Sterox Ez 1.7mm 52cm Bipolar Active Fixation Screw 4470 - [id number] - [id number] Implanted:Qty : 1 on 06/12/2023 by Fabby Mcgee MD at [facility] Lead Right: Atria [employer] Suzi 12/02/2024 [id number] / [id number] / [employer]M. Accolade Latitude Nxt Pacesafe Easyview 4.45x5.02cm 2 Chamber Is1 L311 - [id number] - [id number] Implanted:Qty : 1 on 06/12/2023 by Fabby Mcgee MD at [facility] Pacemaker Left: Chest Wall [employer] C.R.M. 04/24/2025 L311 / [id number] / Procedures Procedure Name Priority Date/Time Associated Diagnosis Comments FLUORO GUIDED INJECTION SHOULDER RIGHT Schedule Routine, Read Routine (OP Routine) 07/20/2024 2:08 PM CDT Osteoarthritis of right shoulder, unspecified osteoarthritis type EGFR Routine 07/13/2024 11:32 AM CDT Shortness of breath Paroxysmal atrial fibrillation (HCC) PRO B-TYPE NATRIURETIC PEPTIDE Routine 07/13/2024 11:32 AM CDT Shortness of breath Paroxysmal atrial fibrillation (HCC) BASIC METABOLIC PANEL Routine 07/13/2024 11:32 AM CDT Shortness of breath Paroxysmal atrial fibrillation (HCC) TRANSTHORACIC ECHO (TTE) COMPLETE W DOPPLER/CF W CONTRAST Routine 07/06/2024 5:24 PM CDT Longstanding persistent atrial fibrillation (HCC) Shortness of breath ECG 12-LEAD Routine 07/01/2024 2:39 PM CDT Longstanding persistent atrial fibrillation (HCC) SCAN - RADIOLOGY/IMAGING 06/30/2024 8:53 AM CDT SCAN - RADIOLOGY/IMAGING 06/29/2024 6:18 PM CDT SCAN - LABS 06/11/2024 11:12 AM CDT [...] SCAN - LABS 05/13/2024 8:48 AM CDT from Last 3 Months Results * FL Fluoro Guided Injection Shoulder Right (GLENOHUMERAL JOINT) (07/20/2024 2:08 PM CDT) Narrative [facility] - 07/20/2024 2:08 PM CDT The images from this study are not interpreted by Radiology. Please refer to the physician's procedure / OR operative note. Guido Robles MD IMG FLUOROSCOPY IRVING GUTIERRES Final Result [facility] * (ABNORMAL) eGFR (07/13/2024 11:32 AM CDT) eGFR 56(L) >=60 mL/min/1. 73 m2 Comment: Interpretive Data Reference Interval Normal >/= 90 mL/min/1.73m2 Mildly decreased* 60 - 89 mL/min/1.73m2 Mildly to moderately decreased 45 - 59 mL/min/1.73m2 Moderately to severely decreased 30 - 44 mL/min/1.73m2 Severely decreased 15 - 29 mL/min/1.73m2 Kidney Failure < 15 mL/min/1.73m2 *Relative to young adult level Estimated glomerular filtration rate is determined by the 2020 CKD-EPI equation recommended by the National Kidney Foundation (A Unifying Approach to GFR Estimation: Recommendations of the NKF-ASK Task Force on Reassessing the Inclusion of Race in Diagnosing Kidney Disease, JASN 202). The CKD-EPI equation should not be used for patients with unstable renal function and has not been validated in children and those over 70. Current interpretive data was last reviewed 2021. Blood 07/13/2024 11:3 2 AM CDT 07/13/2024 1:58 PM CDT us Arcelia Denise MD LAB BLOOD ORDERABLES Final Re sult [facility] Department [place] [address] * (ABNORMAL) Pro B-type natriuretic peptide (07/13/2024 11:32 AM CDT) NT-proBNP 1,682(H) <=450 pg/mL Comment: Interpretive Comments: A. Dyspnea in Acute Care Setting All Ages: < 300 pg/ml, acute heart failure unlikely. < 50 yrs: 300 - 450 pg/ml, further investigation warranted. > 450 pg/ml, acute heart failure likely. 50 - 74 yrs: 300 - 900 pg/ml, further investigation warranted. > 900 pg/ml, acute heart failure likely . > or = 75 yrs: 450 - 1800 pg/ml, further investigation warranted. > 1800 pg/ml, acute heart failure likely. B. Non-acute Setting < 75 yrs < 125 pg/ml, rules out heart failure. > or = 125 pg/ml, further investigation warranted. > or = 75 yrs < 450 pg/ml, rules out heart failure. > or = 450 pg/ml, further investigation warranted. - Knowledge of each individual patient's NT-proBNP range may be more useful than using similar cut-points for every patient. Please note that marked elevations in NT-proBNP levels may be observed in state other than Left Ventricular Congestive Failure, including: acute coronary syndromes, right heart strain/failure (including pulmonary embolism and cor pulmonale), critical illness, renal failure, as well as advanced age. - References: 1. Angie MEADE et.al. Eur Heart J. 2006:27:330-337. 2. Dmitriy VIEIRA, Zulma NOLAND. J. AM Willian Cardiol: Cardiovasc Imag. 2009;2: 216- 225. Interpretive Data Last Revised Date: 2017. Blood 07/13/2024 11:3 2 AM CDT 07/13/2024 1:52 PM CDT Arcelia Denise MD LAB BLOOD ORDERABLES Final Re sult Performing Organization Address [facility] Co de Phone Number [facility] Department [place] [address] * Basic metabolic panel (07/13/2024 11:32 AM CDT) [facility] Sodium 141 135 - 145 mmol/L Potassium, pl 3.8 3.3 - 4.9 mmol/L [facility] Chloride 102 97 - 110 mmol/L [facility] CO2 26 22 - 32 mmol/L [facility] Anion gap 13 2 - 15 mmol/L [facility] BUN 24 6 - 25 mg/dL [facility] Creatinine 1.01 0.60 - 1.10 mg/dL [facility] Glucose 101 70 - 199 mg/dL [facility] Comment: Interpretive Data Fasting glucose >/= 126 mg/dl is diagnostic for diabetes. Fasting is defined as no caloric intake for at least 8 hours. Fasting glucose between 100 mg/dl to 125 mg/dl is diagnostic of prediabetes. In a patient with classic symptoms of hyperglycemia or hyperglycemic crisis, a random glucose >/= 200 mg/dl is diagnostic for diabetes. In the absence of unequivocal hyperglycemia, results should be confirmed by repeat testing. The classification and Diagnosis of Diabetes Diabetes Care 2021; 46: S19-S40. Current interpretive data was last revised 2022. Calcium 9.9 8.5 - 10.3 mg/dL [facility] Blood 07/13/2024 11:3 2 AM CDT 07/13/2024 1:52 PM CDT Arcelia Denise MD LAB BLOOD ORDERABLES Final Re sult Performing Organization Address [facility] Co de Phone Number [facility] Department [place] [address] * TRANSTHORACIC ECHO (TTE) COMPLETE W DOPPLER/CF W CONTRAST (07/06/2024 5:24 PM CDT) EF Mod BP 50 % CONS SCIMAGE Anatomical Region Laterality Modality Ultrasound 07/06/2024 4:40 PM CDT Narrative 07/07/2024 10:[address] [facility] [place] [address] Transthoracic Echocardiographic Report Patient Name: STEPHANIE MENDOZA A : 1940 (84y 5m) Gender: F Study Date: 07/06/2024 04:40:28 PM Ht(Inch): 64 Wt(Lb): 197.09 BSA: 2.01 Hiv Counselor: Rajinder Carrasco RDCS Location: [facility] Order Provider: ARCELIA DENISE Heart Rate: 79 BMI: 33.83 BP: 143 / 46 Ref Provider: ARCELIA DENISE PROCEDURES: Echocardiographic Report: Transthoracic complete echo with strain imaging and contrast, 2D, spectral and tissue Doppler, color flow Doppler, M-mode. Contrast: Contrast Enhancement was Employed: After initial imaging due to sub- optimal quality related to co-morbidity defined by patient's body habitus and due to suboptimal image quality with inadequate visualization of at least 2 of 16 LV wall segments in any view after initial imaging. Perflutren contrast was administered using the volume necessary to obtain adequate images. 0.4 ml Optison Administered, (2.6 ml wasted). INDICATIONS: I48.11 Longstanding persistent atrial fibrillation and R06.02 Shortness of breath. CONCLUSIONS: 1. Normal left ventricular size based on volume index. Normal LV wall thickness. Mildly depressed left ventricular systolic function. The Ejection Fraction (Ledesma's) is measured at 50 %. Left ventricular diastolic function is indeterminate due to the presence of atrial fibrillation during the study. The average global longitudinal strain is abnormal. 2. Normal right ventricular size. Normal right ventricular systolic function. Wire noted in the right heart. 3. Moderate mitral annular calcification (mostly posterior). Ytld-tw-Rihtjxqi mitral valve regurgitation (ERO 1.0). The mitral regurgitation jet is eccentric and directed posteriorly. No stenosis present. 4. Moderate tricuspid regurgitation. 5. The estimated pulmonary artery systolic pressure is 36.6 mmHg. ATTESTATION: I have personally reviewed and interpreted this study without fellow or resident. - DISCLAIMER: The study images and the final report will be retained in the patient chart by the Echo Laboratory for the legally required time period. This chart constitutes the legal record of any testing performed. FINDINGS: Left Ventricle: Normal left ventricular size based on volume index. Normal LV wall thickness. Mildly depressed left ventricular systolic function. The Ejection Fraction (Ledesma's) is measured at 50 %. Left ventricular diastolic function is indeterminate due to the presence of atrial fibrillation during the study. The average global longitudinal strain is abnormal. The LV global strain is: -12.5 %. Abnormal Septal motion consistent with pericardial disease. Right Ventricle: Normal right ventricular size. Normal right ventricular systolic function. Wire noted in the right heart. Left Atrium: Mildly dilated left atrium. Right Atrium: Right atrial dilatation. Mitral Valve: Moderate mitral annular calcification (mostly posterior). Xznq-ur-Axtnlofx mitral valve regurgitation (ERO 1.0). The mitral regurgitation jet is eccentric and directed posteriorly. No stenosis present. Aortic Valve: Normal trileaflet aortic valve. Mild aortic valve regurgitation. The aortic regurgitation jet is central. No aortic valve stenosis. Tricuspid Valve: Normal tricuspid valve structure. Moderate tricuspid regurgitation. Pulmonic Valve: Normal pulmonic valve structure. No pulmonic regurgitation. Pericardium: Normal pericardium without pericardial effusion. Aorta: Normal aortic root size at sinuses of Valsalva. Normal aortic root size when indexed. The ascending aorta is normal in size when indexed. IVC: IVC is normal in size. The estimated RA pressure is 3 mmHg. PASP: The estimated pulmonary artery systolic pressure is 36.6 mmHg. Rhythm: The rhythm during the study was atrial fibrillation. MEASUREMENTS: 2D/MM Value Range Doppler Value Range LVIDd 2D 5.13 cm [ 3.80 - 5.20 ] AV Peak Dave 1.4 m/s [ 1.0 - 1.7 ] LVIDs 2D 3.71 cm [ 2.20 - 3.50 ] AV Peak PG 7.84 mmHg IVSd 2D 0.70 cm [ 0.60 - 0.90 ] AV Mean PG 4 mmHg LVPWd 2D 0.59 cm [ 0.60 - 0.90 ] AV VTI 28.2 cm LV Thickness Ratio 1.2 LVOT Peak Dave 0.9 m/s [ 0.7 - 1.1 ] LV FS 2D 27.68 % [ 27.00 - 45.00 ] LVOT Peak PG 3.24 mmHg LV Mass 2D 112.75 g LVOT Mean PG 2 mmHg LV Mass Index 2D 56.09 g/m2 LVOT VTI 18.1 cm RWT 0.23 LVOT Diam 1.76 cm EDV Mod BP 104.60 ml [ 46.00 - 106.00 ] LENA VTI 1.56 cm2 LV EDV Index 52.04 ml/m2 LVOT/AV VTI 0.64 - Dimensionless index (DVI) ESV Mod BP 56.42 ml [ 14.00 - 42.00 ] AI Peak Dave 4.1 m/s EF Mod BP 50 % [ 54 - 74 ] AI Peak PG 68 mmHg LV GLS -12.5 % [ -25.0 - -18.0 ] AI Decel Time 1538.97 sec LA Length 4C 6.43 cm AI Decel [place] 2.68 m/s2 LA Length 2C 6.43 cm AI PHT 446.30 msec LA Volume BP 62.55 ml MV E Peak Dave 1.5 m/s [ 0.6 - 1.3 ] LA Volume Index 31.12 ml/m2 [ 16.00 - 34.00 ] MV A Peak Dave 0.6 m/s [ 1.0 - 1.2 ] MV Annulus 2D 1.77 cm MV E/A 2.3 ratio [ 0.8 - 1.5 ] TAPSE 2.07 cm [ 1.71 - 5.00 ] MV Peak Dave 1.2 m/s RA Volume 68.06 ml MV Peak PG 5.76 mmHg RA Volume Index 33.86 ml/m2 MV Mean PG 2 mmHg RVOT Diam 2.75 cm MV VTI 16.4 cm AoR Diam 2D 2.81 cm [ 2.70 - 3.70 ] MV PHT 68.14 msec [ 20.00 - 100.00 ] Ao Root Index 1.40 cm/m2 [ 1.00 - 2.00 ] MVA PHT 3.23 cm2 Asc Ao Diam 2D 3.62 cm MV Decel Time 139.93 msec [ 104.00 - 258.00 ] Asc Ao Index 1.80 cm/m2 Med E` Dave 3.5 cm/sec [ 8.0 - 25.0 ] TV Annulus 2D 4.00 cm Lat E` Dave 7.7 cm/sec [ 10.0 - 25.0 ] Average E/E` 26.79 MR Peak Dave 5.6 m/s MR Peak PG 125.44 mmHg MV Alias Dave 0 m/s MR VTI 179.6 cm MR Flow 0.00 ml/sec MR PISA 0.5 MR EROA 0.1 cm2 PISA Regurgitant Volume 18.0 ml TR Peak Dave 2.9 m/s [ 1.0 - 2.8 ] TR Peak PG 33.6 mmHg TR Mean PG 21 mmHg TR VTI 85.6 cm RA Pressure 3 mmHg RVSP 36.60 mmHg PV Peak Dave 0.9 m/s [ 0.4 - 0.8 ] PV Peak PG 3.24 mmHg Electronically Signed By: Flavia Orellana MD 07/07/2024 10:57:17 AM CDT CC: Arcelia Denise MD Procedure Note Flavia Orellana MD - 07/07/2024 [facility] [place] [address] Transthoracic Echocardiographic Report Patient Name: STEPHANIE MENDOZA A : 1940 (84y 5m) Gender: F Study Date: 07/06/2024 04:40:28 PM Ht(Inch): 64 Wt(Lb): 197.09 BSA: 2.01 Hiv Counselor: Rajinder Carrasco [facility] Location: [facility] Order Provider:ARCELIA DENISE Heart Rate: 79 BMI: 33.83 BP: 143 / 46 Ref Provider: HOWIEARCELIA ANGEL PROCEDURES: Echocardiographic Report: Transthoracic complete echo with strain imagingand contrast, 2D, spectral and tissue Doppler, color flow Doppler, M-mode. Contrast: Contrast Enhancement was Employed: After initial imaging due tosub- optimal quality related to co-morbidity defined by patient's body habitus and dueto suboptimal image quality with inadequate visualization of at least 2 of 16 LV wallsegments in any view after initial imaging. Perflutren contrast was administered using thevolume necessary to obtain adequate images. 0.4 ml Optison Administered, (2.6 mlwasted). INDICATIONS: I48.11 Longstanding persistent atrial fibrillation and R06.02 Shortness ofbreath. CONCLUSIONS: 1. Normal left ventricular size based on volume index. Normal LV wallthickness. Mildly depressed left ventricular systolic function. The Ejection Fraction(Ledesma's) is measured at 50 %. Left ventricular diastolic function is indeterminate dueto the presence of atrial fibrillation during the study. The average globallongitudinal strain is abnormal. 2. Normal right ventricular size. Normal right ventricular systolicfunction. Wire noted in the right heart. 3. Moderate mitral annular calcification (mostly posterior).Kggi-ev-Lxinqqyi mitral valve regurgitation (ERO 1.0). The mitral regurgitation jet is eccentricand directed posteriorly. No stenosis present. 4. Moderate tricuspid regurgitation. 5. The estimated pulmonary artery systolic pressure is 36.6 mmHg. ATTESTATION: I have personally reviewed and interpreted this study without fellow orresident. - DISCLAIMER: The study images and the final report will be retained in the patientchart by the Echo Laboratory for the legally required time period. This chart constitutesthe legal record of any testing performed. FINDINGS: Left Ventricle: Normal left ventricular size based on volume index. NormalLV wall thickness. Mildly depressed left ventricular systolic function. TheEjection Fraction (Ledesma's) is measured at 50 %. Left ventricular diastolic function isindeterminate due to the presence of atrial fibrillation during the study. The averageglobal longitudinal strain is abnormal. The LV global strain is: -12.5 %. Abnormal Septalmotion consistent with pericardial disease. Right Ventricle: Normal right ventricular size. Normal right ventricularsystolic function. Wire noted in the right heart. Left Atrium: Mildly dilated left atrium. Right Atrium: Right atrial dilatation. Mitral Valve: Moderate mitral annular calcification (mostly posterior).Ehht-zz-Zefbctse mitral valve regurgitation (ERO 1.0). The mitral regurgitation jet iseccentric and directed posteriorly. No stenosis present. Aortic Valve: Normal trileaflet aortic valve. Mild aortic valveregurgitation. The aortic regurgitation jet is central. No aortic valve stenosis. Tricuspid Valve: Normal tricuspid valve structure. Moderate tricuspidregurgitation. Pulmonic Valve: Normal pulmonic valve structure. No pulmonicregurgitation. Pericardium: Normal pericardium without pericardial effusion. Aorta: Normal aortic root size at sinuses of Valsalva. Normal aortic rootsize when indexed. The ascending aorta is normal in size when indexed. IVC: IVC is normal in size. The estimated RA pressure is 3 mmHg. PASP: The estimated pulmonary artery systolic pressure is 36.6 mmHg. Rhythm: The rhythm during the study was atrial fibrillation. MEASUREMENTS: 2D/MM Value Range DopplerValue Range LVIDd 2D 5.13 cm [ 3.80 - 5.20 ] AV Peak Vel1.4 m/s [ 1.0 - 1.7 ] LVIDs 2D 3.71 cm [ 2.20 - 3.50 ] AV Peak PG7.84 mmHg IVSd 2D 0.70 cm [ 0.60 - 0.90 ] AV Mean PG4 mmHg LVPWd 2D 0.59 cm [ 0.60 - 0.90 ] AV VTI28.2 cm LV Thickness Ratio 1.2 LVOT Peak Vel0.9 m/s [ 0.7 - 1.1 ] LV FS 2D 27.68 % [ 27.00 - 45.00 ] LVOT Peak PG3.24 mmHg LV Mass 2D 112.75 g LVOT Mean PG2 mmHg LV Mass Index 2D 56.09 g/m2 LVOT VTI18.1 cm RWT 0.23 LVOT Diam1.76 cm EDV Mod BP 104.60 ml [ 46.00 - 106.00 ] LENA VTI1.56 cm2 LV EDV Index 52.04 ml/m2 LVOT/AV VTI0.64 - Dimensionless index (DVI) ESV Mod BP 56.42 ml [ 14.00 - 42.00 ] AI Peak Vel4.1 m/s EF Mod BP 50 % [ 54 - 74 ] AI Peak PG68 mmHg LV GLS -12.5 % [ -25.0 - -18.0 ] AI Decel Ecdv9433.97 sec LA Length 4C 6.43 cm AI Decel Slope2.68 m/s2 LA Length 2C 6.43 cm AI LVR943.30 msec LA Volume BP 62.55 ml MV E Peak Vel1.5 m/s [ 0.6 - 1.3 ] LA Volume Index 31.12 ml/m2 [ 16.00 - 34.00 ] MV A Peak Vel0.6 m/s [ 1.0 - 1.2 ] MV Annulus 2D 1.77 cm MV E/A2.3 ratio [ 0.8 - 1.5 ] TAPSE 2.07 cm [ 1.71 - 5.00 ] MV Peak Vel1.2 m/s RA Volume 68.06 ml MV Peak PG5.76 mmHg RA Volume Index 33.86 ml/m2 MV Mean PG2 mmHg RVOT Diam 2.75 cm MV VTI16.4 cm AoR Diam 2D 2.81 cm [ 2.70 - 3.70 ] MV PHT68.14 msec [ 20.00 - 100.00 ] Ao Root Index 1.40 cm/m2 [ 1.00 - 2.00 ] MVA PHT3.23 cm2 Asc Ao Diam 2D 3.62 cm MV Decel Blln885.93 msec [ 104.00 - 258.00 ] Asc Ao Index 1.80 cm/m2 Med E` Vel3.5 cm/sec [ 8.0 - 25.0 ] TV Annulus 2D 4.00 cm Lat E` Vel7.7 cm/sec [ 10.0 - 25.0 ] Average E/E` 26.79 MR Peak Dave 5.6 m/s MR Peak PG 125.44 mmHg MV Alias Dave 0 m/s MR VTI 179.6 cm MR Flow 0.00 ml/sec MR PISA 0.5 MR EROA 0.1 cm2 PISA Regurgitant Volume 18.0 ml TR Peak Dave 2.9 m/s [ 1.0 - 2.8] TR Peak PG 33.6 mmHg TR Mean PG 21 mmHg TR VTI 85.6 cm RA Pressure 3 mmHg RVSP 36.60 mmHg PV Peak Dave 0.9 m/s [ 0.4 - 0.8] PV Peak PG 3.24 mmHg Electronically Signed By: Flavia Orellana MD 07/07/2024 10:57:17 AM CDT CC: Arcelia Denise MD Arcelia Denise MD CV ECHO PROCEDURES Final Resu lt * ECG 12 lead (07/01/2024 2:39 PM CDT) Arcelia Denise MD ECG ORDERABLES Final Result * SCAN - RADIOLOGY/IMAGING (06/30/2024 8:53 AM CDT) Anatomical Region Laterality Modality Other Ramonita Burgos NP Final Result * SCAN - RADIOLOGY/IMAGING (06/29/2024 6:18 PM CDT) Anatomical Region Laterality Modality Other Ramonita Burgos NP Final Result * SCAN - LABS (06/11/2024 11:12 AM CDT) Nicolas Huffman MD Final Result * SCAN - LABS (06/10/2024 6:01 PM CDT) Nicolas Huffman MD Final Result * SCAN - LABS (06/09/2024 4:54 PM CDT) us Nicolas L. Konzen MD Final Result * SCAN - LABS [...] CDT 1. Severe right glenohumeral osteoarthritis with edxt-nu-fwka contact and intra-articular loose bodies. 2. Moderate right acromioclavicular joint osteoarthritis. Electronically signed by: Curtis Abarca M.D. Narrative 05/21/2024 1:18 PM CDT EXAMINATION: XR SHOULDER RIGHT 2 OR MORE VIEWS HISTORY: pain, no injury, decreased ROM FINDINGS: 3 view examination of the right shoulder is read without comparison. There is severe right glenohumeral osteoarthritis with rqrj-go-dekx contact. There is a 1 cm ossific [...] There is severe right glenohumeral osteoarthritis with iknp-zz-wwxa contact. There is a 1 cm ossific loose body in the axillary pouch. There is moderate acromial clavicular joint osteoarthritis. No fracture or dislocation. Alignment is normal. Partially imaged cardiac pacemaker. IMPRESSION: 1. Severe right glenohumeral osteoarthritis with upzx-eg-hiad contact and intra-articular loose bodies. 2. Moderate right acromioclavicular joint osteoarthritis. Electronically signed by: Curtis Abarca M.D. Nicolas Huffman MD IMG XR PROCEDURES Final Resul t * SCAN - LABS (05/13/2024 8:48 AM CDT) Nicolas Huffman MD Final Result from Last 3 Months Insurance [id number] [facility] Address: [address] [address] [facility]IC[facility] Address: [address] [address] [place] [address] MEDICARE ADVANTAGE [employer] MEDICARE ADVANTAGE Advance Directives For more information, please contact: [phone] Documents on File Type Date Recorded Patient Machine Quilt Stuffer Expl anation Power of [place] Hand 06/12/2023 5:53 AM ADVANCE DIRECTIVE 12/17/2022 2:43 AM PAVRIN R OF RN BUILDING-MEDICAL Power of [place] Hand 12/12/2022 10:10 AM * Full Code (Latest Code Status on File) Date Activated Date Inactivated Comments 06/12/2023 10:30 AM 06/13/2023 3:29 PM * Full Code Date Activated Date Inactivated Comments 12/12/2022 1:31 PM 12/12/2022 7:26 PM Care Teams Motorized Squad Commanding Officer Relationship Specialty Start Date End Date Nicolas Huffman MD PCP - General 05/22/16
--- OUTSIDE RECORDS SUMMARY | 2024-07-28 10:42 | XMS_ITS | CONTINUITY OF CARE DOCUMENT ---
Author Name nina, nina Address Unknown Organization [facility] Address [address] [place] [address] Phone [phone] Care Team Providers Care Rehabilitation Nurse Name Role Phone Wil Wilson MD Unavailable [phone] LAKESHIA HOGAN MD Unavailable PROBLEMS Condition Status Date Provider Notes Abnormal electrocardiogram active Ashia maravilla Paroxysmal atrial fibrillation active Idania Rios MD Carotid bruit active Farhana Rios MD back pain active Farhana Rios MD HTN active Farhana Rios MD ENCOUNTERS Date Type Provider Location Encounter Diag nosis - In-person encounter Office Visit Farhana Rios MD [facility] Paroxysmal atrial fibrillationHTNback painCarotid bruit VITAL SIGNS Date Observation Value Provider blood pressure, diastolic 79 mm[Hg] Oh meg Kwong blood pressure, systolic 201 mm[Hg] [...] Payer name Policy type / Coverage type [place] red libertarian ID [employer] MEDICARE ADVANTAGE [facility] (PPO) Medicare [id number] TREATMENT PLAN Date Name Performer Cardiology:She is [...] there is recurrence she will be on halfway anticoagulation. She is planned to have surgery and her recent stress test shows normal perfusion. She can undergo surgery at an acceptable risk. Farhana Rios MD HISTORY OF PROCEDURES Procedure Date Procedure Name Provider Procedure Notes S tatus EKG Farhana Rios MD complet ed SNOMED-CT: [id number] Current Medications Documented Farhana Rios MD completed Stress EKG Farhana Rios MD complet ed Regadenoson, 4 units Farhana Rios MD completed Cardiolite, 2 units Farhana Rios MD completed SPECT Images Farhana Rios MD compl eted Event Monitor Farhana Rios MD comp leted
--- OUTSIDE RECORDS SUMMARY | 2024-07-28 10:43 | XMS_ITS | Clinical Summary ---
Author Organization [facility] Address [address] [place] [address] Care Team Providers Care Lan/Wan Engineer Name Role Phone Nicolas Huffman MD Primary Care Provider [phone] Allergies Active Allergy Reactions Criticality Noted Date Comments Amoxicillin Diarrhea Low 06/14/2022 Oxycodone Mental status changes,Hallucinations High 11/25/2019 Prednisone Mental status changes,Hallucinations High 11/25/2019 Medications aspirin 325 mgIndications:M yocardial Reinfarction Prevention,prev ention of thrombosis Take 1 tablet (325 mg total) by mouth crystallizer operator before breakfast qd Active albuterol HFA (PROVENTIL [...] 01/14/2024 Assessment & Plan (01/14/2024 11:58 AM VP TALENT MANAGEMENT): Long discussion today lasting more than 30 minutes concerning this. Will look for the present we will leave medication alone at this time. Will refer to cardiology here at [facility]. Will try to obtain her pacer data from Dr. Mcgee. I feel this may very well have been a type 2 myocardial infarction based on pneumonia which was diagnosed in the emergency room Cervicalgia 01/14/2024 Assessment & Plan (01/14/2024 11:57 AM VP TALENT MANAGEMENT): Check C-spine x-rays. A-fib 06/12/2023 Assessment & Plan (01/14/2024 11:58 AM VP TALENT MANAGEMENT): Per Dr. Mcgee Assessment & Plan (06/12/2023 [...] exertion Assessment & Plan (02/20/2024 9:35 AM VP TALENT MANAGEMENT): I feel this is most likely secondary to COPD. Possibly mild right heart strain. Will give furosemide and check BMP in 2 weeks. Most recent echo showed normal LV function. Moderate COPD (chronic obstr uctive pulmonary disease) (CMS/HCC) Assessment & Plan (05/21/2024 11:08 AM CDT): Stable. Assessment & Plan (01/14/2024 11:57 AM VP TALENT MANAGEMENT): Stable at this time Resolved Problems Problem Noted Date Diagnosed Date Resolved Date History of surgical procedure 11/18/2016 06/10/2022 Left shoulder pain 12/04/2015 3 Encounters Date Type Department Care Team Description 07/28/2024 8:45 AM CDT Office Visit [facility] at [address] [address] Kaylen Mendoza PA Shortness of breath (Primary Dx) 07/20/2024 1:04 PM CDT - 07/20/2024 11:59 PM CDT Hospital Encounter [facility] [address] [place] [address] Zhang De Leon MD Primary osteoarthritis of right shoulder (Primary Dx); Osteoarthritis of right shoulder, unspecified osteoarthritis type Discharge Disposition: Discharge to home or self care 07/16/2024 Telephone [facility] Cardiology [address] [facility] 8th [place] [address] [place] [address] Arcelia Denise MD Test Results 07/13/2024 11:30 AM CDT Lab [facility] [address] [facility] [address] [place] [address] Shortness of breath; Paroxysmal atrial fibrillation (HCC) 07/13/2024 11:00 AM CDT Office Visit [facility] Orthopaedic Surgery [address] [facility] 1st Floor [address] [place] [address] Guido Robles MD Osteoarthritis of right shoulder, unspecified osteoarthritis type 07/13/2024 Results Follow-Up [facility] Cardiology [facility] 8th [place] [address] [place] [address] Arcelia Denise MD Basic metabolic panel, Pro B-type natriuretic peptide, eGFR 07/07/2024 Results Follow-Up Cardiology Arcelia Denise MD Transthoracic Echo (TTE) Complete W Doppler/CF 07/06/2024 4:03 PM CDT - 07/06/2024 11:59 PM CDT Hospital Encounter [facility] Cardiac Diagnostic Lab [address] [facility] [address] [place] [address] Longstanding persistent atrial fibrillation (HCC); Shortness of breath Discharge Disposition: Discharge to home or self care 07/01/2024 2:30 PM CDT Office Visit [facility] Cardiology [address] [place] [address] 8th [place] [address] [place] [address] Arcelia Denise MD Longstanding persistent atrial fibrillation (HCC) (Primary Dx); Shortness of breath; Sleep apnea-like behavior 07/01/2024 Results Follow-Up [facility] Cardiology [address] [place] [address] 8th [place] [address] [place] [address] Arcelia Denise MD ECG 12 lead 06/30/2024 Results Follow-Up [facility] [address] [place] [address] [address] [place] [id number] Ramonita Burgos NP SCAN - RADIOLOGY/IMAGING 06/30/2024 Orders [facility] [address] [place] [address] [address] [place] [phone] Ramonita Burgos NP 06/29/2024 Orders Only [facility] [address] [place] [address] Ramonita Burgos NP 06/15/2024 10:00 AM CDT Office Visit [facility] [address] [place] [address] Ramonita Burgos NP Bilateral renal cysts (Primary Dx); Chronic congestive heart failure, unspecified heart failure type (HCC); Dyspnea on exertion; Paroxysmal atrial fibrillation (HCC); Hypertension, essential; Osteoarthritis of right shoulder, unspecified osteoarthritis type 06/15/2024 Telephone [facility] [address] [place] [address] Ramonita Burgos NP US Kidney COMPLETE 06/15/2024 Orders Only [facility] [address] [address] Ramonita Burgos NP Bilateral renal cysts (Primary Dx) 06/11/2024 Orders Only [facility] [address] [address] Nicolas Huffman MD 06/10/2024 Orders Only [facility] [address] [place] [phone] Nicolas Huffman MD 06/09/2024 9:00 AM CDT Office Visit [facility] Care at [address] [address] Kaylen Mendoza PA Shortness of breath (Primary Dx) 06/09/2024 Orders Only [facility] [address] [place] [phone] Nicolas Huffman MD 05/25/2024 Results Follow-Up [facility] [address] [facility] [address] [facility] [place] [address] Nicolas Huffman MD XR Shoulder Right 2 or More Views 05/21/2024 11:19 AM CDT - 05/21/2024 11:59 PM CDT Hospital Encounter [facility] [address] [place] [address] Nicolas Huffman MD Chronic right shoulder pain Discharge Disposition: Discharge to home or self care 05/21/2024 10:15 AM CDT Office Visit [facility] [address] [place] [address] [address] [facility] [place] [address] Nicolas Huffman MD Longstanding persistent atrial fibrillation (HCC) (Primary Dx); Hypertensive urgency; Moderate COPD (chronic obstructive pulmonary disease) (CMS/HCC) (HCC); Chronic right shoulder pain from Last 3 Months Immunizations Immunization Administration [...] 12/01/2022 - 12/31/2022 IMPLANTABLE CARDIAC EVENT MONITOR FLUORO GUIDED INJECTION SHOULDER RIGHT 07/20/2024 Right Medical History Medical History Date Comments High [...] on file Legal Sex Female 11:21 AM VP TALENT MANAGEMENT Gender Identity Female 11/24/2020 8:03 AM CDT [...] 07/28/2024 8:14 AM CDT Plan of Treatment Health Maintenance [...] 12/02/2023, 10/10/2022 Medical Devices Implanted Type Area Culture Manager Device Identifier Shelf Expiration Date Model / Serial / Lot [employer] Suzi Monitor Cardiac Insertable Leadless Lux Dx 4.0x7.2x44.8m m M301 - [id number] - [id number] Implanted:Qty : 1 on 12/12/2022 by Fabby Mcgee MD at [facility] Implantable Loop Recorder [employer] Suzi 10/01/2023 01 / [id number] / [id number] [employer] Suzi Active Fixation Steroid Eluting Is 1 Connector Latex Free Sterile Right Atrial Right Atrial Ingevity Plus 59cm 7842 - [id number] - [id number] Implanted:Qty : 1 on 06/12/2023 by Fabby Mcgee MD at [facility] Lead Right: Ventricle [employer] Suzi 06/29/2024 7842 / [id number] / [employer] Suzi Fineline Ii Sterox Ez 1.7mm 52cm Bipolar Active Fixation Screw 4470 - [id number] - [id number] Implanted:Qty : 1 on 06/12/2023 by Fabby Mcgee MD at [facility] Lead Right: Atria [employer] Suzi 12/02/2024 4470 / [id number] / [employer] C.R.M. Accolade Latitude Nxt Pacesafe Easyview 4.45x5.02cm 2 Chamber Is1 L311 - [id number] - [id number] Implanted:Qty : 1 on 06/12/2023 by Fabby Mcgee MD at [facility] Pacemaker Left: Chest Wall [employer] C.R.M. 04/24/2025 L311 / [id number] / Procedures Procedure Name Priority Date/Time Associated [...] the physician's procedure / OR operative note. us Guido Robles MD IMG BENJI GUTIERRES Final Result RAD_PACS_[facility] * (ABNORMAL) eGFR [...] of Race in Diagnosing Kidney Disease, JASN 2020). The CKD-EPI equation should not be used for patients with unstable renal function and has not been validated in children and those over 70. Current interpretive data was last reviewed 2021. Blood 07/13/2024 11:3 2 AM CDT 07/13/2024 1:58 PM CDT us Arcelia Denise MD LAB BLOOD ORDERABLES Final Re sult [facility] Department [place] [address] * (ABNORMAL) Pro B-type natriuretic peptide (07/13/2024 [...] et.al. Eur Heart J. 2006:27:330-337. 2. Dmitriy RW, Zulma NOLAND. J. AM Willian Cardiol: Cardiovasc Imag. 2009;2: 216- 225. Interpretive Data Last Revised Date: 2017. Blood 07/13/2024 11:3 2 AM CDT 07/13/2024 1:52 PM CDT us Arcelia Denise MD LAB BLOOD ORDERABLES Final Re sult [facility] Department [place] [address] * Basic metabolic panel (07/13/2024 11:32 AM CDT) Sodium 141 135 - 145 mmol/L Potassium, pl 3.8 3.3 - 4.9 mmol/L [facility] Chloride 102 97 - 110 mmol/L [facility] CO2 26 22 - 32 mmol/L [facility] Anion gap 13 2 - 15 mmol/L [facility] BUN 24 6 - 25 mg/dL [facility] Creatinine 1.01 0.60 - 1.10 mg/dL [facility] Glucose 101 70 - 199 mg/dL [facility] Comment: Interpretive Data Fasting glucose >/= [...] 2022. Calcium 9.9 8.5 - 10.3 mg/dL [facility] Blood 07/13/2024 11:3 2 AM CDT 07/13/2024 1:52 PM CDT us Arcelia Denise MD LAB BLOOD ORDERABLES Final Re sult [facility] [place] [address] * TRANSTHORACIC ECHO (TTE) COMPLETE W DOPPLER/CF W CONTRAST (07/06/2024 5:24 PM CDT) EF Mod BP 50 % CONS SCIMAGE Anatomical Region Laterality Modality Ultrasound 07/06/2024 4:40 PM CDT Narrative 07/07/2024 10:58 AM CDT [facility] [place] [address] Transthoracic Echocardiographic Report Patient Name: STEPHANIE MENDOZA A : 1940 (84y 5m) Gender: F Study Date: 07/06/2024 04:40:28 PM Ht(Inch): 64 Wt(Lb): 197.09 BSA: 2.01 Billet Straightener: Rajinder Carrasco RDCS Location: [facility] Order Provider: HOWIE,ARCELIA Heart Rate: 79 BMI: 33.83 BP: 143 [...] 3. Moderate mitral annular calcification (mostly posterior). Hesj-xy-Ufxkrzho mitral valve regurgitation (ERO 1.0). The mitral [...] Valve: Moderate mitral annular calcification (mostly posterior). Bvmx-ka-Nsdysbra mitral valve regurgitation (ERO 1.0). The mitral [...] LA Length 4C 6.43 cm AI Decel [place] 2.68 m/s2 LA Length 2C 6.43 cm [...] Procedure Note Flavia Orellana MD - 07/07/2024 [facility] Cardiac [place] [address] Transthoracic Echocardiographic Report Patient Name: STEPHANIE MENDOZA A : 1940 (84y 5m) Gender: F Study Date: 07/06/2024 04:40:28 PM Ht(Inch): 64 Wt(Lb): 197.09 BSA: 2.01 Billet Straightener: Rajinder Carrasco RDCS Location: [facility] Order Provider:ARCELIA DENISE Heart Rate: 79 BMI: [...] heart. 3. Moderate mitral annular calcification (mostly posterior).Dcbq-jf-Vimhekyp mitral valve regurgitation (ERO 1.0). The mitral [...] Mitral Valve: Moderate mitral annular calcification (mostly posterior).Shws-vw-Vpwlixay mitral valve regurgitation (ERO 1.0). The mitral [...] [ -25.0 - -18.0 ] AI Decel [id number] sec LA Length 4C 6.43 cm AI Decel Sl[place]2.68 m/s2 LA Length 2C 6.43 cm AI OMJ414.30 msec LA Volume BP 62.55 ml MV [...] Ao Diam 2D 3.62 cm MV Decel Payj638.93 msec [ 104.00 - 258.00 ] Asc [...] 10:57:17 AM CDT CC: Arcelia Denise MD us Arcelia Densie MD CV ECHO PROCEDURES Final Resu lt * ECG 12 lead (07/01/2024 2:39 PM CDT) us Arcelia Denise MD ECG ORDERABLES Final Result * SCAN - RADIOLOGY/IMAGING (06/30/2024 8:53 AM CDT) Anatomical Region Laterality Modality Other us Ramonita Burgos ASSOCIATE PRODUCT MANAGER Final Result * SCAN - RADIOLOGY/IMAGING (06/29/2024 6:18 PM CDT) Anatomical Region Laterality Modality Other us Ramonita Burgos ASSOCIATE PRODUCT MANAGER Final Result * SCAN - LABS (06/11/2024 11:12 AM CDT) Result Lala Huffman MD Final Result * SCAN - LABS (06/10/2024 6:01 PM CDT) Result Lala Huffman MD Final Result * SCAN - LABS (06/09/2024 4:54 PM CDT) Result Lala Huffman MD Final Result * SCAN - LABS (06/09/2024 2:48 PM CDT) Result Lala Huffman MD Final Result * SCAN - RADIOLOGY/IMAGING (06/09/2024 1:25 PM CDT) Anatomical Region Laterality Modality Other Result Lala Huffman MD Final Result * SCAN - RADIOLOGY/IMAGING (06/09/2024 11:39 AM CDT) Anatomical Region Laterality Modality Other Result Lala Huffman MD Final Result * XR Shoulder Right 2 or More Views (05/21/2024 11:41 AM CDT) Anatomical Region Laterality Modality Upper Extremities, Shoulder Right Comp uted Radiography 05/21/2024 1:18 PM CDT Impressions 05/21/2024 1:18 PM CDT 1. Severe right glenohumeral osteoarthritis with liir-zv-wkfq contact and intra-articular loose bodies. 2. Moderate right acromioclavicular joint osteoarthritis. Electronically signed by: Curtis Abarca M.D. Narrative 05/21/2024 1:18 PM CDT EXAMINATION: XR SHOULDER RIGHT 2 OR MORE VIEWS HISTORY: pain, no injury, decreased ROM FINDINGS: 3 view examination of the right shoulder is read without comparison. There is severe right glenohumeral osteoarthritis with hxfv-cb-flhe contact. There is a 1 cm ossific [...] There is severe right glenohumeral osteoarthritis with tttn-op-zlsj contact. There is a 1 cm ossific loose body in the axillary pouch. There is moderate acromial clavicular joint osteoarthritis. No fracture or dislocation. Alignment is normal. Partially imaged cardiac pacemaker. IMPRESSION: 1. Severe right glenohumeral osteoarthritis with xnkz-ro-vhrd contact and intra-articular loose bodies. 2. Moderate right acromioclavicular joint osteoarthritis. Electronically signed by: Curtis Abarca M.D. us Nicolas Huffman MD IMG XR PROCEDURES Final Resul t * SCAN - LABS (05/13/2024 8:48 AM CDT) us Nicolas Huffman MD Final Result from Last 3 Months Insurance MEDICARE ADVANTAGE MEDICARE ADVANTAGE [facility] [place] [address] Advance Directives For more information, please contact: [phone] Documents on File Type Date Recorded Patient Commanding Officer Homicide Squad Expl anation Power of Retail Merchandising Manager 06/12/2023 5:53 AM ADVANCE DIRECTIVE 12/17/2022 2:43 AM PARVIN R OF OLIVE GR[employer]ER-MEDICAL Power of Retail Merchandising Manager 12/12/2022 10:10 AM * Full Code (Latest Code Status on File) Date Activated Date Inactivated Comments 06/12/2023 10:30 AM 06/13/2023 3:29 PM * Full Code Date Activated Date Inactivated Comments 12/12/2022 1:31 PM 12/12/2022 7:26 PM Care Teams Lan/Wan Engineer Relationship Specialty Start Date End Date Nicolas Huffman MD PCP - General 05/22/16
[2024-07-28 11:45] LABS: Basophils Absolute Auto 0.1 K/mm3 (0.0-0.1); Basophils Percent Auto 0.3 % (0.2-1.2); Eosinophils Absolute Auto 0.1 K/mm3 (0-0.3); Eosinophils Percent Auto 0.6 % (0-4.4); Hematocrit 48.8 % (37.0-47.0); Hemoglobin 16.6 g/dL (12.0-15.0); Immature Granulocyte Absolute 0.16 K/mm3 (0.00-0.031); Immature Granulocyte Percent A 0.8 % (0-0.5); Lymphocytes Absolute Auto 3.12 K/mm3 (0.9-3.2); Mean Corpuscular Hemoglobin 30.1 pg (26-34); Mean Corpuscular Volume 88.6 fl (80-100); Mean Platelet Volume 9.5 fl (7.4-10.4); Monocytes Absolute Auto 1.5 K/mm3 (0.1-0.6); Monocytes Percent Auto 7.4 % (2.6-8.5); Neutrophils Absolute Auto 14.6 K/mm3 (1.3-6.7); Neutrophils Percent Auto 74.9 % (45.5-73.1); Platelet Count Result 396 k/mm3 (150-375); Red Blood Count 5.51 M/mm3 (4.2-5.4); Red Cell Distribution Width 13.6 % (11.5-14.5); White Blood Count 19.5 K/mm3 (4.5-10.0)
[2024-07-28 11:56] LABS: Alanine Aminotransferase 28 U/L (6-35); Alkaline Phosphatase 115 U/L (38-126); Anion Gap 11 mmol/L (4-12); Aspartate Amino Transferase 31 U/L (14-36); Blood Urea Nitrogen 40 mg/dL (7-17); Calcium 9.5 mg/dL (8.4-10.2); Carbon Dioxide 26 mmol/L (22-30); Chloride 99 mmol/L (98-107); Estimated CRCL calculation 35 ml/min; Estimated Glomerular Filt Rate 42; Glucose 109 mg/dL (65-110); Potassium 3.5 mmol/L (3.4-5.0); Sodium 136 mmol/L (137-145)
[2024-07-28 12:00] LABS: INR 1.5
[2024-07-28 12:12] LABS: NT Pro B Type Natriuretic Pept 1210 pg/mL (19.9-100); Troponin I < 0.012 ng/mL (0.000-0.034)
[2024-07-28 13:08] VITALS: BP 158/65; PULSE 73; RESP 16; O2SAT 99
[2024-07-28 13:08] LABS: D Dimer 0.31 ug/mL (<0.48)
[2024-07-28 13:09] VITALS: PULSE 73
[2024-07-28 13:39] LABS: Add Urine Microscopic? YES; Appearance Urine Cloudy (Clear); Bacteria Urine 4+ /hpf; Bilirubin Urine Negative (Negative); Blood Urine Negative (Negative); Color Urine Yellow (Yellow); Glucose Urine UA 2+ mg/dL (Negative); Ketones Urine Trace mg/dL (Negative); Leukocyte Esterase Ur Trace LEU/UL (Negative); Need Manual Microscopic Reviewed; Nitrate Urine Negative (Negative); Protein Urine 2+ mg/dL (Negative); RBC Urine 0-2 /hpf (0-2); Specific Grav Ur 1.022 (1.001-1.035); Squamous Epithelial Cell Urine Moderate /hpf (Few)
[2024-07-28 13:51] LABS: Influenza A QL RT-PCR Negative (Negative); Influenza B QL RT-PCR Negative (Negative); RSV RNA, RT-PCR Negative (Negative); SARS-CoV-2 RNA PCR Negative (Negative)
[2024-07-28 15:15] LABS: Lipase 142 U/L (23-300)
[2024-07-28 17:03] VITALS: BP 139/74; PULSE 92; RESP 15; O2SAT 98
== END 2024-07-28 17:05 | disposition home or self-care (01) ==
PROVIDERS: Emergency Medicine; Emergency Provider Physician Assistant; PCP Internal Medicine
DX: I48.91 Unspecified atrial fibrillation (principal); N39.0 Urinary tract infection, site not specified; R06.02 Shortness of breath; Z20.822 Contact with and (suspected) exposure to COVID-19; I10 Essential (primary) hypertension; J44.9 Chronic obstructive pulmonary disease, unspecified; K58.9 Irritable bowel syndrome, unspecified; Z95.0 Presence of cardiac pacemaker; Z87.891 Personal history of nicotine dependence; K57.90 Diverticulosis of intestine, part unspecified, without perforation or abscess without bleeding; R09.89 Other specified symptoms and signs involving the circulatory and respiratory systems; Z79.82 Long term (current) use of aspirin; Z79.899 Other long term (current) drug therapy
CPT/HCPCS: 36415; 71046; 74177; 80053; 81001; 83690; 83880; 84484; 85025; 85380; 85610; 85730; 87086; 87637; 93005; 96365; 99284; J0696; Q9967

== ENCOUNTER 2024-09-19 17:09 | Observation (INO) | payer MEDICARE, SELFPAY ==
[2024-09-19] VITALS (13 sets, daily range): BP systolic 117–142; BP diastolic 41–82; PULSE 86–148; RESP 18–23; TEMP 36.4–37.1; O2SAT 93–98; BMI 33.2
--- NOTE | ~2024-09-19 | XR_ITS ---
EXAMINATION: XR chest 1V portable Exam Date/Time: 09/19/2024 18:22 CDT HISTORY: SOB Comparison: 07/28/2024. RESULT: Lines, tubes, and devices: Partially visualized left shoulder arthroplasty hardware. Left chest pace r with intact leads. Lungs and pleura: Subsegmental left basilar opacities. Mild left costophrenic angle blunting. Cardiomediastinal silhouette: Stable. Mitral annulus calcification. Other: No acute osseous or upper abdominal finding. IMPRESSION: Subsegmental left basilar atelectasis/consolidation. Small left pleural effusion. Reviewed, dictated and finalized at location K. IMPRESSION: Subsegmental left basilar atelectasis/consolidation. Small left pleural effusio n.
--- NOTE | 2024-09-19 17:19 | ECG_ITS ---
Test Date: 2024-09-19 17:19:04 Measurements Intervals [place] Rate: 122 P: 0 OR: 0 QRS: -34 QRSD: 88 T: 154 QT: 278 QTc: 397 Interpretive Statements ATRIAL FIBRILLATION WITH CONTROLLED VENTRICULAR RESPONSE ELECTRONIC VENTRICULAR PACEMAKER -- CONTOUR ANALYSIS BASED ON INTRINSIC RHYTHM LEFT VENTRICULAR HYPERTROPHY AND ST-T CHANGE [VOLTAGE CRITERIA PLUS ST/T ABNORMALITY] Compared to ECG 07/28/2024 09:27:28 significant changes Electronically Signed On 09-20-2024 10:49:19 CDT by Malachi Griffiths M.D.
--- OUTSIDE RECORDS SUMMARY | 2024-09-19 17:37 | XMS_ITS | Encounter Summary ---
Author Organization [facility] Address [address] [place] [address] Phone Care Team Providers Care Options Trader Name Role Phone Nicolas Huffman MD Primary Care Provider [phone] Encounter Details Date Type Department Care Team (Late st Contact Info) Description 09/08/2024 Telephone [facility] Cardiology [address] [facility] 8th [place] [address] [place] [phone] Fabby Mcgee MD [address] [facility] [address] [place], [place] [id number] Social History Tobacco Use Types Packs/Day Years Used Date Smoking Tobacco: Former Cigarettes Q uit: 2009 Smokeless Tobacco: Never Alcohol Use Standard Drinks/Week Comments Not Currently 0 (1 standard drink = 0.6 oz pur e alcohol) AUDIT-C Answer Date Recorded Q1: How often do you have a drink containing alcohol? Never 09/07/2024 Q2: How many drinks containi ng alcohol do you have on a typical day when you are drinking? Patient does not drink Q3: How often do you have si x or more drinks on one occasion? Never 09/07/2024 Personal Safety Answer Date Recorded Have you ever been in or are you currently in a harmful physical or emotional relationship or is someone making you feel afraid or unsafe? 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 Krysten - Thank you so much for fixing that. Bruno * Telephone Encounter - Krysten Meade - 09/08/2024 11:13 AM CDT This has been completed. * Telephone Encounter - Elham Edward - 09/08/2024 8:56 AM CDT Arely Pt calling stating she was marked for No Show on her 09/02/24 appointment due to not logging into video system, but she was seen by Arely via phone and this is incorrectly been marked as a no show. Please correct. documented in this encounter Plan of Treatment Not on file documented as of this encounter Goals Goal Patient Goal Type Associated Problems Recent Progress Patient-Stated? Author Autogenerat ed Goal Care Plan Autogenerated Problem No Leida Ornelas documented as of this encounter Visit Diagnoses Not on filedocumented in this encounter Additional Health Concerns Active Problems Noted Date Diagnosed Date Autogenerated Problem 09/02/2024 documented as of this encounter Care Teams Options Trader Relationship Specialty Start Date End Date Nicolas Huffman MD PCP - General 05/22/16 documented as of this encounter
--- OUTSIDE RECORDS SUMMARY | 2024-09-19 17:37 | XMS_ITS | Encounter Summary ---
Author Organization [facility] Address [address] [place] [address] Phone Care Team Providers Care Magnetic Grinder Operator Name Role Phone Nicolas Huffman MD Primary Care Provider [phone] Reason for Visit * Reason Onset Date Comments Reschedule 08/26/2024 Encounter Details Date Type Department Care Team (Late st Contact Info) Description 08/26/2024 Telephone [facility] Cardiology [address] [facility] 8th [place] [address] [place] [phone] Fabby Mcgee MD [address] [facility] [address] [place], [place] [id number] Reschedule Social History Tobacco Use Types Packs/Day Years [...] on file 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 * Telephone Encounter - Krysten Meade - 08/27/2024 1:11 PM CDT Yes, sorry that was a previous task. She has been scheduled for September 02 televisit. * Telephone Encounter - Krysten Meade - 08/27/2024 11:16 AM CDT I do not have anything available other than a video visit. Please advise. * Telephone Encounter - Cristin Phoenix - 08/26/2024 2:58 PM CDT Arely Please call pt to discuss symptoms pt is currently having. * Telephone Encounter - Shadi Perea - 08/26/2024 2:36 PM CDT PT PCP WANT HER TO BE SEEN SOONER THAN 11/2024 BECAUSE IS IN AFIB, PLS CALL documented in this encounter Plan of Treatment Not on file documented as of this encounter Visit Diagnoses Not on filedocumented in this encounter Care Teams Magnetic Grinder Operator Relationship Specialty Start Date End Date Nicolas Huffman MD PCP - General 05/22/16 documented as of this encounter
--- OUTSIDE RECORDS SUMMARY | 2024-09-19 17:38 | XMS_ITS | Referral Summary ---
Author Organization [facility] Address [address] [place] [address] Care Team Providers Care Product Steward Name Role Phone Nicolas Huffman MD Primary Care Provider [phone] Encounters Date Type Department Care Team Description 09/17/2024 10:15 AM CDT Office Visit [facility] [address] [facility] [address] [place] [address] Nicolas Huffman MD Moderate COPD (chronic obstructive pulmonary disease) (CMS/HCC) (HCC) (Primary Dx); Longstanding persistent atrial fibrillation (HCC); S/P placement of cardiac pacemaker; Essential hypertension 09/08/2024 Telephone [facility] Cardiology [address] [place] [address] Advanced Medicine 8th [place] [address] [place] [phone] Fabby Mcgee MD 09/07/2024 7:29 AM CDT Anesthesia Event [facility] [address] [phone] William Thurman MD PhD 09/07/2024 8:10 AM CDT - 09/07/2024 8:50 AM CDT Surgery [facility] [address] [phone] Will Walters MD PhD CARDIOVERSION 09/07/2024 6:21 AM CDT - 09/07/2024 9:14 AM CDT Hospital Encounter [facility] [address] [facility] [place] [address] Khris, Fruit Harvester, Will Aden MD PhD Longstanding persistent atrial fibrillation (HCC) Discharge Disposition: Discharge to home or self care 09/02/2024 Telephone [facility] [address] [place] [address] Advanced Medicine 8th [place] [address] [place] [phone] Fabby Mcgee MD 09/02/2024 9:00 AM CDT Telemedicine [facility] Cardiology [address] [place] [address] 8th [place] [address] [place] [phone] Fabby Mcgee MD Persistent atrial fibrillation (HCC) (Primary Dx) 08/26/2024 Telephone [facility] [address] [place] [address] Advanced [facility] 8th [place] [address] [place] [phone] Fabby Mcgee MD Reschedule 07/29/2024 Orders Only [facility] [facility] [address] [place] [phone] Nicolas Huffman MD 07/29/[address] [facility] 8th [place] [address] [place] [phone] CastellanoRosalina melendrez Follow-up 07/28/2024 Orders Only [facility] [address] [place] [address] [address] [place] [address] Nicolas Huffman MD 07/28/2024 8:45 AM CDT Office Visit [facility] at [address] [phone] Kaylen Mendoza PA Shortness of breath (Primary Dx) 07/20/2024 1:04 PM CDT - 07/20/2024 11:59 PM CDT Hospital Encounter [facility] [address] [place] [address] Zhang De Leon MD Primary osteoarthritis of right shoulder (Primary Dx); Osteoarthritis of right shoulder, unspecified osteoarthritis type Discharge Disposition: Discharge to home or self care 07/19/2024 Orders Only [facility] [address] [facility] Medical Office Building [address] [place] [address] Fabby Mcgee MD 07/16/2024 Telephone [facility] [address] [place] [address] 8th [place] [address] [place] [address] Arcelia Denise MD Test Results 07/13/2024 Results Follow-Up [facility] [address] [place] [address] [place] [address] [place] [address] Arcelia Denise MD Basic metabolic panel, Pro B-type natriuretic peptide, eGFR 07/13/2024 11:30 AM CDT Lab [facility] [address] [place] [address] [address] [place] [address] Shortness of breath; Paroxysmal atrial fibrillation (HCC) 07/13/2024 11:00 AM CDT Office Visit [facility] Orthopaedic Surgery [address] [place] [address] 1st Floor [address] [place] [address] Guido Robles MD Osteoarthritis of right shoulder, unspecified osteoarthritis type 07/07/2024 Results Follow-Up Cardiology Arcelia Denise MD Transthoracic Echo (TTE) Complete W Doppler/CF 07/06/2024 4:03 PM CDT - 07/06/2024 11:59 PM CDT Hospital Encounter [facility] Card[facility] Diagnostic Lab [address] [place] [phone] Longstanding persistent atrial fibrillation (HCC); Shortness of breath Discharge Disposition: Discharge to home or self care 07/01/2024 Results Follow-Up [facility] [address] [place] [address] [place] [address] [place] [address] Arcelia Denise MD ECG 12 lead 07/01/2024 2:30 PM CDT Office Visit [facility] [address] [place] [address] 8th [place] [address] [place] [address] Arcelia Denise MD Longstanding persistent atrial fibrillation (HCC) (Primary Dx); Shortness of breath; Sleep apnea-like behavior 06/30/2024 Results Follow-Up [facility] [address] [facility] [address] [place] [phone] Ramonita Burgos NP SCAN - RADIOLOGY/IMAGING 06/30/2024 Orders Only [facility] [address] [facility] [address] [place] [phone] Ramonita Burgos NP 06/29/2024 Orders Only [facility] [address] [facility] [address] [place] [address] Ramonita Burgos NP from Last 3 Months Allergies Active Allergy Reactions Criticality Noted Date Comments Amoxicillin Diarrhea Low 06/14/2022 Oxycodone Mental status changes,Hallucinations High 11/25/2019 Prednisone Mental status changes,Hallucinations High 11/25/2019 Medications aspirin 325 mgIndications:M yocardial Reinfarction Prevention,prev ention of thrombosis Take 1 tablet (325 mg total) by mouth 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 before breakfast qd Active psyllium, aspartame, SF (METAMUCIL SF) 3.4 gram packet Take 1 packet by mouth as needed Active acetaminophen (TYLENOL) 325 mg tabletIndicatio ns:Pain Take 2 tablets (650 mg total) by mouth every 4 (four) hours as needed for pain 06/13/19 24 Active Tiadylt ER 180 mg 24 hr capsule Take 1 capsule (180 mg total) by mouth daily 90 capsule 3 01/15/20 24 Active ALPRAZolam (XANAX) 0.25 mg tablet [...] (two) times a day 07/02/19 25 Active furosemide (LASIX) 20 mg tablet Take 1 tablet (20 mg total) by mouth daily 30 tablet 11 07/17/19 25 Active hydrALAZINE (APRESOLINE) 50 mg tablet TAKE 1 TABLET BY MOUTH THREE TIMES DAILY 270 tablet 2 08/10/19 25 Active amLODIPine (NORVASC) 5 mg tablet Take 1 tablet (5 mg total) by mouth daily 30 tablet 11 08/27/19 25 026 Active albuterol HFA (PROVENTIL HFA,VENTOLIN HFA,PROAIR HFA) 90 mcg/actuation inhaler Inhale 1 puff every 4 (four) hours as needed for wheezing or shortness of breath 025 Discontinued(Th erapy completed) potassium chloride ER 10 mEq CR capsule Take by mouth daily 02/18/20 24 025 Discontinued( erapy completed) dapagliflozin propanediol (FARXIGA) 10 mg tablet Take 1 tablet (10 mg total) by mouth daily 30 tablet 07/17/19 25 025 Discontinued( erapy completed) nitrofurantoin monohydrate (MACROBID) 100 mg capsule Take 1 capsule (100 mg total) by mouth 2 (two) times a day for 5 days 14 capsule 08/20/19 25 025 Discontinued nitrofurantoin monohydrate (MACROBID) 100 mg capsule TAKE 1 CAPSULE(100 MG) BY MOUTH TWICE DAILY FOR 5 DAYS 14 capsule 09/11/19 25 025 Discontinued( erapy completed) Active Problems Problem Noted Date Diagnosed Date Essential hypertension 09/17/2024 Assessment & Plan (09/17/2024 10:26 AM CDT): BP at target. Pacemaker 09/02/2024 Chronic right shoulder pain 05/21/2024 Assessment & Plan (05/21/2024 11:08 AM CDT): Check x-ray. Non-ST elevation (NSTEMI) myocardial infarction 01/14/2024 Assessment & Plan (01/14/2024 11:58 AM SPAGHETTI PRESS HELPER): Long discussion today lasting more than 30 minutes concerning this. Will look for the present we will leave medication alone at this time. Will refer to cardiology here at [place]. Will try to obtain her pacer data from Dr. Mcgee. I feel this may very well have been a type 2 myocardial infarction based on pneumonia which was diagnosed in the emergency room Cervicalgia 01/14/2024 Assessment & Plan (01/14/2024 11:57 AM SPAGHETTI PRESS HELPER): Check C-spine x-rays. Sinus pause 06/04/2023 S/P placement of cardiac [...] persistent atrial fibrillation 06/01 Assessment & Plan (09/17/2024 10:25 AM CDT): Status post cardioversion. Assessment & Plan (05/21/2024 11:08 AM CDT): [...] exertion Assessment & Plan (02/20/2024 9:35 AM SPAGHETTI PRESS HELPER): I feel this is most likely secondary to COPD. Possibly mild right heart strain. Will give furosemide and check BMP in 2 weeks. Most recent echo showed normal LV function. Moderate COPD (chronic obstr uctive pulmonary disease) ([facility]) Assessment & Plan (09/17/2024 10:25 AM CDT): Tushar. Encouraged her to continue to do exercise. Assessment & Plan (05/21/2024 11:08 AM CDT): Tushar. Assessment & Plan (01/14/2024 11:57 AM SPAGHETTI PRESS HELPER): Stable at this time Resolved Problems Problem Noted Date Diagnosed Date Resolved Date A-fib 06/12/2023 09/17/2024 Assessment & Plan (01/14/2024 11:58 AM SPAGHETTI PRESS HELPER): Per Dr. Mcgee Assessment & Plan (06/12/2023 3:24 PM CDT): Hx afib with RVR. Eliquis on hold since 06/08 for procedure. Monitors demonstrated burden of atrial arrhythmias recently. Heart rate range on last monitor 32 to 148, average of 81. 17% bradycardia. Resumed metoprolol per EP Eliquis on hold, plan to resume 72 hours post procedure per note (06/14 PM) History of surgical procedure 11/18/2016 06/10/2022 Left [...] on file Legal Sex Female 11:21 AM SPAGHETTI PRESS HELPER Gender Identity Female 11/24/2020 8:03 AM CDT Sexual Orientation Straight 11/24/2020 8: 03 AM CDT Last Filed Vital Signs Vital Sign Reading Time Taken Comments Blood Pressure 139/65 09/17/2024 9:42 AM CDT Pulse 101 09/17/2024 9:42 AM CDT Temperature 36.4 C (97.5 F) 09/07/2024 7:42 AM CDT Respiratory Rate 16 09/07/2024 8:35 AM CDT Oxygen Saturation 96% 09/07/2024 8:35 AM CDT Inhaled Oxygen Concentration - - Weight 89.8 kg (198 lb) 09/17/2024 9:42 AM CDT Height 162.6 cm (5' 4) 09/17/2024 9:42 AM CDT Body Mass Index 33.99 09/17/2024 9:42 AM CDT Plan of Treatment Not on file Goals Goal Patient Goal Type Associated Problems Recent Progress Patient-Stated? Author Autogenerat ed Goal Care Plan Autogenerated Problem No Leida Ornelas [employer] Implanted Type Area Mud Boss Device Identifier Shelf Expiration Date Model / Serial / Lot [employer] Suzi Monitor Cardiac Insertable Leadless Lux Dx 4.0x7.2x44.8m m M301 - [id number] - [id number] Implanted:Qty : 1 on 12/12/2022 by Fabby Mcgee MD at [facility] Implantable Loop Recorder [employer] Suzi 10/01/2023 M301 / [id number] / [id number] [employer] Suzi Active Fixation Steroid Eluting Is 1 Connector Latex Free Sterile Right Atrial Right Atrial Ingevity Plus 59cm 7842 - [id number] - [id number] Implanted:Qty : 1 on 06/12/2023 by Fabby Mcgee MD at [facility] Lead Right: Ventricle [employer] Suzi 06/29/2024 7842 / [id number] / [employer] Suzi Fineline Ii Sterox Ez 1.7mm 52cm Bipolar Active Fixation Screw 4470 - [id number] - [id number] Implanted:Qty : 1 on 06/12/2023 by Fabby Mcgee MD at [facility] Lead Right: Atria [employer] Suzi 12/02/2024 4470 / [id number] / [employer] C.[employer].M. Accolade Latitude Nxt Pacesafe Easyview 4.45x5.02cm 2 Chamber Is1 L311 - [id number] - [id number] Implanted:Qty : 1 on 06/12/2023 by Fabby Mcgee MD at [facility] Pacemaker Left: Chest Wall [employer] C.R.M. 04/24/2025 L311 / [id number] / Procedures Procedure Name Priority Date/Time Associated Diagnosis Comments CARDIOVERSION Routine 09/07/2024 7:39 AM CDT Longstanding persistent atrial fibrillation (HCC) POC BLOOD GAS AND CHEMISTRIES, ARTERIAL Routine 09/07/2024 7:09 AM CDT ECG 12-LEAD Routine 09/07/2024 6:22 AM CDT SCAN - LABS 07/29/2024 10:12 PM CDT SCAN - LABS 07/28/2024 3:45 PM CDT SCAN - RADIOLOGY/IMAGING 07/28/2024 3:27 PM CDT SCAN - LABS 07/28/2024 2:57 PM CDT SCAN - LABS 07/28/2024 2:50 PM CDT SCAN - LABS 07/28/2024 2:43 PM CDT SCAN - LABS 07/28/2024 2:43 PM CDT SCAN - RADIOLOGY/IMAGING 07/28/2024 10:32 AM CDT FLUORO GUIDED INJECTION SHOULDER RIGHT Schedule Routine, Read Routine (OP Routine) 07/20/2024 2:08 PM CDT Osteoarthritis of right shoulder, unspecified osteoarthritis type DEVICE CHECK - REMOTE Routine 07/19/2024 3:22 AM CDT EGFR Routine 07/13/2024 11:32 AM CDT Shortness [...] SCAN - RADIOLOGY/IMAGING 06/29/2024 6:18 PM CDT from Last 3 Months Results * CARDIOVERSION (09/07/2024 7:39 AM CDT) Anatomical Region Laterality Modality X-Ray Angiograph y Impressions 09/07/2024 7:42 AM CDT Successful DC cardioversion to atrial paced rhythm. The referring physician (Dr. Mcgee) was notified. Will Walters MD PhD was present to personally supervise or perform the entire procedure. Narrative 09/07/2024 7:42 AM CDT CARDIOVERSION [id number] PRE-OP DIAGNOSIS: Atrial fibrillation INTERACTIVE ART DIRECTOR: Will Walters MD PhD. REFERRING MD: Wesley Mcgee MD; Nicolas Huffman MD HISTORY: 84 yo WF with atrial fibrillation. Anticoagulation with apixaban. PROCEDURE: Biphasic, synchronized DC cardioversion. The nature of the procedure, risks and alternatives were discussed with the patient who gave informed consent. The patient was sedated with propofol per the anesthesia team. 200J DC-CV using R2 Pads placed AP position. Resulting rhythm was atrial paced rhythm. The patient was then monitored until fully alert. COMPLICATIONS: None. Fabby Mcgee MD CV ELECTROPHYSIOLOGY PROCS Fin al Result * POC Blood Gas and Chemistries, Arterial - (09/07/2024 7:09 AM CDT) [facility] K POC 3.3 3.3 - 4.9 mmol/L Comment: Interpretive Data Not all point of care methods assess for hemolysis. Confirm with instrument and retest K+ if not consistent with clinical signs and symptoms. Current Interpretive Data was last revised on 2023. Blood 09/07/2024 7:09 AM CDT 09/07/2024 7:09 AM CDT us Notinfile Unknown LAB POCT ORDERABLES - DEVICE F inal Result [facility] [address] [facility] [place] [address] * ECG 12 lead (09/07/2024 6:22 AM CDT) [facility] Ventricular Rate EKG/Min 87 BPM [facility] QRS-Interval (MSEC) 72 ms [facility] QT-Interval (MSEC) 332 ms [facility] QTc 399 ms [facility] R [place] -46 degrees [facility] T [place] 144 degrees [facility] Diagnosis Atrial fibrillation with frequent ventricular-pac ed complexes Left axis deviation ST & T wave abnormality, consider lateral ischemia Abnormal ECG When compared with ECG of 21-JAN-2020 12:04, voltage criteria for LVH are not met Confirmed by MARIN DOS SANTOS M.D ([id number]) on 09/07/2024 10:13:28 AM [facility] 09/07/2024 6:22 AM CDT 09/07/2024 10:13 AM CDT us Will Walters MD PhD ECG ORDERABLES Final R esult [facility] * SCAN - LABS (07/29/2024 10:12 PM CDT) us Nicolas Huffman MD Final Result * SCAN - LABS (07/28/2024 3:45 PM CDT) Result Lala Huffman MD Final Result * SCAN - RADIOLOGY/IMAGING (07/28/2024 3:27 PM CDT) Anatomical Region Laterality Modality Other Result Lala Huffman MD Final Result * SCAN - LABS (07/28/2024 2:57 PM CDT) us Nicolas Huffman MD Final Result * SCAN - LABS (07/28/2024 2:50 PM CDT) Result Lala Huffman MD Final Result * SCAN - LABS (07/28/2024 2:43 PM CDT) Result Lala Huffman MD Final Result * SCAN - LABS (07/28/2024 2:43 PM CDT) Nicolas Huffman MD Final Result * SCAN - RADIOLOGY/IMAGING (07/28/2024 10:32 AM CDT) Anatomical Region Laterality Modality Other Nicolas Huffman MD Final Result * FL Fluoro Guided Injection Shoulder Right (GLENOHUMERAL JOINT) (07/20/2024 2:08 PM CDT) Narrative [facility] - 07/20/2024 2:08 PM CDT The images from this study are not interpreted by Radiology. Please refer to the physician's procedure / OR operative note. Guido Robles MD IMG FLUOROSCOPY PROCE BHAVIK Final Result [facility] * DEVICE CHECK - REMOTE (07/19/2024 3:22 AM CDT) Anatomical Region Laterality Modality Other 07/19/2024 3:22 AM CDT Narrative 07/30/2024 8:44 AM CDT Interpretation Summary: Battery and Leads (BL) Normal parameters noted on battery and lead(s) --- 5.5 years remaining (this is an estimate based on prior usage) Presenting Rhythm (PA) Atrial Fibrillation or Flutter Ventricular Pacing (DRY KILN BURNER) --- rate 70 Arrhythmic events (AE) Persistent atrial fibrillation and/or flutter --- AT/AF burden: 100%. V rates 70-150 Atrial fibrillation and/or flutter with rapid ventricular rate --- 10 V high rate episodes due to AF with RVR. Longest: 15 seconds. Fastest: 164 Anticoagulation (AC) Patient on anticoagulant therapy Patient prescribed Apixaban (Eliquis) Transmission Information (TI) Device Summary Report Procedure Note Fabby Mcgee MD - 07/30/2024 Interpretation Summary: Battery and Leads (BL) Normal parameters noted on battery and lead(s) --- 5.5 years remaining(this is an estimate based on prior usage) Presenting Rhythm (PA) Atrial Fibrillation or Flutter Ventricular Pacing (DRY KILN BURNER) --- rate 70 Arrhythmic events (AE) Persistent atrial fibrillation and/or flutter --- AT/AF burden: 100%. Vrates 70- 150 Atrial fibrillation and/or flutter with rapid ventricular rate --- 10 Vhigh rate episodes due to AF with RVR. Longest: 15 seconds. Fastest: 164 Anticoagulation (AC) Patient on anticoagulant therapy Patient prescribed Apixaban (Eliquis) Transmission Information (TI) Device Summary Report Fabby Mcgee MD CV CARDIAC SERVICES PROCEDURES Final Result * (ABNORMAL) eGFR (07/13/2024 11:32 AM CDT) [...] 2 AM CDT 07/13/2024 1:58 PM CDT Arcelia Denise MD LAB BLOOD ORDERABLES Final Re sult [facility] [place] [address] * (ABNORMAL) Pro B-type natriuretic peptide (07/13/2024 [...] CDT 07/13/2024 1:52 PM CDT us Arcelia Deinse MD LAB BLOOD ORDERABLES Final Re sult [facility] Department [place] [address] * Basic metabolic panel (07/13/2024 11:32 AM CDT) Sodium 141 135 - 145 mmol/L Potassium, pl 3.8 3.3 - 4.9 mmol/L [facility] Chloride 102 97 - 110 mmol/L [facility] CO2 26 22 - 32 mmol/L [facility] Anion gap 13 2 - 15 mmol/L [facility] BUN 24 6 - 25 mg/dL [facility] Creatinine 1.01 0.60 - 1.10 mg/dL [facility] Glucose 101 70 - 199 mg/dL [facility] Comment: Interpretive Data Fasting glucose >/= [...] 2022. Calcium 9.9 8.5 - 10.3 mg/dL [facility] Blood 07/13/2024 11:3 2 AM CDT 07/13/2024 1:52 PM CDT us Arcelia Denise MD LAB BLOOD ORDERABLES Final [facility] Department [place] [address] * TRANSTHORACIC ECHO (TTE) COMPLETE W DOPPLER/CF W CONTRAST (07/06/2024 5:24 PM CDT) EF Mod BP 50 % CONS SCIMAGE Anatomical Region Laterality Modality Ultrasound 07/06/2024 4:40 PM CDT Narrative 07/07/2024 10:58 AM CDT [facility] [place] [address] Transthoracic Echocardiographic Report Patient Name: STEPHANIE BREWERBlaire : 1940 (84y 5m) Gender: F Study Date: 07/06/2024 04:40:28 PM Ht(Inch): 64 Wt(Lb): 197.09 BSA: 2.01 Head Transfer Clerk: Rajinder Carrasco [facility] Location: [facility] Order Provider: ARCELIA DENISE Heart [...] 3. Moderate mitral annular calcification (mostly posterior). Eart-ve-Enrzhujw mitral valve regurgitation (ERO 1.0). The mitral [...] Valve: Moderate mitral annular calcification (mostly posterior). Hhzx-np-Rtnuqsjg mitral valve regurgitation (ERO 1.0). The mitral [...] LA Length 4C 6.43 cm AI Decel Grady 2.68 m/s2 LA Length 2C 6.43 cm [...] Procedure Note Flavia Orellana MD - 07/07/2024 [facility] Cardiac [place] [address] Transthoracic Echocardiographic Report Patient Name: STEPHANIE BREWER A : 1940 (84y 5m) Gender: F Study Date: 07/06/2024 04:40:28 PM Ht(Inch): 64 Wt(Lb): 197.09 BSA: 2.01 Head Transfer Clerk: Rajinder Carrasco [facility] Location: [facility] Order Provider:ARCELIA DENISE Heart Rate: [...] heart. 3. Moderate mitral annular calcification (mostly posterior).Pkrb-yh-Sioencge mitral valve regurgitation (ERO 1.0). The mitral [...] Mitral Valve: Moderate mitral annular calcification (mostly posterior).Sidc-vu-Nnsqtcgz mitral valve regurgitation (ERO 1.0). The mitral [...] [ -25.0 - -18.0 ] AI Decel Umfz0390.97 sec LA Length 4C 6.43 cm AI Decel Slope2.68 m/s2 LA Length 2C 6.43 cm AI MUR860.30 msec LA Volume BP 62.55 ml MV [...] Ao Diam 2D 3.62 cm MV Decel Xrvx649.93 msec [ 104.00 - 258.00 ] Asc Ao Index 1.80 cm/m2 Med E` Vel3.5 cm/sec [ 8.0 - 25.0 ] TV Annulus 2D 4.00 cm Lat E` Vel7.7 cm/sec [ 10.0 - 25.0 ] Average E/E` 26.79 MR Peak Daev 5.6 m/s MR Peak PG 125.44 mmHg [...] Modality Other Ramonita Burgos NP Final Result from Last 3 Months Additional Health Concerns Active Problems Noted Date Diagnosed Date Autogenerated Problem 09/02/2024 Insurance MEDICARE ADVANTAGE UHC MEDICARE ADVANTAGE MEDICARE ADVANTAGE MEDICARE ADVANTAGE [place] [id number] Advance Directives For more information, please contact: [phone] Documents on File Type Date Recorded Patient Engineer System Administrator Expl anation Power of Manager Intensive Care Unit 06/12/2023 5:53 AM ADVANCE DIRECTIVE 12/17/2022 2:43 AM PARVIN R OF RAPID OUTSOLE STITCHER-MEDICAL Power of Manager Intensive Care Unit 12/12/2022 10:10 AM * Full Code (Latest Code Status on File) Date Activated Date Inactivated Comments 06/12/2023 10:30 AM 06/13/2023 3:29 PM * Full Code Date Activated Date Inactivated Comments 12/12/2022 1:31 PM 12/12/2022 7:26 PM Care Teams Product Steward Relationship Specialty Start Date End Date Nicolas Huffman MD PCP - General 05/22/16
--- OUTSIDE RECORDS SUMMARY | 2024-09-19 17:38 | XMS_ITS | Clinical Summary ---
Author Organization [facility] Address [address] [place] [address] Care Team Providers Care Barrel Assembler Name Role Phone Nicolas Huffman MD Primary Care Provider [phone] Allergies Active Allergy Reactions Criticality Noted Date Comments Amoxicillin Diarrhea Low 06/14/2022 Oxycodone Mental status changes,Hallucinations High 11/25/2019 Prednisone Mental status changes,Hallucinations High 11/25/2019 Medications aspirin 325 mgIndications:M yocardial Reinfarction Prevention,prev ention of thrombosis Take 1 tablet (325 mg total) by mouth early childhood educator aide before breakfast qd Active psyllium, aspartame, SF [...] 01/14/2024 Assessment & Plan (01/14/2024 11:58 AM MEDICAL PATHOLOGIST): Long discussion today lasting more than 30 minutes concerning this. Will look for the present we will leave medication alone at this time. Will refer to cardiology here at [place]. Will try to obtain her pacer data from Dr. Mcgee. I feel this may very well have been a type 2 myocardial infarction based on pneumonia which was diagnosed in the emergency room Cervicalgia 01/14/2024 Assessment & Plan (01/14/2024 11:57 AM MEDICAL PATHOLOGIST): Check C-spine x-rays. Sinus pause 06/04/2023 S/P [...] exertion Assessment & Plan (02/20/2024 9:35 AM MEDICAL PATHOLOGIST): I feel this is most likely secondary to COPD. Possibly mild right heart strain. Will give furosemide and check BMP in 2 weeks. Most recent echo showed normal LV function. Moderate COPD (chronic obstr uctive pulmonary disease) ([facility]/HCC) Assessment & Plan (09/17/2024 10:25 AM CDT): Tushar. Encouraged her to continue to do exercise. Assessment & Plan (05/21/2024 11:08 AM CDT): Stable. Assessment & Plan (01/14/2024 11:57 AM MEDICAL PATHOLOGIST): Stable at this time Resolved Problems Problem Noted Date Diagnosed Date Resolved Date A-fib 06/12/2023 09/17/2024 Assessment & Plan (01/14/2024 11:58 AM MEDICAL PATHOLOGIST): Per Dr. Mcgee Assessment & Plan (06/12/2023 [...] Description 09/17/2024 10:15 AM CDT Office Visit [facility] [address] [facility] [address] [phone] Nicolas Huffman MD Moderate COPD (chronic obstructive pulmonary disease) (CMS/HCC) (HCC) (Primary Dx); Longstanding persistent atrial fibrillation (HCC); S/P placement of cardiac pacemaker; Essential hypertension 09/08/2024 Telephone [facility] Cardiology [address] [place] [address] 8th [place] [address] [place] [address] Fabby Mcgee MD 09/07/2024 8:10 AM CDT - 09/07/2024 8:50 AM CDT Surgery [facility] [address] [address] Will Walters MD PhD CARDIOVERSION 09/07/2024 7:29 AM CDT Anesthesia Event [address] [phone] William Thurman MD PhD 09/07/2024 6:21 AM CDT - 09/07/2024 9:14 AM CDT Hospital Encounter [address] [phone] Khris, Disability Aide, Will Aden MD PhD Longstanding persistent atrial fibrillation (HCC) Discharge Disposition: Discharge to home or self care 09/02/2024 9:00 AM CDT Telemedicine [address] [place] [address] [place] [address] Fabby Mcgee MD Persistent atrial fibrillation (HCC) (Primary Dx) 09/02/[address] 8th [place] [address] [place] [address] Fabby Mcgee MD 08/26/[address] 8th [place] [address] [place] [address] Fabby Mcgee MD Reschedule 07/29/2024 Orders Only [facility] [address] [facility] [address] [facility] [address] [place] [phone] Nicolas Huffman MD 07/29/2024 Telephone [facility] Cardiology [facility] Advanced Medicine 8th [place] [address] [place] [phone] NonaRosalina Follow-up 07/28/2024 8:45 AM CDT Office Visit [facility] Care at [address] [phone] Kaylen Mendoza PA Shortness of breath (Primary Dx) 07/28/2024 Orders Only [facility] [address] [facility] [address] [facility] [address] [place] [address] Nicolas Huffman MD 07/20/2024 1:04 PM CDT - 07/20/2024 11:59 PM CDT Hospital Encounter [facility] Rad[facility] [address] [place] [address] Zhang De Leon MD Primary osteoarthritis of right shoulder (Primary Dx); Osteoarthritis of right shoulder, unspecified osteoarthritis type Discharge Disposition: Discharge to home or self care 07/19/2024 Orders Only [facility] Cardiology [address] [facility] Medical Office Building 3 [address] [place] [phone] Fabby Mcgee MD 07/16/2024 Telephone [facility] Cardiology [address] [place] [address] Advanced [facility] 8th [place] [address] [place] [phone] Arcelia Denise MD Test Results 07/13/2024 11:30 AM CDT Lab [facility] - [address] [place] [address] Shortness of breath; Paroxysmal atrial fibrillation (HCC) 07/13/2024 11:00 AM CDT Office Visit [facility] Orthopaedic Surgery [address] [place] [address] 1st Floor [address] [place] [address] Guido Robles MD Osteoarthritis of right shoulder, unspecified osteoarthritis type 07/13/2024 Results Follow-Up [facility] Cardiology [address] [place] [address] Advanced Medicine 8th [place] [address] [place] [address] Arcelia Denise MD Basic metabolic panel, Pro B-type natriuretic peptide, eGFR 07/07/2024 Results Follow-Up Cardiology Arcelia Denise MD Transthoracic Echo (TTE) Complete W Doppler/CF 07/06/2024 4:03 PM CDT - 07/06/2024 11:59 PM CDT Hospital Encounter [facility] Cardiac Diagnostic Lab [address] [place] [address] 8th [place] [phone] Longstanding persistent atrial fibrillation (HCC); Shortness of breath Discharge Disposition: Discharge to home or self care 07/01/2024 2:30 PM CDT Office Visit [facility] Cardiology [address] [place] [address] [address] [place] [phone] Arcelia Denise MD Longstanding persistent atrial fibrillation (HCC) (Primary Dx); Shortness of breath; Sleep apnea-like behavior 07/01/2024 Results Follow-Up [facility] Cardiology [address] [place] [address] [address] [place] [address] Arcelia Denise MD ECG 12 lead 06/30/2024 Results Follow-Up [facility] [address] [place] [phone] Ramonita Burgos NP SCAN - RADIOLOGY/IMAGING 06/30/2024 Orders Only [facility] [address] [place], [place] [address]A [place] [address] Ramonita Burgos NP 06/29/2024 Orders Only [facility] [address] [place] [address] [place] [phone] Ramonita Burgos NP from Last 3 Months Immunizations Immunization Administration [...] FLUORO GUIDED INJECTION SHOULDER RIGHT 07/20/2024 Right CARDIAC ELECTROPHYSIOLOGY PROCEDURE 09/07/2024 N/A Procedure: CARDIOVERSION; Surgeon: Will Walters MD PhD; Location: [facility] CARDIAC MANAGER CONCRETE; Service: Cardiovascular; Laterality: N/A; CARDIOVERSION Medical History Medical History Date Comments High blood pressure Anxiety Coronary artery disease Atrial fibrillation (HCC) Family History Medical History Relation Name Comments [...] on file Legal Sex Female 11:21 AM MEDICAL PATHOLOGIST Gender Identity Female 11/24/2020 8:03 AM CDT [...] 09/17/2024 9:42 AM CDT Plan of Treatment Health Maintenance Due Date Last Done Comments Depression Screening 1940 DTaP/Tdap/Td Vaccine (1 - Tdap) 1953 Hepatitis B Screening 02/05/1960 Well Visit 65+ 2007 Osteoporosis Screening-Bone Density Scan 03/15/2023 Covid-19 Vaccine (2023-2 5 season) 2024 12/02/2023, 12/10/2022, 12/06/2021, Additional history exists Influenza Vaccine (#1) 2024 , 11/02/2023, 12/10/2022, Additional history exists Fall Risk Assessment 09/07/2025 09/07/2024 Pneumococcal vaccine 65+ Completed 10/10/2022 Zoster Vaccine Completed 12/02/2023, 10/10/2022 Goals Goal Patient Goal Type Associated Problems Recent Progress Patient-Stated? Author Autogenerat ed Goal Care Plan Autogenerated Problem No Ornelas, [place] Medical Devices Implanted Type Area Deputy Commonwealth'S Attorney Device Identifier Shelf Expiration Date Model / Serial / Lot [employer] Suzi Monitor Cardiac Insertable Leadless Lux Dx 4.0x7.2x44.8m m M301 - [id number] - [id number] Implanted:Qty : 1 on 12/12/2022 by Fabby Mcgee MD at [facility] Implantable Loop Recorder [employer] Su[employer] 10/01/2023 M301 / [id number] / [id number] [employer] Su[employer] Active Fixation Steroid Eluting Is 1 Connector Latex Free Sterile Right Atrial Right Atrial Ingevity Plus 59cm 7842 - [id number] - [id number] Implanted:Qty : 1 on 06/12/2023 by Fabby Mcgee MD at [facility] Lead Right: Ventricle [employer] Su[employer] 06/29/2024 7842 / [id number] / [employer] Fineline Ii Sterox Ez 1.7mm 52cm Bipolar Active Fixation Screw 4470 - [id number] - [id number] Implanted:Qty : 1 on 06/12/2023 by Fabby Mcgee MD at [facility] Lead Right: Atria [employer] Su[employer] 12/02/2024 4470 / [id number] / [employer]. Accolade Latitude Nxt Pacesafe Easyview 4.45x5.02cm 2 Chamber Is1 L311 - [id number] - [id number] Implanted:Qty : 1 on 06/12/2023 by Fabby Mcgee MD at [facility] Pacemaker Left: Chest Wall [employer] C.[employer].M. 04/24/2025 L311 / [id number] / Procedures Procedure Name Priority Date/Time Associated [...] procedure. Narrative 09/07/2024 7:42 AM CDT CARDIOVERSION [address] PRE-OP DIAGNOSIS: Atrial fibrillation MUD CLEANER OPERATOR: Will Walters MD PhD. REFERRING MD: Wesley [...] Chemistries, Arterial - (09/07/2024 7:09 AM CDT) Pathologist [facility] K POC 3.3 3.3 - 4.9 mmol/L Comment: Interpretive Data Not all point of care methods assess for hemolysis. Confirm with instrument and retest K+ if not consistent with clinical signs and symptoms. Current Interpretive Data was last revised on 2023. Blood 09/07/2024 7:09 AM CDT 09/07/2024 7:09 AM CDT Notinfile Unknown LAB POCT ORDERABLES - DEVICE F inal Result [facility]ARG[facility]ET [facility] [place] [address] * ECG 12 lead (09/07/2024 6:22 AM CDT) [facility] Ventricular Rate EKG/Min 87 BPM [facility] QRS-Interval (MSEC) 72 ms [facility] QT-Interval (MSEC) 332 ms [facility] QTc 399 ms [facility] R [place] -46 degrees [facility] T [place] 144 degrees [facility] Diagnosis Atrial fibrillation with frequent ventricular-pac ed complexes Left axis deviation ST & T wave abnormality, consider lateral ischemia Abnormal ECG When compared with ECG of 21-JAN-2020 12:04, voltage criteria for LVH are not met Confirmed by MARIN DOS SANTOS M.D ([id number]) on 09/07/2024 10:13:28 AM [facility] 09/07/2024 6:22 AM CDT 09/07/2024 10:13 AM CDT us Will Walters MD PhD ECG ORDERABLES Final R esult [facility] * SCAN - LABS (07/29/2024 10:12 PM CDT) us Nicolas Huffman MD Final Result * SCAN - LABS (07/28/2024 3:45 PM CDT) us Nicolas Huffman MD Final Result * SCAN - RADIOLOGY/IMAGING (07/28/2024 3:27 PM CDT) Anatomical Region Laterality Modality Other Result Lala Huffman MD Final Result * SCAN - LABS (07/28/2024 2:57 PM CDT) Result Lala Huffman MD Final [...] us Nicolas Huffman MD Final Result * FL Fluoro Guided Injection Shoulder Right (GLENOHUMERAL JOINT) (07/20/2024 2:08 PM CDT) Narrative RAD_PACS_[facility] - 07/20/2024 2:08 PM CDT The images from this study are not interpreted by Radiology. Please refer to the physician's procedure / OR operative note. us Guido Robles MD IMG FLUOROSCOPY IRVING GUTIERRES Final Result [facility] * DEVICE CHECK - REMOTE (07/19/2024 3:22 AM CDT) Anatomical Region Laterality Modality Other 07/19/2024 3:22 AM CDT Narrative 07/30/2024 8:44 AM CDT Interpretation Summary: Battery and Leads (BL) Normal parameters noted on battery and lead(s) --- 5.5 years remaining (this is an estimate based on prior usage) Presenting Rhythm (IN) Atrial Fibrillation or Flutter Ventricular Pacing (CORPORATE TRAVEL MANAGER) --- rate 70 Arrhythmic events (AE) Persistent [...] (IN) Atrial Fibrillation or Flutter Ventricular Pacing (CORPORATE TRAVEL MANAGER) --- rate 70 Arrhythmic events (AE) Persistent [...] LAB BLOOD ORDERABLES Final Re sult [facility] [place] [address] * (ABNORMAL) Pro B-type natriuretic peptide (07/13/2024 [...] MD LAB BLOOD ORDERABLES Final Re sult [facility] [place] [address] * Basic metabolic panel (07/13/2024 11:32 AM CDT) Sodium 141 135 - 145 mmol/L Potassium, pl 3.8 3.3 - 4.9 mmol/L [facility] Chloride 102 97 - 110 mmol/L [facility] CO2 26 22 - 32 mmol/L [facility] Anion gap 13 2 - 15 mmol/L [facility] BUN 24 6 - 25 mg/dL [facility] Creatinine 1.01 0.60 - 1.10 mg/dL [facility] Glucose 101 70 - 199 mg/dL [facility] Comment: Interpretive Data Fasting glucose >/= [...] 2022. Calcium 9.9 8.5 - 10.3 mg/dL [facility] Blood 07/13/2024 11:3 2 AM CDT 07/13/2024 1:52 PM CDT us Arcelia Denise MD LAB BLOOD ORDERABLES Final Re sult [facility] [place] [address] * TRANSTHORACIC ECHO (TTE) COMPLETE W DOPPLER/CF W CONTRAST (07/06/2024 5:24 PM CDT) EF Mod BP 50 % CONS SCIMAGE Anatomical Region Laterality Modality Ultrasound 07/06/2024 4:40 PM CDT Narrative 07/07/2024 10:58 AM CDT [facility] Cardiac [place] [address] Transthoracic Echocardiographic Report Patient Name: STEPHANIE BREWER A : 1940 (84y 5m) Gender: F Study Date: 07/06/2024 04:40:28 PM Ht(Inch): 64 Wt(Lb): 197.09 BSA: 2.01 Sugar Refinery Supervisor: Rajinder Carrasco RDCS Location: [facility] Order Provider: ARCELIA DENISE Heart Rate: 79 [...] 3. Moderate mitral annular calcification (mostly posterior). Wjtr-rq-Msepnuch mitral valve regurgitation (ERO 1.0). The mitral [...] Valve: Moderate mitral annular calcification (mostly posterior). Hzov-xz-Fqxxqjrg mitral valve regurgitation (ERO 1.0). The mitral [...] LA Length 4C 6.43 cm AI Decel Maury 2.68 m/s2 LA Length 2C 6.43 cm [...] Procedure Note Flavia Orellana MD - 07/07/2024 [facility] [place] [address] Transthoracic Echocardiographic Report Patient Name: STEPHANIE BREWER A : 1940 (84y 5m) Gender: F Study Date: 07/06/2024 04:40:28 PM Ht(Inch): 64 Wt(Lb): 197.09 BSA: 2.01 Sugar Refinery Supervisor: Rajinder Carrasco [facility] Location: [facility] Order Provider:ARCELIA DENISE Heart Rate: 79 BMI: [...] heart. 3. Moderate mitral annular calcification (mostly posterior).Vkit-qb-Udefusmt mitral valve regurgitation (ERO 1.0). The mitral [...] Mitral Valve: Moderate mitral annular calcification (mostly posterior).Jdia-om-Rnmumsov mitral valve regurgitation (ERO 1.0). The mitral [...] [ -25.0 - -18.0 ] AI Decel Etsi2608.97 sec LA Length 4C 6.43 cm AI Decel Slope2.68 m/s2 LA Length 2C 6.43 cm AI WNM035.30 msec LA Volume BP 62.55 ml MV [...] Ao Diam 2D 3.62 cm MV Decel Wkgg123.93 msec [ 104.00 - 258.00 ] Asc [...] Region Laterality Modality Other us Ramonita Burgos RIPSAWYER Final Result * SCAN - RADIOLOGY/IMAGING (06/29/2024 6:18 PM CDT) Anatomical Region Laterality Modality Other us Ramonita Burgos RIPSAWYER Final Result from Last 3 Months Additional Health Concerns Active Problems Noted Date Diagnosed Date Autogenerated Problem 09/02/2024 Insurance [facility] [address] MEDICARE ADVANTAGE MEDICARE ADVANTAGE Member Subscriber Plan / Payer (Ef fective 2022-Present) Name:Stephanie Brewer Blaire Relation to Subscriber:Self Name:Stephanie Brewer Payer ID:[id number] (NAIC) Type:[facility] Address: [place] [phone] MEDICARE ADVANTAGE Member Subscriber Plan / Payer (Ef fective 2022-Present) Name:Osman Stephanie A Relation to Subscriber:Self Name:Stephanie Brewer Payer ID:[id number] (NAIC) Type:[facility] MEDICARE Address: [place] [phone] Advance Directives For more information, please contact: [phone] Documents on File Type Date Recorded Patient Airport Ramp Supervisor Expl anation Power of Urology Teacher 06/12/2023 5:53 AM ADVANCE DIRECTIVE 12/17/2022 2:43 AM PARVIN R OF ASSISTANT ASSOCIATE FULL PROFESSOR-MEDICAL Power of Urology Teacher 12/12/2022 10:10 AM * Full Code (Latest Code Status on File) Date Activated Date Inactivated Comments 06/12/2023 10:30 AM 06/13/2023 3:29 PM * Full Code Date Activated Date Inactivated Comments 12/12/2022 1:31 PM 12/12/2022 7:26 PM Care Teams Barrel Assembler Relationship Specialty Start Date End Date Nicolas Huffman MD PCP - General 05/22/16
--- OUTSIDE RECORDS SUMMARY | 2024-09-19 17:38 | XMS_ITS | Encounter Summary ---
Author Organization [facility] Address [address] [place] [address] Care Team Providers Care Major Case Detective Name Role Phone Nicolas Huffman MD Primary Care Provider [phone] Reason for Referral * (Routine) - Closed Specialty Diagnoses / Procedures Referred By Contac t Referred To Contact Diagnoses Dyspnea Procedures Pulmonary Function Test -[facility] Adult PFT Lab- CAM-8D; Standard; Spirometry, Spirometry w/bronchodilator, DLCO and Lung Volumes Nicolas Huffman MD Phone: tel: fax: Referral ID Status Reason Start Date Expiration Date Visits Re quested Visits Authorized [id number] Closed 09/01/2019 03/12/2021 1 1 Encounter Details Date Type Department Care Team (Late st Contact Info) Description 09/01/2019 Orders Only Internal Medicine Nicolas Huffman MD [address] [address] Dyspnea (Primary Dx) Social History Tobacco Use [...] on file Legal Sex Female 11:21 AM GAS PIPE LAYER Gender Identity Female 11/24/2020 8:03 AM CDT Sexual Orientation Straight 11/24/2020 8: 03 AM CDT documented as of this encounter Progress Notes * Janessa Elliott - 09/01/2019 11:30 AM CDT pulmonar documented in this encounter Plan of Treatment Not on file documented as of this encounter Results * Pulmonary Function Test - (09/09/2019 10:28 AM CDT) FVC PRED 2.68 0.05 - 9.99 Liters [facility] FVC PRE 1.73 0 - 12 Liters [facility] FVC %PRE PRED 64 0 - 300 % [facility] FEV1 PRED 2.05 0.05 - 9.99 Liters [facility] FEV1 PRE 1.17 0 - 12 Liters [facility] FEV1 %PRE PRED 57 0 - 300 % [facility] FEV1/FVC PRED 77 1 - 99 % [facility] FEV1/FVC PRE 68 0 - 12 % [facility] DLC77-14% PRED 1.66 0 - 12 L/sec [facility] NZW14-33% PRE 0.54 0 - 12 L/sec [facility] NFD57-44% %PRE PRED 33 0 - 300 % [facility] FEF75% PRED 0.38 0 - 300 L/sec [facility] FEF75% PRE 0.15 0 - 12 L/sec [facility] FEF75% %PRE PRED 39 % [facility] PEF PRED 5.36 0 - 18 L/sec [facility] PEF PRE 4.17 0 - 18 L/sec [facility] PEF %PRE PRED 78 0 - 300 % [facility] PIF PRE 1.78 0 - 18 L/sec [facility] FEV6 PRE 1.66 0 - 12 Liters [facility] FEV1/FEV6 PRE 70 0 - 12 % [facility] VC PRED 2.79 0.05 - 9.99 Liters [facility] VC PRE 1.95 0.05 - 9.99 Liters [facility] VC %PRE PRED 70 0 - 300 % [facility] TLC PRED 5.14 0.05 - 11.99 Liters [facility] TLC PRE 4.63 0.05 - 11.99 Liters [facility] TLC %PRE PRED 90 0 - 300 % [facility] RV PRED 2.36 0.05 - 9.99 Liters [facility] RV PRE 2.68 0.05 - 9.99 Liters [facility] RV %PRE PRED 114 0 - 300 % [facility] RV/TLC PRED 46 0 - 300 % [facility] RV/TLC PRE 58 0 - 300 % [facility] FRC N2 PRED 2.52 0.05 - 9.99 Liters [facility] FRC PL PRED 2.96 0.05 - 9.99 Liters [facility] FRC PL PRE 2.78 0.05 - 9.99 Liters [facility] FRC PL %PRE PRED 94 0 - 300 % [facility] ERV PRED 0.92 0.05 - 9.99 Liters [facility] ERV PRE 0.20 0.05 - 9.99 Liters [facility] ERV %PRE PRED 22 0 - 300 % [facility] IC PRE 1.85 0.05 - 9.99 Liters [facility] DLCO PRED 22.5 0.05 - 99.99 mL/mmHg/min [facility] DLCO PRE 12.5 mL/mmHg/min [facility] DLCO %PRE PRED 55 0 - 300 % [facility] DL ADJ PRED 22.5 1 - 2 mL/mmHg/min [facility] DL ADJ PRE 12.5 1 - 2 mL/mmHg/min [facility] DL ADJ %PRE PRED 55 0 - 300 % [facility] DLCO/VA PRED 4.66 mL/mHg/min/ L [facility] DLCO/VA PRE 3.97 mL/mHg/min/ L [facility] DLCO/VA %PRE PRED 85 % [facility] DL/VA ADJ PRED 3.49 mL/mHg/min/ L [facility] DL/VA ADJ %PRE PRED 114 % [facility] VA PRE 3.15 Liters [facility] RAW PRED 1.28 cmH2O/L/sec [facility] RAW PRE 4.65 cmH2O/L/sec [facility] RAW %PRE PRED 363 % [facility] GAW PRED 0.711 L/sec/cmH2O [facility] GAW PRE 0.215 L/sec/cmH2O [facility] GAW %PRE PRED 30 % [facility] SRAW PRED 3.80 cmH2O/L/s/L [facility] SRAW PRE 15.24 cmH2O/L/s/L [facility] SRAW %PRE PRED 401 % [facility] SGAW PRED 0.257 L/s/cmH2O/L [facility] SGAW PRE 0.066 L/s/cmH2O/L [facility] SGAW %PRE PRED 26 % [facility] Anatomical Region Laterality Modality PFT 09/09/2019 10:0 [...] COVID: Suspected 01/21/2020 01/21/2020 01/21/2020 6:51 PM GAS PIPE LAYER Respiratory Infection (NOEL), contact + droplet Comment:Automatically added due to negative COVID-19 result. 01/21/2020 01/21/2020 2020 3:0 7 AM GAS PIPE LAYER COVID: Suspected 03/06/2022 03/06/2022 03/06/2022 9:09 PM GAS PIPE LAYER documented as of this encounter Care Teams Major Case Detective Relationship Specialty Start Date End Date Nicolas Huffman MD PCP - General 05/22/16 documented as of this encounter
--- NOTE | 2024-09-19 17:48 | ED.GENADULT ---
HPI - General Adult General Chief complaint: Shortness of Breath/Dyspnea Stated complaint: sob Time Seen by Provider: 09/19/24 17:20 History of Present Illness HPI narrative: 84-year-old female presented to the emergency department for evaluation for acute onset of shortness of breath. Patient does have history of AFib with RVR and had a recent cardioversion on September 07 at [place]. Patient did have subsequent follow-up with her primary care physician and was confirmed to be in normal sinus rhythm. Patient states this morning she woke up and she was having some increased shortness of breath suspected she was back and AFib. Upon arrival to the emergency department patient's EKG does show intermittent AFib with heart rate in the 130s. Patient denies any associated chest pain. Patient does report increased shortness of breath. Patient was saturating at 92% on room air but does feel improved on 2 L of oxygen by nasal cannula. Related Data Home Medications ?Medication ?Instructions ?Recorded ?Confirmed ?Last Taken ?Type aspirin 325 mg tablet 325 mg PO DAILY 12/14/19 09/19/24 08/04/20 History 325 chlorthalidone 25 mg tablet 25 mg PO DAILY 12/14/19 09/19/24 08/04/20 History 25 diltiazem HCl 120 mg 120 mg PO DAILY 12/14/19 09/19/24 08/04/20 History capsule,extended release 24 hr 120 (Cartia XT) hydralazine 50 mg tablet 50 mg PO BID 12/14/19 09/19/24 08/04/20 History metoprolol tartrate 100 mg tablet 50 mg PO Q12H 12/14/19 09/19/24 08/04/20 History 100 acetaminophen 500 mg tablet 500 mg PO Q6H PRN pain 10/10/21 09/19/24 Unknown History (Tylenol Extra Strength) diphenhydramine 25 1 tablet PO QID PRN sedation 11/20/21 09/19/24 Unknown History mg-acetaminophen 500 mg tablet (Tylenol PM Extra Strength) alprazolam 0.25 mg tablet mg PO QID PRN anxiety 09/19/24 Unknown History apixaban 5 mg tablet (Eliquis) mg 09/19/24 Unknown History Allergies Allergy/AdvReac Type Severity Reaction Status Date / Time oxycodone Allergy Mild condusion, Verified 07/28/24 09:27 difficulty concentrating amoxicillin AdvReac Intermediate Diarrhea Verified 07/28/24 09:27 prednisone AdvReac Mild Confusion Verified 07/28/24 09:27 Review of Systems Review of Systems: All systems reviewed & are unremarkable except as noted in HPI and below PMFSH Past Medical History Medical History (Updated 09/19/24 @ 19:26 by Karyna Crum APRN) Afib IBS (irritable bowel syndrome) Hypertension COPD (chronic obstructive pulmonary disease) Family History Family History Father Stomach cancer Mother Osteoporosis Social History Social History Smoking packs per day: 0.5 Smoking cigarettes per day: 10.0 Smoking status: Former smoker Tobacco type: cigarettes Smoking end date: 03/03/11 Alcohol intake: never Substance use: never Living arrangements: alone Exam Narrative: APPEARANCE: Well appearing, no pain, no distress, well-nourished. HEAD: normocephalic, atraumatic. EYES: PERRLA/EOMI, conjunctivae clear. NOSE: Normal no drainage EARS:TMS clear with good light reflex. THROAT: Pharynx clear, no exudate. NECK: Supple. No adenopathy, no masses. RESPIRATORY: Airway patent, respirations nonlabored. Clear to auscultation bilaterally, no rales, rhonchi, wheezing. CARDIOVASCULAR: Irregular rhythm, intermittent AFib ABDOMINAL: Soft, nontender, nondistended, normal bowel sounds MUSCULOSKELETAL: Moves all extremities. Strength/ROM intact, No edema, No calf tenderness. NEURO: Alert. Cranial nerves II through XII intact. Good gait. Good coordination SKIN: Warm, dry. Normal Color Course Vital Signs Vital signs: Vital Signs Temperature 98.8 F 09/19/24 17:11 Pulse Rate 148 H 09/19/24 17:11 Respiratory Rate 22 H 09/19/24 17:11 Blood Pressure 142/70 H 09/19/24 17:11 Pulse Oximetry 94 09/19/24 17:11 Oxygen Delivery Room Air 09/19/24 17:11 Temperature 98.8 F 09/19/24 17:11 Pulse Rate 130 H 09/19/24 19:31 Respiratory Rate 23 H 09/19/24 18:31 Blood Pressure 134/74 09/19/24 19:31 Pulse Oximetry 98 09/19/24 18:31 Oxygen Delivery Nasal Cannula 09/19/24 17:42 Oxygen Flow Rate 2 09/19/24 17:42 Medical Decision Making MDM Narrative Medical decision making narrative: 84-year-old female history of AFib with RVR presents emergency department for evaluation for AFib. Patient is having intermittent AFib that is alternating with a paced rhythm. Patient did just recently have cardioversion. Patient does see cardiology at [place]. Patient does take Cardizem and metoprolol. Patient reports she has been taking her medications as directed. Patient was treated with a dose IV Lopressor and this did have a mild effect on her heart rate but patient is still in AFib with RVR. Patient will be started on Cardizem. Patient's magnesium was 1.4 and this was repleted with IV magnesium. Patient potassium is not elevated. Case was discussed with hospitalist patient was accepted for admission to the IMU. Differential Diagnosis Differential Diagnosis: Proximal AFib, sinus tachycardia, frequent PVCs, paced rhythm, hypomagnesemia Vital Signs Vital Signs: Vital Signs Temperature 98.8 F 09/19/24 17:11 Pulse Rate 148 H 09/19/24 17:11 Respiratory Rate 22 H 09/19/24 17:11 Blood Pressure 142/70 H 09/19/24 17:11 Pulse Oximetry 94 09/19/24 17:11 Oxygen Delivery Room Air 09/19/24 17:11 Temperature 98.8 F 09/19/24 17:11 Pulse Rate 130 H 09/19/24 19:31 Respiratory Rate 23 H 09/19/24 18:31 Blood Pressure 134/74 09/19/24 19:31 Pulse Oximetry 98 09/19/24 18:31 Oxygen Delivery Nasal Cannula 09/19/24 17:42 Oxygen Flow Rate 2 09/19/24 17:42 Lab Data Lab results reviewed: Yes I reviewed the patient's lab results. 09/19/24 17:48 09/19/24 17:49 Labs: Lab Results 09/19/24 09/19/24 09/19/24 Range/Units 17:48 17:49 17:52 WBC 21.3 H (4.5-10.0) K/mm3 RBC 4.73 (4.2-5.4) M/mm3 Hgb 14.2 (12.0-15.0) g/dL Hct 42.9 (37.0-47.0) % MCV 90.7 (80-100) fl MCH 30.0 (26-34) pg MCHC 33.1 (32-36) g/dl RDW 13.3 (11.5-14.5) % Plt Count 425 H (150-375) k/mm3 MPV 10.0 (7.4-10.4) fl Immature Gran % (Auto) 0.8 H (0-0.5) % Neut % (Auto) 86.8 H (45.5-73.1) % Lymph % (Auto) 4.6 L (18.3-44.2) % Snyder % (Auto) 6.4 (2.6-8.5) % Eos % (Auto) 0.8 (0-4.4) % Baso % (Auto) 0.6 (0.2-1.2) % Lymph # (Auto) 0.98 (0.9-3.2) K/mm3 Snyder # (Auto) 1.4 H (0.1-0.6) K/mm3 Eos # (Auto) 0.2 (0-0.3) K/mm3 Baso # (Auto) 0.1 (0.0-0.1) K/mm3 Abs Immat Gran (auto) 0.17 H (0.00-0.031) K/mm3 Absolute Neuts (auto) 18.5 H (1.3-6.7) K/mm3 Absolute Nucleated RBC 0.000 (0.0-0.012) K/mm3 Nucleated RBC % 0.0 (0.0-0.2) % PT 16.3 H (11.1-14.7) Seconds INR 1.3 APTT 34.9 (22.3-36.8) Seconds Sodium 133 L (137-145) mmol/L Potassium 3.4 (3.4-5.0) mmol/L Chloride 96 L (98-107) mmol/L Carbon Dioxide 27 (22-30) mmol/L Anion Gap 10 (4-12) mmol/L BUN 20 H D (7-17) mg/dL Creatinine 0.90 (0.7-1.0) mg/dL Estim Creat Clear Calc 46 ml/min Estimated GFR 60 (59 - ) Glucose 139 H (65-110) mg/dL Calcium 9.7 (8.4-10.2) mg/dL Magnesium 1.4 L (1.6-2.3) mg/dL Total Bilirubin 0.9 (0.2-1.3) mg/dL AST 32 (14-36) U/L ALT 21 (6-35) U/L Alkaline Phosphatase 117 (38-126) U/L NT-Pro-B Natriuret Pep 2980 H (19.9-100) pg/mL Total Protein 7.7 (6.3-8.2) g/dL Albumin 4.1 (3.5-5.1) g/dL TSH (Reflex) 0.404 L (0.465-4.68) uIU/mL Free T4 Pending Discharge Plan Discharge Clinical Impression: Atrial fibrillation with rapid ventricular response, Acute dyspnea Patient Disposition: Still a Patient Condition: Serious
[2024-09-19] MEDS: METOPROLOL TARTRATE INJ 5 MG/5 ML VIAL IV PUSH (17:53)
[2024-09-19 18:19] LABS: INR 1.3; Partial Thromboplastin Time 34.9 Seconds (22.3-36.8); Prothrombin Time 16.3 Seconds (11.1-14.7)
[2024-09-19 18:25] LABS: Hematocrit 42.9 % (37.0-47.0); Hemoglobin 14.2 g/dL (12.0-15.0); Immature Granulocyte Percent A 0.8 % (0-0.5); Lymphocytes Absolute Auto 0.98 K/mm3 (0.9-3.2); Mean Corpuscular HGB Conc 33.1 g/dl (32-36); Mean Corpuscular Hemoglobin 30.0 pg (26-34); Mean Corpuscular Volume 90.7 fl (80-100); Nucleated Red Blood Cells Absolute Auto 0.000 K/mm3 (0.0-0.012); Nucleated Red Blood Cells Perc 0.0 % (0.0-0.2); Platelet Count Result 425 k/mm3 (150-375); Red Blood Count 4.73 M/mm3 (4.2-5.4); White Blood Count 21.3 K/mm3 (4.5-10.0)
[2024-09-19 18:31] LABS: Alanine Aminotransferase 21 U/L (6-35); Albumin Level 4.1 g/dL (3.5-5.1); Alkaline Phosphatase 117 U/L (38-126); Anion Gap 10 mmol/L (4-12); Aspartate Amino Transferase 32 U/L (14-36); Bilirubin,Total 0.9 mg/dL (0.2-1.3); Blood Urea Nitrogen 20 mg/dL (7-17); Calcium 9.7 mg/dL (8.4-10.2); Carbon Dioxide 27 mmol/L (22-30); Chloride 96 mmol/L (98-107); Estimated CRCL calculation 46 ml/min; Estimated Glomerular Filt Rate 60; Glucose 139 mg/dL (65-110); Magnesium 1.4 mg/dL (1.6-2.3); Potassium 3.4 mmol/L (3.4-5.0); Sodium 133 mmol/L (137-145); Total Protein 7.7 g/dL (6.3-8.2)
[2024-09-19 18:40] LABS: NT Pro B Type Natriuretic Pept 2980 pg/mL (19.9-100)
[2024-09-19] MEDS: MAGNESIUM SULF 2 GM/WATER 50ML 2 GM/50 ML BAG IVPB (18:43)
[2024-09-19 19:13] LABS: Thyroid Stimulating Hormone Reflex 0.404 uIU/mL (0.465-4.68)
--- NOTE | 2024-09-19 19:22 | P.HP_ITS ---
H&P: HPI History of Present Illness Date/Time: 09/19/24 19:22 Chief Complaint: Shortness of Breath, Dizziness Narrative: 84 y/o F with PMH of pAfib, CHF, IBS, COPD, pacemaker, and HTN presents here with shortness of breath and dizziness. The patient presents here from home via EMS for further evaluation of shortness of breath and dizziness. She reports acute onset around 7:00 a.m. this morning when she went to stand up. She has a history of paroxysmal AFib. She reports she recently had an episode of atrial fibrillation requiring cardioversion at [facility] on 09/07/2024. After she was cardioverted, she reported no issues. Shortness of breath and dizziness are currently accompanied by intermittent chills. She denies chest pain, syncope, nausea, vomiting, diarrhea, or abdominal pain. She reports compliance with her diltiazem and metoprolol. She follows with Cardiology at [facility]. Believes she has had a recent echo when she was cardioverted. She reports improvement in her shortness of breath and dizziness since her HR has improved. Initial VS at presentation: 98.8? F, HR 148, RR 22, 142/70, and 94% on RA. ED workup showed: WBC 21.3, no anemia, INR 1.3, sodium 133, renal function within normal limits, glucose 139, magnesium 1.4, BNP elevated, TSH 0.404. CXR showed subsegmental left basilar atelectasis/consolidation and a small left pleural effusion. Review of Systems Review of Systems: All systems reviewed & are unremarkable except as noted in HPI and below [facility] Past Medical History Medical History (Updated 09/19/24 @ 22:18 by Karyna Crum APRN) Depression Anxiety Osteoporosis Heart murmur Pacemaker Congestive heart failure Afib IBS (irritable bowel syndrome) Hypertension COPD (chronic obstructive pulmonary disease) Surgical History Surgical History (Updated 09/19/24 @ 22:17 by Karyna Crum APRN) History of left shoulder replacement Family History Family History Father Stomach cancer Mother Osteoporosis Social History Social History Smoking packs per day: 0.5 Smoking cigarettes per day: 10.0 Years smoked: 50 Smoking pack-years: 25.00 Smoking status: Former smoker Tobacco type: cigarettes Second hand tobacco smoke exposure: Yes Smoking end date: 03/03/11 Additional smoking assessment comments: quit in 2011 Alcohol intake: never Substance use: current Substance use type: does not use Do You Feel Safe in your Home?: Yes Lack of Transportation: No Lack of Food: Never True Current Housing: I Have Housing Concerned About Future Housing: No Difficulty Paying Gas/Electric Bills: No Difficulty Paying for Meds: No Currently Unemployed: No Education: High School Diploma/GED Difficulty w/ Childcare or Family Care: No Living arrangements: alone Spiritual care concerns: Yes (latter day) Meds Home Medications and Allergies Home Medications ?Medication ?Instructions ?Recorded ?Confirmed ?Type aspirin 325 mg tablet 325 mg PO DAILY 12/14/19 09/19/24 History chlorthalidone 25 mg tablet 25 mg PO DAILY 12/14/19 09/19/24 History diltiazem HCl 120 mg 120 mg PO DAILY 12/14/19 09/19/24 History capsule,extended release 24 hr (Cartia XT) hydralazine 50 mg tablet 50 mg PO BID 12/14/19 09/19/24 History metoprolol tartrate 100 mg tablet 50 mg PO Q12H 12/14/19 09/19/24 History alprazolam 0.25 mg tablet 0.25 mg PO QID PRN anxiety 09/19/24 09/19/24 History apixaban 5 mg tablet (Eliquis) 5 mg PO Q12H 09/19/24 09/19/24 History diphenhydramine 25 1 tablet PO HS sleep 09/19/24 09/19/24 History mg-acetaminophen 500 mg tablet (Acetaminophen PM) furosemide 20 mg tablet 20 mg PO DAILY PRN edema 09/19/24 09/19/24 History psyllium husk 3.4 gram/5.4 gram 1 tbsp PO DAILY 09/19/24 09/19/24 History oral powder (Metamucil) Allergies Allergy/AdvReac Type Severity Reaction Status Date / Time oxycodone Allergy Mild condusion, Verified 07/28/24 09:27 difficulty concentrating amoxicillin AdvReac Intermediate Diarrhea Verified 07/28/24 09:27 prednisone AdvReac Mild Confusion Verified 07/28/24 09:27 Vital Signs Vital Signs - 24 hr 09/19/24 17:11 09/19/24 17:11 09/19/24 17:42 Temperature 98.8 F Pulse Rate 148 H Respiratory Rate 22 H Blood Pressure 142/70 H Pulse Oximetry 94 93 97 Oxygen Delivery Room Air Room Air Nasal Cannula Oxygen Flow Rate 2 09/19/24 17:53 09/19/24 17:57 09/19/24 17:57 Temperature Pulse Rate 131 H 102 H 102 H Respiratory Rate 22 H Blood Pressure 134/57 L Pulse Oximetry 97 Oxygen Delivery Oxygen Flow Rate 09/19/24 18:31 Temperature Pulse Rate 108 H Respiratory Rate 23 H Blood Pressure 124/82 Pulse Oximetry 98 Oxygen Delivery Oxygen Flow Rate Exam Const: General: comfortable and no acute distress Other: , female, elderly, nontoxic appearance HENMT: Face/Nose/Sinus: Normal nares present Mouth: Yes moist mucous membranes Eyes: General: appearance normal, both eyes and all related structures Sclera: sclerae normal Pupils: Equal, round and reactive pupils present EOM: EOMs intact bilaterally Resp: Effort & Inspection: normal respiratory effort Auscultation: clear to auscultation bilaterally Cardio: Other: Faint murmur, irregular rhythm, mildly tachycardic in the low 100s. GI: Other: Abdomen soft, nondistended, nontender. Normoactive bowel sounds in all quadrants. Skin: General skin exam: normal color and no rashes or lesions noted Wounds: no wounds Neuro: Speech: normal speech Motor exam (neuro): 5/5 motor strength present throughout Sensory Exam: normal sensation Other: A&O x4 Extrem: General: normal to inspection Psych: Mental Status: mental status grossly normal Affect: normal affect Other: Good insight judgment, very pleasant H&P: Results Labs Labs: Short CBC 09/19/24 Range/Units 17:48 WBC 21.3 H (4.5-10.0) K/mm3 Hgb 14.2 (12.0-15.0) g/dL Hct 42.9 (37.0-47.0) % Plt Count 425 H (150-375) k/mm3 BMP 09/19/24 17:49 Sodium 133 L Potassium 3.4 Chloride 96 L Carbon Dioxide 27 BUN 20 H D Creatinine 0.90 Glucose 139 H Calcium 9.7 Liver Function 09/19/24 Range/Units 17:49 Total Bilirubin 0.9 (0.2-1.3) mg/dL AST 32 (14-36) U/L ALT 21 (6-35) U/L Alkaline Phosphatase 117 (38-126) U/L Albumin 4.1 (3.5-5.1) g/dL Assessment and Plan Assessment and plan (1) Atrial fibrillation with rapid ventricular response: Code(s): I48.91 - Unspecified atrial fibrillation Status: Acute Assessment and Plan: - history of paroxysmal AFib, follows with Cardiology [facility] - initial EKG showed intermittent AFib, HR 130s - given metoprolol 5 mg IV with minimal effect on heart rate, then started on diltiazem. Given initially 10 mg IV, now on diltiazem gtt at 5 milligrams/hour - cardiology consulted - hold home p.o. metoprolol and diltiazem - TSH mildly low at 0.404, T4 pending. - Mag 1.4, given 2G IVPB, recheck in AM. - continue Eliquis - admit to IMU for close telemetry monitoring Shortness of breath and dizziness now improved with improvement an HR. Low suspicion for CHF exacerbation as the patient does not appear volume overloaded on exam. (2) Hypertension: Qualifiers: Hypertension type: primary hypertension Qualified Code(s): I10 - Essential (primary) hypertension Code(s): I10 - Essential (primary) hypertension Status: Acute Assessment and Plan: - chronic, currently 124/82 - continue home medications: Chlorthalidone, Lasix, hydralazine. Holding metoprolol and diltiazem. - monitor Plan Diet: heart healthy GI Prophylaxis: n/a DVT Prophylaxis: Eliquis IV fluids: none Lines/Tubes: peripheral IV Code Status: full code Quality VTE Prophylaxis VTE prophylaxis: pharmacologic ordered Hospitalist MIPS Advance Care Plan I have confirmed that the patient's Advanced Care Plan is present, code status is documented, or surrogate decision maker is listed in patient medical record.: Yes Medication Reconciliation I have utilized all available resources to obtain, update and review the patients current medications (includes all prescriptions, OTC, herbals, cannabis, and nutritional supplements).: Yes
[2024-09-19] MEDS: dilTIAZem 100 MG/100 ML 100 MG/100 ML BAG IV CONT (19:31)
--- NOTE | 2024-09-19 19:41 | PC.NURSE ---
This RN attempted to have pt provide a urine sample. Pt unable to provide one at this time. This RN explained to pt a straight cath will be needed. Pt refused.
[2024-09-19 19:45] LABS: Free T4 Free Thyroxine Reflex 1.13 ng/dL (0.78-2.19)
--- NOTE | 2024-09-19 20:13 | ADMGEN ---
This patient, Stephanie Brewer, was admitted to IMU Room 200-01 at 2005. Patient/family oriented to hospital policies and general routines including ID bracelet, bed and alarms, visiting hours, pain management, procedures, bathroom and other care routines, personal items, smoking policy, room service/diet, and visiting hours. Information on how to activate the Rapid Response Team has been discussed. Patient/Family are encouraged to report perceived risks to care and to ask questions if they do not understand what they are told or what they should do.
[2024-09-19 20:54] LABS: Total Triiodothyronine (T3) 1.00 NG/ML (0.82-1.58)
[2024-09-19] MEDS: APIXABAN 5 MG TABLET PO (22:15)
[2024-09-19] MEDS: diphenhydrAMINE HCl CAP 25 MG CAPSULE PO (22:15)
[2024-09-20] VITALS (18 sets, daily range): BP systolic 126–159; BP diastolic 41–79; PULSE 80–105; RESP 14–22; TEMP 36.6–36.7; O2SAT 95–99
[2024-09-20 04:04] LABS: Hematocrit 37.6 % (37.0-47.0); Hemoglobin 12.6 g/dL (12.0-15.0); Immature Granulocyte Percent A 0.6 % (0-0.5); Lymphocytes Absolute Auto 1.52 K/mm3 (0.9-3.2); Mean Corpuscular HGB Conc 33.5 g/dl (32-36); Mean Corpuscular Hemoglobin 30.8 pg (26-34); Mean Corpuscular Volume 91.9 fl (80-100); Nucleated Red Blood Cells Absolute Auto 0.000 K/mm3 (0.0-0.012); Nucleated Red Blood Cells Perc 0.0 % (0.0-0.2); Platelet Count Result 340 k/mm3 (150-375); Red Blood Count 4.09 M/mm3 (4.2-5.4); White Blood Count 14.3 K/mm3 (4.5-10.0)
[2024-09-20 04:37] LABS: Anion Gap 7 mmol/L (4-12); Blood Urea Nitrogen 23 mg/dL (7-17); Calcium 9.2 mg/dL (8.4-10.2); Carbon Dioxide 28 mmol/L (22-30); Chloride 97 mmol/L (98-107); Estimated CRCL calculation 40 ml/min; Estimated Glomerular Filt Rate 52; Glucose 112 mg/dL (65-110); Magnesium 2.0 mg/dL (1.6-2.3); Potassium 3.1 mmol/L (3.4-5.0); Sodium 132 mmol/L (137-145)
[2024-09-20] MEDS: APIXABAN 5 MG TABLET PO (08:52)
[2024-09-20] MEDS: ASPIRIN 325 MG TABLET PO (08:52)
[2024-09-20] MEDS: FUROSEMIDE 20 MG TABLET PO (08:53)
[2024-09-20] MEDS: dilTIAZem 100 MG/100 ML 100 MG/100 ML BAG IV CONT (08:53)
[2024-09-20] MEDS: PSYLLIUM POWDER PACKET 1 PACKET PO (08:53)
[2024-09-20] MEDS: CHLORTHALIDONE 25 MG TABLET PO (08:53)
--- NOTE | 2024-09-20 10:11 | P.CONCA_ITS ---
Assessment and Plan Assessment and plan (1) Atrial fibrillation with rapid ventricular response: Code(s): I48.91 - Unspecified atrial fibrillation Status: Acute Plan 84-year-old woman with persistent atrial fibrillation, near syncope status post permanent pacemaker, and hypertension presented with shortness of breath and dizziness Persistent atrial fibrillation now with rapid ventricular rates -can discontinue diltiazem drip and transition to oral diltiazem 240 mg p.o. daily -resume metoprolol 50 mg p.o. b.i.d. and continue Eliquis 5 mg p.o. b.i.d. -outpatient sleep study Moderate mitral regurgitation -outpatient surveillance echocardiogram Hypertension -on chlorthalidone She can follow up with Dr. Angelo and Dr. Mcgee (EP) from [facility]. Should she have further readmissions for atrial fibrillation prior to seeing her outpatient cardiologists and EP, we will attempt cardioversion as well as transition or chlorthalidone to Lasix and possibly transition her metoprolol to carvedilol. History of Present Illness History of Present Illness Consult date/time: 09/20/24 10:11 Requesting physician: Karyna Crum APRN Consult reason: atrial fibrillation Reason For Visit: AFib with RVR Narrative: 84-year-old woman with persistent atrial fibrillation, near syncope status post permanent pacemaker, and hypertension presented with shortness of breath and dizziness. Yesterday morning when she was trying to get up from supine position, she started to feel dizzy along with shortness of breath. Prior to this she is able to carry out activities of daily living as well as ambulating within her the confines of her home without any significant shortness of breath or dizziness. Whenever she would have the symptoms and would typically be secondary to her atrial fibrillation with rapid ventricular rates. Denies any chest discomfort or syncopal events. Has been compliant with her Eliquis. [facility] Past Medical History Medical History (Updated 09/19/24 @ 22:18 by Karyna Crum APRN) Depression Anxiety Osteoporosis Heart murmur Pacemaker Congestive heart failure Afib IBS (irritable bowel syndrome) Hypertension COPD (chronic obstructive pulmonary disease) Surgical History Surgical History (Updated 09/19/24 @ 22:17 by Karyna Crum APRN) History of left shoulder replacement Family History Family History Father Stomach cancer Mother Osteoporosis Social History Social History Smoking packs per day: 0.5 Smoking cigarettes per day: 10.0 Years smoked: 50 Smoking pack-years: 25.00 Smoking status: Former smoker Tobacco type: cigarettes Second hand tobacco smoke exposure: Yes Smoking end date: 03/03/11 Additional smoking assessment comments: quit in 2011 Alcohol intake: never Substance use: current Substance use type: does not use Do You Feel Safe in your Home?: Yes Lack of Transportation: No Lack of Food: Never True Current Housing: I Have Housing Concerned About Future Housing: No Difficulty Paying Gas/Electric Bills: No Difficulty Paying for Meds: No Currently Unemployed: No Education: High School Diploma/GED Difficulty w/ Childcare or Family Care: No Living arrangements: alone Spiritual care concerns: Yes (roman catholic) Meds Home Medications and Allergies Home Medications ?Medication ?Instructions ?Recorded ?Confirmed ?Type aspirin 325 mg tablet 325 mg PO DAILY 12/14/19 09/19/24 History chlorthalidone 25 mg tablet 25 mg PO DAILY 12/14/19 09/19/24 History diltiazem HCl 120 mg 120 mg PO DAILY 12/14/19 09/19/24 History capsule,extended release 24 hr (Cartia XT) hydralazine 50 mg tablet 50 mg PO BID 12/14/19 09/19/24 History metoprolol tartrate 100 mg tablet 50 mg PO Q12H 12/14/19 09/19/24 History alprazolam 0.25 mg tablet 0.25 mg PO QID PRN anxiety 09/19/24 09/19/24 History apixaban 5 mg tablet (Eliquis) 5 mg PO Q12H 09/19/24 09/19/24 History diphenhydramine 25 1 tablet PO HS sleep 09/19/24 09/19/24 History mg-acetaminophen 500 mg tablet (Acetaminophen PM) furosemide 20 mg tablet 20 mg PO DAILY PRN edema 09/19/24 09/19/24 History psyllium husk 3.4 gram/5.4 gram 1 tbsp PO DAILY 09/19/24 09/19/24 History oral powder (Metamucil) Allergies Allergy/AdvReac Type Severity Reaction Status Date / Time oxycodone Allergy Mild condusion, Verified 07/28/24 09:27 difficulty concentrating amoxicillin AdvReac Intermediate Diarrhea Verified 07/28/24 09:27 prednisone AdvReac Mild Confusion Verified 07/28/24 09:27 Vital Signs Vital Signs - 24 hr 09/19/24 17:11 09/19/24 17:11 09/19/24 17:42 Temperature 37.1 C Pulse Rate 148 H Respiratory Rate 22 H Blood Pressure 142/70 H Pulse Oximetry 94 93 97 Oxygen Delivery Room Air Room Air Nasal Cannula Oxygen Flow Rate 2 09/19/24 17:53 09/19/24 17:57 09/19/24 17:57 Temperature Pulse Rate 131 H 102 H 102 H Respiratory Rate 22 H Blood Pressure 134/57 L Pulse Oximetry 97 Oxygen Delivery Oxygen Flow Rate 09/19/24 18:31 09/19/24 19:31 09/19/24 20:02 Temperature Pulse Rate 108 H 130 H 117 H Respiratory Rate 23 H Blood Pressure 124/82 134/74 Pulse Oximetry 98 Oxygen Delivery Oxygen Flow Rate 09/19/24 20:17 09/19/24 20:17 09/19/24 21:00 Temperature 36.9 C Pulse Rate 100 100 Respiratory Rate 20 Blood Pressure 117/57 L 117/57 L Pulse Oximetry 97 97 Oxygen Delivery Nasal Cannula Oxygen Flow Rate 2 09/19/24 21:10 09/19/24 22:00 09/19/24 22:00 Temperature Pulse Rate 100 102 H Respiratory Rate Blood Pressure 139/78 Pulse Oximetry 97 Oxygen Delivery Nasal Cannula Oxygen Flow Rate 2 09/19/24 22:09 09/19/24 23:20 09/20/24 00:00 Temperature 36.4 C L 36.7 C Pulse Rate 100 86 Respiratory Rate 18 18 Blood Pressure 139/78 126/41 L Pulse Oximetry 97 97 97 Oxygen Delivery Nasal Cannula Oxygen Flow Rate 2 09/20/24 00:00 09/20/24 00:00 09/20/24 01:36 Temperature 36.7 C Pulse Rate 86 93 82 Respiratory Rate 18 Blood Pressure 126/41 L 153/54 H Pulse Oximetry 96 Oxygen Delivery Oxygen Flow Rate 09/20/24 02:00 09/20/24 02:00 09/20/24 03:36 Temperature 36.6 C Pulse Rate 82 95 101 H Respiratory Rate 22 H Blood Pressure 153/54 H 131/50 L Pulse Oximetry 96 Oxygen Delivery Oxygen Flow Rate 09/20/24 04:00 09/20/24 04:00 09/20/24 04:00 Temperature Pulse Rate 93 101 H Respiratory Rate Blood Pressure 131/50 L Pulse Oximetry 96 Oxygen Delivery Nasal Cannula Oxygen Flow Rate 2 09/20/24 05:52 09/20/24 06:00 09/20/24 06:00 Temperature 36.7 C Pulse Rate 82 89 82 Respiratory Rate 20 Blood Pressure 140/52 L 140/52 L Pulse Oximetry 98 Oxygen Delivery Oxygen Flow Rate 09/20/24 07:53 09/20/24 08:53 09/20/24 10:00 Temperature 36.6 C 36.7 C Pulse Rate 90 90 96 Respiratory Rate 18 16 Blood Pressure 148/65 H 148/65 H 152/79 H Pulse Oximetry 99 95 Oxygen Delivery Oxygen Flow Rate Exam 2 Const: General: comfortable HENMT: Mouth: Yes moist mucous membranes Eyes: EOM: EOMs intact bilaterally Neck: Neck: no JVD Resp: Effort & Inspection: normal respiratory effort Auscultation: clear to auscultation bilaterally Cardio: Rate: regular rate Rhythm: abnormal rhythm Neuro: Speech: normal speech Extrem: General: no pedal edema Results Labs and Meds 09/20/24 03:34 09/20/24 03:34 Lab results: Cardiac Enzymes 09/19/24 Range/Units 17:49 AST 32 (14-36) U/L Coagulation 09/19/24 Range/Units 17:49 PT 16.3 H (11.1-14.7) Seconds APTT 34.9 (22.3-36.8) Seconds CBC 09/19/24 09/20/24 Range/Units 17:48 03:34 WBC 21.3 H 14.3 H (4.5-10.0) K/mm3 RBC 4.73 4.09 L (4.2-5.4) M/mm3 Hgb 14.2 12.6 (12.0-15.0) g/dL Hct 42.9 37.6 (37.0-47.0) % Plt Count 425 H 340 (150-375) k/mm3 Lymph # (Auto) 0.98 1.52 (0.9-3.2) K/mm3 [place] # (Auto) 1.4 H 1.3 H (0.1-0.6) K/mm3 Eos # (Auto) 0.2 0.9 H (0-0.3) K/mm3 Baso # (Auto) 0.1 0.1 (0.0-0.1) K/mm3 Comprehensive Metabolic Panel 09/19/24 09/20/24 Range/Units 17:49 03:34 Sodium 133 L 132 L (137-145) mmol/L Potassium 3.4 3.1 L (3.4-5.0) mmol/L Chloride 96 L 97 L (98-107) mmol/L Carbon Dioxide 27 28 (22-30) mmol/L BUN 20 H D 23 H (7-17) mg/dL Creatinine 0.90 1.02 H (0.7-1.0) mg/dL Glucose 139 H 112 H (65-110) mg/dL Calcium 9.7 9.2 (8.4-10.2) mg/dL AST 32 (14-36) U/L ALT 21 (6-35) U/L Alkaline Phosphatase 117 (38-126) U/L Total Protein 7.7 (6.3-8.2) g/dL Albumin 4.1 (3.5-5.1) g/dL Intake and Output 09/19/24 09/20/24 09/20/24 23:59 07:59 15:59 Intake Total 12.4 540 904 Output Total 820 400 Balance 12.4 -280 504 Intake: IV 12.4 40 dilTIAZem 100 MG/100 ML 100 mg 12.4 40 In 100 ml @ 5 MG/HR 5 mls/hr IV CONT .Q20H STA Rx#:[id number] Oral 500 904 Output: Urine 820 400 Patient Weight 09/20/24 23:59 Weight 88.4 kg
--- NOTE | 2024-09-20 10:40 | P.DS_ITS ---
DS: Admitting Diagnosis Discharge Date 09/20/2024 Admitting Diagnosis Afib with RVR DS: Discharge Diagnosis Discharge Diagnosis (1) Atrial fibrillation with rapid ventricular response: Code(s): I48.91 - Unspecified atrial fibrillation Status: Acute (2) Low TSH level: Code(s): R79.89 - Other specified abnormal findings of blood chemistry Status: Acute (3) Hypokalemia: Code(s): E87.6 - Hypokalemia Status: Acute (4) Elevated white blood cell count: Code(s): D72.829 - Elevated white blood cell count, unspecified Status: Acute DS: Summary Hospital Course Reason for hospitalization: Copied from [facility] 09/19: 84 y/o F with PMH of pAfib, CHF, IBS, COPD, pacemaker, and HTN presents here with shortness of breath and dizziness. The patient presents here from home via EMS for further evaluation of shortness of breath and dizziness. She reports acute onset around 7:00 a.m. this morning when she went to stand up. She has a history of paroxysmal AFib. She reports she recently had an episode of atrial fibrillation requiring cardioversion at [facility] on 09/07/2024. After she was cardioverted, she reported no issues. Shortness of breath and dizziness are currently accompanied by in termittent chills. She denies chest pain, syncope, nausea, vomiting, diarrhea, or abdominal pain. She reports compliance with her diltiazem and metoprolol. She follows with Cardiology at [facility]. Believes she has had a recent echo when she was cardioverted. She reports improvement in her shortness of breath and dizziness since her HR has improved. Initial VS at presentation: 98.8? F, HR 148, RR 22, 142/70, and 94% on RA. ED workup showed: WBC 21.3, no anemia, INR 1.3, sodium 133, renal function within normal limits, glucose 139, magnesium 1.4, BNP elevated, TSH 0.404. CXR showed subsegmental left basilar atelectasis/consolidation and a small left pleural effusion. Hospital Course: Atrial fibrillation with rapid ventricular response: History of paroxysmal AFib, follows with Cardiology [facility] with a recent cardioversion. admit to IMU for close telemetry monitoring Initial EKG showed intermittent AFib, HR 130s. Given metoprolol 5 mg IV with minimal effect on heart rate, then started on diltiazem. Diltiazem initially 10 mg IV, then diltiazem gtt at 5 milligrams/hour. Cardiology consulted and restarted home metoprolol, increased diltiazem from 120 to 240 daily. TSH mildly low at 0.404, T4 normal. Shortness of breath and dizziness now improved with improvement an HR. Low suspicion for CHF exacerbation as the patient does not appear volume overloaded on exam. - continued Eliquis -Agree with outpatient sleep study. --Rechecking labs on friday Elevated white count Chest x-ray showed Subsegmental left basilar atelectasis/consolidation. Small left pleural effusion. No fevers and shortness of breath improving with treatment of afib so monitored off antibiotics. Lungs clear on exam WBC 21.3, improved to 14.3 on repeat off antibiotics --Repeat CBC this Friday, monitor for new fevers Low TSH TSH 0.404, slightly low but free T4 and Total T3 normal. Can recheck after acute illness Hypokalemia Hypomagnesemia Mag 1.4, given 2G IVPB, recheck normal Potassium 3.1, given 80meq, recheck 4.4 - continued home medications: Chlorthalidone, Lasix, hydralazine. --Added potassium prn with lasix. --BMP, Mag this Friday. May need to take potassium daily with chlorthalidone if low on recheck Hypertension: - chronic, currently 124/82 - continued home medications: Chlorthalidone, Lasix prn, hydralazine. Holding metoprolol and diltiazem. Status at Discharge Cognitive/behavioral status at discharge: A&OX4 Time Spent with Patient Time attestation: Total time spent providing and/or coordinating discharge services: 57 minutes Exam Narrative: General - Awake and alert. No acute distress Eyes - PERRLA, EOM intact ENT - No thrush, No erythema Neck - No noticeable or palpable swelling Lymph Nodes - No lymphadenopathy Cardiovascular - Rate irregular, no m/r/g, no JVD Lungs: Clear to auscultation, No wheezing, use of accessory muscles, no crackles Skin - Skin warm and dry, no wounds or rashes Abdomen - Normal bowel sounds, abdomen soft and nontender Extremities - No edema, cyanosis or clubbing Musculoskeletal - 5/5 strength, normal range of motion, no swollen or erythematous joints. Neurological ? Alert and oriented x 3, CN 2-12 grossly intact. Psych: Normal mood and affect DS: Data Data Completed and Pending Labs on day of discharge: Labs from last 24 hours 09/20/24 09/19/24 09/19/24 03:34 17:52 17:49 WBC 14.3 H RBC 4.09 L Hgb 12.6 Hct 37.6 MCV 91.9 MCH 30.8 MCHC 33.5 RDW 13.5 Plt Count 340 MPV 9.7 Immature Gran % (Auto) 0.6 H Neut % (Auto) 72.3 Lymph % (Auto) 10.6 L [place] % (Auto) 9.2 H Eos % (Auto) 6.6 H Baso % (Auto) 0.7 Lymph # (Auto) 1.52 [place] # (Auto) 1.3 H Eos # (Auto) 0.9 H Baso # (Auto) 0.1 Abs Immat Gran (auto) 0.09 H Absolute Neuts (auto) 10.3 H Absolute Nucleated RBC 0.000 Nucleated RBC % 0.0 PT 16.3 H INR 1.3 APTT 34.9 Sodium 132 L 133 L Potassium 3.1 L 3.4 Chloride 97 L 96 L Carbon Dioxide 28 27 Anion Gap 7 10 BUN 23 H 20 H D Creatinine 1.02 H 0.90 Estim Creat Clear Calc 40 46 Estimated GFR 52 L 60 Glucose 112 H 139 H Calcium 9.2 9.7 Magnesium 2.0 1.4 L Total Bilirubin 0.9 AST 32 ALT 21 Alkaline Phosphatase 117 NT-Pro-B Natriuret Pep Total Protein 7.7 Albumin 4.1 TSH (Reflex) 0.404 L Free T4 1.13 Total T3 1.00 09/19/24 17:48 WBC 21.3 H RBC 4.73 Hgb 14.2 Hct 42.9 MCV 90.7 MCH 30.0 MCHC 33.1 RDW 13.3 Plt Count 425 H MPV 10.0 Immature Gran % (Auto) 0.8 H Neut % (Auto) 86.8 H Lymph % (Auto) 4.6 L [place] % (Auto) 6.4 Eos % (Auto) 0.8 Baso % (Auto) 0.6 Lymph # (Auto) 0.98 [place] # (Auto) 1.4 H Eos # (Auto) 0.2 Baso # (Auto) 0.1 Abs Immat Gran (auto) 0.17 H Absolute Neuts (auto) 18.5 H Absolute Nucleated RBC 0.000 Nucleated RBC % 0.0 PT INR APTT Sodium Potassium Chloride Carbon Dioxide Anion Gap BUN Creatinine Estim Creat Clear Calc Estimated GFR Glucose Calcium Magnesium Total Bilirubin AST ALT Alkaline Phosphatase NT-Pro-B Natriuret Pep 2980 H Total Protein Albumin TSH (Reflex) Free T4 Total T3 Discharge Plan Discharge Attending physician on discharge: Maureen Todd Consulting providers: Maureen Todd; Malachi Griffiths Discharging Clinician: Maureen Todd Anticipated Discharge Date/Time: 09/20/24 17:21 Patient Disposition: Home Activity: may shower Diet: regular Discharge Instructions: Follow up for labs this Friday to check a BMP & magnesium. Also checking thyroid and blood count Come back to the hospital for worsening shortness of breath or new chest pain Discuss hospitalization with your cardiologists, Dr. Mcgee and Dr. Angelo. You can let them know your diltiazem was increased. Also added potassium with lasix (furosemide) Agree with the plan for an outpatient sleep study Patient Instructions: Antibiotic Form, Apixaban (By mouth), Heart Failure (DC), Safe Use of Anticoagulants (DC) Patient Language: [place] Stand Alone Forms: General Discharge Information Follow-up/Referrals: Dr. Fabby Mcgee [Other] - 1 Week Konzen,Nicolas Romero MD [Primary Care Provider] - 2 Weeks Discharge Medications: New diltiazem HCl 240 mg Capsule,Ext.Rel 24h Degradable 240 mg PO QAM Qty: 30 3RF potassium chloride [Klor-Con 10] 10 mEq tablet extended release 10 meq PO DAILY PRN (Reason: Take only when you take furosemide ) Qty: 30 0RF Continued hydralazine 50 mg tablet 50 mg PO BID metoprolol tartrate 100 mg tablet 50 mg PO Q12H chlorthalidone 25 mg tablet 25 mg PO DAILY aspirin 325 mg tablet 325 mg PO DAILY Eliquis 5 mg tablet 5 mg PO Q12H alprazolam 0.25 mg tablet 0.25 mg PO QID PRN (Reason: anxiety) furosemide 20 mg tablet 20 mg PO DAILY PRN (Reason: edema) Patient Comments: to take if gains more than 2 pounds in one day diphenhydramine-acetaminophen [Acetaminophen PM] 25-500 mg tablet 1 tablet PO HS Metamucil 3.4 gram/5.4 gram powder 1 tbsp PO DAILY Rx Instructions: mix into at least 8 oz of water or juice before administering Discontinued diltiazem HCl [Cartia XT] 120 mg capsule,extended release 24hr 120 mg PO DAILY Other Ambulatory Orders: Basic Metabolic Panel (Routine) Timeframe: 20240924 Location: Determined by Patient Ordered By: Maureen Todd Complete Blood Count no Diff (Routine) Timeframe: 20240924 Location: Determined by Patient Ordered By: Maureen Todd Magnesium (Routine) Timeframe: 20240924 Location: Determined by Patient Ordered By: Maureen Todd Thyroid Stimulating Hormone Reflex (Routine) Timeframe: 20240924 Location: Determined by Patient Ordered By: Maureen Todd Date of admission: 09/19/24 19:02 Primary Care Provider: NathanaelNicolas Admitting Provider: Fredo Benítez Attending physician on admission: Fredo Benítez Condition: Serious Quality VTE Prophylaxis VTE prophylaxis: pharmacologic ordered Hospitalist MIPS Heart Failure (Exclusion) Patient has history of Heart Transplant or Left Ventricular Assistive Device?: No IF YES, STOP HERE Heart Failure (Qualifier) Patient has current or prior documentation of LVEF less than or equal to 40%, or mod/servere depressed LVSF?: No IF NO, STOP HERE
[2024-09-20] MEDS: METOPROLOL TARTRATE 50 MG TAB PO (10:50)
[2024-09-20] MEDS: POTASSIUM CHLORIDE 20 MEQ ER TABLET 40 MEQ PO (11:49)
[2024-09-20] MEDS: dilTIAZem HCL CD 240 MG CAP.24HR PO (11:49)
[2024-09-20] MEDS: POTASSIUM CHLORIDE INJ 40 MEQ in SODIUM CHLORIDE 0.9% IV 500 ML 130 MEQ IVPB (11:49)
[2024-09-20 12:21] LABS: Magnesium 1.9 mg/dL (1.6-2.3)
[2024-09-20 16:51] LABS: Anion Gap 8 mmol/L (4-12); Blood Urea Nitrogen 22 mg/dL (7-17); Calcium 9.1 mg/dL (8.4-10.2); Carbon Dioxide 26 mmol/L (22-30); Chloride 99 mmol/L (98-107); Estimated CRCL calculation 46 ml/min; Estimated Glomerular Filt Rate 60; Glucose 113 mg/dL (65-110); Potassium 4.4 mmol/L (3.4-5.0); Sodium 133 mmol/L (137-145)
== END 2024-09-20 17:49 | disposition home or self-care (01) ==
LOC: ANHED 18:36 → ANHIMU 19:37
PROVIDERS: Nurse Practitioner Acute Care; Student in an Organized Health Care Education/Training Program; Admitting Provider Internal Medicine; Emergency Provider Emergency Medicine; PCP Internal Medicine; Visit Provider Internal Medicine
DX: I48.19 Other persistent atrial fibrillation (principal); I34.0 Nonrheumatic mitral (valve) insufficiency; I11.0 Hypertensive heart disease with heart failure; I50.9 Heart failure, unspecified; R79.89 Other specified abnormal findings of blood chemistry; D72.829 Elevated white blood cell count, unspecified; E87.6 Hypokalemia; E83.42 Hypomagnesemia; J44.9 Chronic obstructive pulmonary disease, unspecified; F32.A Depression, unspecified; F41.9 Anxiety disorder, unspecified; K58.9 Irritable bowel syndrome, unspecified; M81.0 Age-related osteoporosis without current pathological fracture; Z79.01 Long term (current) use of anticoagulants; Z79.82 Long term (current) use of aspirin; Z79.899 Other long term (current) drug therapy; Z87.891 Personal history of nicotine dependence; Z95.0 Presence of cardiac pacemaker
CPT/HCPCS: 36415; 71045; 80048; 80053; 83735; 83880; 84439; 84443; 84480; 85025; 85610; 85730; 93005; 96365; 96366; 96374; 96375; 99285; A9270; G0378; J0616; J1163; J3475; J3480; J7040

== ENCOUNTER 2024-10-11 11:02 | Outpatient (CLI) | payer MEDICARE, SELFPAY ==
--- OUTSIDE RECORDS SUMMARY | 2024-10-11 11:09 | XMS_ITS | Encounter Summary ---
Author Organization [facility] Address [address] [place] [address] Phone Care Team Providers Care Inspector Floor Name Role Phone Nicolas Huffman MD Primary Care Provider [phone] Encounter Details Date Type Department Care Team (Late st Contact Info) Description 10/06/2024 Results Follow-Up 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 Please fax to [phone] [facility]. documented in this encounter Plan of Treatment Scheduled Orders Name Type Priority Associated Diagnoses Orde r Schedule Basic metabolic panel Lab Routine Abnormal kidney function Expected: 10/11/2024, Expires: 10/06/2025 documented as of this encounter Visit Diagnoses Diagnosis Abnormal kidney function- Primary Nonspecific abnormal results of kidney function study documented in this encounter Care Teams Inspector Floor Relationship Specialty Start Date End Date Nicolas Huffman MD PCP - General 05/22/16 documented as of this encounter
--- OUTSIDE RECORDS SUMMARY | 2024-10-11 11:09 | XMS_ITS | Clinical Summary ---
Author Organization [facility] Address [address] [place] [address] Care Team Providers Care Radiographer Name Role Phone Nicolas Huffman MD Primary Care Provider [phone] Allergies Active Allergy Reactions Criticality Noted Date Comments Amoxicillin Diarrhea Low 06/14/2022 Oxycodone Mental status changes,Hallucinations High 11/25/2019 Prednisone Mental status changes,Hallucinations High 11/25/2019 Medications aspirin 325 mgIndications:M yocardial Reinfarction Prevention,prev ention of thrombosis Take 1 tablet (325 mg total) by mouth marketing manager before breakfast qd Active psyllium, aspartame, SF [...] ANXIETY 30 tablet 1 03/24/19 25 Active Additional Information Patient taking differently: 0.25 mg oral 4 times daily PRN, anxiety, Reported on 10/06/2024 chlorthalidone (HYGROTON) 25 mg tablet TAKE 1 TABLET(25 MG) BY MOUTH DAILY 90 tablet 2 04/21/19 25 Active Eliquis 5 mg tablet TAKE 1 TABLET(5 MG) BY MOUTH TWICE DAILY 180 tablet 2 06/19/19 25 Active metoprolol (LOPRESSOR) 50 mg immediate release tablet Take 1 tablet (50 mg total) by mouth 2 (two) times a day 07/02/19 25 Active hydrALAZINE (APRESOLINE) 50 mg tablet TAKE 1 TABLET BY MOUTH THREE TIMES DAILY 270 tablet 2 08/10/19 25 Active metoprolol (LOPRESSOR) 100 mg tablet TAKE 1 TABLET BY MOUTH TWICE DAILY 180 tablet 3 09/21/19 25 Active Additional Information Patient not taking.Reported on 10/06/2024 dilTIAZem XR (dilTIAZem CD) 240 mg 24 hr capsuleIndicati ons:Longstandin g persistent atrial fibrillation (HCC) Take 1 capsule (240 mg total) by mouth daily Active potassium chloride ER 10 mEq CR tabletIndicatio ns:Chronic diastolic heart failure (HCC) Take 1 tablet/capsule (10 mEq total) by mouth as needed (When taking Lasix) Active furosemide (LASIX) 20 mg tablet Take 1 tablet (20 mg total) by mouth daily 10/07/19 25 Active albuterol HFA (PROVENTIL HFA,VENTOLIN HFA,PROAIR HFA) 90 mcg/actuation inhaler Inhale 1 puff every 4 (four) hours as needed for wheezing or shortness of breath 2024 Discontinued(T herapy completed) potassium chloride ER 10 mEq CR capsule Take by mouth daily 02/18/20 24 2024 Discontinued(T herapy completed) dapagliflozin propanediol (FARXIGA) 10 mg tablet Take 1 tablet (10 mg total) by mouth daily 30 tablet 07/17/19 25 2024 Discontinued(T herapy completed) furosemide (LASIX) 20 mg tablet Take 1 tablet (20 mg total) by mouth daily 30 tablet 07/17/19 25 2024 Discontinued(R eorder) amLODIPine (NORVASC) 5 mg tablet Take 1 tablet (5 mg total) by mouth daily 30 tablet 08/27/19 25 2024 Discontinued nitrofurantoin monohydrate (MACROBID) 100 mg capsule TAKE 1 CAPSULE(100 MG) BY MOUTH TWICE DAILY FOR 5 DAYS 14 capsule 09/11/19 25 07/18/ 2025 Discontinued(T herapy completed) Active Problems Problem Noted Date Diagnosed Date Coronary artery arteriosclerosis 10/06/2024 Assessment & Plan (10/06/2024 2:57 PM CDT): Left heart catheterization in December 2023 with mild epicardial coronary artery with 40% distal left main. Continue secondary prevention. Diastolic heart failure 10/06/2024 Assessment & Plan (10/06/2024 3:11 PM CDT): NT proBNP in July of 2024 was 1,682 and LVEF of 50% on TTE. She was started on Lasix and SGLT2i. SGLT2i was later stopped due to fatigue and UTI's. Has chronic lower extremity edema that is not new. Improves with elevation. Appears volume up on examination today. Will have her go back to Lasix 20 mg daily with potassium supplementation. Will repeat NT proBNP and BMP today. Compression stockings, elevation and low sodium diet. Abnormal laboratory test 10/06/2024 Assessment & Plan (10/06/2024 3:08 PM CDT): Noted to have an elevated WBC and low TSH during recent hospitalization. It was therefore recommended that she had these repeated. Patient has yet to do so and would like to have them done today. Will obtain a CBC, BNP, NT proBNP and TSH. Essential hypertension 09/17/2024 Assessment & Plan (10/06/2024 2:53 PM CDT): Blood pressure stable. Continue regimen with chlorthalidone 25 mg daily, hydralazine 50 mg t.i.d., metoprolol tartrate 50 mg b.i.d. , and diltiazem 240 mg daily Assessment & Plan (09/17/2024 10:26 AM CDT): BP at target. Pacemaker 09/02/2024 Chronic right shoulder pain 05/21/2024 Assessment & Plan (05/21/2024 11:08 AM CDT): Check x-ray. Non-ST elevation (NSTEMI) myocardial infarction 01/14/2024 Assessment & Plan (01/14/2024 11:58 AM SOIL ANALYST): Long discussion today lasting more than 30 minutes concerning this. Will look for the present we will leave medication alone at this time. Will refer to cardiology here at [place]. Will try to obtain her pacer data from Dr. Mcgee. I feel this may very well have been a type 2 myocardial infarction based on pneumonia which was diagnosed in the emergency room Cervicalgia 01/14/2024 Assessment & Plan (01/14/2024 11:57 AM SOIL ANALYST): Check C-spine x-rays. Sinus pause 06/04/2023 S/P placement of cardiac pacemaker 06/04/2023 Assessment & Plan (10/06/2024 2:45 PM CDT): Had recurrent syncope. Placed in 2023. Managed by EP. Assessment & Plan (06/13/2023 1:58 PM CDT): [...] persistent atrial fibrillation 06/01 Assessment & Plan (10/06/2024 3:08 PM CDT): Persistent atrial fibrillation status post successful cardioversion in 09/07/2024. She was then hospitalized in August with atrial fibrillation with RVR. Noted to be in rate controlled atrial fibrillation today. Does still admit to shortness of breath with exertion while being in atrial fibrillation. However, does report significant improvement in symptoms since hospitalization. Continue metoprolol tartrate 50 mg BD and diltiazem 240 mg daily. Continue Eliquis 5 mg b.i.d.. Denies any bleeding issues. She is scheduled to see EP again in early November. I will update EP team regarding recurrence of atrial fibrillation. Scheduled to see Sleep Medicine later this month. Assessment & Plan (09/17/2024 10:25 AM CDT): [...] exertion Assessment & Plan (02/20/2024 9:35 AM SOIL ANALYST): I feel this is most likely secondary to COPD. Possibly mild right heart strain. Will give furosemide and check BMP in 2 weeks. Most recent echo showed normal LV function. Moderate COPD (chronic obstr uctive pulmonary disease) ([facility]) Assessment & Plan (09/17/2024 10:25 AM CDT): Stable. Encouraged her to continue to do exercise. Assessment & Plan (05/21/2024 11:08 AM CDT): Stable. Assessment & Plan (01/14/2024 11:57 AM SOIL ANALYST): Stable at this time Resolved Problems Problem Noted Date Diagnosed Date Resolved Date A-fib 06/12/2023 09/17/2024 Assessment & Plan (01/14/2024 11:58 AM SOIL ANALYST): Per Dr. Mcgee Assessment & Plan (06/12/2023 [...] Encounters Date Type Department Care Team Description 10/06/2024 Results Follow-Up [facility] Cardiology [address] [place] [address] Advanced [facility] 8th [place] [address] [place] [address] Brian Sumner NP Thyroid Function [place], Magnesium, CBC with auto differential, Additional followed-up results: 5 10/04/2024 1:55 PM CDT Lab [facility] Advanced [facility] [address] [place] [phone] Paroxysmal atrial fibrillation (HCC) 10/04/2024 12:30 PM CDT Office Visit [facility] Cardiology [address] [place] [address] 8th [place] [address] [place] [address] Brian Sumner, CHARMAINE Paroxysmal atrial fibrillation (HCC) (Primary Dx); S/P placement of cardiac pacemaker; Essential hypertension; Longstanding persistent atrial fibrillation (HCC); Coronary artery arteriosclerosis; Chronic diastolic heart failure (HCC) 09/21/2024 Orders Only [facility] Cardiology [address] [facility] [address] [place] [address] Malachi Griffiths MD 09/19/2024 Orders Only [facility] [address] [place] [address] [address] [place] [address] Nicolas Huffman MD 09/17/2024 10:15 AM CDT Office Visit [facility] [address] [place] [address] [address] [place] [address] Nicolas Huffman MD Moderate COPD (chronic obstructive pulmonary disease) (CMS/HCC) (HCC) (Primary Dx); Longstanding persistent atrial fibrillation (HCC); S/P placement of cardiac pacemaker; Essential hypertension 09/08/2024 Telephone [facility] Cardiology [facility] 8th [place] [address] [place] [address] Fabby Mcgee MD 09/07/2024 8:10 AM CDT - 09/07/2024 8:50 AM CDT Surgery [facility] Heart [facility] Vascular [address] [address] Will Walters MD PhD CARDIOVERSION 09/07/2024 7:29 AM CDT Anesthesia Event [address] [address] William Thurman MD PhD 09/07/2024 6:21 AM CDT - 09/07/2024 9:14 AM CDT Hospital Encounter [address] [address] [employer], Will Aden MD PhD Longstanding persistent atrial fibrillation (HCC) Discharge Disposition: Discharge to home or self care 09/02/2024 9:00 AM CDT Telemedicine [facility] Cardiology [address] [place] [address] 8th [place] [address] [place] [address] Fabby Mcgee MD Persistent atrial fibrillation (HCC) (Primary Dx) 09/02/2024 Telephone [facility] Cardiology [address] [place] [address] 8th [place] [address] [place] [address] Fabby Mcgee MD 08/26/2024 Telephone [facility] Cardiology [address] [place] [address] 8th [place] [address] [place] [address] Fabby Mcgee MD Reschedule 07/29/2024 Orders Only [facility] [address] [facility] [address] [place] [address] Nicolas Huffman MD 07/29/2024 Telephone [facility] Cardiology [address] [place] [address] Advanced [facility] 8th [place] [address] [place] [phone] Rosalina Castellano Follow-up 07/28/2024 8:45 AM CDT Office Visit [facility] Care at [address] [address] Kaylen Mendoza PA Shortness of breath (Primary Dx) 07/28/2024 Orders Only [facility] [address] [place] [id number] Nicolas Huffman MD 07/20/2024 1:04 PM CDT - 07/20/2024 11:59 PM CDT Hospital Encounter [facility] [address] [place] [address] Zhang De Leon MD Primary osteoarthritis of right shoulder (Primary Dx); Osteoarthritis of right shoulder, unspecified osteoarthritis type Discharge Disposition: Discharge to home or self care 07/19/2024 Orders Only [facility] Cardiology [address] [facility] [address] [place] [phone] Fabby Mcgee MD 07/16/2024 Telephone [facility] Cardiology [address] [place] [address] [facility] 8th [place] [address] [place] [address] Donald Angelo MD Test Results 07/13/2024 11:30 AM CDT Lab [facility] - [address] [place] [address] Shortness of breath; Paroxysmal atrial fibrillation (HCC) 07/13/2024 11:00 AM CDT Office Visit [facility] Orthopaedic Surgery [address] [place] [address] 1st Floor [address] [place] [address] Guido Robles MD Osteoarthritis of right shoulder, unspecified osteoarthritis type 07/13/2024 Results Follow-Up [facility] Cardiology [address] 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; Service: Cardiovascular; Laterality: N/A; CARDIOVERSION Medical History [...] on file Legal Sex Female 11:21 AM SOIL ANALYST Gender Identity Female 11/24/2020 8:03 AM CDT Sexual Orientation Straight 11/24/2020 8: 03 AM CDT Obstetrics History Last Filed Vital Signs Vital Sign Reading Time Taken Comments Blood Pressure 128/69 10/04/2024 12:18 PM CDT Pulse 67 10/04/2024 12:18 PM CDT Temperature 36.4 C (97.5 F) 09/07/2024 7:42 AM CDT Respiratory Rate 16 09/07/2024 8:35 AM CDT Oxygen Saturation 94% 10/04/2024 12:18 PM CDT Inhaled Oxygen Concentration - - Weight 89.4 kg (197 lb) 10/04/2024 12:18 PM CDT Height 162.6 cm (5' 4) 10/04/2024 12:18 PM CDT Body Mass Index 33.81 10/04/2024 12:18 PM CDT Plan of Treatment Health Maintenance Due [...] Completed 10/10/2022 Zoster Vaccine Completed 12/02/2023, 10/10/2022 Medical Devices Implanted Type Area Seismology Teacher Device Identifier Shelf Expiration Date Model / Serial / Lot [employer] Suzi Monitor Cardiac Insertable Leadless Lux Dx 4.0x7.2x44.8m m M301 - [id number] - [id number] Implanted:Qty : 1 on 12/12/2022 by Fabby Mcgee MD at [facility] Implantable Loop Recorder [employer] Suzi 10/01/2023 M301 / [id number] / [id number] [employer] Suzi Active Fixation Steroid Eluting Is 1 Connector Latex Free Sterile Right Atrial Right Atrial Ingevity Plus 59cm 7842 - [id number] - [id number] Implanted:Qty : 1 on 06/12/2023 by Fabby Mcgee MD at [facility] Lead Right: Ventricle [employer] Suzi 06/29/2024 [id number] / [id number] / [employer] Suzi Fineline Ii Sterox Ez 1.7mm 52cm Bipolar Active Fixation Screw 4470 - [id number] - [id number] Implanted:Qty : 1 on 06/12/2023 by Fabby Mcgee MD at [facility] Lead Right: Atria [employer] Suzi 12/02/2024 4470 / [id number] / [employer] C.[employer].M. Accolade Latitude Nxt Pacesafe Easyview 4.45x5.02cm 2 Chamber Is1 L311 - [id number] - [id number] Implanted:Qty : 1 on 06/12/2023 by Fabby Mcgee MD at [facility] Pacemaker Left: Chest Wall [employer] C.R.M. 04/24/2025 L311 / [id number] / Procedures Procedure Name Priority Date/Time Associated Diagnosis Comments EGFR Routine 10/04/2024 1:59 PM CDT Paroxysmal atrial fibrillation (HCC) DIFFERENTIAL AUTO Routine 10/04/2024 1:5 9 PM CDT Paroxysmal atrial fibrillation (HCC) PRO B-TYPE NATRIURETIC PEPTIDE Routine 10/04/2024 1:59 PM CDT Paroxysmal atrial fibrillation (HCC) BASIC METABOLIC PANEL Routine 10/04/2024 1:59 PM CDT Paroxysmal atrial fibrillation (HCC) CBC WITH AUTO DIFFERENTIAL Routine 10/04/2024 1:59 PM CDT Paroxysmal atrial fibrillation (HCC) MAGNESIUM Routine 10/04/2024 1:59 PM CDT Paroxysmal atrial fibrillation (HCC) THYROID FUNCTION CASCADE Routine 10/04/2024 1:59 PM CDT Paroxysmal atrial fibrillation (HCC) ECG 12-LEAD Routine 10/04/2024 1:41 PM CDT Longstanding persistent atrial fibrillation (HCC) CARDIOLOGY DOCUMENT SCAN Routine 09/20/2024 4:52 PM CDT SCAN - RADIOLOGY/IMAGING 09/19/2024 7:20 PM CDT CARDIOVERSION Routine 09/07/2024 7:39 AM CDT Longstanding [...] Shortness of breath Paroxysmal atrial fibrillation (HCC) from Last 3 Months Results * (ABNORMAL) eGFR (10/04/2024 1:59 PM CDT) eGFR 49(L) >=60 mL/min/1. 73 m2 Comment: Interpretive Data [...] interpretive data was last reviewed 2021. Blood 10/04/2024 1:59 PM CDT 10/04/2024 2:46 PM CDT us Brian Sumner NP LAB BLOOD ORDERABLES Fin al Result [facility] Department [place] [address] * (ABNORMAL) Differential, auto (10/04/2024 1:59 PM CDT) Neutrophil abs 10.46(H) 1.50 - 6.50 K/cumm Imm gran abs 0.09 0.00 - 0.10 K/cumm [facility] Lymphocyte abs 2.64 0.80 - 3.30 K/cumm [facility] Monocyte abs 1.19(H) 0.20 - 0.80 K/cumm [facility] Eosinophil abs 0.25 0.00 - 0.50 K/cumm [facility] Basophil abs 0.11(H) 0.00 - 0.10 K/cumm [facility] Neutrophil pct 71.0 % [facility] Comment: Interpretive Data Percent cell count reference ranges are not reported, since discordance with absolute values may lead to misinterpretation of CBC data. Current Interpretive Data was last revised on 2017. Imm gran pct 0.6 % [facility] Comment: Interpretive Data Percent cell count reference ranges are not reported, since discordance with absolute values may lead to misinterpretation of CBC data. Current Interpretive Data was last revised on 2017. Lymphocyte pct 17.9 % [facility] Comment: Interpretive Data Percent cell count reference ranges are not reported, since discordance with absolute values may lead to misinterpretation of CBC data. Current Interpretive Data was last revised on 2017. Monocyte pct 8.1 % [facility] Comment: Interpretive Data Percent cell count reference ranges are not reported, since discordance with absolute values may lead to misinterpretation of CBC data. Current Interpretive Data was last revised on 2017. Eosinophil pct 1.7 % [facility] Comment: Interpretive Data Percent cell count reference ranges are not reported, since discordance with absolute values may lead to misinterpretation of CBC data. Current Interpretive Data was last revised on 2017. Basophil pct 0.7 % [facility] Comment: Interpretive Data Percent cell count reference ranges are not reported, since discordance with absolute values may lead to misinterpretation of CBC data. Current Interpretive Data was last revised on 2017. Blood 10/04/2024 1:59 PM CDT 10/04/2024 2:25 PM CDT us Brian Sumner NP LAB BLOOD ORDERABLES Fin al Result [facility] [address] [facility] Department [place] [address] * (ABNORMAL) Pro B-type natriuretic peptide (10/04/2024 1:59 PM CDT) NT-proBNP 2,196(H) <=450 pg/mL Comment: Interpretive Comments: A. Dyspnea [...] Interpretive Data Last Revised Date: 2017. Blood 10/04/2024 1:59 PM CDT 10/04/2024 2:25 PM CDT us Brian Sumner NP LAB BLOOD ORDERABLES Fin al Result [facility] [address] [facility] Department [place] [address] * Thyroid Function [place] (10/04/2024 1:59 PM CDT) [facility] TSH 0.72 0.30 - 4.20 mcIUnit/mL Blood 10/04/2024 1:59 PM CDT 10/04/2024 2:25 PM CDT Brian Sumner INSURANCE COMPLIANCE ANALYST LAB BLOOD ORDERABLES Fin al Result Performing Organization Address City/[facility]/ZIP Co de Phone Number [facility] [place] [address] * (ABNORMAL) CBC with auto differential (10/04/2024 1:59 PM CDT) [facility] WBC 14.74(H) 3.80 - 9.90 K/cumm Hgb 14.5 11.9 - 15.5 g/dL [facility] Hct 41.8 35.6 - 45.5 % [facility] Plt 467(H) 150 - 400 K/cumm [facility] MPV 9.8 9.1 - 12.3 fL [facility] RBC 4.71 3.90 - 5.20 M/cumm [facility] MCV 88.7 81.3 - 96.4 fL [facility] MCH 30.8 27.1 - 33.3 pg [facility] MCHC 34.7 32.3 - 35.7 g/dL [facility] RDW CV 13.1 11.1 - 14.9 % [facility] RDW SD 42.5 35.7 - 48.1 fL [facility] NRBC abs 0.00 0.00 - 0.01 K/cumm [facility] Blood 10/04/2024 1:59 PM CDT 10/04/2024 2:25 PM CDT Brian Sumner NP LAB BLOOD ORDERABLES Fin al Result Performing Organization Address City/[facility]/ZIP Co de Phone Number [facility] Department [place] [address] * Magnesium (10/04/2024 1:59 PM CDT) Pathologist [facility] Magnesium 2.2 1.4 - 2.5 mg/dL Blood 10/04/2024 1:59 PM CDT 10/04/2024 2:25 PM CDT Brian Sumner NP LAB BLOOD ORDERABLES Fin al Result Performing Organization Address City/State/[facility] Co de Phone Number [facility] Department [place] [address] * (ABNORMAL) Basic metabolic panel (10/04/2024 1:59 PM CDT) [facility] Sodium 138 135 - 145 mmol/L Potassium, pl 3.7 3.3 - 4.9 mmol/L [facility] Chloride 100 97 - 110 mmol/L [facility] CO2 25 22 - 32 mmol/L [facility] Anion gap 13 2 - 15 mmol/L [facility] BUN 29(H) 6 - 25 mg/dL [facility] Creatinine 1.12(H) 0.60 - 1.10 mg/dL [facility] Glucose 109 70 - 199 mg/dL [facility] Comment: Interpretive Data Fasting glucose >/= [...] interpretive data was last revised 2022. Calcium 9.4 8.5 - 10.3 mg/dL [facility] Blood 10/04/2024 1:59 PM CDT 10/04/2024 2:25 PM CDT Brian Sumner NP LAB BLOOD ORDERABLES Fin al Result [facility] Department [place] [address] * ECG 12 lead (10/04/2024 1:41 PM CDT) us Brian Sumner INSURANCE COMPLIANCE ANALYST ECG ORDERABLES Edited R esult - Final * Cardiology Document Scan (09/20/2024 4:52 PM CDT) Anatomical Region Laterality Modality Other us Malachi Griffiths MD CV CARDIAC SERVICES PROCEDURES F inal Result * SCAN - RADIOLOGY/IMAGING (09/19/2024 7:20 PM CDT) Anatomical Region Laterality Modality Other us Nicolas Huffman MD Final Result * CARDIOVERSION (09/07/2024 7:39 AM CDT) Anatomical Region Laterality Modality X-Ray Angiograph y Impressions 09/07/2024 7:42 AM CDT Successful DC cardioversion to atrial paced rhythm. The referring physician (Dr. Mcgee) was notified. Will Walters MD PhD was present to personally supervise or perform the entire procedure. Narrative 09/07/2024 7:42 AM CDT CARDIOVERSION [id number] PRE-OP DIAGNOSIS: Atrial fibrillation CEMENT MASON MAINTENANCE: Will Walters MD PhD. REFERRING MD: Wesley [...] then monitored until fully alert. COMPLICATIONS: None. us Fabby Mcgee MD CV ELECTROPHYSIOLOGY PROCS Fin al Result * POC Blood Gas and Chemistries, Arterial - (09/07/2024 7:09 AM CDT) K POC 3.3 3.3 - 4.9 mmol/L Comment: Interpretive Data Not all point of care methods assess for hemolysis. Confirm with instrument and retest K+ if not consistent with clinical signs and symptoms. Current Interpretive Data was last revised on 2023. Blood 09/07/2024 7:09 AM CDT 09/07/2024 7:09 AM CDT us Notinfile Unknown LAB POCT ORDERABLES - DEVICE F inal Result Performing Organization Address City/[facility]/ZIP Co de Phone Number [facility]ARG[facility] Department [place] [address] * ECG 12 lead (09/07/2024 6:22 AM CDT) Pathologist [facility] Ventricular Rate EKG/Min 87 BPM [facility] QRS-Interval (MSEC) 72 ms [facility] QT-Interval (MSEC) 332 ms [facility] QTc 399 ms [facility] R Bosler -46 degrees [facility] T Bosler 144 degrees [facility] Diagnosis Atrial fibrillation with frequent ventricular-pac ed complexes Left axis deviation ST & T wave abnormality, consider lateral ischemia Abnormal ECG When compared with ECG of 21-JAN-2020 12:04, voltage criteria for LVH are not met Confirmed by MARIN DOS SANTOS M.D ([id number]) on 09/07/2024 10:13:28 AM [facility] 09/07/2024 6:22 AM CDT 09/07/2024 10:13 AM CDT us Will Walters MD PhD ECG ORDERABLES Final R esult Performing Organization Address City/[facility]/ZIP Co de Phone Number [facility] [employer] [facility] * SCAN - LABS (07/29/2024 10:12 PM CDT) Nicolas Huffman MD Final Result * SCAN - LABS (07/28/2024 3:45 PM CDT) us Nicolas Huffman MD Final Result * SCAN - RADIOLOGY/IMAGING (07/28/2024 3:27 PM CDT) Anatomical Region Laterality Modality Other us Nicolas Huffman MD Final Result * SCAN - LABS (07/28/2024 2:57 PM CDT) us Nicolas Huffman MD Final Result * SCAN - LABS (07/28/2024 2:50 PM CDT) us Nicolas Huffman MD Final Result * SCAN - LABS (07/28/2024 2:43 PM CDT) us Nicolas Huffman MD Final Result * SCAN - LABS (07/28/2024 2:43 PM CDT) us Nicolas Huffman MD Final Result * SCAN - RADIOLOGY/IMAGING (07/28/2024 10:32 AM CDT) Anatomical Region Laterality Modality Other Result [facility] us Nicolas Huffman MD Final Result * [...] (IN) Atrial Fibrillation or Flutter Ventricular Pacing (SCRAP DROP CRANE OPERATOR) --- rate 70 Arrhythmic events (AE) Persistent [...] (IN) Atrial Fibrillation or Flutter Ventricular Pacing (SCRAP DROP CRANE OPERATOR) --- rate 70 Arrhythmic events (AE) Persistent [...] AM CDT 07/13/2024 1:58 PM CDT us Donald Angelo MD LAB BLOOD ORDERABLES Final Re sult [facility] Department [place] [address] * (ABNORMAL) Pro B-type natriuretic peptide (07/13/2024 [...] AM CDT 07/13/2024 1:52 PM CDT us Donald Angelo MD LAB BLOOD ORDERABLES Final Re sult [facility] Department [place] [address] * Basic metabolic panel (07/13/2024 11:32 AM CDT) Sodium 141 135 - 145 mmol/L Potassium, pl 3.8 3.3 - 4.9 mmol/L [facility] Chloride 102 97 - 110 mmol/L [facility] CO2 26 22 - 32 mmol/L [facility] Anion gap 13 2 - 15 mmol/L [facility] BUN 24 6 - 25 mg/dL [facility] Creatinine 1.01 0.60 - 1.10 mg/dL [facility] Glucose 101 70 - 199 mg/dL [facility] Comment: Interpretive Data Fasting glucose >/= [...] 2022. Calcium 9.9 8.5 - 10.3 mg/dL [facility] Blood 07/13/2024 11:3 2 AM CDT 07/13/2024 1:52 PM CDT us Donald Angelo MD LAB BLOOD ORDERABLES Final Re sult [facility] Department [place] [address] from Last 3 Months Insurance MEDICARE ADVANTAGE [facility] MED[facility] Address: [address] [place] [phone] [address] [facility] Address: [address] [address] [place] [address] [employer] MEDICARE [facility] Address: [address] [place] [phone] [facility] MED[facility] Address: [phone] [place] [address] Advance Directives For more information, please contact: [phone] Documents on File Type Date Recorded Patient Application Support Lead Expl anation Power of Order Fulfillment Specialist 06/12/2023 5:53 AM ADVANCE DIRECTIVE 12/17/2022 2:43 AM PARVIN R OF PEDIATRIC ONCOLOGIST-MEDICAL Power of Order Fulfillment Specialist 12/12/2022 10:10 AM * Full Code (Latest Code Status on File) Date Activated Date Inactivated Comments 06/12/2023 10:30 AM 06/13/2023 3:29 PM * Full Code Date Activated Date Inactivated Comments 12/12/2022 1:31 PM 12/12/2022 7:26 PM Care Teams Radiographer Relationship Specialty Start Date End Date Nicolas Huffman MD PCP - General 05/22/16
--- OUTSIDE RECORDS SUMMARY | 2024-10-11 11:09 | XMS_ITS | Encounter Summary ---
Author Organization [facility] Healthcare Address [address] [place] [address] Care Team Providers Care Lobby Concierge Name Role Phone Nicolas Huffman MD Primary Care Provider [phone] Reason for Referral * (Routine) - Closed Specialty Diagnoses / Procedures Referred By Contac t Referred To Contact Diagnoses Dyspnea Procedures Pulmonary Function Test -[facility] Adult PFT Lab- CAM-8D; Standard; Spirometry, Spirometry w/bronchodilator, DLCO and Lung Volumes Nicolas Huffman MD Phone: tel: fax: Referral ID Status Reason Start Date Expiration Date Visits Re quested Visits Authorized [id number] Closed 09/01/2019 03/12/2021 1 1 Encounter Details Date Type Department Care Team (Late st Contact Info) Description 09/01/2019 Orders Only Internal Medicine Nicolas Huffman MD [id number] [id number] Dyspnea (Primary Dx) Social History Tobacco Use [...] on file Legal Sex Female 11:21 AM ENVELOPE ADJUSTER Gender Identity Female 11/24/2020 8:03 AM CDT Sexual Orientation Straight 11/24/2020 8: 03 AM CDT documented as of this encounter Progress Notes * Janessa Elliott - 09/01/2019 11:30 AM CDT pulmonar documented in this encounter Plan of Treatment Not on file documented as of this encounter Results * Pulmonary Function Test - (09/09/2019 10:28 AM CDT) FVC PRED 2.68 0.05 - 9.99 Liters [facility] FVC PRE 1.73 0 - 12 Liters [facility] FVC %PRE PRED 64 0 - 300 % [facility] FEV1 PRED 2.05 0.05 - 9.99 Liters [facility] FEV1 PRE 1.17 0 - 12 Liters [facility] FEV1 %PRE PRED 57 0 - 300 % [facility] FEV1/FVC PRED 77 1 - 99 % [facility] FEV1/FVC PRE 68 0 - 12 % [facility] WKO29-03% PRED 1.66 0 - 12 L/sec [facility] THR29-01% PRE 0.54 0 - 12 L/sec [facility] IPB24-29% %PRE PRED 33 0 - 300 % [facility] FEF75% PRED 0.38 0 - 300 L/sec [facility] FEF75% PRE 0.15 0 - 12 L/sec [facility] FEF75% %PRE PRED 39 % [facility] PEF PRED 5.36 0 - 18 L/sec [facility] PEF PRE 4.17 0 - 18 L/sec [facility] PEF %PRE PRED 78 0 - 300 % [facility] PIF PRE 1.78 0 - 18 L/sec [facility] FEV6 PRE 1.66 0 - 12 Liters [facility] FEV1/FEV6 PRE 70 0 - 12 % [facility] VC PRED 2.79 0.05 - 9.99 Liters [facility] VC PRE 1.95 0.05 - 9.99 Liters [facility] VC %PRE PRED 70 0 - 300 % [facility] TLC PRED 5.14 0.05 - 11.99 Liters [facility] TLC PRE 4.63 0.05 - 11.99 Liters [facility] TLC %PRE PRED 90 0 - 300 % [facility] RV PRED 2.36 0.05 - 9.99 Liters [facility] RV PRE 2.68 0.05 - 9.99 Liters [facility] RV %PRE PRED 114 0 - 300 % [facility] RV/TLC PRED 46 0 - 300 % [facility] RV/TLC PRE 58 0 - 300 % [facility] FRC N2 PRED 2.52 0.05 - 9.99 Liters [facility] FRC PL PRED 2.96 0.05 - 9.99 Liters [facility] FRC PL PRE 2.78 0.05 - 9.99 Liters [facility] FRC PL %PRE PRED 94 0 - 300 % [facility] ERV PRED 0.92 0.05 - 9.99 Liters [facility] ERV PRE 0.20 0.05 - 9.99 Liters [facility] ERV %PRE PRED 22 0 - 300 % [facility] IC PRE 1.85 0.05 - 9.99 Liters [facility] DLCO PRED 22.5 0.05 - 99.99 mL/mmHg/min [facility] DLCO PRE 12.5 mL/mmHg/min [facility] DLCO %PRE PRED 55 0 - 300 % [facility] DL ADJ PRED 22.5 1 - 2 mL/mmHg/min [facility] DL ADJ PRE 12.5 1 - 2 mL/mmHg/min [facility] DL ADJ %PRE PRED 55 0 - 300 % [facility] DLCO/VA PRED 4.66 mL/mHg/min/ L [facility] DLCO/VA PRE 3.97 mL/mHg/min/ L [facility] DLCO/VA %PRE PRED 85 % [facility] DL/VA ADJ PRED 3.49 mL/mHg/min/ L [facility] DL/VA ADJ %PRE PRED 114 % [facility] VA PRE 3.15 Liters [facility] RAW PRED 1.28 cmH2O/L/sec [facility] RAW PRE 4.65 cmH2O/L/sec [facility] RAW %PRE PRED 363 % [facility] GAW PRED 0.711 L/sec/cmH2O [facility] GAW PRE 0.215 L/sec/cmH2O [facility] GAW %PRE PRED 30 % [facility] SRAW PRED 3.80 cmH2O/L/s/L [facility] SRAW PRE 15.24 cmH2O/L/s/L [facility] SRAW %PRE PRED 401 % [facility] SGAW PRED 0.257 L/s/cmH2O/L [facility] SGAW PRE 0.066 L/s/cmH2O/L [facility] SGAW %PRE PRED 26 % [facility] Anatomical Region Laterality Modality PFT 09/09/2019 10:0 [...] COVID: Suspected 01/21/2020 01/21/2020 01/21/2020 6:51 PM ENVELOPE ADJUSTER Respiratory Infection (NOEL), contact + droplet Comment:Automatically added due to negative COVID-19 result. 01/21/2020 01/21/2020 2020 3:0 7 AM ENVELOPE ADJUSTER COVID: Suspected 03/06/2022 03/06/2022 03/06/2022 9:09 PM ENVELOPE ADJUSTER documented as of this encounter Care Teams Lobby Concierge Relationship Specialty Start Date End Date Nicolas Huffman MD PCP - General 05/22/16 documented as of this encounter
[2024-10-11 13:22] LABS: Anion Gap 12 mmol/L (4-12); Blood Urea Nitrogen 26 mg/dL (7-17); Calcium 9.3 mg/dL (8.4-10.2); Carbon Dioxide 24 mmol/L (22-30); Chloride 99 mmol/L (98-107); Estimated Glomerular Filt Rate 51; Glucose 94 mg/dL (65-110); Potassium 3.4 mmol/L (3.4-5.0); Sodium 135 mmol/L (137-145)
== END 2024-10-11 11:03 | disposition home or self-care (01) ==
PROVIDERS: PCP Internal Medicine
DX: N28.9 Disorder of kidney and ureter, unspecified (principal)
CPT/HCPCS: 36415; 80048

== ENCOUNTER 2024-12-10 08:14 | Emergency (ER) | payer MEDICARE, SELFPAY ==
[2024-12-10] VITALS (16 sets, daily range): BP systolic 166–185; BP diastolic 74–80; PULSE 80–98; RESP 13–25; TEMP 36.6; O2SAT 94–99
--- OUTSIDE RECORDS SUMMARY | 2024-12-10 08:17 | XMS_ITS | Clinical Summary ---
Author Organization [facility] Address [address] [place] [address] Care Team Providers Care Us Administrative Law Judge Name Role Phone Donald Angelo MD Unavailable [phone] Fabyb Mcgee MD Unavailable [phone] Nicolas Huffman MD Primary Care Provider [phone] Allergies Active Allergy Reactions Criticality Noted Date Comments Amoxicillin Diarrhea High 11/20/2021 Oxycodone Mental status changes,Hallucinations High 11/25/2019 Prednisone Mental status changes,Hallucinations High 11/25/2019 Medications aspirin 325 mgIndications:My ocardial Reinfarction Prevention,preve ntion of thrombosis Take 1 tablet (325 mg total) by mouth supervisor riveting before breakfast qd Active psyllium, aspartame, SF (METAMUCIL SF) 3.4 gram packet Take 1 packet by mouth as needed Active acetaminophen (TYLENOL) 325 mg tabletIndication s:Pain Take 2 tablets (650 mg total) by mouth every 4 (four) hours as needed for pain 06/13/19 24 Active chlorthalidone (HYGROTON) 25 mg tablet TAKE [...] DAILY 270 tablet 2 08/10/19 25 Active potassium chloride ER 10 mEq CR tabletIndication s:Chronic diastolic heart failure (HCC) Take 1 tablet/capsul e (10 mEq total) by mouth as needed (When taking Lasix) Active furosemide (LASIX) 20 mg tablet Take 1 tablet (20 mg total) by mouth daily 10/07/19 25 Active ALPRAZolam (XANAX) 0.25 mg tablet TAKE 1 TABLET(0.25 MG) BY MOUTH THREE TIMES DAILY NEEDED FOR ANXIETY 30 tablet 1 10/20/19 25 Active dronedarone (MULTAQ) 400 mg tablet Take 1 tablet (400 mg total) by mouth 2 (two) times a day with meals 60 tablet 11 11/20/19 25 Active dilTIAZem XR (dilTIAZem CD) 240 mg 24 hr capsuleIndicatio ns:Longstanding persistent atrial fibrillation (HCC) Take 1 capsule (240 mg total) by mouth daily 025 Discontinued Active Problems Problem Noted Date Diagnosed Date JEN (obstructive sleep apnea) 11/12/2024 Central sleep apnea 11/12/2024 Coronary artery arteriosclerosis 10/06/2024 Assessment & Plan [...] 01/14/2024 Assessment & Plan (01/14/2024 11:58 AM BRAZING MACHINE OPERATOR AUTOMATIC): Long discussion today lasting more than 30 minutes concerning this. Will look for the present we will leave medication alone at this time. Will refer to cardiology here at [facility]. Will try to obtain her pacer data from Dr. Mcgee. I feel this may very well have been a type 2 myocardial infarction based on pneumonia which was diagnosed in the emergency room Cervicalgia 01/14/2024 Assessment & Plan (01/14/2024 11:57 AM BRAZING MACHINE OPERATOR AUTOMATIC): Check C-spine x-rays. A-fib 06/12/2023 Assessment & Plan (01/14/2024 11:58 AM BRAZING MACHINE OPERATOR AUTOMATIC): Per Dr. Mcgee Assessment & Plan (06/12/2023 [...] exertion Assessment & Plan (02/20/2024 9:35 AM BRAZING MACHINE OPERATOR AUTOMATIC): I feel this is most likely secondary to COPD. Possibly mild right heart strain. Will give furosemide and check BMP in 2 weeks. Most recent echo showed normal LV function. Moderate COPD (chronic obstr uctive pulmonary disease) (CMS/HCC) Assessment & Plan (09/17/2024 10:25 AM CDT): Stable. Encouraged her to continue to do exercise. Assessment & Plan (05/21/2024 11:08 AM CDT): Stable. Assessment & Plan (01/14/2024 11:57 AM BRAZING MACHINE OPERATOR AUTOMATIC): Stable at this time Resolved Problems Problem Noted Date Diagnosed Date Resolved Date History of surgical procedure 11/18/2016 06/10/2022 Left shoulder pain 12/04/2015 3 Encounters Date Type Department Care Team Description 12/08/2024 Telephone [facility] Medicine Neuro Sleep [address] [facility] 6th [address] [place] [address] Amaya Denney 11/19/2024 10:45 AM CDT Office Visit [facility] Medicine Cardiology [address] [facility] 8th [place] [address] [place] [address] Fabby Mcgee MD Longstanding persistent atrial fibrillation (HCC) (Primary Dx); Sinus bradycardia; S/P placement of cardiac pacemaker 11/19/2024 10:15 AM CDT Ancillary Procedure [facility] [address] [facility] 8th [place] [address] [place] [address] Syncope and collapse; Sinus pause; Fitting or adjustment of cardiac pacemaker 11/17/2024 Orders Only [facility] Neuro Sleep [address] [place] [address] Rosendo Young MD JEN (obstructive sleep apnea) (Primary Dx) 11/17/2024 Telephone [facility] Neuro Sleep [address] [place] [address] America Cotton, RN Test Results 11/12/2024 Telephone [facility] Neuro Sleep [address] [place] [address] Amercia Cotton, MARCELLUS 11/12/2024 Telephone [facility] Cardiology [address] [place] [address] 8th [place] [address] [place] [address] Fabby Mcgee MD 11/11/2024 7:30 PM CDT Procedure visit [facility] Neuro Sleep [address] [place] [address] JEN (obstructive sleep apnea) (Primary Dx); Hypersomnolence; Central sleep apnea 11/09/2024 Telephone [facility] Cardiology [facility] [facility] 8th [place] [address] [place] [address] Rosalina Castellano 10/26/2024 11:30 AM CDT Office Visit [facility] Sleep [address] [place] [address] Rosendo Young MD Hypersomnolence (Primary Dx); S/P placement of cardiac pacemaker; Longstanding persistent atrial fibrillation (HCC); TARANGO (dyspnea on exertion) 10/18/2024 Orders Only [facility] Card[facility] Medical Office Building [address] [place] [address] Fabby Mcgee MD 10/11/2024 Orders Only [facility] CARDIOLOGY Scanning, Provider 10/11/2024 Orders Only [facility] [address] [place] [address] [place] [phone] Nicolas Huffman MD 10/11/2024 Telephone [facility] [address] [place] [address] 8th [place] [address] [place] [address] Donald Angelo MD order 10/06/2024 Results Follow-Up [facility] [address] [place] [address] 8th [place] [address] [place] [phone] Brian Sumner NP Thyroid Function [place], Magnesium, CBC with auto differential, Additional followed-up results: 5 10/04/2024 1:55 PM CDT Lab [facility] ([facility] [address] [place] [phone] Paroxysmal atrial fibrillation (HCC) 10/04/2024 12:30 PM CDT Office Visit [address] 8th [place] [address] [place] [address] Brian Sumner NP Paroxysmal atrial fibrillation (HCC) (Primary Dx); S/P placement of cardiac pacemaker; Essential hypertension; Longstanding persistent atrial fibrillation (HCC); Coronary artery arteriosclerosis; Chronic diastolic heart failure (HCC) 09/21/2024 Orders Only [facility] Cardiology [address] [address] [address] [place] [address] Malachi Griffiths MD 09/19/2024 Orders Only [facility] [address] [place] [address] [place] [phone] Nicolas Huffman MD 09/17/2024 10:15 AM CDT Office Visit [facility] [address] [place] [address] [place] [phone] Nicolas Huffman MD Moderate COPD (chronic obstructive pulmonary disease) (CMS/HCC) (HCC) (Primary Dx); Longstanding persistent atrial fibrillation (HCC); S/P placement of cardiac pacemaker; Essential hypertension from Last 3 Months Immunizations Immunization Administration [...] CARDIOVERSION; Surgeon: Will Walters MD PhD; Location: [facility]; Service: Cardiovascular; Laterality: N/A; CARDIOVERSION Medical History [...] on file Legal Sex Female 11:21 AM BRAZING MACHINE OPERATOR AUTOMATIC Gender Identity Female 11/24/2020 8:03 AM CDT Sexual Orientation Straight 11/24/2020 8: 03 AM CDT Obstetrics History Last Filed Vital Signs Vital Sign Reading Time Taken Comments Blood Pressure 123/74 11/19/2024 10:15 AM CDT Pulse 81 11/19/2024 10:15 AM CDT Temperature 36.8 C (98.3 F) 11/11/2024 8:44 PM CDT Respiratory Rate 16 09/07/2024 8:35 AM CDT Oxygen Saturation 97% 11/19/2024 10:15 AM CDT Inhaled Oxygen Concentration - - Weight 90 kg (198 lb 6.4 oz) 11/19/2024 10:15 AM CDT Height 162.6 cm (5' 4) 11/19/2024 10:15 AM CDT Body Mass Index 34.06 11/19/2024 10:15 AM CDT Plan of Treatment Health Maintenance Due Date Last Done Comments Depression Screening 1940 DTaP/Tdap/Td Vaccine (1 - Tdap) 1953 Hepatitis B Screening 02/05/1960 Well Visit 65+ 2007 Osteoporosis Screening-Bone Density Scan 03/15/2023 Covid-19 Vaccine (7 2023-2 5 season) 2024 12/02/2023, 12/10/2022, 12/06/2021, Additional history exists Influenza Vaccine (#1) 2024 , 11/02/2023, 12/10/2022, Additional history exists Fall Risk Assessment 09/07/2025 09/07/2024 Pneumococcal vaccine 65+ Completed 10/10/2022 Zoster Vaccine Completed 12/02/2023, 10/10/2022 Medical Devices Implanted Type Area Photographic Colorist Device Identifier Shelf Expiration Date Model / Serial / Lot [employer] Su[employer] Monitor Cardiac Insertable Leadless Lux Dx 4.0x7.2x44.8m m M301 - [id number] - [id number] Implanted:Qty : 1 on 12/12/2022 by Fabby Mcgee MD at [facility] Implantable Loop Recorder [employer] Suzi 10/01/2023 M301 / [id number] / [id number] [employer] Suzi Active Fixation Steroid Eluting Is 1 Connector Latex Free Sterile Right Atrial Right Atrial Ingevity Plus 59cm 7842 - [id number] - [id number] Implanted:Qty : 1 on 06/12/2023 by Fabby Mcgee MD at [facility] Lead Right: Ventricle [employer] Suzi 06/29/2024 [id number] / [id number] / [employer] Suzi Fineline Ii Sterox Ez 1.7mm 52cm Bipolar Active Fixation Screw 4470 - [id number] - [id number] Implanted:Qty : 1 on 06/12/2023 by Fabby Mcgee MD at [facility] Lead Right: Atria [employer] Suzi 12/02/2024 4470 / [id number] / [employer] C.R.M. Accolade Latitude Nxt Pacesafe Easyview 4.45x5.02cm 2 Chamber Is1 L311 - [id number] - [id number] Implanted:Qty : 1 on 06/12/2023 by Fabby Mcgee MD at [facility] Pacemaker Left: Chest Wall [employer] C.R.M. 04/24/2025 L311 / [id number] / Procedures Procedure Name Priority Date/Time Associated Diagnosis Comments DEVICE CHECK - IN OFFICE Routine 11/19/2024 10:05 AM CDT Syncope and collapse Sinus pause Fitting or adjustment of cardiac pacemaker PSG (COMPLEX) Routine 11/10/2024 8:00 PM CDT Hypersomnolence DEVICE CHECK - REMOTE Routine 10/18/2024 3:21 AM CDT SCAN - LABS 10/11/2024 4:15 PM CDT SCAN - LABS 10/11/2024 EGFR Routine 10/04/2024 1:59 PM CDT Paroxysmal [...] SCAN - RADIOLOGY/IMAGING 09/19/2024 7:20 PM CDT from Last 3 Months Results * DEVICE CHECK - IN OFFICE (11/19/2024 10:05 AM CDT) Anatomical Region Laterality Modality Other 11/19/2024 2:00 AM CDT Narrative 11/29/2024 3:43 PM CDT Interpretation Summary: Anticoagulation (AC) Patient prescribed Apixaban (Eliquis) Patient on anticoagulant therapy Procedure Note Fabby Mcgee MD - 11/29/2024 Interpretation Summary: Anticoagulation (AC) Patient prescribed Apixaban (Eliquis) Patient on anticoagulant therapy Fabby Mcgee MD [facility] CARDIAC SERVICES PROCEDURES Final Result * PSG (COMPLEX) (11/10/2024 8:00 PM CDT) Narrative Rosendo Young MD - 11/10/2024 8:00 PM CDT Rosendo Young MD 11/12/2024 2:06 PM PSG-Sleep Provider Use Only Date/Time: 11/10/2024 8:00 PM Performed by: Rosendo Young MD Authorized by: Rosendo Young MD Rosendo Young MD SLEEP CENTER ORDERABLES Final Re sult * DEVICE CHECK - REMOTE (10/18/2024 3:21 AM CDT) Anatomical Region Laterality Modality Other 10/18/2024 3:21 AM CDT Narrative 10/29/2024 5:34 PM CDT Interpretation Summary: Battery and Leads (BL) Normal parameters noted on battery and lead(s) --- 5.5 years remaining (this is an estimate based on prior usage) Presenting Rhythm (MI) Atrial Fibrillation or Flutter Ventricular Pacing (TRANSACTIONAL PARALEGAL) --- rate 70 Arrhythmic events (AE) Persistent atrial fibrillation and/or flutter Atrial fibrillation and/or flutter with rapid ventricular rate --- 587 V high rate episodes. Rates 160-180. Longest: [id number]. Limited data due to sheer amount of episodes. Anticoagulation (AC) Patient prescribed Apixaban (Eliquis) Patient on anticoagulant therapy Procedure Note Fabby Mcgee MD - 10/29/2024 Interpretation Summary: Battery and Leads (BL) Normal parameters noted on battery and lead(s) --- 5.5 years remaining(this is an estimate based on prior usage) Presenting Rhythm (MI) Atrial Fibrillation or Flutter Ventricular Pacing (TRANSACTIONAL PARALEGAL) --- rate 70 Arrhythmic events (AE) Persistent atrial fibrillation and/or flutter Atrial fibrillation and/or flutter with rapid ventricular rate --- 587 Vhigh rate episodes. Rates 160-180. Longest: [id number]. Limited data due tosheer amount of episodes. Anticoagulation (AC) Patient prescribed Apixaban (Eliquis) Patient on anticoagulant therapy Result [facility] Fabby Mcgee MD CV CARDIAC SERVICES PROCEDURES Final Result * SCAN - LABS (10/11/2024 4:15 PM CDT) Nicolas Huffman MD Final Result * SCAN - LABS (10/11/2024) Provider Scanning Final Result * (ABNORMAL) eGFR (10/04/2024 1:59 PM CDT) Pathologist [facility] eGFR 49(L) >=60 mL/min/1. 73 m2 Comment: [...] 1:59 PM CDT 10/04/2024 2:46 PM CDT Brian Sumenr NP LAB BLOOD ORDERABLES Fin al Result [facility] Department [place] [address] * (ABNORMAL) Differential, auto (10/04/2024 1:59 PM CDT) Pathologist [facility] Neutrophil abs 10.46(H) 1.50 - 6.50 K/cumm Imm gran abs 0.09 0.00 - 0.10 K/cumm [facility] Lymphocyte abs 2.64 0.80 - 3.30 K/cumm [facility] Monocyte abs 1.19(H) 0.20 - 0.80 K/cumm [facility] Eosinophil abs 0.25 0.00 - 0.50 K/cumm [facility] Basophil abs 0.11(H) 0.00 - 0.10 K/cumm [facility] Neutrophil pct 71.0 % [facility] Comment: Interpretive Data Percent cell count reference ranges are not reported, since discordance with absolute values may lead to misinterpretation of CBC data. Current Interpretive Data was last revised on 2017. Imm gran pct 0.6 % [facility] Comment: Interpretive Data Percent cell count reference ranges are not reported, since discordance with absolute values may lead to misinterpretation of CBC data. Current Interpretive Data was last revised on 2017. Lymphocyte pct 17.9 % [facility] Comment: Interpretive Data Percent cell count reference ranges are not reported, since discordance with absolute values may lead to misinterpretation of CBC data. Current Interpretive Data was last revised on 2017. Monocyte pct 8.1 % [facility] Comment: Interpretive Data Percent cell count reference ranges are not reported, since discordance with absolute values may lead to misinterpretation of CBC data. Current Interpretive Data was last revised on 2017. Eosinophil pct 1.7 % [facility] Comment: Interpretive Data Percent cell count reference ranges are not reported, since discordance with absolute values may lead to misinterpretation of CBC data. Current Interpretive Data was last revised on 2017. Basophil pct 0.7 % [facility] Comment: Interpretive Data Percent cell count reference ranges are not reported, since discordance with absolute values may lead to misinterpretation of CBC data. Current Interpretive Data was last revised on 2017. Blood 10/04/2024 1:59 PM CDT 10/04/2024 2:25 PM CDT us Brian Sumner NP LAB BLOOD ORDERABLES Fin al Result [facility] Department [place] [address] * (ABNORMAL) Pro B-type natriuretic peptide (10/04/2024 [...] as advanced age. - References: 1. Angie JL et.al. Eur Heart J. 2006:27:330-337. 2. Dmitriy RW, Zulma NOLAND. J. AM Willian Cardiol: Cardiovasc Imag. 2009;2: 216- 225. Interpretive Data Last Revised Date: 2017. Blood 10/04/2024 1:59 PM CDT 10/04/2024 2:25 PM CDT us Brian Sumner NP LAB BLOOD ORDERABLES Fin al Result [facility] Department of Laboratories [place], [place] [id number] * Thyroid Function [place] (10/04/2024 1:59 PM CDT) TSH 0.72 0.30 - 4.20 mcIUnit/mL Blood 10/04/2024 1:59 PM CDT 10/04/2024 2:25 PM CDT Brian Sumner WHITE SHOE EXAMINER LAB BLOOD ORDERABLES Fin al Result Performing Organization Address [facility] Co de Phone Number [facility] Department [place] [address] * (ABNORMAL) CBC with auto differential (10/04/2024 1:59 PM CDT) WBC 14.74(H) 3.80 - 9.90 K/cumm Hgb 14.5 11.9 - 15.5 g/dL [facility] Hct 41.8 35.6 - 45.5 % [facility] Plt 467(H) 150 - 400 K/cumm [facility] MPV 9.8 9.1 - 12.3 fL [facility] RBC 4.71 3.90 - 5.20 M/cumm [facility] MCV 88.7 81.3 - 96.4 fL [facility] MCH 30.8 27.1 - 33.3 pg [facility] MCHC 34.7 32.3 - 35.7 g/dL [facility] RDW CV 13.1 11.1 - 14.9 % [facility] RDW SD 42.5 35.7 - 48.1 fL [facility] NRBC abs 0.00 0.00 - 0.01 K/cumm [facility] Blood 10/04/2024 1:59 PM CDT 10/04/2024 2:25 PM CDT Brian Smuner NP LAB BLOOD ORDERABLES Fin al Result [facility] Department [place] [address] * Magnesium (10/04/2024 1:59 PM CDT) Magnesium 2.2 1.4 - 2.5 mg/dL Blood 10/04/2024 1:59 PM CDT 10/04/2024 2:25 PM CDT Brian Sumner NP LAB BLOOD ORDERABLES Fin al Result Performing Organization Address [facility] Co de Phone Number [facility] Department [place] [address] * (ABNORMAL) Basic metabolic panel (10/04/2024 1:59 PM CDT) [facility] Sodium 138 135 - 145 mmol/L Potassium, pl 3.7 3.3 - 4.9 mmol/L [facility] Chloride 100 97 - 110 mmol/L [facility] CO2 25 22 - 32 mmol/L [facility] Anion gap 13 2 - 15 mmol/L [facility] BUN 29(H) 6 - 25 mg/dL [facility] Creatinine 1.12(H) 0.60 - 1.10 mg/dL [facility] Glucose 109 70 - 199 mg/dL [facility] Comment: Interpretive Data Fasting glucose >/= 126 [...] 2022. Calcium 9.4 8.5 - 10.3 mg/dL [facility] Blood 10/04/2024 1:59 PM CDT 10/04/2024 2:25 PM CDT Brian Sumner NP LAB BLOOD ORDERABLES Fin al Result Performing Organization Address [facility] Co de Phone Number [facility] Department [place] [address] * ECG 12 lead (10/04/2024 1:41 PM CDT) us Brian Sumner WHITE SHOE EXAMINER ECG ORDERABLES Edited R esult - Final * Cardiology Document Scan (09/20/2024 4:52 PM CDT) Anatomical Region Laterality Modality Other us Malachi Griffiths MD CV CARDIAC SERVICES PROCEDURES F inal Result * SCAN - RADIOLOGY/IMAGING (09/19/2024 7:20 PM CDT) Anatomical Region Laterality Modality Other us Nicolas Huffman MD Final Result from Last 3 Months Insurance [employer] MEDICARE ADVANTAGE MEDICARE ADVANTAGE MEDICARE ADVANTAGE MEDICARE ADVANTAGE Advance Directives For more information, please contact: [phone] Documents on File Type Date Recorded Patient Financial Aid Expl anation Power of News Cameraman 06/12/2023 5:53 AM ADVANCE DIRECTIVE 12/17/2022 2:43 AM PARVIN R OF RELAY DISPATCHER-MEDICAL Power of News Cameraman 12/12/2022 10:10 AM * Full Code (Latest Code Status on File) Date Activated Date Inactivated Comments 06/12/2023 10:30 AM 06/13/2023 3:29 PM * Full Code Date Activated Date Inactivated Comments 12/12/2022 1:31 PM 12/12/2022 7:26 PM Care Teams Us Administrative Law Judge Relationship Specialty Start Date End Date Nicolas Huffman MD [address] [facility] [address] [place] [address] PCP - General Internal Medicine 10/26/24 Donald Angelo MD [address] [facility] [address] [place] [address] Referring Physician Cardiology 10/26/24 Fabby Mcgee MD [address] [facility] [address] [place] [address] Consulting Physician Cardiology 10/26/24
--- OUTSIDE RECORDS SUMMARY | 2024-12-10 08:17 | XMS_ITS | Encounter Summary ---
Author Organization [facility] Address [address] [place] [address] Care Team Providers Care Dimethylaniline Sulfator Operator Name Role Phone Nicolas Huffman MD Primary Care Provider [phone] Donald Angelo MD Unavailable [phone] Fabby Mcgee MD Unavailable Nicolas Huffman MD Primary Care Provider [phone] Reason for Referral * (Routine) - Closed Specialty Diagnoses / Procedures Referred By Contac t Referred To Contact Diagnoses Dyspnea Procedures Pulmonary Function Test -[facility]- CAM-8D; Standard; Spirometry, Spirometry w/bronchodilator, DLCO and Lung Volumes Nicolas Huffman MD Phone: tel: fax: Referral ID Status Reason Start Date Expiration Date Visits Re quested Visits Authorized [id number] Closed 09/01/2019 03/12/2021 1 1 Encounter Details Date Type Department Care Team (Late st Contact Info) Description 09/01/2019 Orders Only Internal Medicine Nicolas Huffman MD [address] [address] Dyspnea (Primary Dx) Social History [...] on file Legal Sex Female 11:21 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 Gender Identity Female 11/24/2020 8:03 AM [...] FVC PRED 2.68 0.05 - 9.99 Liters [facility] FVC PRE 1.73 0 - 12 Liters [facility] FVC %PRE PRED 64 0 - 300 % [facility] FEV1 PRED 2.05 0.05 - 9.99 Liters [facility] FEV1 PRE 1.17 0 - 12 Liters [facility] FEV1 %PRE PRED 57 0 - 300 % [facility] FEV1/FVC PRED 77 1 - 99 % [facility] FEV1/FVC PRE 68 0 - 12 % [facility] KMT82-64% PRED 1.66 0 - 12 L/sec [facility] RWA61-95% PRE 0.54 0 - 12 L/sec [facility] LTQ15-47% %PRE PRED 33 0 - 300 % [facility] FEF75% PRED 0.38 0 - 300 L/sec [facility] FEF75% PRE 0.15 0 - 12 L/sec [facility] FEF75% %PRE PRED 39 % [facility] PEF PRED 5.36 0 - 18 L/sec [facility] PEF PRE 4.17 0 - 18 L/sec [facility] PEF %PRE PRED 78 0 - 300 % [facility] PIF PRE 1.78 0 - 18 L/sec [facility] FEV6 PRE 1.66 0 - 12 Liters [facility] FEV1/FEV6 PRE 70 0 - 12 % [facility] VC PRED 2.79 0.05 - 9.99 Liters [facility] VC PRE 1.95 0.05 - 9.99 Liters [facility] VC %PRE PRED 70 0 - 300 % [facility] TLC PRED 5.14 0.05 - 11.99 Liters [facility] TLC PRE 4.63 0.05 - 11.99 Liters [facility] TLC %PRE PRED 90 0 - 300 % [facility] RV PRED 2.36 0.05 - 9.99 Liters [facility] RV PRE 2.68 0.05 - 9.99 Liters [facility] RV %PRE PRED 114 0 - 300 % [facility] RV/TLC PRED 46 0 - 300 % [facility] RV/TLC PRE 58 0 - 300 % [facility] FRC N2 PRED 2.52 0.05 - 9.99 Liters [facility] FRC PL PRED 2.96 0.05 - 9.99 Liters [facility] FRC PL PRE 2.78 0.05 - 9.99 Liters [facility] FRC PL %PRE PRED 94 0 - 300 % [facility] ERV PRED 0.92 0.05 - 9.99 Liters [facility] ERV PRE 0.20 0.05 - 9.99 Liters [facility] ERV %PRE PRED 22 0 - 300 % [facility] IC PRE 1.85 0.05 - 9.99 Liters [facility] DLCO PRED 22.5 0.05 - 99.99 mL/mmHg/min [facility] DLCO PRE 12.5 mL/mmHg/min [facility] DLCO %PRE PRED 55 0 - 300 % [facility] DL ADJ PRED 22.5 1 - 2 mL/mmHg/min [facility] DL ADJ PRE 12.5 1 - 2 mL/mmHg/min [facility] DL ADJ %PRE PRED 55 0 - 300 % [facility] DLCO/VA PRED 4.66 mL/mHg/min/ L [facility] DLCO/VA PRE 3.97 mL/mHg/min/ L [facility] DLCO/VA %PRE PRED 85 % [facility] DL/VA ADJ PRED 3.49 mL/mHg/min/ L [facility] DL/VA ADJ %PRE PRED 114 % [facility] VA PRE 3.15 Liters [facility] RAW PRED 1.28 cmH2O/L/sec [facility] RAW PRE 4.65 cmH2O/L/sec [facility] RAW %PRE PRED 363 % [facility] GAW PRED 0.711 L/sec/cmH2O [facility] GAW PRE 0.215 L/sec/cmH2O [facility] GAW %PRE PRED 30 % [facility] SRAW PRED 3.80 cmH2O/L/s/L [facility] SRAW PRE 15.24 cmH2O/L/s/L [facility] SRAW %PRE PRED 401 % [facility] SGAW PRED 0.257 L/s/cmH2O/L [facility] SGAW PRE 0.066 L/s/cmH2O/L [facility] SGAW %PRE PRED 26 % [facility] Anatomical Region Laterality Modality PFT 09/09/2019 [...] COVID: Suspected 01/21/2020 01/21/2020 01/21/2020 6:51 PM CAREER DEVELOPMENT CONSULTANT Respiratory Infection (NOEL), contact + droplet Comment:Automatically added due to negative COVID-19 result. 01/21/2020 01/21/2020 2020 3:0 7 AM CAREER DEVELOPMENT CONSULTANT COVID: Suspected 03/06/2022 03/06/2022 03/06/2022 9:09 PM CAREER DEVELOPMENT CONSULTANT documented as of this encounter Care Teams Dimethylaniline Sulfator Operator Relationship Specialty Start Date End Date Nicolas Huffman MD PCP - General 05/22/16 10/25/24 Nicolas Huffman MD [facility] [address] [address] PCP - General Internal Medicine 10/26/24 Donald Angelo MD [address] [facility] [address] [place] [address] Referring Physician Cardiology 10/26/24 Fabby Mcgee MD [address] [facility] [address] [place] [address] Consulting Physician Cardiology 10/26/24 documented as of this encounter
--- OUTSIDE RECORDS SUMMARY | 2024-12-10 08:17 | XMS_ITS | Encounter Summary ---
Author Organization [facility] Address [address] [place] [address] Phone Care Team Providers Care Brick Kiln Worker Name Role Phone Donald Angelo MD Unavailable Fabby Mcgee MD Unavailable [phone] Nicolas Huffman MD Primary Care Provider Encounter Details Date Type Department Care Team (Late st Contact Info) Description 11/12/2024 Telephone [facility] Medicine Cardiology [address] [facility] Advanced Medicine 8th [place] [address] [place] [address] Fabby Mcgee MD [address] [facility] [address] [place], [place] [id number] Social History Tobacco Use Types Packs/Day Years [...] on file 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 Pls call after 2 pm today. documented in this encounter Plan of Treatment Not on file documented as of this encounter Visit Diagnoses Not on filedocumented in this encounter Care Teams Brick Kiln Worker Relationship Specialty Start Date End Date Nicolas Huffman MD [address] [facility] [address] [place] [address] PCP - General Internal Medicine 10/26/24 Donald Angelo MD [address] [facility] [address] [place] [address] Referring Physician Cardiology 10/26/24 Fabby Mcgee MD [address] [facility] [address] [place] [address] Consulting Physician Cardiology 10/26/24 documented as of this encounter
--- OUTSIDE RECORDS SUMMARY | 2024-12-10 08:17 | XMS_ITS | Encounter Summary ---
Author Organization [facility] Address [address] [place] [address] Phone Care Team Providers Care Relocation Counselor Name Role Phone Donald Angelo MD Unavailable [phone] Fabby Mcgee MD Unavailable [phone] Nicolas Huffman MD Primary Care Provider [phone] Encounter Details Date Type Department Care Team (Late st Contact Info) Description 12/08/2024 Telephone [facility] Medicine Neuro Sleep [address] [facility] 6th [address] [place] [address] Amaya Denney Social History Tobacco Use Types Packs/Day Years [...] on file 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 Gender Identity Female 11/24/2020 8:03 AM CDT Sexual Orientation Straight 11/24/2020 8: 03 AM CDT documented as of this encounter Miscellaneous Notes * Telephone Encounter - Amaya Denney - 12/08/2024 7:54 PM CDT Confirmed [facility] pt has requested that Melita Ca be her tech for the evening she felt very comfortable with her documented in this encounter Plan of Treatment Not on file documented as of this encounter Visit Diagnoses Not on filedocumented in this encounter Care Teams Relocation Counselor Relationship Specialty Start Date End Date Nicolas Huffman MD [address] [facility] [address] [place] [address] PCP - General Internal Medicine 10/26/24 Donald Angelo MD [address] [facility] [address] [place] [address] Referring Physician Cardiology 10/26/24 Fabby Mcgee MD [address] [facility] [address] [place] [address] Consulting Physician Cardiology 10/26/24 documented as of this encounter
--- OUTSIDE RECORDS SUMMARY | 2024-12-10 08:17 | XMS_ITS | Encounter Summary ---
Author Organization [facility] Address [address] [place] [address] Phone Care Team Providers Care Assistant Press Operator Name Role Phone Donald Angelo MD Unavailable [phone] Fabby Mcgee MD Unavailable [phone] Nicolas Huffman MD Primary Care Provider [phone] Encounter Details Date Type Department Care Team (Late st Contact Info) Description 11/09/[address] 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 She is concerned she will be not be in a state to make it to her device and appt with Dr. Mcgee on 11/12/24 after her sleep study on 11/11/24. I let her know that sleep studies are not invasive and she can come to her appointments if she is out on time. I asked that she call the sleep lab, which is located in [place], and ask them when they anticipate she will discharge. If she has enough time to make it to her device an Dr. Mcgee appointments, I let her know that she shouldcome. If not, she can reschedule. She was thankful for the call. * Telephone Encounter - Rosalina Castellano - 11/09/2024 8:26 AM CDT [facility] CALLING IN REGARDS TO 11/12 DEV AND F/U APPT. HAS SLEEP STUDY 11/11 documented in this encounter Plan of Treatment Not on file documented as of this encounter Visit Diagnoses Not on filedocumented in this encounter Care Teams Assistant Press Operator Relationship Specialty Start Date End Date Nicolas Huffman MD [address] [facility] [address] [place] [address] PCP - General Internal Medicine 10/26/24 Donald Angelo MD [address] [facility] [address] [place] [address] Referring Physician Cardiology 10/26/24 Fabby Mcgee MD [address] [facility] [address] [place] [address] Consulting Physician Cardiology 10/26/24 documented as of this encounter
--- NOTE | 2024-12-10 08:35 | ECG_ITS ---
Test Date: 2024-12-10 08:44:56 Measurements Intervals [place] Rate: 85 P: 0 AR: 0 QRS: -41 QRSD: 97 T: 156 QT: 350 QTc: 417 Interpretive Statements ELECTRONIC VENTRICULAR PACEMAKER WITH INHIBITION UNDERLYING ATRIAL FIBRILLATION POOR R WAVE PROGRESSION BORDERLINE ST-T WAVE ABNORMALITY- ANTEROLATERAL LEADS BASELINE ARTIFACT- I, II, III, AVR, AVL, AVF ABNORMAL ECG Compared to ECG 09/19/2024 17:19:04 HEART RATE HAS DECREASED Electronically Signed On 12-10-2024 08:54:11 CDT by Osmar Yost D.O.
[2024-12-10 08:55] LABS: Hematocrit 39.8 % (37.0-47.0); Hemoglobin 13.2 g/dL (12.0-15.0); Immature Granulocyte Percent A 0.6 % (0-0.5); Lymphocytes Absolute Auto 1.63 K/mm3 (0.9-3.2); Mean Corpuscular HGB Conc 33.2 g/dl (32-36); Mean Corpuscular Hemoglobin 29.8 pg (26-34); Mean Corpuscular Volume 89.8 fl (80-100); Nucleated Red Blood Cells Absolute Auto 0.000 K/mm3 (0.0-0.012); Nucleated Red Blood Cells Perc 0.0 % (0.0-0.2); Platelet Count Result 320 k/mm3 (150-375); Red Blood Count 4.43 M/mm3 (4.2-5.4); White Blood Count 11.3 K/mm3 (4.5-10.0)
[2024-12-10 09:03] LABS: Add Urine Microscopic? YES; Appearance Urine Clear (Clear); Glucose Urine UA Negative (Negative); Leukocyte Esterase Ur Trace LEU/UL (Negative); Nitrate Urine Positive (Negative); Non Pathogenic Casts 0-2; Specific Grav Ur 1.009 (1.001-1.035)
[2024-12-10 09:08] LABS: INR 1.3; Prothrombin Time 16.1 Seconds (11.1-14.7)
[2024-12-10 09:09] LABS: Partial Thromboplastin Time 26.6 Seconds (22.3-36.8)
--- NOTE | 2024-12-10 09:14 | ED.GENADULT ---
HPI - General Adult General Chief complaint: Unspecified Stated complaint: i think I have a uti afib going nuts, insomnia Time Seen by Provider: 12/10/24 08:31 History of Present Illness HPI narrative: 84-year-old female present to the emergency department for evaluation for hallucinations overnight increased urinary frequency. Patient does suspect that she has a urinary tract infection although patient has no symptoms of dysuria or painful urination. Patient does have history AFib and does follow-up with cardiology and Rai. Patient denies any current chest pain shortness of breath. Patient denies any nausea vomiting diarrhea. Patient denies any abdominal pain. Patient is alert and orientated at time of evaluation is able to provide all of her physicians names, her medications and diagnoses. Patient states last night her hallucinations were examples of her cooking or being at a carnival. Patient is present with her goddaughter. Related Data Home Medications ?Medication ?Instructions ?Recorded ?Confirmed ?Last Taken ?Type aspirin 325 mg tablet 325 mg PO DAILY 12/14/19 12/10/24 08/04/20 History 325 chlorthalidone 25 mg tablet 25 mg PO DAILY 12/14/19 12/10/24 08/04/20 History 25 hydralazine 50 mg tablet 50 mg PO TID 12/14/19 12/10/24 08/04/20 History metoprolol tartrate 100 mg tablet 50 mg PO Q12H 12/14/19 12/10/24 08/04/20 History 100 alprazolam 0.25 mg tablet 0.25 mg PO QID PRN anxiety 09/19/24 12/10/24 Unknown History apixaban 5 mg tablet (Eliquis) 5 mg PO Q12H 09/19/24 12/10/24 Unknown History diphenhydramine 25 1 tablet PO HS sleep 09/19/24 12/10/24 Unknown History mg-acetaminophen 500 mg tablet (Acetaminophen PM) furosemide 20 mg tablet 20 mg PO DAILY PRN edema 09/19/24 12/10/24 Unknown History psyllium husk 3.4 gram/5.4 gram 1 tbsp PO DAILY 09/19/24 12/10/24 Unknown History oral powder (Metamucil) amlodipine 5 mg tablet 5 mg PO DAILY 12/10/24 12/10/24 Unknown History dapagliflozin propanediol 10 mg 10 mg PO DAILY 12/10/24 12/10/24 Unknown History tablet (Farxiga) dronedarone 400 mg tablet (Multaq) 400 mg PO BID 12/10/24 12/10/24 Unknown History Allergies Allergy/AdvReac Type Severity Reaction Status Date / Time oxycodone Allergy Mild condusion, Verified 12/10/24 08:33 difficulty concentrating amoxicillin AdvReac Intermediate Diarrhea Verified 12/10/24 08:33 prednisone AdvReac Mild Confusion Verified 12/10/24 08:33 Review of Systems Review of Systems: All systems reviewed & are unremarkable except as noted in HPI and below PMFSH Past Medical History Medical History (Updated 12/10/24 @ 10:28 by Leonid Escobar MD) Depression Anxiety Osteoporosis Heart murmur Pacemaker Congestive heart failure Afib IBS (irritable bowel syndrome) Hypertension COPD (chronic obstructive pulmonary disease) Surgical History Surgical History (Updated 09/19/24 @ 22:17 by Karyna Crum APRN) History of left shoulder replacement Family History Family History Father Stomach cancer Mother Osteoporosis Social History Social History Smoking packs per day: 0.5 Smoking cigarettes per day: 10.0 Years smoked: 50 Smoking pack-years: 25.00 Smoking status: Former smoker Tobacco type: cigarettes Second hand tobacco smoke exposure: Yes Smoking end date: 03/03/11 Additional smoking assessment comments: quit in 2011 Alcohol intake: never Substance use: current Substance use type: does not use Do You Feel Safe in your Home?: Yes Lack of Transportation: No Lack of Food: Never True Current Housing: I Have Housing Concerned About Future Housing: No Difficulty Paying Gas/Electric Bills: No Difficulty Paying for Meds: No Currently Unemployed: No Education: High School Diploma/GED Difficulty w/ Childcare or Family Care: No Living arrangements: alone Spiritual care concerns: Yes (methodist) Exam Narrative: APPEARANCE: Well appearing, no pain, no distress, well-nourished. HEAD: normocephalic, atraumatic. EYES: PERRLA/EOMI, conjunctivae clear. NOSE: Normal no drainage EARS:TMS clear with good light reflex. THROAT: Pharynx clear, no exudate. NECK: Supple. No adenopathy, no masses. RESPIRATORY: Airway patent, respirations nonlabored. Clear to auscultation bilaterally, no rales, rhonchi, wheezing. CARDIOVASCULAR: Regular rate and rhythm without murmurs rubs or gallops. ABDOMINAL: Soft, nontender, nondistended, normal bowel sounds MUSCULOSKELETAL: Moves all extremities. Strength/ROM intact, No edema, No calf tenderness. NEURO: Alert. Cranial nerves II through XII intact. Good gait. Good coordination SKIN: Warm, dry. Normal Color Course Vital Signs Vital signs: Vital Signs Temperature 97.8 F 12/10/24 08:23 Pulse Rate 96 12/10/24 08:23 Respiratory Rate 17 12/10/24 08:23 Blood Pressure 185/80 H 12/10/24 08:23 Pulse Oximetry 97 12/10/24 08:23 Oxygen Delivery Room Air 12/10/24 08:23 Temperature 97.8 F 12/10/24 08:23 Pulse Rate 80 12/10/24 11:20 Respiratory Rate 17 12/10/24 11:20 Blood Pressure 169/80 H 12/10/24 09:10 Pulse Oximetry 98 12/10/24 11:20 Oxygen Delivery Room Air 12/10/24 08:23 Medical Decision Making MDM Narrative Medical decision making narrative: 84-year-old female present to the emergency department for concerns of urinary tract infection. Patient is currently afebrile but does have a leukocytosis of 11.3 hemoglobin of 13.2. No significant abnormalities on her CMP UA is suggestive of urinary tract infection with nitrite positive, leukocyte esterase positive and 6-10 white blood cells with +4 bacteria. Patient was treated with 1 g of IV Rocephin in the emergency department. Patient will be discharged home on Keflex. Patient and family were updated on the results of the workup and they were encouraged to have close follow-up with Urology. Differential Diagnosis Differential Diagnosis: UTI, pyelonephritis with ureteral calculi, cerumen impaction Vital Signs Vital Signs: Vital Signs Temperature 97.8 F 12/10/24 08:23 Pulse Rate 96 12/10/24 08:23 Respiratory Rate 17 12/10/24 08:23 Blood Pressure 185/80 H 12/10/24 08:23 Pulse Oximetry 97 12/10/24 08:23 Oxygen Delivery Room Air 12/10/24 08:23 Temperature 97.8 F 12/10/24 08:23 Pulse Rate 80 12/10/24 11:20 Respiratory Rate 17 12/10/24 11:20 Blood Pressure 169/80 H 12/10/24 09:10 Pulse Oximetry 98 12/10/24 11:20 Oxygen Delivery Room Air 12/10/24 08:23 Lab Data Lab results reviewed: Yes I reviewed the patient's lab results. 12/10/24 08:47 12/10/24 08:47 Labs: Lab Results 12/10/24 Range/Units 08:47 WBC 11.3 H (4.5-10.0) K/mm3 RBC 4.43 (4.2-5.4) M/mm3 Hgb 13.2 (12.0-15.0) g/dL Hct 39.8 (37.0-47.0) % MCV 89.8 (80-100) fl MCH 29.8 (26-34) pg MCHC 33.2 (32-36) g/dl RDW 13.2 (11.5-14.5) % Plt Count 320 (150-375) k/mm3 MPV 9.3 (7.4-10.4) fl Immature Gran % (Auto) 0.6 H (0-0.5) % Neut % (Auto) 73.8 H (45.5-73.1) % Lymph % (Auto) 14.5 L (18.3-44.2) % Lincoln % (Auto) 8.6 H (2.6-8.5) % Eos % (Auto) 1.8 (0-4.4) % Baso % (Auto) 0.7 (0.2-1.2) % Lymph # (Auto) 1.63 (0.9-3.2) K/mm3 Lincoln # (Auto) 1.0 H (0.1-0.6) K/mm3 Eos # (Auto) 0.2 (0-0.3) K/mm3 Baso # (Auto) 0.1 (0.0-0.1) K/mm3 Abs Immat Gran (auto) 0.07 H (0.00-0.031) K/mm3 Absolute Neuts (auto) 8.3 H (1.3-6.7) K/mm3 Absolute Nucleated RBC 0.000 (0.0-0.012) K/mm3 Nucleated RBC % 0.0 (0.0-0.2) % PT 16.1 H (11.1-14.7) Seconds INR 1.3 APTT 26.6 (22.3-36.8) Seconds Sodium 137 (137-145) mmol/L Potassium 3.5 (3.4-5.0) mmol/L Chloride 100 (98-107) mmol/L Carbon Dioxide 27 (22-30) mmol/L Anion Gap 10 (4-12) mmol/L BUN 23 H (7-17) mg/dL Creatinine 0.95 (0.7-1.0) mg/dL Estim Creat Clear Calc 43 ml/min Estimated GFR 56 L (59 - ) Glucose 114 H (65-110) mg/dL Lactic Acid 1.6 (0.7-2.0) mmol/L Calcium 9.2 (8.4-10.2) mg/dL Total Bilirubin 0.8 (0.2-1.3) mg/dL AST 44 H (14-36) U/L ALT 30 (6-35) U/L Alkaline Phosphatase 112 (38-126) U/L Total Protein 7.7 (6.3-8.2) g/dL Albumin 4.1 (3.5-5.1) g/dL Urine Color Yellow (Yellow) Urine Appearance Clear (Clear) Urine pH 6.5 (5.0-9.0) Ur Specific Dewitt 1.009 (1.001-1.035) Urine Protein 2+ H (Negative) mg/dL Urine Glucose (UA) Negative (Negative) mg/dL Urine Ketones Negative (Negative) mg/dL Ur Blood (Man) Negative (Negative) Urine Nitrate Positive H (Negative) Urine Bilirubin Negative (Negative) Urine Urobilinogen 0.2 (<2.0) mg/dL Leukocyte Esterase Rfl Trace H (Negative) ELEN/UL Urine RBC 0-2 (0-2) /hpf Urine WBC 6-10 H (0-3) /hpf Ur Squamous Epith Cells None seen (Few) /hpf Urine Bacteria 4+ /hpf Urine Casts 0-2 Discharge Plan Discharge Clinical Impression: Impacted cerumen of both ears, Urinary tract infection Patient Disposition: Home Condition: Stable Instructions: Antibiotic Form, Urinary Tract Infection in Older Adults (ED) Additional Instructions: Antibiotic as directed until completed. Have close follow-up with Urology for your frequent urinary tract infections. If you have any worsening symptoms then please call or return to the emergency department. Patient Language: Bruneian Prescriptions: New cephalexin 500 mg capsule 500 mg PO Q8H 7 Days Qty: 21 0RF No Action hydralazine 50 mg tablet 50 mg PO TID metoprolol tartrate 100 mg tablet 50 mg PO Q12H chlorthalidone 25 mg tablet 25 mg PO DAILY aspirin 325 mg tablet 325 mg PO DAILY Eliquis 5 mg tablet 5 mg PO Q12H alprazolam 0.25 mg tablet 0.25 mg PO QID PRN (Reason: anxiety) furosemide 20 mg tablet 20 mg PO DAILY PRN (Reason: edema) Patient Comments: to take if gains more than 2 pounds in one day diphenhydramine-acetaminophen [Acetaminophen PM] 25-500 mg tablet 1 tablet PO HS Metamucil 3.4 gram/5.4 gram powder 1 tbsp PO DAILY Rx Instructions: mix into at least 8 oz of water or juice before administering potassium chloride [Klor-Con 10] 10 mEq tablet extended release 10 meq PO DAILY PRN (Reason: Take only when you take furosemide ) Qty: 30 0RF amlodipine 5 mg tablet 5 mg PO DAILY dapagliflozin propanediol [Farxiga] 10 mg tablet 10 mg PO DAILY Multaq 400 mg tablet 400 mg PO BID Follow-up/Referrals: Nathanael,Nicolas Romero MD [Primary Care Provider] Anthony Wahl MD [Physician, Urology]
[2024-12-10 09:16] LABS: Alanine Aminotransferase 30 U/L (6-35); Albumin Level 4.1 g/dL (3.5-5.1); Alkaline Phosphatase 112 U/L (38-126); Anion Gap 10 mmol/L (4-12); Aspartate Amino Transferase 44 U/L (14-36); Bilirubin,Total 0.8 mg/dL (0.2-1.3); Blood Urea Nitrogen 23 mg/dL (7-17); Calcium 9.2 mg/dL (8.4-10.2); Carbon Dioxide 27 mmol/L (22-30); Chloride 100 mmol/L (98-107); Estimated CRCL calculation 43 ml/min; Estimated Glomerular Filt Rate 56; Glucose 114 mg/dL (65-110); Potassium 3.5 mmol/L (3.4-5.0); Sodium 137 mmol/L (137-145); Total Protein 7.7 g/dL (6.3-8.2)
[2024-12-10] MEDS: cefTRIAXone 1 GM in SODIUM CHLORIDE 0.9% IV 50 ML 100 ML IVPB (09:30)
--- OUTSIDE RECORDS SUMMARY | 2024-12-10 09:30 | XMS_ITS | Encounter Summary ---
Author Organization [facility] Address [address] [place] [address] Phone Care Team Providers Care Back Tacker Name Role Phone Donald Angelo MD Unavailable [phone] Fabby Mcgee MD Unavailable [phone] Nicolas Huffman MD Primary Care Provider Encounter Details Date Type Department Care Team (Late st Contact Info) Description 11/09/2024 Telephone [facility] Medicine Cardiology [address] [place] [address] [place] [address] Rosalina Castellano Social History Tobacco [...] on file 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 Gender Identity Female 11/24/2020 8:03 AM CDT [...] the sleep lab, which is located in [place], and ask them when they anticipate she [...] on filedocumented in this encounter Care Teams Back Tacker Relationship Specialty Start Date End Date Nicolas Huffman MD [address] [facility] [address] [place] [address] PCP - General Internal Medicine 10/26/24 Donald Angelo MD [address] [facility] [address] [place] [address] Referring Physician Cardiology 10/26/24 Fabby Mcgee MD [address] [facility] [address] [place] [address] Consulting Physician Cardiology 10/26/24 documented as of this encounter
--- OUTSIDE RECORDS SUMMARY | 2024-12-10 09:30 | XMS_ITS | Encounter Summary ---
Author Organization [facility] Address [address] [place] [address] Phone Care Team Providers Care Filler Leaf Cutter Long Name Role Phone Donald Angelo MD Unavailable Fabby Mcgee MD Unavailable [phone] Nicolas Huffman MD Primary Care Provider [phone] Encounter Details Date Type Department Care Team (Late st Contact Info) Description 11/12/2024 Telephone [facility] Medicine Cardiology [address] [facility] 8th [place] [address] [place] [address] Fabby Mcgee MD [address] [facility] [address] [place], [place] [id number] Social History Tobacco Use Types Packs/Day Years [...] on file 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 Pls call after 2 pm today. documented in this encounter Plan of Treatment Not on file documented as of this encounter Visit Diagnoses Not on filedocumented in this encounter Care Teams Filler Leaf Cutter Long Relationship Specialty Start Date End Date Nicolas Huffman MD [address] [facility] [address] [place] [address] PCP - General Internal Medicine 10/26/24 Donald Angelo MD [address] [facility] [address] [place] [address] Referring Physician Cardiology 10/26/24 Fabby Mcgee MD [address] [facility] [address] [place] [address] Consulting Physician Cardiology 10/26/24 documented as of this encounter
--- OUTSIDE RECORDS SUMMARY | 2024-12-10 09:30 | XMS_ITS | Encounter Summary ---
Author Organization [facility] Address [address] [place] [address] Care Team Providers Care Public Health Sanitarian Technician Name Role Phone Nicolas Huffman MD Primary Care Provider Donald Angelo MD Unavailable [phone] Fabby Mcgee MD Unavailable [phone] Nicolas Huffman MD Primary Care Provider [phone] Reason for Referral * (Routine) - Closed Specialty Diagnoses / Procedures Referred By Contac t Referred To Contact Diagnoses Dyspnea Procedures Pulmonary Function Test -[facility] Adult PFT Lab- CAM-8D; Standard; Spirometry, Spirometry w/bronchodilator, DLCO and Lung Volumes Nicolas Huffman MD Phone: tel: fax: Referral ID Status Reason Start Date Expiration Date Visits Re quested Visits Authorized [id number] Closed 09/01/2019 03/12/2021 1 1 Encounter Details Date Type Department Care Team (Late st Contact Info) Description 09/01/2019 Orders Only Internal Medicine Nicolas Huffman MD [address] [address] Dyspnea (Primary Dx) Social History [...] on file Legal Sex Female 11:21 AM 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 Gender Identity Female 11/24/2020 8:03 AM CDT [...] 2.68 0.05 - 9.99 Liters [facility] FVC PRE 1.73 0 - 12 Liters [facility] FVC %PRE PRED 64 0 - 300 % [facility] FEV1 PRED 2.05 0.05 - 9.99 Liters [facility] FEV1 PRE 1.17 0 - 12 Liters [facility] FEV1 %PRE PRED 57 0 - 300 % [facility] FEV1/FVC PRED 77 1 - 99 % [facility] FEV1/FVC PRE 68 0 - 12 % [facility] JLR86-78% PRED 1.66 0 - 12 L/sec [facility] HNY99-11% PRE 0.54 0 - 12 L/sec [facility] UFT42-16% %PRE PRED 33 0 - 300 % [facility] FEF75% PRED 0.38 0 - 300 L/sec [facility] FEF75% PRE 0.15 0 - 12 L/sec [facility] FEF75% %PRE PRED 39 % [facility] PEF PRED 5.36 0 - 18 L/sec [facility] PEF PRE 4.17 0 - 18 L/sec [facility] PEF %PRE PRED 78 0 - 300 % [facility] PIF PRE 1.78 0 - 18 L/sec [facility] FEV6 PRE 1.66 0 - 12 Liters [facility] FEV1/FEV6 PRE 70 0 - 12 % [facility] VC PRED 2.79 0.05 - 9.99 Liters [facility] VC PRE 1.95 0.05 - 9.99 Liters [facility] VC %PRE PRED 70 0 - 300 % [facility] TLC PRED 5.14 0.05 - 11.99 Liters [facility] TLC PRE 4.63 0.05 - 11.99 Liters [facility] TLC %PRE PRED 90 0 - 300 % [facility] RV PRED 2.36 0.05 - 9.99 Liters [facility] RV PRE 2.68 0.05 - 9.99 Liters [facility] RV %PRE PRED 114 0 - 300 % [facility] RV/TLC PRED 46 0 - 300 % [facility] RV/TLC PRE 58 0 - 300 % [facility] FRC N2 PRED 2.52 0.05 - 9.99 Liters [facility] FRC PL PRED 2.96 0.05 - 9.99 Liters [facility] FRC PL PRE 2.78 0.05 - 9.99 Liters [facility] FRC PL %PRE PRED 94 0 - 300 % [facility] ERV PRED 0.92 0.05 - 9.99 Liters [facility] ERV PRE 0.20 0.05 - 9.99 Liters [facility] ERV %PRE PRED 22 0 - 300 % [facility] IC PRE 1.85 0.05 - 9.99 Liters [facility] DLCO PRED 22.5 0.05 - 99.99 mL/mmHg/min [facility] DLCO PRE 12.5 mL/mmHg/min [facility] DLCO %PRE PRED 55 0 - 300 % [facility] DL ADJ PRED 22.5 1 - 2 mL/mmHg/min [facility] DL ADJ PRE 12.5 1 - 2 mL/mmHg/min [facility] DL ADJ %PRE PRED 55 0 - 300 % [facility] DLCO/VA PRED 4.66 mL/mHg/min/ L [facility] DLCO/VA PRE 3.97 mL/mHg/min/ L [facility] DLCO/VA %PRE PRED 85 % [facility] DL/VA ADJ PRED 3.49 mL/mHg/min/ L [facility] DL/VA ADJ %PRE PRED 114 % [facility] VA PRE 3.15 Liters [facility] RAW PRED 1.28 cmH2O/L/sec [facility] [...] COVID: Suspected 01/21/2020 01/21/2020 01/21/2020 6:51 PM 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 Respiratory Infection (NOEL), contact + droplet Comment:Automatically added due to negative COVID-19 result. 01/21/2020 01/21/2020 2020 3:0 7 AM 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 COVID: Suspected 03/06/2022 03/06/2022 03/06/2022 9:09 PM 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 documented as of this encounter Care Teams Public Health Sanitarian Technician Relationship Specialty Start Date End Date Nicolas Huffman MD PCP - General 05/22/16 10/25/24 Nicolas Huffman MD [facility] [address] [address] PCP - General Internal Medicine 10/26/24 Donald Angelo MD [address] [facility] [address] [place] [address] Referring Physician Cardiology 10/26/24 Fabby Mcgee MD [address] [facility] [address] [place] [address] Consulting Physician Cardiology 10/26/24 documented as of this encounter
--- OUTSIDE RECORDS SUMMARY | 2024-12-10 09:30 | XMS_ITS | Clinical Summary ---
Author Organization [facility] Address [address] [place] [address] Care Team Providers Care Cutlery Grinder Name Role Phone Donald Angelo MD Unavailable [phone] Fabby Mcgee MD Unavailable [phone] Nicolas Huffman MD Primary Care Provider [phone] Allergies Active Allergy Reactions Criticality Noted Date Comments Amoxicillin Diarrhea High 11/20/2021 Oxycodone Mental status changes,Hallucinations High 11/25/2019 Prednisone Mental status changes,Hallucinations High 11/25/2019 Medications aspirin 325 mgIndications:My ocardial Reinfarction Prevention,preve ntion of thrombosis Take 1 tablet (325 mg total) by mouth mud analysis well logging captain before breakfast qd Active psyllium, aspartame, SF [...] 01/14/2024 Assessment & Plan (01/14/2024 11:58 AM BEVERAGE STEWARD): Long discussion today lasting more than 30 minutes concerning this. Will look for the present we will leave medication alone at this time. Will refer to cardiology here at [place]. Will try to obtain her pacer data from Dr. Mcgee. I feel this may very well have been a type 2 myocardial infarction based on pneumonia which was diagnosed in the emergency room Cervicalgia 01/14/2024 Assessment & Plan (01/14/2024 11:57 AM BEVERAGE STEWARD): Check C-spine x-rays. A-fib 06/12/2023 Assessment & Plan (01/14/2024 11:58 AM BEVERAGE STEWARD): Per Dr. Mcgee Assessment & Plan (06/12/2023 [...] exertion Assessment & Plan (02/20/2024 9:35 AM BEVERAGE STEWARD): I feel this is most likely secondary [...] Stable. Assessment & Plan (01/14/2024 11:57 AM BEVERAGE STEWARD): Stable at this time Resolved Problems Problem Noted Date Diagnosed Date Resolved Date History of surgical procedure 11/18/2016 06/10/2022 Left shoulder pain 12/04/2015 3 Encounters Date Type Department Care Team Description 12/08/2024 Telephone [facility] Medicine Neuro Sleep [address] [facility] 6th [address] [place] [address] Amaya Denney 11/19/2024 10:45 AM CDT Office Visit [facility] Medicine Cardiology [address] [facility] 8th [place] [address] [place] [address] Fabby Mcgee MD Longstanding persistent atrial fibrillation (HCC) (Primary Dx); Sinus bradycardia; S/P placement of cardiac pacemaker 11/19/2024 10:15 AM CDT Ancillary Procedure [facility] [address] [facility] 8th [place] [address] [place] [address] Syncope and collapse; Sinus pause; Fitting or adjustment of cardiac pacemaker 11/17/2024 Orders Only [facility] Neuro Sleep [address] [place] [address] Rosendo Young MD JEN (obstructive sleep apnea) (Primary Dx) 11/17/2024 Telephone [facility] Neuro Sleep [address] [place] [address] America Cotton, RN Test Results 11/12/2024 Telephone [facility] [address] [place] [address] America Cotton, MARCELLUS 11/12/2024 Telephone [facility] [address] [place] [address] 8th [place] [address] [place] [address] Fabby Mcgee MD 11/11/2024 7:30 PM CDT Procedure visit [facility] Neuro Sleep [address] [place] [address] JEN (obstructive sleep apnea) (Primary Dx); Hypersomnolence; Central sleep apnea 11/09/2024 Telephone [facility] 8th [place] [address] [place] [address] Rosalina Castellano 10/26/2024 11:30 AM CDT [facility] [address] [place] [address] Rosendo Young MD Hypersomnolence (Primary Dx); S/P placement of cardiac pacemaker; Longstanding persistent atrial fibrillation (HCC); TARANGO (dyspnea on exertion) 10/18/2024 Orders Only [facility] [address] [place] [address] Fabby Mcgee MD 10/11/[address] [facility] CARDIOLOGY Scanning, Provider 10/11/2024 Orders Only [facility] [address] [place] [address] [place] [phone] Nicolas Huffman MD 10/11/2024 Telephone [facility] [address] [place] [address] 8th [place] [address] [place] [address] Donald Angelo MD order 10/06/2024 Results Follow-Up [facility] [address] [place] [address] 8th [place] [address] [place] [phone] Brian Sumner NP Thyroid Function Moore, Magnesium, CBC with auto differential, Additional followed-up results: 5 10/04/2024 1:55 PM CDT Lab [facility] [address] [place] [address] Paroxysmal atrial fibrillation (HCC) 10/04/2024 12:30 PM CDT Office Visit [address] 8th [place] [address] [place] [address] Brian Sumner NP Paroxysmal atrial fibrillation (HCC) (Primary Dx); S/P placement of cardiac pacemaker; Essential hypertension; Longstanding persistent atrial fibrillation (HCC); Coronary artery arteriosclerosis; Chronic diastolic heart failure (HCC) 09/21/2024 Orders Only [facility] Cardiology [address] [address] [address] [place] [address] Malachi Griffiths MD 09/19/2024 Orders Only [facility] [address] [place] [address] [place] [phone] Nicolas Huffman MD 09/17/2024 10:15 AM CDT Office Visit [facility] [address] [place] [address] [place] [phone] Nicolas Huffman MD Moderate COPD (chronic obstructive [...] CARDIOVERSION; Surgeon: Will Walters MD PhD; Location: [facility] CARDIAC HELPER COORDINATOR; Service: Cardiovascular; Laterality: N/A; CARDIOVERSION Medical History [...] on file Legal Sex Female 11:21 AM BEVERAGE STEWARD Gender Identity Female 11/24/2020 8:03 AM CDT [...] 12/02/2023, 10/10/2022 Medical Devices Implanted Type Area Switch Repairer Device Identifier Shelf Expiration Date Model / Serial / Lot Fast FiBR Suzi Monitor Cardiac Insertable Leadless Lux Dx 4.0x7.2x44.8m m M301 - [id number] - [id number] Implanted:Qty : 1 on 12/12/2022 by Fabby Mcgee MD at [facility] Implantable Loop Recorder [employer] Suzi 10/01/2023 M301 / [id number] / [id number] [employer] Suzi Active Fixation Steroid Eluting Is 1 Connector Latex Free Sterile Right Atrial Right Atrial Ingevity Plus 59cm 7842 - [id number] - [id number] Implanted:Qty : 1 on 06/12/2023 by Fabby Mcgee MD at [facility] Lead Right: Ventricle [employer] Suzi 06/29/2024 7842 / [id number] / [employer] Suzi Fineline Ii Sterox Ez 1.7mm 52cm Bipolar Active Fixation Screw 4470 - [id number] - [id number] Implanted:Qty : 1 on 06/12/2023 by Fabby Mcgee MD at [facility] Lead Right: Atria [employer] Suzi 12/02/2024 4470 / [id number] / [employer] C.R.M. Accolade Latitude Nxt Pacesafe Easyview 4.45x5.02cm 2 Chamber Is1 L311 - [id number] - [id number] Implanted:Qty : 1 on 06/12/2023 by Fabby Mcgee MD at [facility] Pacemaker Left: Chest Wall [employer] C.R.M. 04/24/2025 L311 / [id number] / Procedures Procedure Name Priority Date/Time Associated [...] (COMPLEX) (11/10/2024 8:00 PM CDT) Narrative Rosendo Yougn MD - 11/10/2024 8:00 PM CDT Rosendo [...] estimate based on prior usage) Presenting Rhythm (SC) Atrial Fibrillation or Flutter Ventricular Pacing (DRYING TUNNEL OPERATOR) --- rate 70 Arrhythmic events (AE) Persistent atrial fibrillation and/or flutter Atrial fibrillation and/or flutter with rapid ventricular rate --- 587 V high rate episodes. Rates 160-180. Longest: [id number]. Limited data due to sheer amount of episodes. Anticoagulation (AC) Patient prescribed Apixaban (Eliquis) Patient on anticoagulant therapy Procedure Note Fabby Mcgee MD - 10/29/2024 Interpretation Summary: Battery and Leads (BL) Normal parameters noted on battery and lead(s) --- 5.5 years remaining(this is an estimate based on prior usage) Presenting Rhythm (SC) Atrial Fibrillation or Flutter Ventricular Pacing (DRYING TUNNEL OPERATOR) --- rate 70 Arrhythmic events (AE) Persistent atrial fibrillation and/or flutter Atrial fibrillation and/or flutter with rapid ventricular rate --- 587 Vhigh rate episodes. Rates 160-180. Longest: [id number]. Limited data due tosheer amount of episodes. Anticoagulation (AC) Patient prescribed Apixaban (Eliquis) Patient on anticoagulant therapy Result [facility] Fabby Mcgee MD CV CARDIAC SERVICES PROCEDURES Final Result * SCAN - LABS (10/11/2024 4:15 PM CDT) Nicolas Huffman MD Final Result * SCAN - LABS (10/11/2024) Provider Scanning Final Result * (ABNORMAL) eGFR (10/04/2024 1:59 PM CDT) Pathologist [facility] eGFR 49(L) >=60 mL/min/1. 73 [...] PM CDT 10/04/2024 2:46 PM CDT Brian Sumner NP LAB BLOOD ORDERABLES Fin al Result [facility] [place] [address] * (ABNORMAL) Differential, auto (10/04/2024 1:59 PM CDT) Pathologist [facility] Neutrophil abs 10.46(H) 1.50 - 6.50 K/cumm Imm gran abs 0.09 0.00 - 0.10 K/cumm [facility] Lymphocyte abs 2.64 0.80 - 3.30 K/cumm [facility] Monocyte abs 1.19(H) 0.20 - 0.80 K/cumm [facility] Eosinophil abs 0.25 0.00 - 0.50 K/cumm [facility] Basophil abs 0.11(H) 0.00 - 0.10 K/cumm [facility] Neutrophil pct 71.0 % [facility] Comment: Interpretive Data Percent cell count reference ranges are not reported, since discordance with absolute values may lead to misinterpretation of CBC data. Current Interpretive Data was last revised on 2017. Imm gran pct 0.6 % [facility] Comment: Interpretive Data Percent cell count reference ranges are not reported, since discordance with absolute values may lead to misinterpretation of CBC data. Current Interpretive Data was last revised on 2017. Lymphocyte pct 17.9 % [facility] Comment: Interpretive Data Percent cell count reference ranges are not reported, since discordance with absolute values may lead to misinterpretation of CBC data. Current Interpretive Data was last revised on 2017. Monocyte pct 8.1 % [facility] Comment: Interpretive Data Percent cell count reference ranges are not reported, since discordance with absolute values may lead to misinterpretation of CBC data. Current Interpretive Data was last revised on 2017. Eosinophil pct 1.7 % [facility] Comment: Interpretive Data Percent cell count reference ranges are not reported, since discordance with absolute values may lead to misinterpretation of CBC data. Current Interpretive Data was last revised on 2017. Basophil pct 0.7 % [facility] Comment: Interpretive Data Percent cell count reference ranges are not reported, since discordance with absolute values may lead to misinterpretation of CBC data. Current Interpretive Data was last revised on 2017. Blood 10/04/2024 1:59 PM CDT 10/04/2024 2:25 PM CDT us Brian Sumner NP LAB BLOOD ORDERABLES Fin al Result [facility] [place] [address] * (ABNORMAL) Pro B-type natriuretic peptide (10/04/2024 [...] ORDERABLES Fin al Result [facility] Department of Laboratories [place], [place] [id number] * Thyroid Function Moore (10/04/2024 1:59 PM CDT) TSH 0.72 0.30 - 4.20 mcIUnit/mL Blood 10/04/2024 1:59 PM CDT 10/04/2024 2:25 PM CDT Brian Sumner REFRIGERATION ENGINEERING TEACHER LAB BLOOD ORDERABLES Fin al Result Performing Organization Address [facility] Co de Phone Number [facility] [place] [address] * (ABNORMAL) CBC with auto differential (10/04/2024 1:59 PM CDT) WBC 14.74(H) 3.80 - 9.90 K/cumm Hgb 14.5 11.9 - 15.5 g/dL [facility] Hct 41.8 35.6 - 45.5 % [facility] Plt 467(H) 150 - 400 K/cumm [facility] MPV 9.8 9.1 - 12.3 fL [facility] RBC 4.71 3.90 - 5.20 M/cumm [facility] MCV 88.7 81.3 - 96.4 fL [facility] MCH 30.8 27.1 - 33.3 pg [facility] MCHC 34.7 32.3 - 35.7 g/dL [facility] RDW CV 13.1 11.1 - 14.9 % [facility] RDW SD 42.5 35.7 - 48.1 fL [facility] NRBC abs 0.00 0.00 - 0.01 K/cumm [facility] Blood 10/04/2024 1:59 PM CDT 10/04/2024 2:25 PM CDT Brian Sumner NP LAB BLOOD ORDERABLES Fin al Result [facility] [place] [address] * Magnesium (10/04/2024 1:59 PM CDT) Magnesium 2.2 1.4 - 2.5 mg/dL Blood 10/04/2024 1:59 PM CDT 10/04/2024 2:25 PM CDT Brian Sumner NP LAB BLOOD ORDERABLES Fin al Result Performing Organization Address [facility] Co de Phone Number [facility] [place] [address] * (ABNORMAL) Basic metabolic panel (10/04/2024 1:59 PM CDT) [facility] Sodium 138 135 - 145 mmol/L Potassium, pl 3.7 3.3 - 4.9 mmol/L [facility] Chloride 100 97 - 110 mmol/L [facility] CO2 25 22 - 32 mmol/L [facility] Anion gap 13 2 - 15 mmol/L [facility] BUN 29(H) 6 - 25 mg/dL [facility] Creatinine 1.12(H) 0.60 - 1.10 mg/dL [facility] Glucose 109 70 - 199 mg/dL [facility] Comment: Interpretive Data Fasting glucose >/= [...] 2022. Calcium 9.4 8.5 - 10.3 mg/dL [facility] Blood 10/04/2024 1:59 PM CDT 10/04/2024 2:25 PM CDT Brian Sumner NP LAB BLOOD ORDERABLES Fin al Result Performing Organization Address [facility] Co de Phone Number [facility] [place] [address] * ECG 12 lead (10/04/2024 1:41 PM CDT) us Brian Sumner REFRIGERATION ENGINEERING TEACHER ECG ORDERABLES Edited R esult - Final [...] Advance Directives For more information, please contact: [phone] Documents on File Type Date Recorded Patient Product Safety Officer Expl anation Power of Statistics Tutor 06/12/2023 5:53 AM ADVANCE DIRECTIVE 12/17/2022 2:43 AM PARVIN R OF SALES ACCOUNT MANAGER-MEDICAL Power of Statistics Tutor 12/12/2022 10:10 AM * Full Code (Latest Code Status on File) Date Activated Date Inactivated Comments 06/12/2023 10:30 AM 06/13/2023 3:29 PM * Full Code Date Activated Date Inactivated Comments 12/12/2022 1:31 PM 12/12/2022 7:26 PM Care Teams Cutlery Grinder Relationship Specialty Start Date End Date Nicolas Huffman MD [address] [facility] [address] [place] [address] PCP - General Internal Medicine 10/26/24 Donald Angelo MD [address] [facility] [address] [place] [address] Referring Physician Cardiology 10/26/24 Fabby Mcgee MD [address] [facility] [address] [place] [address] Consulting Physician Cardiology 10/26/24
--- OUTSIDE RECORDS SUMMARY | 2024-12-10 09:30 | XMS_ITS | Encounter Summary ---
Author Organization [facility] Address [address] [place] [address] Phone Care Team Providers Care Cigar Patcher Name Role Phone Donald Angelo MD Unavailable [phone] Fabby Mcgee MD Unavailable Nicolas Huffman MD Primary Care Provider [phone] Encounter Details Date Type Department Care Team (Late st Contact Info) Description 12/08/2024 Telephone [facility] Medicine Neuro Sleep [address] [facility] 6th Floor [address] [place] [address] Amaya Denney Social History Tobacco [...] on file Legal Sex Female 11:21 AM 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
== END 2024-12-10 11:57 | disposition home or self-care (01) ==
PROVIDERS: Emergency Provider Emergency Medicine; PCP Internal Medicine
DX: N39.0 Urinary tract infection, site not specified (principal); H61.23 Impacted cerumen, bilateral; I48.91 Unspecified atrial fibrillation; I50.9 Heart failure, unspecified; I11.0 Hypertensive heart disease with heart failure; J44.9 Chronic obstructive pulmonary disease, unspecified; K58.9 Irritable bowel syndrome, unspecified; M81.0 Age-related osteoporosis without current pathological fracture; F32.A Depression, unspecified; F41.9 Anxiety disorder, unspecified; Z96.612 Presence of left artificial shoulder joint; Z87.891 Personal history of nicotine dependence; Z79.01 Long term (current) use of anticoagulants; Z79.82 Long term (current) use of aspirin; Z79.899 Other long term (current) drug therapy
CPT/HCPCS: 36415; 80053; 81001; 83605; 85025; 85610; 85730; 87077; 87086; 87186; 93005; 96365; 99284; J0696

== ENCOUNTER 2024-12-12 07:51 | Inpatient (IN) | payer MEDICARE, SELFPAY ==
[2024-12-12] VITALS (13 sets, daily range): BP systolic 120–172; BP diastolic 54–99; PULSE 81–111; RESP 15–20; TEMP 36.4–37; O2SAT 94–97; BMI 32.3
--- NOTE | ~2024-12-12 | XR_ITS ---
Examination: XR chest 2V Clinical History: weakness DIZZY Comparison: 09/19/2024 Technique: PA and Lateral Findings: Left pacemaker. Mild cardiomegaly. Lungs clear. No acute bony abnormality. Osteopenia. IMPRESSION: 1. No acute cardiopulmonary findings. Reviewed, dictated and finalized at location R.
--- NOTE | ~2024-12-12 | XR_ITS ---
EXAMINATION: XR foot RT 2V, 12/15/2024 16:52 CDT HISTORY: foot pain, decrease ambulation COMPARISON: No comparisons available. Findings: There is a nondisplaced fracture suspected of the proximal fifth metatarsal, correlate for pain in this area. No significant degenerative changes. Soft tissues unremarkable. Impression: Please see above Reviewed, dictated and finalized at location P. Impression: Please see above
--- NOTE | ~2024-12-12 | XR_ITS ---
EXAMINATION: XR chest 1V portable DATE: 12/14/2024 14:42 INDICATION: Leukocytosis. Assess for pneumonia. TECHNIQUE: frontal view of the chest was obtained. COMPARISON: Chest radiograph dated 12/12/2024 FINDINGS: No focal airspace opacities, pulmonary edema, pleural effusion or pneumothorax. Heart size is normal. Dense mitral annular calcification. Dual lead pacemaker seen with leads projecting over the expected locations of the right atrium and right ventricle. Severe right glenohumeral osteoarthritis. Reverse left total shoulder arthroplasty. IMPRESSION: 1. No acute cardiopulmonary disease. Reviewed, dictated and finalized at location A.
--- NOTE | 2024-12-12 07:55 | ECG_ITS ---
Test Date: 2024-12-12 08:04:46 Measurements Intervals [place] Rate: 92 P: 0 IN: 0 QRS: -33 QRSD: 88 T: 156 QT: 327 QTc: 406 Interpretive Statements ELECTRONIC VENTRICULAR PACEMAKER WITH INHIBITION LEFT AXIS DEVIATION UNDERLYING ATRIAL FIBRILLATION BORDERLINE R WAVE PROGRESSION, ANTERIOR LEADS LEFT VENTRICULAR HYPERTROPHY WITH ST-T CHANGE BASELINE ARTIFACT- I, II, III, AVR, AVL ,AVF, V4-V6 ABNORMAL ECG Compared to ECG 12/10/2024 08:44:56 NO SIGNIFICANT CHANGE Electronically Signed On 12-12-2024 09:42:46 CDT by Osmar Yost D.O.
[2024-12-12 08:15] LABS: Hematocrit 42.1 % (37.0-47.0); Hemoglobin 13.9 g/dL (12.0-15.0); Immature Granulocyte Percent A 0.6 % (0-0.5); Lymphocytes Absolute Auto 1.60 K/mm3 (0.9-3.2); Mean Corpuscular HGB Conc 33.0 g/dl (32-36); Mean Corpuscular Hemoglobin 30.0 pg (26-34); Mean Corpuscular Volume 90.7 fl (80-100); Nucleated Red Blood Cells Absolute Auto 0.000 K/mm3 (0.0-0.012); Nucleated Red Blood Cells Perc 0.0 % (0.0-0.2); Platelet Count Result 338 k/mm3 (150-375); Red Blood Count 4.64 M/mm3 (4.2-5.4); White Blood Count 12.1 K/mm3 (4.5-10.0)
[2024-12-12 08:25] LABS: INR 1.4; Prothrombin Time 16.9 Seconds (11.1-14.7)
[2024-12-12 08:26] LABS: Alanine Aminotransferase 35 U/L (6-35); Albumin Level 4.2 g/dL (3.5-5.1); Alkaline Phosphatase 142 U/L (38-126); Anion Gap 11 mmol/L (4-12); Aspartate Amino Transferase 46 U/L (14-36); Bilirubin,Total 0.8 mg/dL (0.2-1.3); Blood Urea Nitrogen 23 mg/dL (7-17); Calcium 9.5 mg/dL (8.4-10.2); Carbon Dioxide 26 mmol/L (22-30); Chloride 101 mmol/L (98-107); Estimated CRCL calculation 45 ml/min; Estimated Glomerular Filt Rate 58; Glucose 117 mg/dL (65-110); Magnesium 1.8 mg/dL (1.6-2.3); Partial Thromboplastin Time 33.9 Seconds (22.3-36.8); Potassium 3.3 mmol/L (3.4-5.0); Sodium 138 mmol/L (137-145); Total Protein 8.1 g/dL (6.3-8.2)
[2024-12-12 08:37] LABS: NT Pro B Type Natriuretic Pept 2130 pg/mL (19.9-100); Troponin I < 0.012 ng/mL (0.000-0.034)
[2024-12-12 08:42] LABS: Add Urine Microscopic? YES; Appearance Urine Clear (Clear); Glucose Urine UA Negative (Negative); Leukocyte Esterase Ur Negative LEU/UL (Negative); Nitrate Urine Negative (Negative); Non Pathogenic Casts 0-2; Specific Grav Ur 1.010 (1.001-1.035)
[2024-12-12] MEDS: POTASSIUM CHLORIDE 20 MEQ PACKET (FOR LIQUID) 40 MEQ PO (09:01)
--- NOTE | 2024-12-12 09:33 | ED.GENADULT ---
HPI - General Adult General Chief complaint: Weakness Stated complaint: weakness Time Seen by Provider: 12/12/24 07:58 History of Present Illness HPI narrative: Patient is a 84-year-old female who presents emergency department with chief complaint of weakness and increasing shortness of breath. Patient was seen in the emergency department on Friday diagnosed with urinary tract infection started on antibiotics the patient reports she has prior history of congestive heart failure atrial fibrillation patient reports she has been having some more PVCs does report that she is on Eliquis the patient reports that she feels disc and is though she can not get a good deep breath. Patient denies chest pain. The patient states that at times she has felt as though she has been hallucinating Related Data Home Medications ?Medication ?Instructions ?Recorded ?Confirmed ?Last Taken ?Type aspirin 325 mg tablet 325 mg PO DAILY 12/14/19 12/12/24 12/11/24 History chlorthalidone 25 mg tablet 25 mg PO DAILY 12/14/19 12/12/24 12/11/24 History hydralazine 50 mg tablet 50 mg PO TID 12/14/19 12/12/24 12/11/24 History metoprolol tartrate 100 mg tablet 50 mg PO Q12H 12/14/19 12/12/24 12/11/24 History alprazolam 0.25 mg tablet 0.25 mg PO QID PRN anxiety 09/19/24 12/12/24 12/11/24 History apixaban 5 mg tablet (Eliquis) 5 mg PO Q12H 09/19/24 12/12/24 12/11/24 History furosemide 20 mg tablet 20 mg PO DAILY PRN edema 09/19/24 12/12/24 Unknown History amlodipine 5 mg tablet 5 mg PO DAILY 12/10/24 12/12/24 12/11/24 History dronedarone 400 mg tablet (Multaq) 400 mg PO BID 12/10/24 12/12/24 12/11/24 History diltiazem HCl 240 mg 240 mg PO Q24H 12/12/24 12/12/24 12/11/24 History capsule,extended release 24 hr, controlled (DILT-XR) Allergies Allergy/AdvReac Type Severity Reaction Status Date / Time oxycodone Allergy Mild condusion, Verified 12/12/24 08:02 difficulty concentrating amoxicillin AdvReac Intermediate Diarrhea Verified 12/12/24 08:02 prednisone AdvReac Mild Confusion Verified 12/12/24 08:02 Review of Systems Review of Systems: A 10 system review of systems was completed on the patient and is negative except for what is stated in the HPI. Nursing and ancillary documentation was reviewed. COUNT INCLUDES THE [facility] Past Medical History Medical History Depression Anxiety Osteoporosis Heart murmur Pacemaker Congestive heart failure Afib IBS (irritable bowel syndrome) Hypertension COPD (chronic obstructive pulmonary disease) Surgical History Surgical History History of left shoulder replacement Family History Family History Father Stomach cancer Mother Osteoporosis Social History Social History Smoking packs per day: 0.5 Smoking cigarettes per day: 10.0 Years smoked: 50 Smoking pack-years: 25.00 Smoking status: Former smoker Tobacco type: cigarettes Second hand tobacco smoke exposure: Yes Smoking end date: 03/03/11 Additional smoking assessment comments: quit in 2011 Alcohol intake: never Substance use: current Substance use type: does not use Do You Feel Safe in your Home?: Yes Lack of Transportation: No Lack of Food: Never True Current Housing: I Have Housing Concerned About Future Housing: No Difficulty Paying Gas/Electric Bills: No Difficulty Paying for Meds: No Currently Unemployed: No Education: High School Diploma/GED Difficulty w/ Childcare or Family Care: No Living arrangements: alone Spiritual care concerns: Yes (evangelical) Exam Narrative: GENERAL: Well-appearing, well-nourished, and in no acute distress. HEAD: Normocephalic, atraumatic. EYES: PERRLA and EOMI. ENT: Nares clear, no rhinorrhea or epistaxis. Mucous membranes moist. NECK: Supple. CHEST: Clear to auscultation. No respiratory distress. HEART: Regular rate and rhythm. No murmur heard. Normal peripheral pulses. ABDOMEN: Soft, nontender, nondistended, normal active bowel sounds. EXTREMITIES: Normal range of motion. Trace edema. SKIN: Warm, dry, no rash. NEURO: No focal deficits. Alert and oriented x3. PSYCH: Normal mood and affect. Course Vital Signs Vital signs: Vital Signs Temperature 37.0 C 12/12/24 07:55 Pulse Rate 94 12/12/24 07:55 Respiratory Rate 19 12/12/24 07:55 Blood Pressure 172/99 H 12/12/24 07:55 Pulse Oximetry 96 12/12/24 07:55 Oxygen Delivery Room Air 12/12/24 07:55 Temperature 37.0 C 12/12/24 07:55 Pulse Rate 94 12/12/24 10:30 Respiratory Rate 20 12/12/24 10:30 Blood Pressure 138/82 12/12/24 08:56 Pulse Oximetry 96 12/12/24 10:30 Oxygen Delivery Room Air 12/12/24 07:55 Medical Decision Making MDM Narrative Medical decision making narrative: Differential diagnosis includes UTI, generalized weakness, electrolyte abnormality, CHF exacerbation, ACS EKG showed multiple PVCs and paced rhythm Urinalysis showed no evidence UTI BNP was 2130 troponin was less than 0.012 renal function showed a BUN of 23 and a creatinine of 0.92 potassium was 3.3 and magnesium was 1.8 the patient was given 40 mEq of p.o. potassium and 1 g magnesium IV CBC showed white count 12.1 chest x-ray showed no focal infiltrate Given the patient's overall weakness and return to the emergency department case was discussed with the hospitalist and the patient be admitted for further care Vital Signs Vital Signs: Vital Signs Temperature 37.0 C 12/12/24 07:55 Pulse Rate 94 12/12/24 07:55 Respiratory Rate 19 12/12/24 07:55 Blood Pressure 172/99 H 12/12/24 07:55 Pulse Oximetry 96 12/12/24 07:55 Oxygen Delivery Room Air 12/12/24 07:55 Temperature 37.0 C 12/12/24 07:55 Pulse Rate 94 12/12/24 10:30 Respiratory Rate 20 12/12/24 10:30 Blood Pressure 138/82 12/12/24 08:56 Pulse Oximetry 96 12/12/24 10:30 Oxygen Delivery Room Air 12/12/24 07:55 Lab Data 12/12/24 08:05 12/12/24 08:05 Labs: Lab Results 12/12/24 12/12/24 12/12/24 Range/Units 08:05 08:05 08:23 WBC 12.1 H (4.5-10.0) K/mm3 RBC 4.64 (4.2-5.4) M/mm3 Hgb 13.9 (12.0-15.0) g/dL Hct 42.1 (37.0-47.0) % MCV 90.7 (80-100) fl MCH 30.0 (26-34) pg MCHC 33.0 (32-36) g/dl RDW 13.4 (11.5-14.5) % Plt Count 338 (150-375) k/mm3 MPV 9.5 (7.4-10.4) fl Immature Gran % (Auto) 0.6 H (0-0.5) % Neut % (Auto) 75.8 H (45.5-73.1) % Lymph % (Auto) 13.2 L (18.3-44.2) % [place] % (Auto) 7.8 (2.6-8.5) % Eos % (Auto) 1.7 (0-4.4) % Baso % (Auto) 0.9 (0.2-1.2) % Lymph # (Auto) 1.60 (0.9-3.2) K/mm3 [place] # (Auto) 0.9 H (0.1-0.6) K/mm3 Eos # (Auto) 0.2 (0-0.3) K/mm3 Baso # (Auto) 0.1 (0.0-0.1) K/mm3 Abs Immat Gran (auto) 0.07 H (0.00-0.031) K/mm3 Absolute Neuts (auto) 9.2 H (1.3-6.7) K/mm3 Absolute Nucleated RBC 0.000 (0.0-0.012) K/mm3 Nucleated RBC % 0.0 (0.0-0.2) % PT 16.9 H (11.1-14.7) Seconds INR 1.4 APTT 33.9 (22.3-36.8) Seconds Sodium 138 (137-145) mmol/L Potassium 3.3 L (3.4-5.0) mmol/L Chloride 101 (98-107) mmol/L Carbon Dioxide 26 (22-30) mmol/L Anion Gap 11 (4-12) mmol/L BUN 23 H (7-17) mg/dL Creatinine 0.92 (0.7-1.0) mg/dL Estim Creat Clear Calc 45 ml/min Estimated GFR 58 L (59 - ) Glucose 117 H (65-110) mg/dL Calcium 9.5 (8.4-10.2) mg/dL Magnesium 1.8 Cancelled (1.6-2.3) mg/dL Total Bilirubin 0.8 (0.2-1.3) mg/dL AST 46 H (14-36) U/L ALT 35 (6-35) U/L Alkaline Phosphatase 142 H (38-126) U/L Troponin I < 0.012 (0.000-0.034) ng/mL NT-Pro-B Natriuret Pep 2130 H (19.9-100) pg/mL Total Protein 8.1 (6.3-8.2) g/dL Albumin 4.2 (3.5-5.1) g/dL Urine Color Yellow (Yellow) Urine Appearance Clear (Clear) Urine pH 7.0 (5.0-9.0) Ur Specific [place] 1.010 (1.001-1.035) Urine Protein 2+ H (Negative) mg/dL Urine Glucose (UA) Negative (Negative) mg/dL Urine Ketones Negative (Negative) mg/dL Ur Blood (Man) Negative (Negative) Urine Nitrate Negative (Negative) Urine Bilirubin Negative (Negative) Urine Urobilinogen 0.2 (<2.0) mg/dL Leukocyte Esterase Rfl Negative (Negative) ELEN/UL Urine RBC 0-2 (0-2) /hpf Urine WBC 0-5 (0-3) /hpf Ur Squamous Epith Cells None seen (Few) /hpf Urine Bacteria None seen /hpf Urine Casts 0-2 Discharge Plan Discharge Clinical Impression: Generalized weakness, CHF (congestive heart failure) Patient Disposition: Still a Patient Condition: Stable Patient Language: Argentine Prescriptions: No Action hydralazine 50 mg tablet 50 mg PO TID metoprolol tartrate 100 mg tablet 50 mg PO Q12H chlorthalidone 25 mg tablet 25 mg PO DAILY aspirin 325 mg tablet 325 mg PO DAILY Eliquis 5 mg tablet 5 mg PO Q12H alprazolam 0.25 mg tablet 0.25 mg PO QID PRN (Reason: anxiety) furosemide 20 mg tablet 20 mg PO DAILY PRN (Reason: edema) Patient Comments: to take if gains more than 2 pounds in one day potassium chloride [Klor-Con 10] 10 mEq tablet extended release 10 meq PO DAILY PRN (Reason: Take only when you take furosemide ) Qty: 30 0RF amlodipine 5 mg tablet 5 mg PO DAILY Multaq 400 mg tablet 400 mg PO BID cephalexin 500 mg capsule 500 mg PO Q8H 7 Days Qty: 21 0RF diltiazem HCl [DILT-XR] 240 mg capsule,ext.rel 24h degradable 240 mg PO Q24H Follow-up/Referrals: Nathanael,Nicolas Romero MD [Primary Care Provider] Time of Disposition: 10:38
[2024-12-12] MEDS: MAGNESIUM SULF 1 GM/D5W 100 ML 1 GM/100 ML BAG IVPB (10:35)
[2024-12-12] MEDS: FUROSEMIDE INJ 40 MG/4 ML VIAL IV PUSH ×2 (10:41→20:57)
--- NOTE | 2024-12-12 11:50 | PC.NURSE ---
lunch tray ordered for pt at this time
--- NOTE | 2024-12-12 12:57 | ADMGEN ---
This patient, Stephanie Brewer, was admitted to Medical Room 256-. Patient/family oriented to hospital policies and general routines including ID bracelet, bed and alarms, visiting hours, pain management, procedures, bathroom and other care routines, personal items, smoking policy, room service/diet, and visiting hours. Information on how to activate the Rapid Response Team has been discussed. Patient/Family are encouraged to report perceived risks to care and to ask questions if they do not understand what they are told or what they should do.
--- NOTE | 2024-12-12 14:53 | PM.IMHP ---
H&P: HPI History of Present Illness Date/Time: 12/12/24 14:53 Chief Complaint: Shortness of breath Narrative: Stephanie Brewer is an 84 year old female with pmhx of COPD, HTN, PAfib, IBS and Pacemaker who is here on 12/12/24 for shortness of breath. This episode started on which was still manageable. She completed her daily chores. On friday, she had urinary track symptoms and was seeking care. Last night, she could not bear dyspnea associated with brief lightheadedness and palpitations. No change was her weight. Denies cough or chest pain. she uses 2 pillows and a side sleeper. Denies fever or chills. She also complains urinary frequency. She had multiple episodes of atrial fibrillation with rapid ventricular response to which requires hospitalization. 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 Recently they adjusted her medication : Metoprolol 50 mg b.i.d. and amlodipine 5 mg daily. Discontinued diltiazem. I do not have echocardiogram in the chart. Patient reported having done well with echocardiogram and had a cardioversion recently. Her last hospitalization for atrial fibrillation was rapid ventricular response was the in 2024. On arrival, she has atrial fibrillation with rapid ventricular response. Hypertensive. leukocytosis 12.1. BNP was elevated 0. Troponin negative x1. BMP unremarkable. She was given IV Lasix. She showed clinical improvement and admitted to the floor for further management. Review of Systems Review of Systems: All systems reviewed & are unremarkable except as noted in HPI and below PMFSH Past Medical History Medical History Depression Anxiety Osteoporosis Heart murmur Pacemaker Congestive heart failure Afib IBS (irritable bowel syndrome) Hypertension COPD (chronic obstructive pulmonary disease) Surgical History Surgical History History of left shoulder replacement Family History Family History Father Stomach cancer Mother Osteoporosis Social History Social History Smoking packs per day: 0.5 Smoking cigarettes per day: 10.0 Years smoked: 50 Smoking pack-years: 25.00 Smoking status: Former smoker Tobacco type: cigarettes Second hand tobacco smoke exposure: No Smoking end date: 03/03/11 Additional smoking assessment comments: quit in 2011 Alcohol intake: never Substance use: never Substance use type: does not use Do You Feel Safe in your Home?: Yes Lack of Transportation: No Lack of Food: Never True Current Housing: I Have Housing Concerned About Future Housing: No Difficulty Paying Gas/Electric Bills: No Difficulty Paying for Meds: No Currently Unemployed: No Education: Associate Degree Difficulty w/ Childcare or Family Care: No Living arrangements: alone Spiritual care concerns: No Meds Home Medications and Allergies Home Medications ?Medication ?Instructions ?Recorded ?Confirmed ?Type aspirin 325 mg tablet 325 mg PO DAILY 12/14/19 12/12/24 History chlorthalidone 25 mg tablet 25 mg PO DAILY 12/14/19 12/12/24 History hydralazine 50 mg tablet 50 mg PO TID 12/14/19 12/12/24 History metoprolol tartrate 100 mg tablet 50 mg PO Q12H 12/14/19 12/12/24 History alprazolam 0.25 mg tablet 0.25 mg PO QID PRN anxiety 09/19/24 12/12/24 History apixaban 5 mg tablet (Eliquis) 5 mg PO Q12H 09/19/24 12/12/24 History furosemide 20 mg tablet 20 mg PO DAILY PRN edema 09/19/24 12/12/24 History potassium chloride 10 mEq 10 meq PO DAILY PRN Take only when 09/20/24 12/12/24 Rx tablet,extended release (Klor-Con) you take furosemide #30 tabs amlodipine 5 mg tablet 5 mg PO DAILY 12/10/24 12/12/24 History dronedarone 400 mg tablet (Multaq) 400 mg PO BID 12/10/24 12/12/24 History dapagliflozin propanediol 10 mg 10 mg PO DAILY 12/12/24 12/12/24 History tablet (Farxiga) diltiazem HCl 240 mg 240 mg PO Q24H 12/12/24 12/12/24 History capsule,extended release 24 hr, controlled (DILT-XR) Allergies Allergy/AdvReac Type Severity Reaction Status Date / Time oxycodone Allergy Mild condusion, Verified 12/12/24 08:02 difficulty concentrating amoxicillin AdvReac Intermediate Diarrhea Verified 12/12/24 08:02 prednisone AdvReac Mild Confusion Verified 12/12/24 08:02 Vital Signs Vital Signs - 24 hr 12/12/24 07:55 12/12/24 08:00 12/12/24 08:56 Temperature 37.0 C Pulse Rate 94 90 93 Respiratory Rate 19 16 Blood Pressure 172/99 H 138/82 Pulse Oximetry 96 94 Oxygen Delivery Room Air 12/12/24 10:30 12/12/24 10:43 12/12/24 12:05 Temperature Pulse Rate 94 101 H 97 Respiratory Rate 20 20 15 Blood Pressure 172/68 H 170/87 H Pulse Oximetry 96 95 96 Oxygen Delivery 12/12/24 13:35 Temperature Pulse Rate 108 H Respiratory Rate Blood Pressure Pulse Oximetry Oxygen Delivery Exam Narrative: APPEARANCE: Stated age, obese EYES: EOMI HEENT: Normocephalic, atraumatic, OMM RESPIRATORY: No respiratory distress Clear to auscultation bilaterally with no rhonchi wheezing or rales. CARDIOVASCULAR: Irregularly irregular. No murmur or regurg ABDOMINAL: Soft, nontender, nondistended, no rebound or guarding MSK: Bilateral lower extremity 2+ pitting edema. NEURO: Awake and alert. Following commands, speech normal, no focal deficits SKIN:: Warm, dry. No rashes lesions or abrasions PSYCHIATRIC: Appropriate mood H&P: Results Labs Labs: Short CBC 12/12/24 Range/Units 08:05 WBC 12.1 H (4.5-10.0) K/mm3 Hgb 13.9 (12.0-15.0) g/dL Hct 42.1 (37.0-47.0) % Plt Count 338 (150-375) k/mm3 [facility] 12/12/24 08:05 Sodium 138 Potassium 3.3 L Chloride 101 Carbon Dioxide 26 BUN 23 H Creatinine 0.92 Glucose 117 H Calcium 9.5 Cardiac Enzymes 12/12/24 Range/Units 08:05 Troponin I < 0.012 (0.000-0.034) ng/mL Liver Function 12/12/24 Range/Units 08:05 Total Bilirubin 0.8 (0.2-1.3) mg/dL AST 46 H (14-36) U/L ALT 35 (6-35) U/L Alkaline Phosphatase 142 H (38-126) U/L Albumin 4.2 (3.5-5.1) g/dL Urine 12/12/24 Range/Units 08:23 Urine Color Yellow (Yellow) Urine Appearance Clear (Clear) Urine pH 7.0 (5.0-9.0) Ur Specific [place] 1.010 (1.001-1.035) Urine Protein 2+ H (Negative) mg/dL Urine Glucose (UA) Negative (Negative) mg/dL Assessment and Plan Assessment and plan (1) CHF (congestive heart failure): Code(s): I50.9 - Heart failure, unspecified Status: Acute Assessment and Plan: presented with shortness of breath for a couple days. Elevated BNP. Bilateral leg edema. EKG shows AFib with his RVR Likely 2/2 CHF exacerbation 2/2 AFib with RVR Status post IV 40 mg x1 in the ED IV Lasix 40 mg x 2-reassess tomorrow Continue Farxiga, metoprolol and Eliquis Strict I&Os, daily standing weight, Na <2 g daily with fluid restriction Follow 2D echo (2) Elevated white blood cell count: Code(s): D72.829 - Elevated white blood cell count, unspecified Status: Acute Assessment and Plan: Had recent urinary tract infection On this admission, UA shows negative for leukocytes trace, nitrates and bacteria Daily CBC (3) Atrial fibrillation with rapid ventricular response: Code(s): I48.91 - Unspecified atrial fibrillation Status: Acute Assessment and Plan: Heart rate around 104 with Afib continue metoprolol and Eliquis If heart rate >120, okay to use metoprolol IV x2 (4) Hypertension: Qualifiers: Hypertension type: primary hypertension Qualified Code(s): I10 - Essential (primary) hypertension Code(s): I10 - Essential (primary) hypertension Status: Acute Assessment and Plan: Continue home regimen Farxiga, hydralazine and amlodipine BP goal<130/80 (5) Sleep apnea: Code(s): G47.30 - Sleep apnea, unspecified Status: Acute Assessment and Plan: Had sleep study recently that shows mixed central and obstructive sleep apnea however patient is not using any device She is supposed to go back this coming for final recommendation Plan Full code Eliquis for DVT prophylaxis Fluid restriction 1500cc Quality VTE Prophylaxis VTE prophylaxis: pharmacologic ordered (Eliquis)
[2024-12-12] MEDS: METOPROLOL TARTRATE 50 MG TAB PO ×2 (15:16→20:57)
[2024-12-12] MEDS: APIXABAN 5 MG TABLET PO ×2 (15:18→20:57)
[2024-12-12] MEDS: EMPAGLIFLOZIN 10 MG TABLET BY MOUTH (15:56)
[2024-12-12] MEDS: CHLORTHALIDONE 25 MG TABLET PO (15:57)
[2024-12-13] VITALS (11 sets, daily range): BP systolic 101–143; BP diastolic 50–56; PULSE 82–108; RESP 16–20; TEMP 35.8–36.6; O2SAT 96–97
--- NOTE | 2024-12-13 | ECHO_ITS ---
Patient Info Name: Stephanie Brewer Age: 84 years : 1940 Gender: Female Ht: 64 in Wt: 188 lbs BSA: 1.99 m2 HR: 87 bpm BP: 143 / 54 mmHg Technical Quality: Good Exam Date: 12/13/2024 12:05 PM Patient Status: I Admit Date: 12/12/2024 Exam Type: CA echo dop color flow w con Complete two-dimensional, color flow and Doppler transthoracic echocardiogram is performed with contrast to opacify the left ventricle and to improve the deliniation of the left ventricle endocardial borders. Staff Referring Physician: Sebastian Saleh MD Elevator Erector: Perez Perea III Attending Provider: Geoff Lechuga Oca Contrast/Agitated Saline Contrast/Ag. Saline: Definity Amount: 2.00 ml Administered By: Perez Perea III Existing IV Access: Yes IV Access Condition: patent with no signs of infiltration Summary 1. The left ventricle is normal in size with hyperdynamic systolic function. There is concentric left ventricular remodeling. The left ventricular ejection fraction is visually estimated to be greater than 70%. 2. The right ventricle is normal in size and systolic function. 3. There is severe mitral annular calcification. There is trace mitral regurgitation. 4. There is trace pericardial effusion. Left Ventricle The left ventricle is normal in size with hyperdynamic systolic function. There is concentric left ventricular remodeling. The left ventricular ejection fraction is visually estimated to be greater than 70%. Right Ventricle The right ventricle is normal in size and systolic function. Left Atria The left atrium is normal size. Right Atria The right atrium is normal size. Atrial Septum The atrial septum is not well visualized. Aortic Valve The aortic valve is trileaflet and opens well. There is no aortic regurgitation. Pulmonic Valve The pulmonic valve is not well visualized. There is trace pulmonic valve regurgitation on color Doppler. Mitral Valve There is severe mitral annular calcification. There is trace mitral regurgitation. Tricuspid Valve The tricuspid valve is normal. There is mild tricuspid regurgitation. Pericardium/Pleural There is trace pericardial effusion. Inferior Vena Cava Inferior vena cava is not well visualized. Aorta The aortic root at the level of the sinus of Valsalva measures 2.8 cm in diameter. Left Ventricular Outflow Tract Name Value Normal LVOT 2D LVOT Diameter 2.1 cm LVOT Doppler LVOT Peak Velocity 116 cm/s LVOT Peak Gradient 5 mmHg LVOT Mean Gradient 3 mmHg LVOT VTI 19 cm LVOT VTI/AV VTI Ratio 0.7 LVOT Stroke Volume 64 ml LVOT CO 5.5 l/min LVOT CI 2.8 l/min/m2 Pulmonic Valve Name Value Normal PV Doppler PV Peak Velocity 111 cm/s PV Peak Gradient 5 mmHg PV Mean Gradient 2 mmHg Mitral Valve Name Value Normal MV Doppler MV Peak Gradient 6 mmHg MV Mean Gradient 2 mmHg MV Area (Cont Eq VTI) 2.6 cm2 MV Diastolic Function MV E Peak Velocity 107 cm/s MV Decel Time (PW) 308 ms MV Annular TDI MV E/e' (Septal) 11.2 MV E/e' (Lateral) 12.8 MV E/e' (Average) 12.0 Tricuspid Valve Name Value Normal TV Regurgitation Doppler TR Peak Velocity 308 cm/s TR Peak Gradient 38 mmHg Estimated PAP/RSVP RA Pressure 10 mmHg <=5 PA Systolic Pressure 48 mmHg <36 RV Systolic Pressure 48 mmHg <36 TV Annular TDI TV Lateral Bisi s' Velocity 15.2 cm/s >=9.5 Aortic Valve Name Value Normal AV Doppler AV Peak Velocity 191 cm/s AV Peak Gradient 15 mmHg AV Mean Gradient 7 mmHg AV VTI 27 cm AV Area (Cont Eq VTI) 2.4 cm2 >=3.0 AV Area (Cont Eq Dave) 2.0 cm2 AV DI (Dave) 0.61 AV Regurgitation 2D LVOT Area 3.3 cm2 Ventricles Name Value Normal LV Dimensions 2D/MM IVS Diastolic Thickness (2D) 1.6 cm 0.6-1.0 LVID Diastole (2D) 3.8 cm 3.8-5.2 LVIW Diastolic Thickness (2D) 1.2 cm 0.6-0.9 LVID Systole (2D) 2.3 cm 2.2-3.5 LVOT Diameter 2.1 cm LV Mass (2D Cubed) 189.37 g 67.00-162.00 LV Mass Index (2D Cubed) 95 g/m2 43-95 Relative Wall Thickness (2D) 0.63 <=0.42 LV Fractional Shortening/Ejection Fraction 2D/MM LV Fractional Shortening (2D) 40 % 27-45 LV EF (2D Teichholz) 71 % LV Diastolic Volume (4C MOD) 68 ml LV EF (4C MOD) 66 % LV Diastolic Volume (2C MOD) 77 ml LV EF (2C MOD) 78 % LV Diastolic Volume (BP MOD) 73 ml 46-106 LV Diastolic Volume Index (BP MOD) 37 ml/m2 29-61 LV Systolic Volume (BP MOD) 21 ml 14-42 LV Systolic Volume Index (BP MOD) 11 ml/m2 8-24 LV EF (BP MOD) 71 % 54-74 LV Diastolic Length (4C) 6.5 cm LV Systolic Length (4C) 5.2 cm LV Stroke Volume (4C MOD) 45 ml Atria Name Value Normal LA Dimensions LA Volume (4C A-L) 79 ml LA Volume (BP A-L) 61 ml RA Dimensions RA Systolic Major Harsh[place] Length (4C) 6.8 cm 2.2-2.8 RA Area (4C) 21.0 cm2 <=18.0 Report Signatures
[2024-12-13 05:42] LABS: Hematocrit 42.3 % (37.0-47.0); Hemoglobin 13.8 g/dL (12.0-15.0); Mean Corpuscular HGB Conc 32.6 g/dl (32-36); Mean Corpuscular Hemoglobin 29.9 pg (26-34); Mean Corpuscular Volume 91.8 fl (80-100); Platelet Count Result 352 k/mm3 (150-375); Red Blood Count 4.61 M/mm3 (4.2-5.4); White Blood Count 11.1 K/mm3 (4.5-10.0)
[2024-12-13 06:01] LABS: Anion Gap 9 mmol/L (4-12); Blood Urea Nitrogen 23 mg/dL (7-17); Calcium 9.5 mg/dL (8.4-10.2); Carbon Dioxide 33 mmol/L (22-30); Chloride 93 mmol/L (98-107); Estimated CRCL calculation 38 ml/min; Estimated Glomerular Filt Rate 49; Glucose 98 mg/dL (65-110); Magnesium 1.6 mg/dL (1.6-2.3); Potassium 3.5 mmol/L (3.4-5.0); Sodium 135 mmol/L (137-145)
[2024-12-13] MEDS: CHLORTHALIDONE 25 MG TABLET PO (08:25)
[2024-12-13] MEDS: EMPAGLIFLOZIN 10 MG TABLET BY MOUTH (08:25)
[2024-12-13] MEDS: APIXABAN 5 MG TABLET PO ×2 (08:25→20:30)
[2024-12-13] MEDS: METOPROLOL TARTRATE 50 MG TAB PO ×2 (08:25→20:31)
[2024-12-13] MEDS: FUROSEMIDE INJ 40 MG/4 ML VIAL IV PUSH ×2 (08:25→20:31)
[2024-12-13] MEDS: PERFLUTREN LIPID MICROSPHERES 1.5 ML VIAL DILUTED TO 10 ML TOTAL VOLUME IV PUSH (12:41)
--- NOTE | 2024-12-13 12:42 | IVDEFINITY ---
Prior to administration of IV Definity the patient was educated on the risks and benefits of the imaging enhancing agent including potential adverse side effects. The patient verbalized understanding. Allergies were verified. No exclusion criteria were identified and at least one of the following inclusion criteria were met: 1) physician request, 2) patient technically difficult to image (per the [place] [employer] guidelines of two or more segments not discernable within the apical view), or 3) questionable left ventricular function. ?
--- NOTE | 2024-12-13 15:47 | PM.IMPN ---
Progress Note: A&P Assessment and Plan (1) CHF (congestive heart failure): Code(s): I50.9 - Heart failure, unspecified Status: Acute Assessment and Plan: presented with shortness of breath for a couple days. Elevated BNP. Bilateral leg edema. EKG shows AFib with his RVR Likely 2/2 CHF exacerbation 2/2 AFib with RVR Status post IV 40 mg x1 in the ED IV Lasix 40 mg x 2-reassess tomorrow Continue Farxiga, metoprolol and Eliquis Strict I&Os, daily standing weight, Na <2 g daily with fluid restriction Follow 2D echo -------- echo completed: Summary 1. The left ventricle is normal in size with hyperdynamic systolic function. There is concentric left ventricular remodeling. The left ventricular ejection fraction is visually estimated to be greater than 70%. 2. The right ventricle is normal in size and systolic function. 3. There is severe mitral annular calcification. There is trace mitral regurgitation. 4. There is trace pericardial effusion. (2) Elevated white blood cell count: Code(s): D72.829 - Elevated white blood cell count, unspecified Status: Acute Assessment and Plan: Had recent urinary tract infection On this admission, UA shows negative for leukocytes trace, nitrates and bacteria Daily CBC (3) Atrial fibrillation with rapid ventricular response: Code(s): I48.91 - Unspecified atrial fibrillation Status: Acute Assessment and Plan: Heart rate around 104 with Afib continue metoprolol and Eliquis If heart rate >120, okay to use metoprolol IV x2 (4) Hypertension: Qualifiers: Hypertension type: primary hypertension Qualified Code(s): I10 - Essential (primary) hypertension Code(s): I10 - Essential (primary) hypertension Status: Acute Assessment and Plan: Continue home regimen Farxiga, hydralazine and amlodipine BP goal<130/80 (5) Sleep apnea: Code(s): G47.30 - Sleep apnea, unspecified Status: Acute Assessment and Plan: Had sleep study recently that shows mixed central and obstructive sleep apnea however patient is not using any device She is supposed to go back this coming for final recommendation Plan Full code Eliquis for DVT prophylaxis Fluid restriction 1500cc Time Spent With Patient Time with patient: 25 - 35 minutes Subjective Date/time seen: 12/13/24 15:47 Interval history: Stephanie Brewer is an 84 year old female with pmhx of COPD, HTN, PAfib, IBS and Pacemaker who is here on 12/12/24 for shortness of breath. This episode started on which was still manageable. She completed her daily chores. On friday, she had urinary track symptoms and was seeking care. Last night, she could not bear dyspnea associated with brief lightheadedness and palpitations. No change was her weight. Denies cough or chest pain. she uses 2 pillows and a side sleeper. Denies fever or chills. She also complains urinary frequency. She had multiple episodes of atrial fibrillation with rapid ventricular response to which requires hospitalization. 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 Recently they adjusted her medication : Metoprolol 50 mg b.i.d. and amlodipine 5 mg daily. Discontinued diltiazem. I do not have echocardiogram in the chart. Patient reported having done well with echocardiogram and had a cardioversion recently. Her last hospitalization for atrial fibrillation was rapid ventricular response was the in 2024. On arrival, she has atrial fibrillation with rapid ventricular response. Hypertensive. leukocytosis 12.1. BNP was elevated 0. Troponin negative x1. BMP unremarkable. She was given IV Lasix. She showed clinical improvement and admitted to the floor for further management. pt is seen and examined. echo done- ef 70% Review of Systems Review of Systems: All systems reviewed & are unremarkable except as noted in HPI and below Exam Narrative: APPEARANCE: Stated age, obese EYES: EOMI HEENT: Normocephalic, atraumatic, OMM RESPIRATORY: No respiratory distress Clear to auscultation bilaterally with no rhonchi wheezing or rales. CARDIOVASCULAR: Irregularly irregular. No murmur or regurg ABDOMINAL: Soft, nontender, nondistended, no rebound or guarding MSK: Bilateral lower extremity 2+ pitting edema. NEURO: Awake and alert. Following commands, speech normal, no focal deficits SKIN:: Warm, dry. No rashes lesions or abrasions PSYCHIATRIC: Appropriate mood Objective Data Vital Signs Vital Signs: Vital Signs - 24 hr 12/12/24 16:00 12/12/24 20:00 12/12/24 20:00 Temperature Pulse Rate 111 H 83 Respiratory Rate Blood Pressure Pulse Oximetry Oxygen Delivery Room Air 12/12/24 20:17 12/12/24 20:57 12/13/24 00:00 Temperature 97.6 F Pulse Rate 81 93 94 Respiratory Rate 18 Blood Pressure 120/54 L Pulse Oximetry 96 Oxygen Delivery 12/13/24 04:00 12/13/24 04:25 12/13/24 08:00 Temperature 97.9 F Pulse Rate 87 87 103 H Respiratory Rate 18 Blood Pressure 143/54 H Pulse Oximetry 97 Oxygen Delivery 12/13/24 08:25 12/13/24 08:25 12/13/24 12:00 Temperature Pulse Rate 87 94 Respiratory Rate Blood Pressure Pulse Oximetry Oxygen Delivery Room Air 12/13/24 14:00 Temperature 97.8 F Pulse Rate 82 Respiratory Rate 16 Blood Pressure 101/56 L Pulse Oximetry 96 Oxygen Delivery Intake/Output Intake/Output: Intake & Output 12/10/24 12/11/24 12/12/24 12/13/24 23:59 23:59 23:59 23:59 Intake Total 430 1110 Output Total 1650 2300 Balance -1220 -1190 Meds/Results Medications: Active Medications Generic Name Dose Route Start Last Admin Trade Name Freq PRN Reason Stop Dose Admin Amlodipine Besylate 5 mg 12/12/24 15:00 12/13/24 08:25 Amlodipine Besylate 5 Mg Tablet PO 5 mg DAILY KILEY Administration Apixaban 5 mg 12/12/24 12:30 12/13/24 08:25 Apixaban 5 Mg Tablet PO 5 mg Q12HR KILEY Administration Chlorthalidone 25 mg 12/12/24 09:00 12/13/24 08:25 Chlorthalidone 25 Mg Tablet PO 25 mg DAILY KILEY Administration Empagliflozin 10 mg 12/12/24 15:30 12/13/24 08:25 Empagliflozin 10 Mg Tablet BY MOUTH 10 mg DAILY KILEY Administration Furosemide 40 mg 12/12/24 21:00 12/13/24 08:25 Furosemide Inj 40 Mg/4 Ml Vial IV PUSH 40 mg Q12HR KILEY Administration Hydralazine HCl 50 mg 12/12/24 14:00 12/13/24 14:15 Hydralazine Hcl 50 Mg Tablet PO Not Given Q8HR KILEY Melatonin 5 mg 12/13/24 21:00 Melatonin 5 Mg Tablet PO HS KILEY Metoprolol Tartrate 50 mg 12/12/24 12:30 12/13/24 08:25 Metoprolol Tartrate 50 Mg Tab PO 50 mg Q12HR KILEY Administration Ondansetron HCl 4 mg 12/12/24 10:38 Ondansetron Inj 4 Mg/2 Ml Vial IV PUSH Q4H PRN Nausea Radiology Results: ITS Impressions Chest X-Ray 12/12/24 09:29 IMPRESSION: 1. No acute cardiopulmonary findings. Labs Labs: Laboratory Results - last 24 hr 12/13/24 05:21 WBC 11.1 H RBC 4.61 Hgb 13.8 Hct 42.3 MCV 91.8 MCH 29.9 MCHC 32.6 RDW 13.2 Plt Count 352 MPV 9.7 Sodium 135 L Potassium 3.5 Chloride 93 L Carbon Dioxide 33 H Anion Gap 9 BUN 23 H Creatinine 1.07 H Estim Creat Clear Calc 38 Estimated GFR 49 L Glucose 98 Calcium 9.5 Magnesium 1.6 Quality VTE Prophylaxis VTE prophylaxis: pharmacologic ordered (Eliquis)
[2024-12-13] MEDS: MELATONIN 5 MG TABLET PO (20:31)
[2024-12-14] VITALS (12 sets, daily range): BP systolic 123–133; BP diastolic 43–57; PULSE 80–114; RESP 18–20; TEMP 36.1–36.4; O2SAT 93–96
[2024-12-14 05:28] LABS: Hematocrit 41.2 % (37.0-47.0); Hemoglobin 14.1 g/dL (12.0-15.0); Mean Corpuscular HGB Conc 34.2 g/dl (32-36); Mean Corpuscular Hemoglobin 30.3 pg (26-34); Mean Corpuscular Volume 88.4 fl (80-100); Platelet Count Result 379 k/mm3 (150-375); Red Blood Count 4.66 M/mm3 (4.2-5.4); White Blood Count 14.3 K/mm3 (4.5-10.0)
[2024-12-14 05:43] LABS: Anion Gap 8 mmol/L (4-12); Blood Urea Nitrogen 33 mg/dL (7-17); Calcium 9.2 mg/dL (8.4-10.2); Carbon Dioxide 31 mmol/L (22-30); Chloride 92 mmol/L (98-107); Estimated CRCL calculation 37 ml/min; Estimated Glomerular Filt Rate 46; Glucose 121 mg/dL (65-110); Potassium 3.2 mmol/L (3.4-5.0); Sodium 131 mmol/L (137-145)
[2024-12-14] MEDS: FUROSEMIDE INJ 40 MG/4 ML VIAL IV PUSH (08:37)
[2024-12-14] MEDS: ONDANSETRON INJ 4 MG/2 ML VIAL IV PUSH (08:37)
[2024-12-14] MEDS: CHLORTHALIDONE 25 MG TABLET PO (08:38)
[2024-12-14] MEDS: METOPROLOL TARTRATE 50 MG TAB PO ×2 (08:38→20:31)
[2024-12-14] MEDS: APIXABAN 5 MG TABLET PO ×2 (08:38→20:30)
[2024-12-14] MEDS: EMPAGLIFLOZIN 10 MG TABLET BY MOUTH (08:38)
[2024-12-14] MEDS: LIDOCAINE 5% PATCH 1 PATCH TRANSDERM (14:06)
[2024-12-14] MEDS: ACETAMINOPHEN 325 MG TABLET 650 MG PO (14:06)
--- NOTE | 2024-12-14 14:09 | PM.IMPN ---
Progress Note: A&P Assessment and Plan (1) CHF (congestive heart failure): Code(s): I50.9 - Heart failure, unspecified Status: Acute Assessment and Plan: presented with shortness of breath for a couple days. Elevated BNP. Bilateral leg edema. EKG shows AFib with his RVR Likely 2/2 CHF exacerbation 2/2 AFib with RVR Status post IV 40 mg x1 in the ED IV Lasix 40 mg x 2-reassess tomorrow Continue Farxiga, metoprolol and Eliquis Strict I&Os, daily standing weight, Na <2 g daily with fluid restriction Follow 2D echo -------- echo completed: Summary 1. The left ventricle is normal in size with hyperdynamic systolic function. There is concentric left ventricular remodeling. The left ventricular ejection fraction is visually estimated to be greater than 70%. 2. The right ventricle is normal in size and systolic function. 3. There is severe mitral annular calcification. There is trace mitral regurgitation. 4. There is trace pericardial effusion. I/O reviewed. will consult cardiology to review and adjust tx if needed (2) Elevated white blood cell count: Code(s): D72.829 - Elevated white blood cell count, unspecified Status: Acute Assessment and Plan: Had recent urinary tract infection On this admission, UA shows negative for leukocytes trace, nitrates and bacteria Daily CBC (3) Atrial fibrillation with rapid ventricular response: Code(s): I48.91 - Unspecified atrial fibrillation Status: Acute Assessment and Plan: Heart rate around 104 with Afib continue metoprolol and Eliquis If heart rate >120, okay to use metoprolol IV x2 per pt's report her cardiolgist started her on Multaq but now sure if pt was taking it already or have not started it -HR better but still elevated at 110-120 -will consult cardiology to review and adjust current meds to ensure rate is controlled (4) Hypertension: Qualifiers: Hypertension type: primary hypertension Qualified Code(s): I10 - Essential (primary) hypertension Code(s): I10 - Essential (primary) hypertension Status: Acute Assessment and Plan: Continue home regimen Farxiga, hydralazine and amlodipine BP goal<130/80 (5) Sleep apnea: Code(s): G47.30 - Sleep apnea, unspecified Status: Acute Assessment and Plan: Had sleep study recently that shows mixed central and obstructive sleep apnea however patient is not using any device She is supposed to go back this coming for final recommendation Plan Full code Bailey for DVT prophylaxis Fluid restriction 1500cc Time Spent With Patient Time with patient: 25 - 35 minutes Subjective Date/time seen: 12/14/24 14:09 Interval history: Stephanie Brewer is an 84 year old female with pmhx of COPD, HTN, PAfib, IBS and Pacemaker who is here on 12/12/24 for shortness of breath. This episode started on which was still manageable. She completed her daily chores. On friday, she had urinary track symptoms and was seeking care. Last night, she could not bear dyspnea associated with brief lightheadedness and palpitations. No change was her weight. Denies cough or chest pain. she uses 2 pillows and a side sleeper. Denies fever or chills. She also complains urinary frequency. She had multiple episodes of atrial fibrillation with rapid ventricular response to which requires hospitalization. 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 Recently they adjusted her medication : Metoprolol 50 mg b.i.d. and amlodipine 5 mg daily. Discontinued diltiazem. I do not have echocardiogram in the chart. Patient reported having done well with echocardiogram and had a cardioversion recently. Her last hospitalization for atrial fibrillation was rapid ventricular response was the in 2024. On arrival, she has atrial fibrillation with rapid ventricular response. Hypertensive. leukocytosis 12.1. BNP was elevated 2130. Troponin negative x1. BMP unremarkable. She was given IV Lasix. She showed clinical improvement and admitted to the floor for further management. pt is seen and examined. echo done- ef 70% HR still remains elevated 110-120. denies chest pain. Review of Systems Review of Systems: All systems reviewed & are unremarkable except as noted in HPI and below Exam Narrative: APPEARANCE: Stated age, obese EYES: EOMI HEENT: Normocephalic, atraumatic, OMM RESPIRATORY: No respiratory distress Clear to auscultation bilaterally with no rhonchi wheezing or rales. CARDIOVASCULAR: Irregularly irregular. No murmur or regurg ABDOMINAL: Soft, nontender, nondistended, no rebound or guarding MSK: Bilateral lower extremity 2+ pitting edema. NEURO: Awake and alert. Following commands, speech normal, no focal deficits SKIN:: Warm, dry. No rashes lesions or abrasions PSYCHIATRIC: Appropriate mood Objective Data Vital Signs Vital Signs: Vital Signs - 24 hr 12/13/24 16:00 12/13/24 20:00 12/13/24 20:00 Temperature Pulse Rate 108 H 97 95 Respiratory Rate 20 Blood Pressure Pulse Oximetry 96 Oxygen Delivery Room Air 12/13/24 20:31 12/13/24 20:33 12/14/24 00:00 Temperature 96.5 F L Pulse Rate 108 H 97 83 Respiratory Rate 20 Blood Pressure 136/50 L Pulse Oximetry 96 Oxygen Delivery 12/14/24 03:39 12/14/24 04:00 12/14/24 08:00 Temperature 97.6 F Pulse Rate 87 83 110 H Respiratory Rate 18 Blood Pressure 133/53 L Pulse Oximetry 96 Oxygen Delivery 12/14/24 08:38 12/14/24 08:40 12/14/24 12:00 Temperature Pulse Rate 114 H 92 Respiratory Rate Blood Pressure Pulse Oximetry Oxygen Delivery Room Air Intake/Output Intake/Output: Intake & Output 12/11/24 12/12/24 12/13/24 12/14/24 23:59 23:59 23:59 23:59 Intake Total 430 1350 750 Output Total 1650 3600 Balance -1220 -2250 750 Meds/Results Medications: Active Medications Generic Name Dose Route Start Last Admin Trade Name Freq PRN Reason Stop Dose Admin Acetaminophen 650 mg 12/14/24 12:31 12/14/24 14:06 Acetaminophen 325 Mg Tablet PO 650 mg Q6H PRN Administration Mild Pain (1-3) or Fever Amlodipine Besylate 5 mg 12/12/24 15:00 12/14/24 08:38 Amlodipine Besylate 5 Mg Tablet PO 5 mg DAILY KILEY Administration Apixaban 5 mg 12/12/24 12:30 12/14/24 08:38 Apixaban 5 Mg Tablet PO 5 mg Q12HR KILEY Administration Chlorthalidone 25 mg 12/12/24 09:00 12/14/24 08:38 Chlorthalidone 25 Mg Tablet PO 25 mg DAILY KILEY Administration Empagliflozin 10 mg 12/12/24 15:30 12/14/24 08:38 Empagliflozin 10 Mg Tablet BY MOUTH 10 mg DAILY KILEY Administration Furosemide 40 mg 12/12/24 21:00 12/14/24 08:37 Furosemide Inj 40 Mg/4 Ml Vial IV PUSH 40 mg Q12HR KILEY Administration Hydralazine HCl 50 mg 12/12/24 14:00 12/14/24 13:38 Hydralazine Hcl 50 Mg Tablet PO Not Given Q8HR KILEY Lidocaine 1 patch 12/14/24 12:35 12/14/24 14:06 Lidocaine 5% Patch TRANSDERM 1 patch DAILY KILEY Administration Melatonin 5 mg 12/13/24 21:00 12/13/24 20:31 Melatonin 5 Mg Tablet PO 5 mg HS KILEY Administration Metoprolol Tartrate 50 mg 12/12/24 12:30 12/14/24 08:38 Metoprolol Tartrate 50 Mg Tab PO 50 mg Q12HR KILEY Administration Ondansetron HCl 4 mg 12/12/24 10:38 12/14/24 08:37 Ondansetron Inj 4 Mg/2 Ml Vial IV PUSH 4 mg Q4H PRN Administration Nausea Radiology Results: ITS Impressions Chest X-Ray 12/12/24 09:29 IMPRESSION: 1. No acute cardiopulmonary findings. Labs Labs: Laboratory Results - last 24 hr 12/14/24 04:54 WBC 14.3 H RBC 4.66 Hgb 14.1 Hct 41.2 MCV 88.4 MCH 30.3 MCHC 34.2 RDW 13.1 Plt Count 379 H MPV 9.8 Sodium 131 L Potassium 3.2 L Chloride 92 L Carbon Dioxide 31 H Anion Gap 8 BUN 33 H D Creatinine 1.14 H Estim Creat Clear Calc 37 Estimated GFR 46 L Glucose 121 H Calcium 9.2
--- NOTE | 2024-12-14 15:04 | P.CONCA_ITS ---
<Statement entered by Nirmal Kirby MD - 12/14/24 21:00> This documentation has been reviewed and approved. I personally performed a substantive potion of this patient encounter in conjuction with Monik thornton. I spent 45 minutes of non-overlapping time managing the patient independent of Monik thornton today. This is 84 y old with PAF , PACEMAKER, HTN. patient presents to hospital with sob, LL edema. was found to have elevated HR. recently diltiazem was d/c and started on multaq for rhythm control. in regards to afib, would recommend rate control for now. pt's echo during this admission showed normal EF . elevated BNP and clinical volume overload. i think we should stop multaq as patient developed chf and multaq should not be given with clinical chf. i will d/c amlodipine and start diltiazem 120 mg daily starting tomorrow.continue metoprolol. continue elquis. in regards to acute diastolic hf exacerbation: will d/c multaq. anticipate to change to po lasix tomorrow. in regards to htn, continue hydralazine and will start diltiazem. continue metoprolol. in regards to hypokalemia, replinish Assessment and Plan Assessment and plan (1) Atrial fibrillation with rapid ventricular response: Code(s): I48.91 - Unspecified atrial fibrillation Status: Acute Assessment and Plan: She has persistent atrial fibrillation. Mild tachycardia. * Continue metoprolol tartrate 50 mg q.12 hours * Resume Multaq * Continue anticoagulation with Eliquis 5 mg q.12 hours * We discussed the option of shifting her to sotalol which would require several days of being in the hospital which she is not desirous of. Since she is in persistent atrial fibrillation, will try to control her heart rate with metoprolol and Multaq. Up titrate metoprolol as needed * We also talked about the concept of attempting repeat cardioversion with the hope that she could maintain sinus rhythm since she has been on Multaq for several weeks. However, she likely has sleep apnea which is untreated at this point. Therefore, will hold off on cardioversion until sleep apnea is managed. (2) CHF (congestive heart failure): Code(s): I50.9 - Heart failure, unspecified Status: Acute Assessment and Plan: Perhaps mild CHF exacerbation. However, no objective evidence of CHF by chest x-ray. She does report some improvement in shortness of breath with IV furosemide and she reports improvement in lower extremity swelling. Probably shift to p.o. Lasix tomorrow. (3) Hypokalemia: Code(s): E87.6 - Hypokalemia Status: Acute Assessment and Plan: Potassium 3.2. Give 40 mEq KCL x1 now (4) Elevated white blood cell count: Code(s): D72.829 - Elevated white blood cell count, unspecified Status: Acute Assessment and Plan: Possible pneumonia. Follow-up chest x-ray. Plan My total encounter time on 12/14/2024 was 43 minutes spent in the activities documented in this note this includes time spent prior to the visit and after the visit in direct care of the patient. This time does not include any time spent in separately reportable services. History of Present Illness History of Present Illness Consult date/time: 12/14/24 15:04 Requesting physician: Rhiannon Todd APRN Consult reason: atrial fibrillation Reason For Visit: CHF Exacerbation/Generalized Weakness/Dyspnea Narrative: Stephanie Brewer is an 84-year-old female with persistent atrial fibrillation status post permanent pacemaker implantation (June 2023), sleep apnea, hypertension, and diastolic heart failure. This is a patient who is followed at [place] by Dr. Mcgee for electrophysiology Services. She comes to the hospital with a chief complaint of shortness of breath. Cardiology is consulted for atrial fibrillation with rapid ventricular response. She was recently seen in Dr. Mcgee's office where her diltiazem was discontinued and she was started on Multaq for rhythm control. She had been offered inpatient admission for initiation sotalol or Tikosyn. However, patient was unable to schedule inpatient hospitalization for social reasons. Patient states that her heart rate is generally in the 80s to 90s at home but she remains in atrial fibrillation all the time. She does not feel any palpitations or chest pain. Still complaining of some shortness of breath but her breathing has improved with IV Lasix. Review of Systems 2 Review of Systems: All systems reviewed & are unremarkable except as noted in HPI and below PMFSH Past Medical History Medical History Depression Anxiety Osteoporosis Heart murmur Pacemaker Congestive heart failure Afib IBS (irritable bowel syndrome) Hypertension COPD (chronic obstructive pulmonary disease) Surgical History Surgical History History of left shoulder replacement Family History Family History Father Stomach cancer Mother Osteoporosis Social History Social History Smoking packs per day: 0.5 Smoking cigarettes per day: 10.0 Years smoked: 50 Smoking pack-years: 25.00 Smoking status: Former smoker Tobacco type: cigarettes Second hand tobacco smoke exposure: No Smoking end date: 03/03/11 Additional smoking assessment comments: quit in 2011 Alcohol intake: never Substance use: never Substance use type: does not use Do You Feel Safe in your Home?: Yes Lack of Transportation: No Lack of Food: Never True Current Housing: I Have Housing Concerned About Future Housing: No Difficulty Paying Gas/Electric Bills: No Difficulty Paying for Meds: No Currently Unemployed: No Education: Associate Degree Difficulty w/ Childcare or Family Care: No Living arrangements: alone Spiritual care concerns: No Meds Home Medications and Allergies Home Medications ?Medication ?Instructions ?Recorded ?Confirmed ?Type aspirin 325 mg tablet 325 mg PO DAILY 12/14/1902/24 History chlorthalidone 25 mg tablet 25 mg PO DAILY 12/14/19 History hydralazine 50 mg tablet 50 mg PO TID 12/14/19 History metoprolol tartrate 100 mg tablet 50 mg PO Q12H 12/12/24 History alprazolam 0.25 mg tablet 0.25 mg PO QID PRN anxiety 0 09/19/24 12/12/24 History apixaban 5 mg tablet (Eliquis) 5 mg PO Q12H 09/19/24 1 History furosemide 20 mg tablet 20 mg PO DAILY PRN edema 12/12/24 History potassium chloride 10 mEq 10 meq PO DAILY PRN Take onl y when 09/20/24 12/12/24 Rx tablet,extended release (Klor-Con) you take furosemide #30 tabs amlodipine 5 mg tablet 5 mg PO DAILY 12/10/2412/12 History dronedarone 400 mg tablet (Multaq) 400 mg PO BID 12/1012/12/24 History dapagliflozin propanediol 10 mg 10 mg PO DAILY 5 12/12/24 History tablet (Farxiga) diltiazem HCl 240 mg 240 mg PO Q24H 12/12/2412/01 History capsule,extended release 24 hr, controlled (DILT-XR) Allergies Allergy/AdvReac Type Severity Reaction Status Date / Time oxycodone Allergy Mild condusion, Verified 12/12/24 08:02 difficulty concentrating amoxicillin AdvReac Intermediate Diarrhea Verified 12/12/24 08:02 prednisone AdvReac Mild Confusion Verified 12/12/24 08:02 Vital Signs Vital Signs - 24 hr 12/13/24 16:00 12/13/24 20:00 12/13/24 20:00 Temperature Pulse Rate 108 H 97 95 Respiratory Rate 20 Blood Pressure Pulse Oximetry 96 Oxygen Delivery Room Air 12/13/24 20:31 12/13/24 20:33 12/14/24 00:00 Temperature 35.8 C L Pulse Rate 108 H 97 83 Respiratory Rate 20 Blood Pressure 136/50 L Pulse Oximetry 96 Oxygen Delivery 12/14/24 03:39 12/14/24 04:00 12/14/24 08:00 Temperature 36.4 C Pulse Rate 87 83 110 H Respiratory Rate 18 Blood Pressure 133/53 L Pulse Oximetry 96 Oxygen Delivery 12/14/24 08:38 12/14/24 08:40 12/14/24 12:00 Temperature Pulse Rate 114 H 92 Respiratory Rate Blood Pressure Pulse Oximetry Oxygen Delivery Room Air 12/14/24 14:00 Temperature 36.1 C L Pulse Rate 80 Respiratory Rate 18 Blood Pressure 129/43 L Pulse Oximetry 95 Oxygen Delivery Exam 2 Const: General: comfortable, no acute distress, alert and awake O rientation/consciousness: patient oriented x3 HENMT: Head: normal to inspection Eyes: General: appearance normal, both eyes and all related structures P upils: Equal, round and reactive pupils present Neck: Neck: normal visual inspection, supple and no JVD Carotids: normal carotid upstroke Resp: Effort & Inspection: normal respiratory effort Auscultation: clear to auscultation bilaterally Cardio: Rate: regular rate Rhythm: abnormal rhythm irregularly irregular Heart sounds: S1 normal heart sound present, S2 normal heart sound present and no murmurs GI: Auscultation: normal bowel sounds Skin: General skin exam: normal color Neuro: General: patient oriented x3 Cranial nerves: Yes Equal, round and reactive pupils present Extrem: General: normal to inspection Other: No edema Psych: Appearance: grossly normal Mental Status: mental status grossly normal Results Labs and Meds 12/16/24 03:46 12/16/24 03:46 Lab results: CBC 12/14/24 Range/Units 04:54 WBC 14.3 H (4.5-10.0) K/mm3 RBC 4.66 (4.2-5.4) M/mm3 Hgb 14.1 (12.0-15.0) g/dL Hct 41.2 (37.0-47.0) % Plt Count 379 H (150-375) k/mm3 Comprehensive Metabolic Panel 12/14/24 Range/Units 04:54 Sodium 131 L (137-145) mmol/L Potassium 3.2 L (3.4-5.0) mmol/L Chloride 92 L (98-107) mmol/L Carbon Dioxide 31 H (22-30) mmol/L BUN 33 H D (7-17) mg/dL Creatinine 1.14 H (0.7-1.0) mg/dL Glucose 121 H (65-110) mg/dL Calcium 9.2 (8.4-10.2) mg/dL Intake and Output 12/13/24 12/14/24 12/14/24 23:59 07:59 15:59 Intake Total 240 390 600 Output Total 1300 Balance -1060 390 600 Intake: Oral 240 390 600 Output: Catheter Urine 1300 External/Condom 1300 Other: # Unmeasured Voids 2 Patient Weight 12/14/24 23:59 Weight 82.6 kg
[2024-12-14] MEDS: POTASSIUM CHLORIDE 20 MEQ ER TABLET 40 MEQ PO (17:09)
[2024-12-14] MEDS: MAGNESIUM OXIDE 200 MG TABLET PO (20:30)
[2024-12-14] MEDS: DRONEDARONE HCL 400 MG TABLET PO (20:30)
[2024-12-14] MEDS: MELATONIN 5 MG TABLET PO (20:30)
[2024-12-15] VITALS (13 sets, daily range): BP systolic 112–132; BP diastolic 43–58; PULSE 72–115; RESP 15–20; TEMP 36.4–37.5; O2SAT 95–96
[2024-12-15 05:15] LABS: Hematocrit 42.5 % (37.0-47.0); Hemoglobin 14.1 g/dL (12.0-15.0); Mean Corpuscular HGB Conc 33.2 g/dl (32-36); Mean Corpuscular Hemoglobin 30.0 pg (26-34); Mean Corpuscular Volume 90.4 fl (80-100); Platelet Count Result 387 k/mm3 (150-375); Red Blood Count 4.70 M/mm3 (4.2-5.4); White Blood Count 15.2 K/mm3 (4.5-10.0)
[2024-12-15 05:24] LABS: Anion Gap 9 mmol/L (4-12); Blood Urea Nitrogen 33 mg/dL (7-17); Calcium 9.0 mg/dL (8.4-10.2); Carbon Dioxide 32 mmol/L (22-30); Chloride 90 mmol/L (98-107); Estimated CRCL calculation 33 ml/min; Estimated Glomerular Filt Rate 43; Glucose 122 mg/dL (65-110); Potassium 3.7 mmol/L (3.4-5.0); Sodium 131 mmol/L (137-145)
--- NOTE | 2024-12-15 08:05 | PM.IMPN ---
Progress Note: A&P Assessment and Plan (1) CHF (congestive heart failure): Code(s): I50.9 - Heart failure, unspecified Status: Acute Assessment and Plan: - Symptoms: SOB and bilateral lower extremity edema Likely 2/2 CHF exacerbation 2/2 AFib with RVR Status post IV 40 mg x1 in the ED and IV Lasix 40 mg x 2 on admission Continue Farxiga, metoprolol and Eliquis - medications: lasix 40 mg IV daily - BNP:2130 - Chest XR unremarkable - Echo: LVEF > 70% with severe mitral annular calcification and trace mitral regurgitation. Trace pericardial effusion. - Monitor vital signs, I&Os, BUN/creatinine, daily weights, neuro status and patient is a fall risk - Monitor serum electrolytes, Keep serum Potassium>4 and serum Magnesium>2 and CBC - Cardiology consulted stop multaq change to PO lasix in the am. continue chlorthalidone, Metoprolol and hydralazine. SOB and edema resolved. Plan to transition to po lasix in the am per cardiology. (2) Atrial fibrillation with rapid ventricular response: Code(s): I48.91 - Unspecified atrial fibrillation Status: Acute Assessment and Plan: Chronic afib with history of PPM - Medications: Metoprolol 50 mg BID and Eliquis 5 mg BID - Echo LVEF > 70% with severe mitral annular calcification and trace mitral regurgitation. Trace pericardial effusion. - Cardiology consulted stop multaq as patient developed chf and multaq should not be given with clinical chf. DC amlodipine and start diltiazem 120 mg daily starting tomorrow. Continue metoprolol and elquis. (3) Elevated white blood cell count: Code(s): D72.829 - Elevated white blood cell count, unspecified Status: Acute Assessment and Plan: WBC elevated on admission, uptrending. Had recent urinary tract infection. On this admission, UA shows negative for leukocytes trace, nitrates and bacteria CXR unremarkable Denies any nausea/vomiting and abdominal pain Continue to monitor (4) Hypertension: Qualifiers: Hypertension type: primary hypertension Qualified Code(s): I10 - Essential (primary) hypertension Code(s): I10 - Essential (primary) hypertension Status: Acute Assessment and Plan: Chronic - hydralazine 50 mg q8H - lasix 40 mg IV, likely to transition to po today - metoprolol 50 mg bid - diltiazem 120 mg daily - blood pressures reviewed and remain stable, continue to monitor (5) Sleep apnea: Code(s): G47.30 - Sleep apnea, unspecified Status: Acute Assessment and Plan: Had sleep study recently that shows mixed central and obstructive sleep apnea however patient is not using any device She is supposed to go back this coming for final recommendation Time Spent With Patient Time with patient: 25 - 35 minutes Subjective Date/time seen: 12/15/24 08:05 Interval history: 84 year old female with pmhx of COPD, HTN, PAfib, IBS and Pacemaker who is here on 12/12/24 for shortness of breath. Patient is pleasant sitting comfortably in bed. She states that she feels much better since admission and that the shortness of breath has resolved since receiving the IV Lasix. She denies any associated chest pain or palpitations. She does note that since admission she has become increasingly weak due to not getting out of bed. She is also endorsing right foot pain that is further exacerbated with weight-bearing. She denies any associated trauma, tingling, numbness. She does state that she had a prior fracture about 5 years ago. Will obtain x-ray to further evaluate. Patient has no other complaints denying nausea/vomiting and abdominal pain. Review of Systems Review of Systems: All systems reviewed & are unremarkable except as noted in HPI and below Exam Narrative: AF HR 78 RR 20 SpO2 96 BP 112/58 General: female in no acute respiratory distress who is nontoxic appearing, lying semi recumbent in bed. HEENT: Normocephalic. Atraumatic. Extraocular movement intact. Sclera clear and anicteric. No facial asymmetry. Chest: Lungs are clear to auscultation bilaterally. No wheezes or crackles. CV: Heart was regular rate and rhythm. Abd: Abdomen was soft. Nontender. Nondistended. Positive bowel sounds. Ext: No clubbing, cyanosis, or edema. DP pulses bilaterally. Pain with palpation of the dorsal aspect of the foot. No wounds noted. No pain with ROM. Neuro: Patient is alert. Speech is clear. Objective Data Vital Signs Vital Signs: Vital Signs - 24 hr 12/14/24 08:38 12/14/24 08:40 12/14/24 12:00 Temperature Pulse Rate 114 H 92 Respiratory Rate Blood Pressure Pulse Oximetry Oxygen Delivery Room Air 12/14/24 14:00 12/14/24 16:00 12/14/24 19:46 Temperature 97 F L 97.6 F Pulse Rate 80 89 100 Respiratory Rate 18 18 Blood Pressure 129/43 L 123/57 L Pulse Oximetry 95 93 Oxygen Delivery 12/14/24 20:00 12/14/24 20:00 12/14/24 20:30 Temperature Pulse Rate 102 H 98 100 Respiratory Rate 20 Blood Pressure Pulse Oximetry 96 Oxygen Delivery Room Air 12/14/24 20:31 12/15/24 00:00 12/15/24 00:20 Temperature Pulse Rate 100 93 Respiratory Rate Blood Pressure 119/43 L Pulse Oximetry Oxygen Delivery 12/15/24 03:34 12/15/24 04:00 Temperature 97.6 F Pulse Rate 102 H 106 H Respiratory Rate 20 Blood Pressure 112/58 L Pulse Oximetry 96 Oxygen Delivery Intake/Output Intake/Output: Intake & Output 12/12/24 12/13/24 12/14/24 12/15/24 23:59 23:59 23:59 23:59 Intake Total 430 1350 1230 290 Output Total 1650 3600 1650 500 Balance -1220 -2250 -420 -210 Meds/Results Medications: Active Medications Generic Name Dose Route Start Last Admin Trade Name Freq PRN Reason Stop Dose Admin Acetaminophen 650 mg 12/14/24 12:31 12/14/24 14:06 Acetaminophen 325 Mg Tablet PO 650 mg Q6H PRN Administration Mild Pain (1-3) or Fever Apixaban 5 mg 12/12/24 12:30 12/14/24 20:30 Apixaban 5 Mg Tablet PO 5 mg Q12HR KILYE Administration Chlorthalidone 25 mg 12/12/24 09:00 12/14/24 08:38 Chlorthalidone 25 Mg Tablet PO 25 mg DAILY KILEY Administration Diltiazem HCl 120 mg 12/15/24 09:00 Diltiazem Hcl Cd 120 Mg Cap.24hr PO QAM KILEY Dronedarone 400 mg 12/14/24 21:00 12/14/24 20:30 Dronedarone Hcl 400 Mg Tablet PO 400 mg Q12HR KILEY Administration Empagliflozin 10 mg 12/12/24 15:30 12/14/24 08:38 Empagliflozin 10 Mg Tablet BY MOUTH 10 mg DAILY KILEY Administration Furosemide 40 mg 12/15/24 09:00 Furosemide Inj 40 Mg/4 Ml Vial IV PUSH DAILY KILEY Hydralazine HCl 50 mg 12/12/24 14:00 12/15/24 05:57 Hydralazine Hcl 50 Mg Tablet PO 50 mg Q8HR KILEY Administration Lidocaine 1 patch 12/14/24 12:35 12/14/24 14:06 Lidocaine 5% Patch TRANSDERM 1 patch DAILY KILEY Administration Magnesium Oxide 200 mg 12/14/24 21:00 12/14/24 20:30 Magnesium Oxide 200 Mg Tablet PO 200 mg Q12HR KILEY Administration Melatonin 5 mg 12/13/24 21:00 12/14/24 20:30 Melatonin 5 Mg Tablet PO 5 mg HS KILEY Administration Metoprolol Tartrate 50 mg 12/12/24 12:30 12/14/24 20:31 Metoprolol Tartrate 50 Mg Tab PO 50 mg Q12HR KILEY Administration Ondansetron HCl 4 mg 12/12/24 10:38 12/14/24 08:37 Ondansetron Inj 4 Mg/2 Ml Vial IV PUSH 4 mg Q4H PRN Administration Nausea Potassium Chloride 40 meq 12/14/24 15:55 12/14/24 16:03 Potassium Chloride 20 Meq Er Tablet PO Not Given DAILY [facility] Psyllium Hydrophilic Mucilloid 1 packet 12/15/24 09:00 Psyllium Powder Packet PO DAILY [facility] Radiology Results: ITS Impressions Chest X-Ray 12/14/24 14:44 IMPRESSION: 1. No acute cardiopulmonary disease. Labs Labs: Laboratory Results - last 24 hr 12/15/24 04:52 WBC 15.2 H RBC 4.70 Hgb 14.1 Hct 42.5 MCV 90.4 MCH 30.0 MCHC 33.2 RDW 13.0 Plt Count 387 H MPV 9.5 Sodium 131 L Potassium 3.7 Chloride 90 L Carbon Dioxide 32 H Anion Gap 9 BUN 33 H Creatinine 1.21 H Estim Creat Clear Calc 33 Estimated GFR 43 L Glucose 122 H Calcium 9.0 Quality VTE Prophylaxis VTE prophylaxis: pharmacologic ordered (Eliquis)
[2024-12-15] MEDS: MAGNESIUM OXIDE 200 MG TABLET PO ×2 (08:39→21:28)
[2024-12-15] MEDS: CHLORTHALIDONE 25 MG TABLET PO (08:39)
[2024-12-15] MEDS: dilTIAZem HCL CD 120 MG CAP.24HR PO (08:39)
[2024-12-15] MEDS: METOPROLOL TARTRATE 50 MG TAB PO ×2 (08:39→21:28)
[2024-12-15] MEDS: POTASSIUM CHLORIDE 20 MEQ ER TABLET 40 MEQ PO (08:39)
[2024-12-15] MEDS: APIXABAN 5 MG TABLET PO ×2 (08:39→21:28)
[2024-12-15] MEDS: EMPAGLIFLOZIN 10 MG TABLET BY MOUTH (08:39)
[2024-12-15] MEDS: ACETAMINOPHEN 325 MG TABLET 650 MG PO ×2 (08:40→21:25)
[2024-12-15] MEDS: FUROSEMIDE INJ 40 MG/4 ML VIAL IV PUSH (08:43)
[2024-12-15] MEDS: LIDOCAINE 5% PATCH 1 PATCH TRANSDERM (08:43)
[2024-12-15] MEDS: PSYLLIUM POWDER PACKET 1 PACKET PO (08:43)
--- NOTE | 2024-12-15 09:51 | PM.PNCARD ---
Progress Note: A&P Assessment and Plan (1) Atrial fibrillation with rapid ventricular response: Code(s): I48.91 - Unspecified atrial fibrillation Status: Acute Assessment and Plan: She has persistent atrial fibrillation with continued episodes of RVR Continue metoprolol tartrate 50 mg q.12 hours Multaq was stopped d/t CHF Stopped norvasc and transitioned to cardizem CD 120 mg daily to begin this am Continue anticoagulation with Eliquis 5 mg q.[address] We also talked about the concept of attempting repeat cardioversion with the hope that she could maintain sinus rhythm since she has been on Multaq for several weeks. However, she likely has sleep apnea which is untreated at this point. Therefore, will hold off on cardioversion until sleep apnea is managed. She will follow with her vice president digital strategist at [employer] on OP basis (2) CHF (congestive heart failure): Code(s): I50.9 - Heart failure, unspecified Status: Acute Assessment and Plan: Echo demonstrates EF of 70% with hyperdynamic LV systolic function. She does report some improvement in shortness of breath with IV furosemide and she reports improvement in lower extremity swelling. Would change to PO lasix in the am. Continue chlorthalidone, Metoprolol and hydralazine. (3) Hypokalemia: Code(s): E87.6 - Hypokalemia Status: Acute Assessment and Plan: Remains on potassium replacement (4) Elevated white blood cell count: Code(s): D72.829 - Elevated white blood cell count, unspecified Status: Acute Assessment and Plan: Possible pneumonia. Follow-up chest x-ray however, with no acute process Management as per primary team Subjective Date/time seen: 12/15/24 09:51 Interval history: 12/15/24: Patient is sitting up in bed. She expresses generalized body aches and pains. No chest pain or pressure. No palpitations. Does experience occasional SOB, but improved since admission. Notes RLE ankle edema Review of Systems Review of Systems: All systems reviewed & are unremarkable except as noted in HPI and below Exam Const: General: comfortable, no acute distress, alert and awake Orientation/consciousness: patient oriented x3 HENMT: Head: normal to inspection Eyes: General: appearance normal, both eyes and all related structures Pupils: Equal, round and reactive pupils present Neck: Neck: normal visual inspection, supple and no JVD Carotids: normal carotid upstroke Resp: Effort & Inspection: normal respiratory effort Auscultation: clear to auscultation bilaterally Cardio: Rate: tachycardic Rhythm: abnormal rhythm irregularly irregular Heart sounds: no murmurs GI: Auscultation: normal bowel sounds Skin: General skin exam: normal color Neuro: General: patient oriented x3 Cranial nerves: Yes Equal, round and reactive pupils present Extrem: General: normal to inspection Other: No edema Psych: Appearance: grossly normal Mental Status: mental status grossly normal Objective Data Vital Signs Vital Signs: Vital Signs - 24 hr 12/14/24 12:00 12/14/24 14:00 12/14/24 16:00 Temperature 36.1 C L Pulse Rate 92 80 89 Respiratory Rate 18 Blood Pressure 129/43 L Pulse Oximetry 95 Oxygen Delivery 12/14/24 19:46 12/14/24 20:00 12/14/24 20:00 Temperature 36.4 C Pulse Rate 100 102 H 98 Respiratory Rate 18 20 Blood Pressure 123/57 L Pulse Oximetry 93 96 Oxygen Delivery Room Air 12/14/24 20:30 12/14/24 20:31 12/15/24 00:00 Temperature Pulse Rate 100 100 93 Respiratory Rate Blood Pressure Pulse Oximetry Oxygen Delivery 12/15/24 00:20 12/15/24 03:34 12/15/24 04:00 Temperature 36.4 C Pulse Rate 102 H 106 H Respiratory Rate 20 Blood Pressure 119/43 L 112/58 L Pulse Oximetry 96 Oxygen Delivery 12/15/24 08:00 12/15/24 08:39 12/15/24 08:40 Temperature Pulse Rate 110 H 115 H Respiratory Rate Blood Pressure Pulse Oximetry Oxygen Delivery Room Air Intake/Output Intake/Output: Intake & Output 12/12/24 12/13/24 12/14/24 12/15/24 23:59 23:59 23:59 23:59 Intake Total 430 1350 1230 410 Output Total 1650 3600 1650 500 Balance -1220 -2250 -420 -90 Meds/Results Medications: Active Medications Generic Name Dose Route Start Last Admin Trade Name Freq PRN Reason Stop Dose Admin Acetaminophen 650 mg 12/14/24 12:31 12/15/24 08:40 Acetaminophen 325 Mg Tablet PO 650 mg Q6H PRN Administration Mild Pain (1-3) or Fever Apixaban 5 mg 12/12/24 12:30 12/15/24 08:39 Apixaban 5 Mg Tablet PO 5 mg Q12HR KILEY Administration Chlorthalidone 25 mg 12/12/24 09:00 12/15/24 08:39 Chlorthalidone 25 Mg Tablet PO 25 mg DAILY KILEY Administration Diltiazem HCl 120 mg 12/15/24 09:00 12/15/24 08:39 Diltiazem Hcl Cd 120 Mg Cap.24hr PO 120 mg QAM KILEY Administration Empagliflozin 10 mg 12/12/24 15:30 12/15/24 08:39 Empagliflozin 10 Mg Tablet BY MOUTH 10 mg DAILY KILEY Administration Furosemide 40 mg 12/15/24 09:00 12/15/24 08:43 Furosemide Inj 40 Mg/4 Ml Vial IV PUSH 40 mg DAILY KILEY Administration Hydralazine HCl 50 mg 12/12/24 14:00 12/15/24 05:57 Hydralazine Hcl 50 Mg Tablet PO 50 mg Q8HR KILEY Administration Lidocaine 1 patch 12/14/24 12:35 12/15/24 08:43 Lidocaine 5% Patch TRANSDERM 1 patch DAILY KILEY Administration Magnesium Oxide 200 mg 12/14/24 21:00 12/15/24 08:39 Magnesium Oxide 200 Mg Tablet PO 200 mg Q12HR KILEY Administration Melatonin 5 mg 12/13/24 21:00 12/14/24 20:30 Melatonin 5 Mg Tablet PO 5 mg HS KILEY Administration Metoprolol Tartrate 50 mg 12/12/24 12:30 12/15/24 08:39 Metoprolol Tartrate 50 Mg Tab PO 50 mg Q12HR KILEY Administration Ondansetron HCl 4 mg 12/12/24 10:38 12/14/24 08:37 Ondansetron Inj 4 Mg/2 Ml Vial IV PUSH 4 mg Q4H PRN Administration Nausea Potassium Chloride 40 meq 12/14/24 15:55 12/15/24 08:39 Potassium Chloride 20 Meq Er Tablet PO 40 meq DAILY KILEY Administration Psyllium Hydrophilic Mucilloid 1 packet 12/15/24 09:00 12/15/24 08:43 Psyllium Powder Packet PO 1 packet DAILY KILEY Administration Radiology Results: ITS Impressions Chest X-Ray 12/14/24 14:44 IMPRESSION: 1. No acute cardiopulmonary disease. Labs Labs: Laboratory Results - last 24 hr 12/15/24 04:52 WBC 15.2 H RBC 4.70 Hgb 14.1 Hct 42.5 MCV 90.4 MCH 30.0 MCHC 33.2 RDW 13.0 Plt Count 387 H MPV 9.5 Sodium 131 L Potassium 3.7 Chloride 90 L Carbon Dioxide 32 H Anion Gap 9 BUN 33 H Creatinine 1.21 H Estim Creat Clear Calc 33 Estimated GFR 43 L Glucose 122 H Calcium 9.0
[2024-12-15] MEDS: MELATONIN 5 MG TABLET PO (21:28)
[2024-12-16] VITALS (11 sets, daily range): BP systolic 109–139; BP diastolic 49–72; PULSE 73–130; RESP 15–18; TEMP 36.3–36.6; O2SAT 90–97
[2024-12-16] MEDS: ACETAMINOPHEN 325 MG TABLET 650 MG PO ×2 (03:57→21:49)
[2024-12-16 04:18] LABS: Hematocrit 39.7 % (37.0-47.0); Hemoglobin 13.3 g/dL (12.0-15.0); Mean Corpuscular HGB Conc 33.5 g/dl (32-36); Mean Corpuscular Hemoglobin 30.0 pg (26-34); Mean Corpuscular Volume 89.6 fl (80-100); Platelet Count Result 394 k/mm3 (150-375); Red Blood Count 4.43 M/mm3 (4.2-5.4); White Blood Count 16.0 K/mm3 (4.5-10.0)
[2024-12-16 05:01] LABS: Anion Gap 5 mmol/L (4-12); Blood Urea Nitrogen 37 mg/dL (7-17); Calcium 8.7 mg/dL (8.4-10.2); Carbon Dioxide 34 mmol/L (22-30); Chloride 90 mmol/L (98-107); Estimated CRCL calculation 33 ml/min; Estimated Glomerular Filt Rate 44; Glucose 116 mg/dL (65-110); Potassium 3.5 mmol/L (3.4-5.0); Sodium 129 mmol/L (137-145)
--- NOTE | 2024-12-16 09:07 | PM.IMPN ---
Progress Note: A&P Assessment and Plan (1) CHF (congestive heart failure): Code(s): I50.9 - Heart failure, unspecified Status: Acute Assessment and Plan: - Symptoms: SOB and bilateral lower extremity edema Likely 2/2 CHF exacerbation 2/2 AFib with RVR Status post IV 40 mg x1 in the ED and IV Lasix 40 mg x 2 on admission Continue Farxiga, metoprolol and Eliquis - medications: lasix PO daily - BNP:2130 - Chest XR unremarkable - Echo: LVEF > 70% with severe mitral annular calcification and trace mitral regurgitation. Trace pericardial effusion. - Monitor vital signs, I&Os, BUN/creatinine, daily weights, neuro status and patient is a fall risk - Monitor serum electrolytes, Keep serum Potassium>4 and serum Magnesium>2 and CBC - Cardiology consulted stop multaq continue chlorthalidone, Metoprolol and hydralazine. SOB and edema resolved. Transitioned to po lasix. (2) Atrial fibrillation with rapid ventricular response: Code(s): I48.91 - Unspecified atrial fibrillation Status: Acute Assessment and Plan: Chronic afib with history of PPM and cardioversion - Medications: Metoprolol 50 mg BID and Eliquis 5 mg BID - Echo LVEF > 70% with severe mitral annular calcification and trace mitral regurgitation. Trace pericardial effusion. - Cardiology consulted stop multaq as patient developed chf and multaq should not be given with clinical chf. Continue diltiazem 120 mg daily Continue metoprolol and elquis. HR well controlled. Continue to monitor. (3) Metatarsal fracture: Code(s): S92.309A - Fracture of unspecified metatarsal bone(s), unspecified foot, initial encounter for closed fracture Status: Acute Assessment and Plan: XR showing a nondisplaced fracture suspected of the proximal fifth metatarsal Discussed patient with ortho alcira Almendarez to continue current weight bearing status but he plans to evaluate her tomorrow Ortho consulted (4) Elevated white blood cell count: Code(s): D72.829 - Elevated white blood cell count, unspecified Status: Acute Assessment and Plan: WBC elevated on admission, uptrending. Vitals remain stable, afebrile. Had recent urinary tract infection. On this admission, UA shows negative for leukocytes trace, nitrates and bacteria Pt received IV Rocephin in the ED, but did not fill Keflex prescription at discharge Repeat UA to reassess for bacteria regrowth though patient currently denies any UTI like symptoms CXR unremarkable Denies any nausea/vomiting and abdominal pain No skin changes Continue to monitor (5) Hypertension: Qualifiers: Hypertension type: primary hypertension Qualified Code(s): I10 - Essential (primary) hypertension Code(s): I10 - Essential (primary) hypertension Status: Acute Assessment and Plan: Chronic - hydralazine 50 mg q8H - lasix 40 mg PO - metoprolol 50 mg bid - diltiazem 120 mg daily - blood pressures reviewed and remain stable, continue to monitor (6) Sleep apnea: Code(s): G47.30 - Sleep apnea, unspecified Status: Acute Assessment and Plan: Had sleep study recently that shows mixed central and obstructive sleep apnea however patient is not using any device She is supposed to go back this coming for final recommendation Patient to reschedule appointment Time Spent With Patient Time with patient: 25 - 35 minutes Subjective Date/time seen: 12/16/24 09:07 Interval history: 84 year old female with pmhx of COPD, HTN, PAfib, IBS and Pacemaker who is here on 12/12/24 for shortness of breath. Patient is pleasant sitting up comfortably in bed with family at bedside. She continues to endorse back pain related to the bed. She denies any tingling/numbness or shooting pain to the extremities. She does states that her right foot pain has improved today. Discussed with ortho dr. webster who plans to evaluate her tomorrow for the 5th metatarsal fracture. Patient has no other complaints denying chest pain, shortness of breath, palpitations, nausae/vomiting, abdominal pain and UTI like symptoms. Review of Systems Review of Systems: All systems reviewed & are unremarkable except as noted in HPI and below Exam Narrative: AF HR 75 RR 15 SpO2 97 BP 113/72 General: female in no acute respiratory distress who is nontoxic appearing, sitting up in bed. HEENT: Normocephalic. Atraumatic. Extraocular movement intact. Sclera clear and anicteric. No facial asymmetry. Chest: Lungs are clear to auscultation bilaterally. No wheezes or crackles. CV: Heart was regular rate and rhythm. Abd: Abdomen was soft. Nontender. Nondistended. Positive bowel sounds. Ext: No clubbing, cyanosis, or edema. DP pulses bilaterally. Neuro: Patient is alert. Speech is clear. Objective Data Vital Signs Vital Signs: Vital Signs - 24 hr 12/15/24 09:55 12/15/24 12:00 12/15/24 14:00 Temperature 97.6 F Pulse Rate 78 72 Respiratory Rate 15 Blood Pressure 120/45 L Pulse Oximetry 96 95 Oxygen Delivery Room Air 12/15/24 16:00 12/15/24 20:00 12/15/24 20:00 Temperature Pulse Rate 72 74 87 Respiratory Rate 18 Blood Pressure Pulse Oximetry 96 Oxygen Delivery Room Air 12/15/24 21:28 12/15/24 22:00 12/16/24 00:00 Temperature 99.5 F Pulse Rate 72 74 73 Respiratory Rate 18 Blood Pressure 132/43 L Pulse Oximetry 96 Oxygen Delivery 12/16/24 04:00 12/16/24 06:00 Temperature 97.9 F Pulse Rate 89 79 Respiratory Rate 18 Blood Pressure 109/49 L Pulse Oximetry 90 Oxygen Delivery Intake/Output Intake/Output: Intake & Output 12/13/24 12/14/24 12/15/24 12/16/24 23:59 23:59 23:59 23:59 Intake Total 1350 1230 740 Output Total 3600 1650 1200 300 Balance -2250 -420 -460 -300 Meds/Results Medications: Active Medications Generic Name Dose Route Start Last Admin Trade Name Freq PRN Reason Stop Dose Admin Acetaminophen 650 mg 12/14/24 12:31 12/16/24 03:57 Acetaminophen 325 Mg Tablet PO 650 mg Q6H PRN Administration Mild Pain (1-3) or Fever Apixaban 5 mg 12/12/24 12:30 12/15/24 21:28 Apixaban 5 Mg Tablet PO 5 mg Q12HR KILEY Administration Chlorthalidone 25 mg 12/12/24 09:00 12/15/24 08:39 Chlorthalidone 25 Mg Tablet PO 25 mg DAILY KILEY Administration Diltiazem HCl 120 mg 12/15/24 09:00 12/15/24 08:39 Diltiazem Hcl Cd 120 Mg Cap.24hr PO 120 mg QAM KILEY Administration Empagliflozin 10 mg 12/12/24 15:30 12/15/24 08:39 Empagliflozin 10 Mg Tablet BY MOUTH 10 mg DAILY KILEY Administration Furosemide 40 mg 12/16/24 09:00 Furosemide 40 Mg Tablet PO DAILY KILEY Hydralazine HCl 50 mg 12/12/24 14:00 12/16/24 06:23 Hydralazine Hcl 50 Mg Tablet PO Not Given Q8HR KILEY Lidocaine 1 patch 12/14/24 12:35 12/15/24 08:43 Lidocaine 5% Patch TRANSDERM 1 patch DAILY KILEY Administration Magnesium Oxide 200 mg 12/14/24 21:00 12/15/24 21:28 Magnesium Oxide 200 Mg Tablet PO 200 mg Q12HR KILEY Administration Melatonin 5 mg 12/13/24 21:00 12/15/24 21:28 Melatonin 5 Mg Tablet PO 5 mg HS KILEY Administration Metoprolol Tartrate 50 mg 12/12/24 12:30 12/15/24 21:28 Metoprolol Tartrate 50 Mg Tab PO 50 mg Q12HR KILEY Administration Ondansetron HCl 4 mg 12/12/24 10:38 12/14/24 08:37 Ondansetron Inj 4 Mg/2 Ml Vial IV PUSH 4 mg Q4H PRN Administration Nausea Potassium Chloride 40 meq 12/14/24 15:55 12/15/24 08:39 Potassium Chloride 20 Meq Er Tablet PO 40 meq DAILY KILEY Administration Psyllium Hydrophilic Mucilloid 1 packet 12/15/24 09:00 12/15/24 08:43 Psyllium Powder Packet PO 1 packet DAILY KILEY Administration Radiology Results: ITS Impressions Chest X-Ray 12/14/24 14:44 IMPRESSION: 1. No acute cardiopulmonary disease. Foot X-Ray 12/15/24 17:04 Impression: Please see above Labs Labs: Laboratory Results - last 24 hr 12/16/24 03:46 WBC 16.0 H RBC 4.43 Hgb 13.3 Hct 39.7 MCV 89.6 MCH 30.0 MCHC 33.5 RDW 13.0 Plt Count 394 H MPV 9.5 Sodium 129 L Potassium 3.5 Chloride 90 L Carbon Dioxide 34 H Anion Gap 5 BUN 37 H Creatinine 1.18 H Estim Creat Clear Calc 33 Estimated GFR 44 L Glucose 116 H Calcium 8.7 Quality VTE Prophylaxis VTE prophylaxis: pharmacologic ordered (Eliquis)
[2024-12-16] MEDS: dilTIAZem HCL CD 120 MG CAP.24HR PO (09:29)
[2024-12-16] MEDS: APIXABAN 5 MG TABLET PO ×2 (09:29→21:48)
[2024-12-16] MEDS: POTASSIUM CHLORIDE 20 MEQ ER TABLET 40 MEQ PO (09:29)
[2024-12-16] MEDS: MAGNESIUM OXIDE 200 MG TABLET PO ×2 (09:29→21:49)
[2024-12-16] MEDS: CHLORTHALIDONE 25 MG TABLET PO (09:29)
[2024-12-16] MEDS: FUROSEMIDE 40 MG TABLET PO (09:29)
[2024-12-16] MEDS: LIDOCAINE 5% PATCH 1 PATCH TRANSDERM (09:30)
[2024-12-16] MEDS: PSYLLIUM POWDER PACKET 1 PACKET PO (09:30)
[2024-12-16] MEDS: METOPROLOL TARTRATE 50 MG TAB PO ×2 (09:30→21:49)
[2024-12-16] MEDS: EMPAGLIFLOZIN 10 MG TABLET BY MOUTH (09:30)
[2024-12-16 15:24] LABS: Add Urine Microscopic? YES; Appearance Urine Clear (Clear); Glucose Urine UA 2+ mg/dL (Negative); Leukocyte Esterase Ur Negative LEU/UL (Negative); Nitrate Urine Negative (Negative); Non Pathogenic Casts 0-2; Specific Grav Ur 1.012 (1.001-1.035)
[2024-12-16] MEDS: MELATONIN 5 MG TABLET PO (21:48)
[2024-12-17] VITALS (10 sets, daily range): BP systolic 105–136; BP diastolic 49–65; PULSE 76–119; RESP 18–20; TEMP 36.1–36.5; O2SAT 94–96
[2024-12-17 05:25] LABS: Hematocrit 40.8 % (37.0-47.0); Hemoglobin 13.4 g/dL (12.0-15.0); Mean Corpuscular HGB Conc 32.8 g/dl (32-36); Mean Corpuscular Hemoglobin 29.6 pg (26-34); Mean Corpuscular Volume 90.3 fl (80-100); Platelet Count Result 414 k/mm3 (150-375); Red Blood Count 4.52 M/mm3 (4.2-5.4); White Blood Count 13.9 K/mm3 (4.5-10.0)
[2024-12-17 05:35] LABS: Alanine Aminotransferase 16 U/L (6-35); Albumin Level 3.7 g/dL (3.5-5.1); Alkaline Phosphatase 111 U/L (38-126); Anion Gap 7 mmol/L (4-12); Aspartate Amino Transferase 28 U/L (14-36); Bilirubin,Total 0.6 mg/dL (0.2-1.3); Blood Urea Nitrogen 37 mg/dL (7-17); Calcium 8.7 mg/dL (8.4-10.2); Carbon Dioxide 32 mmol/L (22-30); Chloride 92 mmol/L (98-107); Estimated CRCL calculation 34 ml/min; Estimated Glomerular Filt Rate 44; Glucose 108 mg/dL (65-110); Potassium 3.4 mmol/L (3.4-5.0); Sodium 131 mmol/L (137-145); Total Protein 7.2 g/dL (6.3-8.2)
[2024-12-17] MEDS: dilTIAZem HCL CD 120 MG CAP.24HR PO (08:18)
[2024-12-17] MEDS: CHLORTHALIDONE 25 MG TABLET PO (08:19)
[2024-12-17] MEDS: METOPROLOL TARTRATE 50 MG TAB PO ×2 (08:19→21:16)
[2024-12-17] MEDS: POTASSIUM CHLORIDE 20 MEQ ER TABLET 40 MEQ PO (08:19)
[2024-12-17] MEDS: EMPAGLIFLOZIN 10 MG TABLET BY MOUTH (08:19)
[2024-12-17] MEDS: FUROSEMIDE 40 MG TABLET PO (08:19)
[2024-12-17] MEDS: MAGNESIUM OXIDE 200 MG TABLET PO ×2 (08:19→21:16)
[2024-12-17] MEDS: APIXABAN 5 MG TABLET PO ×2 (08:19→21:16)
[2024-12-17] MEDS: PSYLLIUM POWDER PACKET 1 PACKET PO (08:25)
--- NOTE | 2024-12-17 08:52 | P.PNIM_ITS ---
Progress Note: A&P Assessment and Plan (1) CHF (congestive heart failure): Code(s): I50.9 - Heart failure, unspecified Status: Acute Assessment and Plan: Symptoms: SOB and bilateral lower extremity edema Likely 2/2 CHF exacerbation 2/2 AFib with RVR Status post IV 40 mg x1 in the ED and IV Lasix 40 mg x 2 on admission Continue Farxiga, metoprolol and Eliquis - medications: lasix PO daily - BNP:2130 - Chest XR unremarkable - Echo: LVEF > 70% with severe mitral annular calcification and trace mitral regurgitation. Trace pericardial effusion. - Monitor vital signs, I&Os, BUN/creatinine, daily weights, neuro status and patient is a fall risk - Monitor serum electrolytes, Keep serum Potassium>4 and serum Magnesium>2 and CBC - Cardiology consulted stopped multaq continue chlorthalidone, Metoprolol and hydralazine. SOB and edema resolved. Remains on PO lasix. Acute exacerbation has resolved. (2) Atrial fibrillation with rapid ventricular response: Code(s): I48.91 - Unspecified atrial fibrillation Status: Acute Assessment and Plan: Chronic afib with history of PPM and cardioversion - Medications: Metoprolol 50 mg BID and Eliquis 5 mg BID - Echo LVEF > 70% with severe mitral annular calcification and trace mitral regurgitation. Trace pericardial effusion. - Cardiology consulted Stopped multaq as patient developed chf and multaq should not be given with clinical chf. Continue diltiazem 120 mg daily Continue metoprolol and elquis. Tele reviewed, patient has converted back to sinus and HR remains stable on current regimen. She was slightly tachycardic this morning which improved after receiving her morning medications (3) Metatarsal fracture: Code(s): S92.309A - Fracture of unspecified metatarsal bone(s), unspecified foot, initial encounter for closed fracture Status: Acute Assessment and Plan: XR showing a nondisplaced fracture suspected of the proximal fifth metatarsal Discussed patient with ortho alcira Almendarez to continue current weight bearing status but he plans to evaluate her tomorrow Ortho consulted Weight bearing as tolerated, follow up with my office 7-10 days after discharge. Pain is much improved. Continues to work with PT/OT. Awaiting placement. (4) Elevated white blood cell count: Code(s): D72.829 - Elevated white blood cell count, unspecified Status: Acute Assessment and Plan: WBC elevated on admission, downtrending. Vitals remain stable, afebrile. Had recent urinary tract infection. On this admission, UA shows negative for leukocytes trace, nitrates and bacteria Pt received IV Rocephin in the ED, but did not fill Keflex prescription at discharge Repeat UA to reassess for bacteria regrowth though patient currently denies any UTI like symptoms CXR unremarkable Denies any nausea/vomiting and abdominal pain No skin changes Continue to monitor (5) Hypertension: Qualifiers: Hypertension type: primary hypertension Qualified Code(s): I10 - Essential (primary) hypertension Code(s): I10 - Essential (primary) hypertension Status: Acute Assessment and Plan: Chronic - hydralazine 50 mg q8H - lasix 40 mg PO - metoprolol 50 mg bid - diltiazem 120 mg daily - blood pressures reviewed and remain stable, continue to monitor (6) Sleep apnea: Code(s): G47.30 - Sleep apnea, unspecified Status: Acute Assessment and Plan: Had sleep study recently that shows mixed central and obstructive sleep apnea however patient is not using any device She is supposed to go back this coming for final recommendation Patient to reschedule appointment Time Spent With Patient Time with patient: 25 - 35 minutes Subjective Date/time seen: 12/17/24 08:52 Interval history: 84 year old female with pmhx of COPD, HTN, PAfib, IBS and Pacemaker who is here on 12/12/24 for shortness of breath. Patient is pleasant sitting up comfortably in her chair. She states that her foot pain has much improved she has been working better with physical therapy. Care coordination continues to follow for placement. Patient has no other complaints denying chest pain, shortness a breath, palpitations, nausea/vomiting, abdominal pain, and dizziness/lightheadedness. Review of Systems Review of Systems: All systems reviewed & are unremarkable except as noted in HPI and below Exam Narrative: AF HR 78 RR 18 Spo2 94 BP 125/65 General: female in no acute respiratory distress who is nontoxic appearing, sitting up in chair HEENT: Normocephalic. Atraumatic. Extraocular movement intact. Sclera clear and anicteric. No facial asymmetry. Chest: Lungs are clear to auscultation bilaterally. No wheezes or crackles. CV: Heart was regular rate and rhythm. Abd: Abdomen was soft. Nontender. Nondistended. Positive bowel sounds. Ext: No clubbing, cyanosis, or edema. DP pulses bilaterally. Neuro: Patient is alert. Speech is clear. Objective Data Vital Signs Vital Signs: Vital Signs - 24 hr 12/16/24 09:03 12/16/24 09:30 12/16/24 09:30 Temperature Pulse Rate 128 H Respiratory Rate Blood Pressure Pulse Oximetry Oxygen Delivery Room Air Room Air 12/16/24 09:42 12/16/24 12:00 12/16/24 14:00 Temperature 97.8 F Pulse Rate 74 75 Respiratory Rate 15 Blood Pressure 113/72 Pulse Oximetry 97 Oxygen Delivery Room Air 12/16/24 16:00 12/16/24 20:00 12/16/24 20:00 Temperature Pulse Rate 83 82 Respiratory Rate Blood Pressure Pulse Oximetry Oxygen Delivery Room Air 12/16/24 21:49 12/16/24 22:00 12/17/24 00:00 Temperature 97.3 F L Pulse Rate 130 H 103 H 88 Respiratory Rate 18 Blood Pressure 139/52 L Pulse Oximetry 95 Oxygen Delivery 12/17/24 04:00 12/17/24 06:00 12/17/24 08:19 Temperature 97.0 F L Pulse Rate 76 78 119 H Respiratory Rate 18 Blood Pressure 125/65 Pulse Oximetry 94 Oxygen Delivery Intake/Output Intake/Output: Intake & Output 12/14/24 12/15/24 12/16/24 12/17/24 23:59 23:59 23:59 23:59 Intake Total 1230 740 840 Output Total 1650 1200 751 700 Balance -420 -460 89 -700 Meds/Results Medications: Active Medications Generic Name Dose Route Start Last Admin Trade Name Freq PRN Reason Stop Dose Admin Acetaminophen 650 mg 12/14/24 12:31 12/16/24 21:49 Acetaminophen 325 Mg Tablet PO 650 mg Q6H PRN Administration Mild Pain (1-3) or Fever Apixaban 5 mg 12/12/24 12:30 12/17/24 08:19 Apixaban 5 Mg Tablet PO 5 mg Q12HR KILEY Administration Chlorthalidone 25 mg 12/12/24 09:00 12/17/24 08:19 Chlorthalidone 25 Mg Tablet PO 25 mg DAILY KILEY Administration Diltiazem HCl 120 mg 12/15/24 09:00 12/17/24 08:18 Diltiazem Hcl Cd 120 Mg Cap.24hr PO 120 mg QAM KILEY Administration Empagliflozin 10 mg 12/12/24 15:30 12/17/24 08:19 Empagliflozin 10 Mg Tablet BY MOUTH 10 mg DAILY KILEY Administration Furosemide 40 mg 12/16/24 09:00 12/17/24 08:19 Furosemide 40 Mg Tablet PO 40 mg DAILY KILEY Administration Hydralazine HCl 50 mg 12/12/24 14:00 12/17/24 05:40 Hydralazine Hcl 50 Mg Tablet PO 50 mg Q8HR KILEY Administration Lidocaine 1 patch 12/14/24 12:35 12/16/24 09:30 Lidocaine 5% Patch TRANSDERM 1 patch DAILY KILEY Administration Magnesium Oxide 200 mg 12/14/24 21:00 12/17/24 08:19 Magnesium Oxide 200 Mg Tablet PO 200 mg Q12HR KILEY Administration Melatonin 5 mg 12/13/24 21:00 12/16/24 21:48 Melatonin 5 Mg Tablet PO 5 mg HS KILEY Administration Metoprolol Tartrate 50 mg 12/12/24 12:30 12/17/24 08:19 Metoprolol Tartrate 50 Mg Tab PO 50 mg Q12HR KILEY Administration Ondansetron HCl 4 mg 12/12/24 10:38 12/14/24 08:37 Ondansetron Inj 4 Mg/2 Ml Vial IV PUSH 4 mg Q4H PRN Administration Nausea Potassium Chloride 40 meq 12/14/24 15:55 12/17/24 08:19 Potassium Chloride 20 Meq Er Tablet PO 40 meq DAILY KILEY Administration Psyllium Hydrophilic Mucilloid 1 packet 12/15/24 09:00 12/17/24 08:25 Psyllium Powder Packet PO 1 packet DAILY KILEY Administration Radiology Results: ITS Impressions Chest X-Ray 12/14/24 14:44 IMPRESSION: 1. No acute cardiopulmonary disease. Foot X-Ray 12/15/24 17:04 Impression: Please see above Labs Labs: Laboratory Results - last 24 hr 12/16/24 12/17/24 15:13 04:52 WBC 13.9 H RBC 4.52 Hgb 13.4 Hct 40.8 MCV 90.3 MCH 29.6 MCHC 32.8 RDW 12.8 Plt Count 414 H MPV 9.5 Sodium 131 L Potassium 3.4 Chloride 92 L Carbon Dioxide 32 H Anion Gap 7 BUN 37 H Creatinine 1.17 H Estim Creat Clear Calc 34 Estimated GFR 44 L Glucose 108 Calcium 8.7 Total Bilirubin 0.6 AST 28 ALT 16 Alkaline Phosphatase 111 Total Protein 7.2 Albumin 3.7 Urine Color Yellow Urine Appearance Clear Urine pH 6.5 Ur Specific [place] 1.012 Urine Protein 1+ H Urine Glucose (UA) 2+ H Urine Ketones Negative Ur Blood (Man) Negative Urine Nitrate Negative Urine Bilirubin Negative Urine Urobilinogen 1.0 Leukocyte Esterase Rfl Negative Urine RBC 0-2 Urine WBC 0-5 Ur Squamous Epith Cells None seen Urine Bacteria None seen Urine Casts 0-2 Quality VTE Prophylaxis VTE prophylaxis: pharmacologic ordered (Eliquis)
--- NOTE | 2024-12-17 11:22 | PM.CNOR ---
Assessment and Plan Assessment and plan (1) Metatarsal fracture: Code(s): S92.309A - Fracture of unspecified metatarsal bone(s), unspecified foot, initial encounter for closed fracture Status: Acute Plan 84 yr old female, with stable Right Foot 5th Metatarsal fracture, admitted for CHF with Right Foot Pain over the lateral aspect, base of 5th Metatarsal. - xrays reviewed. - patient has been able to walk with minimal pain over the past 2 days. - recommendation: Weight bearing as tolerated, follow up with my office 7-10 days after discharge. History of Present Illness HPI Consult date: 12/17/24 Chief complaint: Right Foot 5th MT Fracture Narrative: 84 yr old female, admitted for CHF with Right Foot Pain over the lateral aspect, base of 5th Metatarsal. Pain started Friday this week. She has a history of 5th MT Fracture same side about 5 yrs ago. She is cognitively capabable, lives independently (alone) in a [facility] in [place]. Retired [employer] since 1995. Today she states that she can walk with minimal pain to the lateral aspect of her Right Foot. [facility] Past Medical History Medical History Depression Anxiety Osteoporosis Heart murmur Pacemaker Congestive heart failure Afib IBS (irritable bowel syndrome) Hypertension COPD (chronic obstructive pulmonary disease) Surgical History Surgical History History of left shoulder replacement Family History Family History Father Stomach cancer Mother Osteoporosis Social History Social History Smoking packs per day: 0.5 Smoking cigarettes per day: 10.0 Years smoked: 50 Smoking pack-years: 25.00 Smoking status: Former smoker Tobacco type: cigarettes Second hand tobacco smoke exposure: No Smoking end date: 03/03/11 Additional smoking assessment comments: quit in 2011 Alcohol intake: never Substance use: never Substance use type: does not use Do You Feel Safe in your Home?: Yes Lack of Transportation: No Lack of Food: Never True Current Housing: I Have Housing Concerned About Future Housing: No Difficulty Paying Gas/Electric Bills: No Difficulty Paying for Meds: No Currently Unemployed: No Education: Associate Degree Difficulty w/ Childcare or Family Care: No Living arrangements: alone Spiritual care concerns: No Meds Home Medications and Allergies Home Medications ?Medication ?Instructions ?Recorded ?Confirmed ?Type aspirin 325 mg tablet 325 mg PO DAILY 12/14/19 12/12/24 History chlorthalidone 25 mg tablet 25 mg PO DAILY 12/14/19 12/12/24 History hydralazine 50 mg tablet 50 mg PO TID 12/14/19 12/12/24 History metoprolol tartrate 100 mg tablet 50 mg PO Q12H 12/14/19 12/12/24 History alprazolam 0.25 mg tablet 0.25 mg PO QID PRN anxiety 09/19/24 12/12/24 History apixaban 5 mg tablet (Eliquis) 5 mg PO Q12H 09/19/24 12/12/24 History furosemide 20 mg tablet 20 mg PO DAILY PRN edema 09/19/24 12/12/24 History potassium chloride 10 mEq 10 meq PO DAILY PRN Take only when 09/20/24 12/12/24 Rx tablet,extended release (Klor-Con) you take furosemide #30 tabs amlodipine 5 mg tablet 5 mg PO DAILY 12/10/24 12/12/24 History dronedarone 400 mg tablet (Multaq) 400 mg PO BID 12/10/24 12/12/24 History dapagliflozin propanediol 10 mg 10 mg PO DAILY 12/12/24 12/12/24 History tablet (Farxiga) diltiazem HCl 240 mg 240 mg PO Q24H 12/12/24 12/12/24 History capsule,extended release 24 hr, controlled (DILT-XR) Allergies Allergy/AdvReac Type Severity Reaction Status Date / Time oxycodone Allergy Mild condusion, Verified 12/12/24 08:02 difficulty concentrating amoxicillin AdvReac Intermediate Diarrhea Verified 12/12/24 08:02 prednisone AdvReac Mild Confusion Verified 12/12/24 08:02 Vital Signs Vital Signs - 24 hr 12/16/24 12:00 12/16/24 14:00 12/16/24 16:00 Temperature 36.6 C Pulse Rate 74 75 83 Respiratory Rate 15 Blood Pressure 113/72 Pulse Oximetry 97 Oxygen Delivery 12/16/24 20:00 12/16/24 20:00 12/16/24 21:49 Temperature Pulse Rate 82 130 H Respiratory Rate Blood Pressure Pulse Oximetry Oxygen Delivery Room Air 12/16/24 22:00 12/17/24 00:00 12/17/24 04:00 Temperature 36.3 C L Pulse Rate 103 H 88 76 Respiratory Rate 18 Blood Pressure 139/52 L Pulse Oximetry 95 Oxygen Delivery 12/17/24 06:00 12/17/24 08:19 Temperature 36.1 C L Pulse Rate 78 119 H Respiratory Rate 18 Blood Pressure 125/65 Pulse Oximetry 94 Oxygen Delivery Exam Narrative: Right Ankle and Foot Exam shows, moderate pitting edema to the mid tibia level. Palpable DP pulse, intact sensation, No pain with passive range of motion of the ankle, no tenderness to palpation of the ankle joint. Moderate tenderness to palpation of the base of the 5th metatarsal. Results Labs 12/17/24 04:52 12/17/24 04:52 Labs: Abnormal lab results 12/16/24 12/17/24 Range/Units 15:13 04:52 WBC 13.9 H (4.5-10.0) K/mm3 Plt Count 414 H (150-375) k/mm3 Sodium 131 L (137-145) mmol/L Chloride 92 L (98-107) mmol/L Carbon Dioxide 32 H (22-30) mmol/L BUN 37 H (7-17) mg/dL Creatinine 1.17 H (0.7-1.0) mg/dL Estimated GFR 44 L (59 - ) Urine Protein 1+ H (Negative) mg/dL Urine Glucose (UA) 2+ H (Negative) mg/dL H & H 12/12/24 12/13/24 12/14/24 Range/Units 08:05 05:21 04:54 Hgb 13.9 13.8 14.1 (12.0-15.0) g/dL Hct 42.1 42.3 41.2 (37.0-47.0) % 12/15/24 12/16/24 12/17/24 Range/Units 04:52 03:46 04:52 Hgb 14.1 13.3 13.4 (12.0-15.0) g/dL Hct 42.5 39.7 40.8 (37.0-47.0) % Coagulation 12/12/24 Range/Units 08:05 INR 1.4 All other labs normal.
[2024-12-17] MEDS: MELATONIN 5 MG TABLET PO (21:16)
[2024-12-18 05:21] VITALS: BP 138/58; PULSE 71; RESP 18; TEMP 36.4; O2SAT 96
[2024-12-18 05:30] LABS: Hematocrit 38.8 % (37.0-47.0); Hemoglobin 12.9 g/dL (12.0-15.0); Mean Corpuscular HGB Conc 33.2 g/dl (32-36); Mean Corpuscular Hemoglobin 29.9 pg (26-34); Mean Corpuscular Volume 89.8 fl (80-100); Platelet Count Result 424 k/mm3 (150-375); Red Blood Count 4.32 M/mm3 (4.2-5.4); White Blood Count 12.0 K/mm3 (4.5-10.0)
[2024-12-18 05:50] LABS: Alanine Aminotransferase 18 U/L (6-35); Albumin Level 3.4 g/dL (3.5-5.1); Alkaline Phosphatase 125 U/L (38-126); Anion Gap 7 mmol/L (4-12); Aspartate Amino Transferase 34 U/L (14-36); Bilirubin,Total 0.5 mg/dL (0.2-1.3); Blood Urea Nitrogen 41 mg/dL (7-17); Calcium 8.3 mg/dL (8.4-10.2); Carbon Dioxide 29 mmol/L (22-30); Chloride 94 mmol/L (98-107); Estimated CRCL calculation 35 ml/min; Estimated Glomerular Filt Rate 46; Glucose 114 mg/dL (65-110); Potassium 3.3 mmol/L (3.4-5.0); Sodium 130 mmol/L (137-145); Total Protein 6.8 g/dL (6.3-8.2)
--- NOTE | 2024-12-18 10:01 | PM.IMPN ---
Progress Note: A&P Assessment and Plan (1) CHF (congestive heart failure): Code(s): I50.9 - Heart failure, unspecified Status: Acute Assessment and Plan: Symptoms: SOB and bilateral lower extremity edema Likely 2/2 CHF exacerbation 2/2 AFib with RVR Status post IV 40 mg x1 in the ED and IV Lasix 40 mg x 2 on admission Continue Farxiga, metoprolol and Eliquis - medications: lasix PO daily - BNP:2130 - Chest XR unremarkable - Echo: LVEF > 70% with severe mitral annular calcification and trace mitral regurgitation. Trace pericardial effusion. - Monitor vital signs, I&Os, BUN/creatinine, daily weights, neuro status and patient is a fall risk - Monitor serum electrolytes, Keep serum Potassium>4 and serum Magnesium>2 and CBC - Cardiology consulted stopped multaq continue chlorthalidone, Metoprolol and hydralazine. SOB and edema resolved. Remains on PO lasix. Acute exacerbation has resolved. I/O reviewed, no sob, no leg swelling-stable K 3.3 -continue with PO replacement (2) Atrial fibrillation with rapid ventricular response: Code(s): I48.91 - Unspecified atrial fibrillation Status: Acute Assessment and Plan: Chronic afib with history of PPM and cardioversion - Medications: Metoprolol 50 mg BID and Eliquis 5 mg BID - Echo LVEF > 70% with severe mitral annular calcification and trace mitral regurgitation. Trace pericardial effusion. - Cardiology consulted Stopped multaq as patient developed chf and multaq should not be given with clinical chf. Continue diltiazem 120 mg daily Continue metoprolol and elquis. Tele reviewed, patient has converted back to sinus and HR remains stable on current regimen. She was slightly tachycardic this morning which improved after receiving her morning medications (3) Metatarsal fracture: Code(s): S92.309A - Fracture of unspecified metatarsal bone(s), unspecified foot, initial encounter for closed fracture Status: Acute Assessment and Plan: XR showing a nondisplaced fracture suspected of the proximal fifth metatarsal Discussed patient with ortho Dr. Norman, michaelaay to continue current weight bearing status but he plans to evaluate her tomorrow Ortho consulted Weight bearing as tolerated, follow up with my office 7-10 days after discharge. Pain is much improved. Continues to work with PT/OT. Awaiting placement. care coordination following for placement (4) Elevated white blood cell count: Code(s): D72.829 - Elevated white blood cell count, unspecified Status: Acute Assessment and Plan: WBC elevated on admission, downtrending. Vitals remain stable, afebrile. Had recent urinary tract infection. On this admission, UA shows negative for leukocytes trace, nitrates and bacteria Pt received IV Rocephin in the ED, but did not fill Keflex prescription at discharge Repeat UA to reassess for bacteria regrowth though patient currently denies any UTI like symptoms CXR unremarkable Denies any nausea/vomiting and abdominal pain No skin changes Continue to monitor 12/18 trending down- 12 today monitor (5) Hypertension: Qualifiers: Hypertension type: primary hypertension Qualified Code(s): I10 - Essential (primary) hypertension Code(s): I10 - Essential (primary) hypertension Status: Acute Assessment and Plan: Chronic - hydralazine 50 mg q8H - lasix 40 mg PO - metoprolol 50 mg bid - diltiazem 120 mg daily - blood pressures reviewed and remain stable, continue to monitor (6) Sleep apnea: Code(s): G47.30 - Sleep apnea, unspecified Status: Acute Assessment and Plan: Had sleep study recently that shows mixed central and obstructive sleep apnea however patient is not using any device She is supposed to go back this coming for final recommendation Patient to reschedule appointment Time Spent With Patient Time with patient: 25 - 35 minutes Subjective Date/time seen: 12/18/24 10:01 Interval history: 84 year old female with pmhx of COPD, HTN, PAfib, IBS and Pacemaker who is here on 12/12/24 for shortness of breath. Patient is seen and examined. she is pleasant, denies sob, chest pain. She states that her foot pain has much improved she has been working better with physical therapy. Care coordination continues to follow for placement. Review of Systems Review of Systems: All systems reviewed & are unremarkable except as noted in HPI and below Exam Narrative: General: female in no acute respiratory distress who is nontoxic appearing HEENT: Normocephalic. Atraumatic. Extraocular movement intact. Sclera clear and anicteric. No facial asymmetry. Chest: Lungs are clear to auscultation bilaterally. No wheezes or crackles. CV: Heart was regular rate and rhythm. Abd: Abdomen was soft. Nontender. Nondistended. Positive bowel sounds. Ext: No clubbing, cyanosis, or edema. DP pulses bilaterally. Neuro: Patient is alert. Speech is clear. Const: General: comfortable Objective Data Vital Signs Vital Signs: Vital Signs - 24 hr 12/17/24 12:00 12/17/24 14:05 12/17/24 16:00 Temperature 97.7 F Pulse Rate 83 76 84 Respiratory Rate 18 Blood Pressure 105/61 Pulse Oximetry 96 Oxygen Delivery 12/17/24 20:00 12/17/24 20:59 12/17/24 21:16 Temperature 97.6 F Pulse Rate 80 80 Respiratory Rate 20 Blood Pressure 136/49 L Pulse Oximetry 96 Oxygen Delivery Room Air 12/18/24 05:21 Temperature 97.6 F Pulse Rate 71 Respiratory Rate 18 Blood Pressure 138/58 L Pulse Oximetry 96 Oxygen Delivery Intake/Output Intake/Output: Intake & Output 12/15/24 12/16/24 12/17/24 12/18/24 23:59 23:59 23:59 23:59 Intake Total 239 293 2846 240 Output Total 1292 426 2813 Balance -460 89 140 240 Meds/Results Medications: Active Medications Generic Name Dose Route Start Last Admin Trade Name Freq PRN Reason Stop Dose Admin Acetaminophen 650 mg 12/14/24 12:31 12/16/24 21:49 Acetaminophen 325 Mg Tablet PO 650 mg Q6H PRN Administration Mild Pain (1-3) or Fever Apixaban 5 mg 12/12/24 12:30 12/17/24 21:16 Apixaban 5 Mg Tablet PO 5 mg Q12HR KILEY Administration Chlorthalidone 25 mg 12/12/24 09:00 12/17/24 08:19 Chlorthalidone 25 Mg Tablet PO 25 mg DAILY KILEY Administration Diltiazem HCl 120 mg 12/15/24 09:00 12/17/24 08:18 Diltiazem Hcl Cd 120 Mg Cap.24hr PO 120 mg QAM KILEY Administration Empagliflozin 10 mg 12/12/24 15:30 12/17/24 08:19 Empagliflozin 10 Mg Tablet BY MOUTH 10 mg DAILY KILEY Administration Furosemide 40 mg 12/16/24 09:00 12/17/24 08:19 Furosemide 40 Mg Tablet PO 40 mg DAILY KILEY Administration Hydralazine HCl 50 mg 12/12/24 14:00 12/18/24 05:21 Hydralazine Hcl 50 Mg Tablet PO 50 mg Q8HR KILEY Administration Lidocaine 1 patch 12/14/24 12:35 12/17/24 11:20 Lidocaine 5% Patch TRANSDERM Not Given DAILY KILEY Magnesium Oxide 200 mg 12/14/24 21:00 12/17/24 21:16 Magnesium Oxide 200 Mg Tablet PO 200 mg Q12HR KILEY Administration Melatonin 5 mg 12/13/24 21:00 12/17/24 21:16 Melatonin 5 Mg Tablet PO 5 mg HS KILEY Administration Metoprolol Tartrate 50 mg 12/12/24 12:30 12/17/24 21:16 Metoprolol Tartrate 50 Mg Tab PO 50 mg Q12HR KILEY Administration Ondansetron HCl 4 mg 12/12/24 10:38 12/14/24 08:37 Ondansetron Inj 4 Mg/2 Ml Vial IV PUSH 4 mg Q4H PRN Administration Nausea Potassium Chloride 40 meq 12/14/24 15:55 12/17/24 08:19 Potassium Chloride 20 Meq Er Tablet PO 40 meq DAILY KILEY Administration Psyllium Hydrophilic Mucilloid 1 packet 12/15/24 09:00 12/17/24 08:25 Psyllium Powder Packet PO 1 packet DAILY KILEY Administration Radiology Results: ITS Impressions Chest X-Ray 12/14/24 14:44 IMPRESSION: 1. No acute cardiopulmonary disease. Foot X-Ray 12/15/24 17:04 Impression: Please see above Labs Labs: Laboratory Results - last 24 hr 12/18/24 05:10 WBC 12.0 H RBC 4.32 Hgb 12.9 Hct 38.8 MCV 89.8 MCH 29.9 MCHC 33.2 RDW 12.8 Plt Count 424 H MPV 9.2 Sodium 130 L Potassium 3.3 L Chloride 94 L Carbon Dioxide 29 Anion Gap 7 BUN 41 H Creatinine 1.13 H Estim Creat Clear Calc 35 Estimated GFR 46 L Glucose 114 H Calcium 8.3 L Total Bilirubin 0.5 AST 34 ALT 18 Alkaline Phosphatase 125 Total Protein 6.8 Albumin 3.4 L Quality VTE Prophylaxis VTE prophylaxis: pharmacologic ordered (Eliquis)
[2024-12-18 10:33] VITALS: PULSE 71
[2024-12-18] MEDS: EMPAGLIFLOZIN 10 MG TABLET BY MOUTH (10:33)
[2024-12-18] MEDS: dilTIAZem HCL CD 120 MG CAP.24HR PO (10:33)
[2024-12-18] MEDS: MAGNESIUM OXIDE 200 MG TABLET PO ×2 (10:33→21:16)
[2024-12-18] MEDS: METOPROLOL TARTRATE 50 MG TAB PO ×2 (10:33→21:16)
[2024-12-18] MEDS: CHLORTHALIDONE 25 MG TABLET PO (10:33)
[2024-12-18] MEDS: POTASSIUM CHLORIDE 20 MEQ ER TABLET 40 MEQ PO (10:34)
[2024-12-18] MEDS: PSYLLIUM POWDER PACKET 1 PACKET PO (10:34)
[2024-12-18] MEDS: APIXABAN 5 MG TABLET PO ×2 (10:34→21:16)
[2024-12-18] MEDS: FUROSEMIDE 40 MG TABLET PO (10:34)
[2024-12-18 14:15] VITALS: BP 142/57; PULSE 81; RESP 18; TEMP 36.3; O2SAT 98
[2024-12-18 21:03] VITALS: BP 149/64; PULSE 77; RESP 20; TEMP 36.6; O2SAT 94
[2024-12-18 21:16] VITALS: PULSE 77
[2024-12-18] MEDS: MELATONIN 5 MG TABLET PO (21:16)
[2024-12-19 05:07] LABS: Hematocrit 38.6 % (37.0-47.0); Hemoglobin 13.1 g/dL (12.0-15.0); Mean Corpuscular HGB Conc 33.9 g/dl (32-36); Mean Corpuscular Hemoglobin 30.4 pg (26-34); Mean Corpuscular Volume 89.6 fl (80-100); Platelet Count Result 430 k/mm3 (150-375); Red Blood Count 4.31 M/mm3 (4.2-5.4); White Blood Count 11.9 K/mm3 (4.5-10.0)
[2024-12-19 05:30] LABS: Alanine Aminotransferase 19 U/L (6-35); Albumin Level 3.4 g/dL (3.5-5.1); Alkaline Phosphatase 122 U/L (38-126); Anion Gap 7 mmol/L (4-12); Aspartate Amino Transferase 32 U/L (14-36); Bilirubin,Total 0.5 mg/dL (0.2-1.3); Blood Urea Nitrogen 37 mg/dL (7-17); Calcium 8.4 mg/dL (8.4-10.2); Carbon Dioxide 30 mmol/L (22-30); Chloride 94 mmol/L (98-107); Estimated CRCL calculation 35 ml/min; Estimated Glomerular Filt Rate 45; Glucose 109 mg/dL (65-110); Potassium 3.4 mmol/L (3.4-5.0); Sodium 131 mmol/L (137-145); Total Protein 6.9 g/dL (6.3-8.2)
[2024-12-19 05:50] VITALS: BP 126/50; PULSE 72; RESP 20; TEMP 36.2; O2SAT 96
--- NOTE | 2024-12-19 08:57 | PM.IMPN ---
Progress Note: A&P Assessment and Plan (1) CHF (congestive heart failure): Code(s): I50.9 - Heart failure, unspecified Status: Acute Assessment and Plan: Symptoms: SOB and bilateral lower extremity edema Likely 2/2 CHF exacerbation 2/2 AFib with RVR Status post IV 40 mg x1 in the ED and IV Lasix 40 mg x 2 on admission Continue Farxiga, metoprolol and Eliquis - medications: lasix PO daily - BNP:2130 - Chest XR unremarkable - Echo: LVEF > 70% with severe mitral annular calcification and trace mitral regurgitation. Trace pericardial effusion. - Monitor vital signs, I&Os, BUN/creatinine, daily weights, neuro status and patient is a fall risk - Monitor serum electrolytes, Keep serum Potassium>4 and serum Magnesium>2 and CBC - Cardiology consulted stopped multaq continue chlorthalidone, Metoprolol and hydralazine. SOB and edema resolved. Remains on PO lasix. Acute exacerbation has resolved. I/O reviewed, no sob, no leg swelling-stable K 3.3 -continue with PO replacement (2) Atrial fibrillation with rapid ventricular response: Code(s): I48.91 - Unspecified atrial fibrillation Status: Acute Assessment and Plan: Chronic afib with history of PPM and cardioversion - Medications: Metoprolol 50 mg BID and Eliquis 5 mg BID - Echo LVEF > 70% with severe mitral annular calcification and trace mitral regurgitation. Trace pericardial effusion. - Cardiology consulted Stopped multaq as patient developed chf and multaq should not be given with clinical chf. Continue diltiazem 120 mg daily Continue metoprolol and elquis. Tele reviewed, patient has converted back to sinus and HR remains stable on current regimen. She was slightly tachycardic this morning which improved after receiving her morning medications ------ hr reviewed and stable (3) Metatarsal fracture: Code(s): S92.309A - Fracture of unspecified metatarsal bone(s), unspecified foot, initial encounter for closed fracture Status: Acute Assessment and Plan: XR showing a nondisplaced fracture suspected of the proximal fifth metatarsal Discussed patient with ortho alcira Almendarez to continue current weight bearing status but he plans to evaluate her tomorrow Ortho consulted Weight bearing as tolerated, follow up with my office 7-10 days after discharge. Pain is much improved. Continues to work with PT/OT. Awaiting placement. care coordination following for placement continue pt/ot (4) Elevated white blood cell count: Code(s): D72.829 - Elevated white blood cell count, unspecified Status: Acute Assessment and Plan: WBC elevated on admission, downtrending. Vitals remain stable, afebrile. Had recent urinary tract infection. On this admission, UA shows negative for leukocytes trace, nitrates and bacteria Pt received IV Rocephin in the ED, but did not fill Keflex prescription at discharge Repeat UA to reassess for bacteria regrowth though patient currently denies any UTI like symptoms CXR unremarkable Denies any nausea/vomiting and abdominal pain No skin changes Continue to monitor 12/18 trending down- 12 today monitor -stable-conitnue is, ambulation (5) Hypertension: Qualifiers: Hypertension type: primary hypertension Qualified Code(s): I10 - Essential (primary) hypertension Code(s): I10 - Essential (primary) hypertension Status: Acute Assessment and Plan: Chronic - hydralazine 50 mg q8H - lasix 40 mg PO - metoprolol 50 mg bid - diltiazem 120 mg daily - blood pressures reviewed and remain stable, continue to monitor (6) Sleep apnea: Code(s): G47.30 - Sleep apnea, unspecified Status: Acute Assessment and Plan: Had sleep study recently that shows mixed central and obstructive sleep apnea however patient is not using any device She is supposed to go back this coming for final recommendation Patient to reschedule appointment Time Spent With Patient Time with patient: 25 - 35 minutes Subjective Date/time seen: 12/19/24 08:57 Interval history: 84 year old female with pmhx of COPD, HTN, PAfib, IBS and Pacemaker who is here on 12/12/24 for shortness of breath. 12/19 Patient is seen and examined. she is pleasant, denies sob, chest pain. Pain is under control. she has been working with physical therapy. Care coordination continues to follow for placement- anticipate d/c today or tomorrow based on accepting facility availability. Review of Systems Review of Systems: All systems reviewed & are unremarkable except as noted in HPI and below Exam Narrative: General: female in no acute respiratory distress who is nontoxic appearing HEENT: Normocephalic. Atraumatic. Extraocular movement intact. Sclera clear and anicteric. No facial asymmetry. Chest: Lungs are clear to auscultation bilaterally. No wheezes or crackles. CV: Heart was regular rate and rhythm. Abd: Abdomen was soft. Nontender. Nondistended. Positive bowel sounds. Ext: No clubbing, cyanosis, or edema. DP pulses bilaterally. Neuro: Patient is alert. Speech is clear. Const: General: comfortable Objective Data Vital Signs Vital Signs: Vital Signs - 24 hr 12/18/24 10:33 12/18/24 10:33 12/18/24 14:15 Temperature 97.3 F L Pulse Rate 71 81 Respiratory Rate 18 Blood Pressure 142/57 H Pulse Oximetry 98 Oxygen Delivery Room Air 12/18/24 20:00 12/18/24 21:03 12/18/24 21:16 Temperature 97.9 F Pulse Rate 77 77 Respiratory Rate 20 Blood Pressure 149/64 H Pulse Oximetry 94 Oxygen Delivery Room Air 12/19/24 05:50 Temperature 97.2 F L Pulse Rate 72 Respiratory Rate 20 Blood Pressure 126/50 L Pulse Oximetry 96 Oxygen Delivery Intake/Output Intake/Output: Intake & Output 12/16/24 12/17/24 12/18/24 12/19/24 23:59 23:59 23:59 23:59 Intake Total 840 1540 1510 100 Output Total 751 1400 300 Balance 89 140 1210 100 Meds/Results Medications: Active Medications Generic Name Dose Route Start Last Admin Trade Name Freq PRN Reason Stop Dose Admin Acetaminophen 650 mg 12/14/24 12:31 12/16/24 21:49 Acetaminophen 325 Mg Tablet PO 650 mg Q6H PRN Administration Mild Pain (1-3) or Fever Apixaban 5 mg 12/12/24 12:30 12/18/24 21:16 Apixaban 5 Mg Tablet PO 5 mg Q12HR KILEY Administration Chlorthalidone 25 mg 12/12/24 09:00 12/18/24 10:33 Chlorthalidone 25 Mg Tablet PO 25 mg DAILY KILEY Administration Diltiazem HCl 120 mg 12/15/24 09:00 12/18/24 10:33 Diltiazem Hcl Cd 120 Mg Cap.24hr PO 120 mg QAM KILEY Administration Empagliflozin 10 mg 12/12/24 15:30 12/18/24 10:33 Empagliflozin 10 Mg Tablet BY MOUTH 10 mg DAILY KILEY Administration Furosemide 40 mg 12/16/24 09:00 12/18/24 10:34 Furosemide 40 Mg Tablet PO 40 mg DAILY KILEY Administration Hydralazine HCl 50 mg 12/12/24 14:00 12/19/24 06:05 Hydralazine Hcl 50 Mg Tablet PO 50 mg Q8HR KILEY Administration Lidocaine 1 patch 12/14/24 12:35 12/18/24 10:35 Lidocaine 5% Patch TRANSDERM Not Given DAILY KILEY Magnesium Oxide 200 mg 12/14/24 21:00 12/18/24 21:16 Magnesium Oxide 200 Mg Tablet PO 200 mg Q12HR KILEY Administration Melatonin 5 mg 12/13/24 21:00 12/18/24 21:16 Melatonin 5 Mg Tablet PO 5 mg HS KILEY Administration Metoprolol Tartrate 50 mg 12/12/24 12:30 12/18/24 21:16 Metoprolol Tartrate 50 Mg Tab PO 50 mg Q12HR KILEY Administration Ondansetron HCl 4 mg 12/12/24 10:38 12/14/24 08:37 Ondansetron Inj 4 Mg/2 Ml Vial IV PUSH 4 mg Q4H PRN Administration Nausea Potassium Chloride 40 meq 12/14/24 15:55 12/18/24 10:34 Potassium Chloride 20 Meq Er Tablet PO 40 meq DAILY KILEY Administration Psyllium Hydrophilic Mucilloid 1 packet 12/15/24 09:00 12/18/24 10:34 Psyllium Powder Packet PO 1 packet DAILY KILEY Administration Radiology Results: ITS Impressions Chest X-Ray 12/14/24 14:44 IMPRESSION: 1. No acute cardiopulmonary disease. Foot X-Ray 12/15/24 17:04 Impression: Please see above Labs Labs: Laboratory Results - last 24 hr 12/19/24 04:47 WBC 11.9 H RBC 4.31 Hgb 13.1 Hct 38.6 MCV 89.6 MCH 30.4 MCHC 33.9 RDW 12.7 Plt Count 430 H MPV 9.3 Sodium 131 L Potassium 3.4 Chloride 94 L Carbon Dioxide 30 Anion Gap 7 BUN 37 H Creatinine 1.15 H Estim Creat Clear Calc 35 Estimated GFR 45 L Glucose 109 Calcium 8.4 Total Bilirubin 0.5 AST 32 ALT 19 Alkaline Phosphatase 122 Total Protein 6.9 Albumin 3.4 L Quality VTE Prophylaxis VTE prophylaxis: pharmacologic ordered (Eliquis)
[2024-12-19 10:00] VITALS: BP 134/70; PULSE 88; RESP 18; TEMP 36.9; O2SAT 99
[2024-12-19 10:02] VITALS: PULSE 88; RESP 18; O2SAT 99
[2024-12-19] MEDS: MAGNESIUM OXIDE 200 MG TABLET PO ×2 (10:02→21:25)
[2024-12-19] MEDS: CHLORTHALIDONE 25 MG TABLET PO (10:02)
[2024-12-19] MEDS: METOPROLOL TARTRATE 50 MG TAB PO ×2 (10:02→21:25)
[2024-12-19] MEDS: EMPAGLIFLOZIN 10 MG TABLET BY MOUTH (10:02)
[2024-12-19] MEDS: FUROSEMIDE 40 MG TABLET PO (10:02)
[2024-12-19] MEDS: dilTIAZem HCL CD 120 MG CAP.24HR PO (10:02)
[2024-12-19] MEDS: APIXABAN 5 MG TABLET PO ×2 (10:03→21:25)
[2024-12-19] MEDS: POTASSIUM CHLORIDE 20 MEQ ER TABLET 40 MEQ PO (10:03)
[2024-12-19] MEDS: PSYLLIUM POWDER PACKET 1 PACKET PO (10:03)
[2024-12-19 14:00] VITALS: BP 135/55; PULSE 71; RESP 16; TEMP 36.4; O2SAT 98
[2024-12-19 21:22] VITALS: BP 133/57; PULSE 72; RESP 16; TEMP 36.6; O2SAT 97
[2024-12-19 21:25] VITALS: PULSE 72
[2024-12-19] MEDS: MELATONIN 5 MG TABLET PO (21:25)
[2024-12-20 04:58] LABS: Hematocrit 38.7 % (37.0-47.0); Hemoglobin 13.1 g/dL (12.0-15.0); Mean Corpuscular HGB Conc 33.9 g/dl (32-36); Mean Corpuscular Hemoglobin 30.4 pg (26-34); Mean Corpuscular Volume 89.8 fl (80-100); Platelet Count Result 420 k/mm3 (150-375); Red Blood Count 4.31 M/mm3 (4.2-5.4); White Blood Count 12.4 K/mm3 (4.5-10.0)
[2024-12-20 05:34] LABS: Alanine Aminotransferase 19 U/L (6-35); Albumin Level 3.4 g/dL (3.5-5.1); Alkaline Phosphatase 127 U/L (38-126); Anion Gap 9 mmol/L (4-12); Aspartate Amino Transferase 31 U/L (14-36); Bilirubin,Total 0.4 mg/dL (0.2-1.3); Blood Urea Nitrogen 32 mg/dL (7-17); Calcium 8.2 mg/dL (8.4-10.2); Carbon Dioxide 28 mmol/L (22-30); Chloride 95 mmol/L (98-107); Estimated CRCL calculation 36 ml/min; Estimated Glomerular Filt Rate 47; Glucose 106 mg/dL (65-110); Potassium 3.4 mmol/L (3.4-5.0); Sodium 132 mmol/L (137-145); Total Protein 6.9 g/dL (6.3-8.2)
[2024-12-20 06:00] VITALS: BP 130/50; PULSE 71; RESP 18; TEMP 36.6; O2SAT 97
[2024-12-20 08:41] VITALS: BP 122/90; PULSE 106; RESP 16; TEMP 36.2; O2SAT 97
[2024-12-20] MEDS: PSYLLIUM POWDER PACKET 1 PACKET PO (09:16)
[2024-12-20] MEDS: dilTIAZem HCL CD 120 MG CAP.24HR PO (09:16)
[2024-12-20] MEDS: FUROSEMIDE 40 MG TABLET PO (09:18)
[2024-12-20] MEDS: METOPROLOL TARTRATE 50 MG TAB PO (09:18)
[2024-12-20] MEDS: APIXABAN 5 MG TABLET PO (09:18)
[2024-12-20] MEDS: EMPAGLIFLOZIN 10 MG TABLET BY MOUTH (09:18)
[2024-12-20] MEDS: POTASSIUM CHLORIDE 20 MEQ ER TABLET 40 MEQ PO (09:19)
[2024-12-20] MEDS: CHLORTHALIDONE 25 MG TABLET PO (09:19)
[2024-12-20] MEDS: MAGNESIUM OXIDE 200 MG TABLET PO (09:43)
--- NOTE | 2024-12-20 09:49 | PCNWS ---
Weekly nutritional screen. Patient is tolerating current Heart healthy diet with adequate intake, 100% meals. No weight loss reported. No nutritional needs at this time.
--- NOTE | 2024-12-20 12:30 | PC.NURSE ---
On 12/20/24, the student, Trina Orozoc, provided care and completed [facility] documentation on this patient. I have reviewed the student's documentation and agree with the findings.
[2024-12-20 13:38] VITALS: BP 161/80; PULSE 93; TEMP 36.4; O2SAT 98
--- NOTE | 2024-12-20 13:38 | P.DS_ITS ---
DS: Admitting Diagnosis Discharge Date 12/20/2024 Admitting Diagnosis CHF Afib with RVR Metasarsal fracture elevated wbc htn sleep apnea DS: Discharge Diagnosis Discharge Diagnosis (1) CHF (congestive heart failure): Code(s): I50.9 - Heart failure, unspecified Status: Acute (2) Atrial fibrillation with rapid ventricular response: Code(s): I48.91 - Unspecified atrial fibrillation Status: Acute (3) Metatarsal fracture: Code(s): S92.309A - Fracture of unspecified metatarsal bone(s), unspecified foot, initial encounter for closed fracture Status: Acute (4) Elevated white blood cell count: Code(s): D72.829 - Elevated white blood cell count, unspecified Status: Acute (5) Hypertension: Qualifiers: Hypertension type: primary hypertension Qualified Code(s): I10 - Essen tial (primary) hypertension Code(s): I10 - Essential (primary) hypertension Status: Acute (6) Sleep apnea: Code(s): G47.30 - Sleep apnea, unspecified Status: Acute DS: Summary Hospital Course Reason for hospitalization: CHF Afib with RVR Metasarsal fracture elevated wbc htn sleep apnea Hospital Course: 84 year old female with pmhx of COPD, HTN, PAfib, IBS and Pacemaker who is here on 12/12/24 for shortness of breath and bilateral lower extremity edema. Symptoms likely related to a CHF exacerbation secondary to AFib RVR. Patient started on IV Lasix and Cardiology was consulted. Chest x-ray was obtained and unremarkable. An echo was obtained and showed an LVEF of greater than 70% with severe mitral annular calcification and trace mitral regurgitation. Trace pericardial effusion. Cardiology stopped patient's Multaq and amlodipine. She was to continue chlorthalidone, Metoprolol and hydralazine and her diltiazem dose was adjusted. During hospitalization patient's AFib RVR resolved and she converted back to a sinus rhythm with stable heart rate. Patient had no complaints at time of discharge of chest pain, shortness a breath, or palpitations. Patient follow-up with cardiology as previously scheduled. During admission patient developed worsening right foot pain. X-ray was obtained and showed a nondisplaced fracture suspected the proximal 5th metatarsal. Patient reports a fracture to this area a few years back. Ortho consulted and no acute intervention required. Per Ortho patient is to continue weight-bearing as tolerated and follow-up in the office within 7-10 days after discharge. At time of discharge patient states ambulation is much improved and pain was well controlled. She is continue working with therapy the SNF on discharge. Throughout admission patient had a slightly elevated white blood cell count back continued to down trend. There was no signs throughout admission for acute infection. Patient had a recent sleep study prior to admission which showed mixed central and obstructive sleep apnea however patient is not using any device currently as she is supposed to follow-up in the outpatient setting for final recommendation. Patient missed her scheduled appointment due to this hospitalization. Discussed with patient that her primary care provider is to reschedule this appointment and she states understanding. Patient had no complaints at time of discharge denying any chest pain, shortness a breath, palpitations, nausea/vomiting, abdominal pain, dizziness/lightheadedness, and pain to the lower extremities. Patient discharged to SNF in a stable condition. She is to follow up with her primary care provider in 1 week and the specialist as scheduled. Status at Discharge Functional status at discharge: uses cane/walker Time Spent with Patient Time attestation: Total time spent providing and/or coordinating discharge services: Time spent: Greater than 30 minutes Exam Narrative: HR 71 RR 18 SpO2 97 BP 130/50 General: female in no acute respiratory distress who is nontoxic appearing, sitting up in her chair HEENT: Normocephalic. Atraumatic. Extraocular movement intact. Sclera clear and anicteric. No facial asymmetry. Chest: Lungs are clear to auscultation bilaterally. No wheezes or crackles. CV: Heart was regular rate and rhythm. Abd: Abdomen was soft. Nontender. Nondistended. Positive bowel sounds. Ext: No clubbing, cyanosis, or edema. DP pulses bilaterally. Neuro: Patient is alert. Speech is clear. DS: Data Data Completed and Pending Completed studies during hospitalization: foot xr chest xr chest xr Labs on day of discharge: Labs from last 24 hours 12/20/24 04:43 WBC 12.4 H RBC 4.31 Hgb 13.1 Hct 38.7 MCV 89.8 MCH 30.4 MCHC 33.9 RDW 12.5 Plt Count 420 H MPV 9.1 Sodium 132 L Potassium 3.4 Chloride 95 L Carbon Dioxide 28 Anion Gap 9 BUN 32 H Creatinine 1.11 H Estim Creat Clear Calc 36 Estimated GFR 47 L Glucose 106 Calcium 8.2 L Total Bilirubin 0.4 AST 31 ALT 19 Alkaline Phosphatase 127 H Total Protein 6.9 Albumin 3.4 L Discharge Plan Discharge Attending physician on discharge: Robert Terry Consulting providers: Monik Scanlon; Gege Franklin; Cuba Norman; Britta Carranza Discharging Clinician: Gege Franklin Anticipated Discharge Date/Time: 12/20/24 13:21 Patient Disposition: SNF Activity: as tolerated Diet: as tolerated and heart healthy Discharge Instructions: Discharge disposition: During admission patient developed a CHF exacerbation and had elevated heart rates with afib Evaluated by cardiology Take medications as prescribed Stop multaq and amlodipine Continue eliquis 5 mg twice a day, chlorthalidone 25 mg daily, metoprolol 50 mg twice a day and lasix 40 mg daily Started on diltiazem 120 mg daily Maintain a cardiac diet, 2 g sodium, do not over hydrate Strict bleeding precautions since you are on eliquis including shaving with an electric razor, holding pressure for greater than 20 minutes for injury, protection of had with any falls, etc. Remain active Monitor urine output Daily weights, if you gain more than 3 lb within 1 day or 5 lb in 1 week notify your primary care provider Monitor blood pressures Take caution while standing, rising, or moving Change positions slowly taking a break between each position change If you standing feel dizzy sit back down and take a break Imaging showed a fifth metatarsal fracture Evaluated by ortho No acute intervention required Continue weight bearing as tolerated Follow up in the ortho office in 7-10 days following discharge, attached is office information. Encouraged to continue with yearly vaccinations Return to the emergency department if he developed sudden shortness of breath, chest pain, nausea, vomiting, upset stomach or intractable diarrhea Return to the emergency department if you develop fever greater than 100.5 Follow-up with the primary care physician within 1-2 weeks Thank you for [facility] for your healthcare needs Patient Instructions: Diltiazem (By mouth), Apixaban (By mouth), Heart Failure (DC), A-fib (Atrial Fibrillation) (DC), Heart Healthy Diet (DC), Foot Fracture in Adults (ED) Patient Language: Nigerian Stand Alone Forms: General Discharge Information Follow-up/Referrals: Monik Scanlon APN-C [Advanced Practice Nurse, Cardiology] - Call for Appointment Nathanael,Nicolas Romero MD [Primary Care Provider] - 1 Week Cuba Norman MD [Physician, Orthopedics] - 1 Week Discharge Medications: New furosemide 40 mg Tablet 40 mg PO DAILY Qty: 30 0RF diltiazem HCl 120 mg Capsule,Extended Release 24 Hr 120 mg PO QAM Qty: 30 0RF Continued hydralazine 50 mg tablet 50 mg PO TID metoprolol tartrate 100 mg tablet 50 mg PO Q12H chlorthalidone 25 mg tablet 25 mg PO DAILY Eliquis 5 mg tablet 5 mg PO Q12H dapagliflozin propanediol [Farxiga] 10 mg tablet 10 mg PO DAILY alprazolam 0.25 mg tablet 0.25 mg PO QID PRN (Reason: anxiety) Qty: 4 0RF Changed potassium chloride [Klor-Con 10] 10 mEq tablet extended release 40 meq PO DAILY PRN (Reason: Take only when you take furosemide ) Qty: 30 0RF Discontinued aspirin 325 mg tablet 325 mg PO DAILY furosemide 20 mg tablet 20 mg PO DAILY PRN (Reason: edema) Patient Comments: to take if gains more than 2 pounds in one day amlodipine 5 mg tablet 5 mg PO DAILY Multaq 400 mg tablet 400 mg PO BID diltiazem HCl [DILT-XR] 240 mg capsule,ext.rel 24h degradable 240 mg PO Q24H Date of admission: 12/13/24 16:32 Primary Care Provider: NathanaelNicolas Admitting Provider: Geoff Martinez Oca Attending physician on admission: Geoff Martinez Oca Condition: Stable Hospitalist MIPS Heart Failure (Exclusion) Patient has history of Heart Transplant or Left Ventricular Assistive Device?: No IF YES, STOP HERE Heart Failure (Qualifier) Patient has current or prior documentation of LVEF less than or equal to 40%, or mod/servere depressed LVSF?: No IF NO, STOP HERE
== END 2024-12-20 14:23 | DRG 291 ==
LOC: ANHED 10:40 → ANH2MED 12:10
PROVIDERS: Student in an Organized Health Care Education/Training Program; Admitting Provider Student in an Organized Health Care Education/Training Program; Emergency Provider Emergency Medicine; PCP Internal Medicine; Visit Provider Student in an Organized Health Care Education/Training Program
DX: I11.0 Hypertensive heart disease with heart failure (principal); I50.31 Acute diastolic (congestive) heart failure; I48.20 Chronic atrial fibrillation, unspecified; N39.0 Urinary tract infection, site not specified; R44.3 Hallucinations, unspecified; S92.354A Nondisplaced fracture of fifth metatarsal bone, right foot, initial encounter for closed fracture; E87.6 Hypokalemia; R01.1 Cardiac murmur, unspecified; F32.A Depression, unspecified; F41.9 Anxiety disorder, unspecified; M81.0 Age-related osteoporosis without current pathological fracture; K58.9 Irritable bowel syndrome, unspecified; J44.9 Chronic obstructive pulmonary disease, unspecified; E66.9 Obesity, unspecified; G47.30 Sleep apnea, unspecified; R60.0 Localized edema; X58.XXXA Exposure to other specified factors, initial encounter; Z96.612 Presence of left artificial shoulder joint; Z87.891 Personal history of nicotine dependence; Z68.32 Body mass index [BMI] 32.0-32.9, adult; Z79.82 Long term (current) use of aspirin; Z79.01 Long term (current) use of anticoagulants; Z95.0 Presence of cardiac pacemaker
CPT/HCPCS: 36415; 71045; 71046; 73620; 80048; 80053; 81001; 83605; 83735; 83880; 84484; 85025; 85027; 85610; 85730; 87077; 87086; 87186; 93005; 96365; 96375; 97116; 97162; 97165; 97530; 97535; 99284; 99285; A9270; C8929; G0378; J0696; J1938; J2405; J3475; Q9957